=== PATIENT | male | born 1965 | race Caucasian/White ===

== ENCOUNTER → 2017-11-11 07:42 | Outpatient (CLI) | payer MEDICARE, SELFPAY ==
[2017-11-11 10:10] LABS: Abs Immature Grans 0.04 k/cumm (0.0-0.09); Absolute Basophil Count 0.03 k/cumm (0.0-0.2); Absolute Eosinophil Count 0.23 k/cumm (0.0-0.7); Absolute Lymphocyte Count 1.53 k/cumm (1.2-3.4); Absolute Monocyte Count 0.51 k/cumm (0.11-0.7); Absolute Neutrophil Count 3.04 k/cumm (1.2-6.7); Basophils % 0.6; Eosinophils % 4.3; HCT 45.8 % (40.0-50.0); HGB 15.9 g/dL (13.5-17.5); Immature Grans % 0.7; Lymphocytes % 28.4; Mean Corp. HGB Concentration 34.7 g/dL (32.0-36.0); Mean Corpuscular Hemoglobin 30.6 pg (27.0-33.0); Mean Corpuscular Volume 88.2 fL (80-95); Mean Platelet Volume 11.1 fL (8.0-11.0); Monocytes % 9.5; Neutrophils % 56.5; RBC 5.19 m/cumm (4.50-6.00); RBC Distribution Width 13.3 % (11.8-14.1); White Blood Cell Count 5.38 k/cumm (4.4-10.8)
[2017-11-11 11:13] LABS: ALT 83 U/L (12-78); AST 64 U/L (15-37); Albumin 4.2 g/dL (3.4-5.0); Alkaline Phosphatase 132 U/L (46-116); Anion Gap 10.7 mmol/L (3-11); BUN 13 mg/dL (7-18); Bilirubin, Total 0.9 mg/dL (0.2-1.0); CO2 26.3 mmol/L (21.0-32.0); CREATININE 0.75 mg/dL (0.70-1.30); Calcium 8.7 mg/dL (8.5-10.1); Chloride 103 mmol/L (98-107); GGT 408 U/L (15-85); Glucose 106 mg/dL (70-100); Potassium 4.3 mmol/L (3.5-5.1); Sodium 140 mmol/L (136-145); Total Protein 7.9 g/dL (6.4-8.2)
[2017-11-11 11:51] LABS: Platelet Count 98 x1000/uL (130-400)
== END ==
PROVIDERS: PCP Family Medicine; Visit Provider Family Medicine
DX: K70.0 Alcoholic fatty liver (principal); R73.01 Impaired fasting glucose; Z85.79 Personal history of other malignant neoplasms of lymphoid, hematopoietic and related tissues; R73.9 Hyperglycemia, unspecified; Z41.9 Encounter for procedure for purposes other than remedying health state, unspecified
CPT/HCPCS: 36415; 80053; 86900; 86901; 82977; 83036; 85025

== ENCOUNTER 2018-05-03 09:59 | Emergency (ER) | payer MEDICARE, SELFPAY ==
[2018-05-03 10:04] VITALS: BP 160/99; PULSE 98; RESP 18; TEMP 36.6; O2SAT 96
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
[2018-05-03] MEDS: Amoxicillin 875/Clav. 125 TAB PO (11:21)
== END 2018-05-03 11:27 | disposition home or self-care (01) ==
PROVIDERS: Emergency Provider Student in an Organized Health Care Education/Training Program; PCP Family Medicine
DX: K08.419 Partial loss of teeth due to trauma, unspecified class (principal); S01.511A Laceration without foreign body of lip, initial encounter; Y04.0XXA Assault by unarmed brawl or fight, initial encounter; E11.9 Type 2 diabetes mellitus without complications
CPT/HCPCS: 12011; 99282

== ENCOUNTER 2018-05-26 09:49 | Outpatient (CLI) | payer MEDICARE, SELFPAY ==
[2018-05-26 13:06] LABS: HCT 45.5 % (40.0-50.0); HGB 15.9 g/dL (13.5-17.5); Mean Corp. HGB Concentration 34.9 g/dL (32.0-36.0); Mean Corpuscular Hemoglobin 30.4 pg (27.0-33.0); Mean Platelet Volume 11.7 fL (8.0-11.0); RBC 5.23 m/cumm (4.50-6.00); RBC Distribution Width 12.6 % (11.8-14.1); White Blood Cell Count 5.17 k/cumm (4.4-10.8)
[2018-05-26 13:57] LABS: Platelet Count 92 x1000/uL (130-400)
[2018-05-26 15:03] LABS: ALT 72 U/L (12-78); AST 59 U/L (15-37); Albumin 4.2 g/dL (3.4-5.0); Alkaline Phosphatase 146 U/L (46-116); Anion Gap 9.6 mmol/L (3-11); BUN 14 mg/dL (7-18); Bilirubin, Total 1.6 mg/dL (0.2-1.0); CO2 28.4 mmol/L (21.0-32.0); Calcium 9.2 mg/dL (8.5-10.1); Chloride 102 mmol/L (98-107); Cholesterol 222 mg/dL (50-200); GGT 413 U/L (15-85); Glucose 168 mg/dL (70-100); HDL Cholesterol 51 mg/dL (40-60); LDL CHOLESTEROL 153 mg/dL (<100); Potassium 4.2 mmol/L (3.5-5.1); Sodium 140 mmol/L (136-145); Total Protein 7.8 g/dL (6.4-8.2); Triglyceride 93 mg/dL (30-150); Vitamin B12 566 pg/mL (193-986)
[2018-05-26 15:05] LABS: Folate > 20.0 ng/mL (8.6-20.0)
== END 2018-05-26 10:09 ==
PROVIDERS: PCP Family Medicine; Visit Provider Family Medicine
DX: K70.10 Alcoholic hepatitis without ascites (principal); E78.5 Hyperlipidemia, unspecified
CPT/HCPCS: 36415; 80053; 80061; 83721; 85027; 82607; 82746; 82977

== ENCOUNTER 2018-06-13 08:45 | Emergency (ER) | payer MEDICARE, SELFPAY ==
[2018-06-13] VITALS (30 sets, daily range): BP systolic 160–193; BP diastolic 81–108; PULSE 81–101; RESP 14–26; TEMP 36.5; O2SAT 92–98
--- NOTE | 2018-06-13 09:00 | W.ED.GENAD ---
Discharge Plan Disposition Patient Disposition: HOME Condition: Stable Discharge Details Chief Complaint: Chest Pain Clinical Impression: Hypertension, Chest pain Primary Care Provider: Valerie Cohen ED Provider: Michael Blanco Home Meds and New Rx's Prescriptions: New lisinopril 10 mg tablet 10 mg PO DAILY Qty: 14 RF: 0 Continued multivitamin tablet 1 tab PO DAILY RF: 0 cholecalciferol (vitamin D3) 400 unit capsule 400 unit PO DAILY RF: 0 fluoxetine [Prozac] 20 mg capsule 60 mg PO DAILY Qty: 90 RF: 6 sildenafil [Viagra] 100 MG tablet 100 mg PO DAILY Qty: 10 RF: 2 clonazepam 1 mg tablet 1 mg PO BID PRN Qty: 35 RF: 0 Discharge Instructions Instructions: Hypertension (ED) Additional Instructions: Follow up with your primary care provider within a week, and discuss if you should continue the lisinopril if you have worsening chest pain or difficulty breathing return to the emergency department Medical Decision Making 52 yo male comes in with high blood pressures for a week, had a systolic at home of 200 so called pcp who referred here. Denies any chest pain now, does feel anxious and has hx of this. He is hypertensive here, ekg unchanged, do not feel acute lowering of bp indicated. Given his chest pain, heart score of 3 based on age and risk factors, will send troponin. No tearing back pain to suggest dissection and normal vascular exam. He has no evidence of dvt and no hypoxia or significant tachycardia to suggest pe at this time. Normal lung sounds without pleuritic chest pain and no cough or fever so unlikely ptx and pna and do not feel xray indicated pt feels better after klonopin, bp improved with this as well, initial labs show no acute abnormalities. Will obtain delta troponin and ecg. The pt states he would feel much better being on an antihypertensive and requests I start him on one. Given his hx of DM will start him on lisinopril second ekg unchanged as is troponin. Remains stable. I am going to d/c him and advised f/u with pcp within a week, return precautions given Differential Diagnosis htn, anxiety, acs, pe, dissection Lab Data Lab results reviewed: Yes I reviewed the patient's lab results. ECG Data Attestation: I personally reviewed and interpreted this ECG (s) as follows: Prior ECG tracings: available for review Interpretation: sinus rhythm, rate of 92, pr 164, no acute ischemic st t wave changes 2nd ekg shows sinus rhythm, rate of 84, no acute st t wave ischemic changes HPI General Mode of arrival: ambulatory. Date/Time Provider Initiated Documentation: 06/13/18 08:45. Limitations to Documentation: no limitations. Information obtained by: patient. History of Present Illness 52 year old M presents to the emergency department with the chief complaint of high blood pressures, Patient started experiencing this week(s) (1) and it has been intermittent. No relieving factors improve symptom(s), No exacerbating factors reported . Patient notes chest pain. Patient did receive the following treatments prior to arrival, none Related Data Home Medications Medication Instructions Recorded Confirmed sildenafil [Viagra] 100 mg PO DAILY #10 tab-cap 05/06/17 06/12/18 clonazepam 1 mg tablet 1 mg PO BID PRN #35 tab 05/13/18 06/13/18 cholecalciferol (vitamin D3) 400 400 unit PO DAILY 05/26/18 06/13/18 unit capsule fluoxetine 20 mg capsule 60 mg PO DAILY #90 tab-cap 05/26/18 06/13/18 multivitamin tablet 1 tab PO DAILY 05/26/18 06/13/18 lisinopril 10 mg PO DAILY #14 tab 06/13/18 Previous Rx's Medication Instructions Recorded sildenafil [Viagra] 100 mg PO DAILY #10 tab-cap 05/06/17 clonazepam 1 mg tablet 1 mg PO BID PRN #35 tab 05/13/18 fluoxetine 20 mg capsule 60 mg PO DAILY #90 tab-cap 05/26/18 lisinopril 10 mg PO DAILY #14 tab 06/13/18 Allergies Allergy/AdvReac Type Severity Reaction Status Date / Time No Known Allergies Allergy Unverified 06/12/18 13:33 General Stated Complaint: Chest Pain ANNETTE: 2 Review of Systems Review of Systems All systems reviewed & are unremarkable except as noted in HPI and below Constitutional Denies chills and Denies fever(s) ENT Denies change in voice Cardiovascular Denies dyspnea Respiratory Denies cough and Denies dyspnea Gastrointestinal Denies abdominal pain, Denies nausea and Denies vomiting Integumentary/Breasts Denies rash Endocrine Denies heat intolerance [facility] Medical History Depression Hypertension Low back pain Surgical History Tooth extraction Family History Mother Diabetes Father No problems noted. Sister Depression Sister No problems noted. Social History Smoking/Tobacco Use Status: Former Tobacco Use Drug use: Rarely Substance use type: does not use Details: stopped drinking 11 days ago but had beer yesterday Do you feel safe at home: Yes Do you feel safe in your relationship?: Yes Exam Const General: anxious Orientation: alert HENMT Head: normal to inspection Ears: external ears normal General nose exam: external nose normal Mouth: moist mucous membranes Eyes General: appearance normal, both eyes and all related structures Neck Neck: normal visual inspection Resp Effort & Inspection: normal respiratory effort and able to speak in complete sentences Cardio Rate: regular rate Skin General skin exam: no rashes or lesions noted Neuro General: alert and oriented x3 Extrem General: normal to inspection Psych Mental Status: mental status grossly normal Course Vital Signs Temperature 36.5 C 06/13/18 08:52 Pulse 98 H 06/13/18 08:52 Respiratory Rate 16 06/13/18 08:52 Blood Pressure 193/106 H 06/13/18 08:52 Pulse Oximetry 96 06/13/18 08:52 Temperature 36.5 C 06/13/18 08:52 Temperature Source Temporal Artery Scan 06/13/18 08:52 Pulse 98 H 06/13/18 08:52 Respiratory Rate 16 06/13/18 08:52 Respiratory Effort Non-Labored 06/13/18 08:56 Blood Pressure 193/106 H 06/13/18 08:52 Pulse Oximetry 96 06/13/18 08:52 Oxygen Delivery Method Room Air 06/13/18 08:52 Oxygen Flow Rate 0 06/13/18 08:52 Pain Level 5 06/13/18 08:52
[2018-06-13 09:07] LABS: Abs Immature Grans 0.01 k/cumm (0.0-0.09); Absolute Basophil Count 0.02 k/cumm (0.0-0.2); Absolute Eosinophil Count 0.15 k/cumm (0.0-0.7); Absolute Lymphocyte Count 1.02 k/cumm (1.2-3.4); Absolute Monocyte Count 0.48 k/cumm (0.11-0.7); Absolute Neutrophil Count 2.87 k/cumm (1.2-6.7); Basophils % 0.4; Eosinophils % 3.3; HGB 15.7 g/dL (13.5-17.5); Immature Grans % 0.2; Lymphocytes % 22.4; Mean Corp. HGB Concentration 35.7 g/dL (32.0-36.0); Mean Corpuscular Hemoglobin 30.4 pg (27.0-33.0); Mean Corpuscular Volume 85.3 fL (80-95); Mean Platelet Volume 10.3 fL (8.0-11.0); Monocytes % 10.5; Neutrophils % 63.2; RBC 5.16 m/cumm (4.50-6.00); RBC Distribution Width 12.3 % (11.8-14.1); White Blood Cell Count 4.55 k/cumm (4.4-10.8)
[2018-06-13] MEDS: clonazePAM 1 MG TAB PO (09:07)
[2018-06-13] MEDS: Normal Saline 1,000 ML 1000 ML IV (09:08)
[2018-06-13 09:21] LABS: ALT 64 U/L (12-78); AST 46 U/L (15-37); Alkaline Phosphatase 138 U/L (46-116); Anion Gap 9.1 mmol/L (3-11); BUN 12 mg/dL (7-18); Bilirubin, Total 1.6 mg/dL (0.2-1.0); CO2 25.9 mmol/L (21.0-32.0); CREATININE 0.88 mg/dL (0.70-1.30); Chloride 97 mmol/L (98-107); Glucose 236 mg/dL (70-100); Magnesium 1.8 mg/dL (1.8-2.4); Potassium 3.7 mmol/L (3.5-5.1); Sodium 132 mmol/L (136-145); Total Protein 7.9 g/dL (6.4-8.2)
[2018-06-13 09:22] LABS: Diff Comment Diff Reviewed; Platelet Count 74 x1000/uL (130-400); RBC Morphology Normal
--- NOTE | 2018-06-13 09:24 | NUR.NOTE ---
Nursing Note: Pt anxious. 1mg klonopin given as ordered. bp trending down. denies any sob. reports mild chest tightness, MD aware. at bedside, will continue to monitor.
[2018-06-13 09:27] LABS: Troponin I < 0.02 ng/mL (0.00-0.06)
[2018-06-13] MEDS: Lisinopril 10 MG TAB PO (10:19)
[2018-06-13 11:25] LABS: Troponin I < 0.02 ng/mL (0.00-0.06)
== END 2018-06-13 11:42 | disposition home or self-care (01) ==
PROVIDERS: Emergency Provider Emergency Medicine; PCP Family Medicine
DX: I10 Essential (primary) hypertension (principal); R07.9 Chest pain, unspecified; E11.9 Type 2 diabetes mellitus without complications
CPT/HCPCS: 36415; 80053; 93005; 96360; 96361; 99284; 83735; 84484; 85025; 93010; J3490

== ENCOUNTER 2018-06-19 20:15 | Emergency (ER) | payer MEDICARE, SELFPAY ==
[2018-06-19] VITALS (23 sets, daily range): BP systolic 117–121; BP diastolic 66–74; PULSE 87–108; RESP 12–22; TEMP 37.3; O2SAT 93–96
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
[2018-06-19] MEDS: Normal Saline 1,000 ML 1000 ML IV ×2 (20:30→22:50)
[2018-06-19] MEDS: Omnipaque 350 MG/ML 100 ML BTL IJ (21:19)
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
[2018-06-19 21:43] LABS: Abs Immature Grans 0.05 k/cumm (0.0-0.09); Absolute Basophil Count 0.03 k/cumm (0.0-0.2); Absolute Eosinophil Count 0.14 k/cumm (0.0-0.7); Absolute Lymphocyte Count 2.34 k/cumm (1.2-3.4); Absolute Monocyte Count 0.78 k/cumm (0.11-0.7); Basophils % 0.4; Eosinophils % 1.8; HCT 42.9 % (40.0-50.0); HGB 15.2 g/dL (13.5-17.5); Immature Grans % 0.6; Lymphocytes % 29.8; Mean Corp. HGB Concentration 35.4 g/dL (32.0-36.0); Mean Corpuscular Hemoglobin 30.2 pg (27.0-33.0); Mean Corpuscular Volume 85.3 fL (80-95); Mean Platelet Volume 10.5 fL (8.0-11.0); Monocytes % 9.9; Neutrophils % 57.5; Platelet Count 110 x1000/uL (130-400); RBC 5.03 m/cumm (4.50-6.00); RBC Distribution Width 12.6 % (11.8-14.1); White Blood Cell Count 7.84 k/cumm (4.4-10.8)
[2018-06-19 21:58] LABS: ETHANOL BLOOD 116.5 mg/dL (<3)
[2018-06-19 22:01] LABS: INR 1.2 (0.9-1.1); PTT Activated 24.8 sec (21.0-31.4); Prothrombin Time 12.2 sec (9.3-11.0)
[2018-06-19 22:10] LABS: ALT 67 U/L (12-78); AST 66 U/L (15-37); Albumin 3.8 g/dL (3.4-5.0); Alkaline Phosphatase 126 U/L (46-116); Anion Gap 13.1 mmol/L (3-11); BUN 12 mg/dL (7-18); Bilirubin, Total 1.3 mg/dL (0.2-1.0); CO2 21.9 mmol/L (21.0-32.0); CREATININE 0.94 mg/dL (0.70-1.30); Calcium 8.7 mg/dL (8.5-10.1); Chloride 98 mmol/L (98-107); Glucose 123 mg/dL (70-100); Potassium 4.2 mmol/L (3.5-5.1); Sodium 133 mmol/L (136-145); Total Protein 7.4 g/dL (6.4-8.2)
[2018-06-19 22:13] LABS: Troponin I < 0.02 ng/mL (0.00-0.06)
[2018-06-19] MEDS: Ketorolac 15 MG/ML VIAL IVP (22:44)
[2018-06-20] VITALS (36 sets, daily range): BP systolic 113–125; BP diastolic 64–73; PULSE 85–96; RESP 12–26; O2SAT 92–96
[2018-06-20 00:17] LABS: Troponin I 0.02 ng/mL (0.00-0.06)
== END 2018-06-20 00:53 | disposition home or self-care (01) ==
PROVIDERS: Student in an Organized Health Care Education/Training Program; Emergency Provider Emergency Medicine; PCP Family Medicine
DX: R07.9 Chest pain, unspecified (principal); S00.83XA Contusion of other part of head, initial encounter; S00.01XA Abrasion of scalp, initial encounter; F10.120 Alcohol abuse with intoxication, uncomplicated; X58.XXXA Exposure to other specified factors, initial encounter; K70.0 Alcoholic fatty liver; I10 Essential (primary) hypertension
CPT/HCPCS: 36415; 80053; 93005; 96361; 96374; 99285; 70450; 70486; 71260; 72125; 80320; 84484; 85025; 85610; 85730; 93010; J1885; J3490

== ENCOUNTER → 2018-07-02 10:16 | Outpatient (BNVA) | payer MEDICARE, SELFPAY | PROVIDERS: PCP Family Medicine; Referring Provider Family Medicine; Visit Provider Psychiatry & Neurology Neurology | DX: R68.89 Other general symptoms and signs (principal); G51.31 Clonic hemifacial spasm, right; E11.9 Type 2 diabetes mellitus without complications | CPT/HCPCS: 99214 ==

== ENCOUNTER 2018-07-15 00:28 | Outpatient (CLI) | payer MEDICARE, SELFPAY ==
--- NOTE | 2018-07-15 06:44 | DI.US_ITS ---
SYMPTOM/DIAGNOSIS: HEPATITIS, ALCOHOLIC, K70.10 ABDOMEN ULTRASOUND: Comparison is made with 08/05/14. The liver is enlarged and shows extremely increased echogenicity and decrease through transmission. No focal liver lesions or biliary dilatation is seen. The gallbladder is contracted. The spleen is enlarged at 17 cm. No ascites is identified. The kidneys and aorta are unremarkable. The pancreas was not well visualized. IMPRESSION: Hepatosplenomegaly. No evidence of focal liver lesion.
== END 2018-07-15 00:48 ==
PROVIDERS: Visit Provider Family Medicine
DX: K70.10 Alcoholic hepatitis without ascites (principal); R16.2 Hepatomegaly with splenomegaly, not elsewhere classified
CPT/HCPCS: 76700

== ENCOUNTER → 2018-08-11 11:07 | Outpatient (BNVA) | payer MEDICARE, SELFPAY | PROVIDERS: PCP Family Medicine; Visit Provider Psychiatry & Neurology Neurology | DX: I10 Essential (primary) hypertension (principal); Z53.21 Procedure and treatment not carried out due to patient leaving prior to being seen by health care provider; F10.99 Alcohol use, unspecified with unspecified alcohol-induced disorder; E11.8 Type 2 diabetes mellitus with unspecified complications | CPT/HCPCS: 99211; 99212 ==

== ENCOUNTER 2018-10-22 01:58 | Outpatient (CLI) | payer MEDICARE, SELFPAY ==
[2018-10-22 09:49] LABS: Anion Gap 13.5 mmol/L (3-11); BUN 10 mg/dL (7-18); CO2 24.5 mmol/L (21.0-32.0); CREATININE 0.86 mg/dL (0.70-1.30); Chloride 98 mmol/L (98-107); Glucose 203 mg/dL (70-100); Potassium 4.1 mmol/L (3.5-5.1); Sodium 136 mmol/L (136-145)
== END 2018-10-22 02:18 ==
PROVIDERS: PCP Family Medicine; Visit Provider Family Medicine
DX: R73.9 Hyperglycemia, unspecified (principal)
CPT/HCPCS: 36415; 80048

== ENCOUNTER 2018-12-17 02:05 | Outpatient (CLI) | payer MEDICARE, SELFPAY ==
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
== END 2018-12-17 02:25 ==
PROVIDERS: PCP Family Medicine; Visit Provider Dietitian, Registered
DX: E11.9 Type 2 diabetes mellitus without complications (principal); Z79.84 Long term (current) use of oral hypoglycemic drugs; Z71.3 Dietary counseling and surveillance
CPT/HCPCS: 97802

== ENCOUNTER 2020-01-22 08:48 | Outpatient (CLI) | payer MEDICARE, SELFPAY ==
[2020-01-26 19:42] LABS: Patient Race White; SARS-CoV-2 RNA Undetected (Undetected); SARS-CoV-2 Specimen Source Nasal
== END 2020-01-22 09:08 ==
PROVIDERS: PCP Family Medicine; Visit Provider Nurse Practitioner Adult Health
DX: R50.9 Fever, unspecified (principal); J02.9 Acute pharyngitis, unspecified
CPT/HCPCS: U0003

== ENCOUNTER 2020-05-16 02:47 | Outpatient (CLI) | payer MEDICARE, SELFPAY ==
[2020-05-17 13:13] LABS: COVID-19 RT-PCR UVMMC Result Negative (Negative)
== END 2020-05-16 02:48 | disposition home or self-care (01) ==
LOC: LBO 02:47
PROVIDERS: PCP Family Medicine; Visit Provider Family Medicine
DX: Z20.822 Contact with and (suspected) exposure to COVID-19 (principal)
CPT/HCPCS: U0003; U0005

== ENCOUNTER 2020-07-13 02:02 | Outpatient (CLI) | payer MEDICARE, SELFPAY ==
--- NOTE | 2020-07-13 11:30 | DI.US_ITS ---
EXAM: US AXILLA LT CLINICAL HISTORY: L sided lymphadenopathy,unspecified lump axillary tail,n63.32 TECHNIQUE: Ultrasound left axilla performed using standard protocol. COMPARISON: US US ABDOMEN from 07/15/2018 FINDINGS: Dedicated ultrasound examination of the area of concern in the left axillary region reveals a subcuta neous finding measuring 2.5 x 0.5 x 2.2 cm which is relatively isoechoic to fat and is avascular. Pr obable lipoma. There is no abnormal fluid collection. IMPRESSION: Probable lipoma with measurements as above. Recommend follow-up ultrasound in 6 months time to ensur e stability, earlier if clinically indicated.. DATA REPOSITORY:
[2020-07-13 14:56] LABS: Abs Immature Grans 0.03 10^3/uL (0.0-0.06); Absolute Basophil Count 0.07 10^3/uL (0.0-0.2); Absolute Eosinophil Count 0.24 10^3/uL (0.0-0.7); Absolute Lymphocyte Count 1.16 10^3/uL (1.2-3.4); Absolute Monocyte Count 0.91 10^3/uL (0.1-0.8); Absolute Neutrophil Count 3.34 10^3/uL (1.2-6.7); Basophils % 1.2; Eosinophils % 4.2; Immature Grans % 0.5; Lymphocytes % 20.2; MCH 30.4 pg (27.0-33.0); MCHC 34.1 % (32.0-36.0); MCV 89.1 fL (80-95); Monocytes % 15.8; Neutrophils % 58.1; Nucleated RBC 0 %; Platelet Count 97 10^3/uL (130-400); RDW 12.7 % (11.8-14.1); RDW-SD 41.7 fL; WBC 5.75 10^3/uL (4.4-10.8)
[2020-07-13 15:40] LABS: Diff Comment Agrees w/ Instrument; RBC Morphology Normal
== END 2020-07-13 02:03 | disposition home or self-care (01) ==
LOC: LBO 02:02
PROVIDERS: PCP Family Medicine; Visit Provider Family Medicine
DX: R59.1 Generalized enlarged lymph nodes (principal); N63.32 Unspecified lump in axillary tail of the left breast
CPT/HCPCS: 36415; 76642; 85025

== ENCOUNTER 2021-05-09 02:24 | Outpatient (CLI) | payer MEDICARE, SELFPAY ==
[2021-05-09 11:23] LABS: ALT 55 U/L (16-63); AST 113 U/L (15-37); Albumin 3.5 g/dL (3.4-5.0); Alkaline Phosphatase 184 U/L (46-116); Anion Gap 7.2 mmol/L (3-11); BUN 5 mg/dL (7-18); Bilirubin, Total 2.4 mg/dL (0.2-1.0); CO2 27.8 mmol/L (21.0-32.0); CREATININE 0.6 mg/dL (0.70-1.30); Calcium 8.4 mg/dL (8.5-10.1); Calculated LDL 113 mg/dL (<100); Chloride 97 mmol/L (98-107); Cholesterol 222 mg/dL (<200); Glucose 138 mg/dL (74-106); HDL Cholesterol 94 mg/dL (40-60); Sodium 132 mmol/L (136-145); Triglyceride 79 mg/dL (<150)
== END 2021-05-09 02:25 | disposition home or self-care (01) ==
LOC: LBO 02:24
PROVIDERS: PCP Family Medicine; Visit Provider Family Medicine
DX: E11.9 Type 2 diabetes mellitus without complications (principal); I10 Essential (primary) hypertension
CPT/HCPCS: 36415; 80053; 80061

== ENCOUNTER 2021-05-20 22:12 | Emergency (ER) | payer MEDICARE, SELFPAY ==
[2021-05-20] VITALS (22 sets, daily range): BP systolic 128–141; BP diastolic 67–76; PULSE 88–92; RESP 16; TEMP 36.7; O2SAT 96–98
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
--- NOTE | 2021-05-20 22:30 | ED.GENADUL_ITS ---
Discharge Plan Disposition Patient Disposition: HOME Condition: Stable Discharge Details Clinical Impression: Hepatitis, alcoholic, ETOH abuse, Dehydration Primary Care Provider: David Landaverde ED Provider: Michael Blanco Home Meds and New Rx's Prescriptions: New ondansetron 4 mg tablet,disintegrating 4 mg PO Q8H PRN (Reason: nausea and vomiting) Qty: 30 0RF Continued (DME) blood sugar diagnostic Strip See Rx Instructions .ROUTE .MEDSUPPLY Qty: 100 3RF Rx Instructions: As directed; Test daily, to keep HbA1c less than 6.5%; Dx: E11.9 (DME) blood-glucose meter Misc See Rx Instructions .ROUTE .MEDSUPPLY Qty: 1 0RF Rx Instructions: As directed, test daily to keep HbA1c less than 6.5%, Dx: E11.9 metformin 500 mg tablet extended release 24hr 500 mg PO DAILY Qty: 90 3RF cholecalciferol (vitamin D3) 400 unit capsule 400 unit PO DAILY 0RF (DME) lancets Misc See Rx Instructions .ROUTE .MEDSUPPLY Qty: 100 12RF Rx Instructions: As directed daily, to keep HbA1c below 6.5%, Dx: E11.8 fluoxetine 20 mg capsule 40 mg PO DAILY Qty: 90 3RF omeprazole 20 mg capsule,delayed release(DR/EC) 20 mg PO DAILY Qty: 90 3RF sildenafil [Viagra] 100 mg tablet 100 mg PO DAILY Qty: 10 2RF Rx Instructions: 1/2 TO 1 TAB 45 to 60 MINUTES PRIOR to intercourse/ MAXIMUM DAILY DOSE IS 100MG irbesartan 75 mg tablet 75 mg PO DAILY Qty: 180 3RF celecoxib 200 mg Capsule 200 mg PO DAILY 0RF Discharge Instructions Instructions: Abuse of Alcohol (ED) Additional Instructions: your labs show evidence of liver injury from the excessive alcohol use follow up with the coach cleaner and also your primary care provider within a week if you feel more ill, have severe abdominal pain or persistent vomit return to the emergency department Medical Decision Making 55 yo male with hx of htn, t2dm, psychogenic nonepileptic seizures, alcohol abuse, who was brought in by his with complaints of feeling lightheaded and dehydrated. He states he normally will drink about 12 beers a day and has had at least this today. The last few days he has not been able to keep water down and has had several episodes of vomit. He denies any abdominal pain, chest pain, fevers, chills. He has had several falls due to being intoxicated denies falls today and has no signs of trauma to the head. He arrives caox4 with clear speech. He has no focal or motor sensation deficits. He does state he feels like he is going to from his alcohol abuse but denies any thoughts of self harm or thoughts of wanting to harm others. He has no abdominal tenderness on exam. I suspect his symptoms are from his excessive alcohol use disorder, given lack of abdominal tenderness doubt surgical pathology such as sbo or cholecystitis and do not feel ct abd/pelvis indicated. no chest pain or dyspnea to suggest acs, pe or dissection and is sinus on the monitor so doubt arrhythmia, suspect the lightheaded sensation is due to mild dehydration and the alcohol abuse. Given his falls will image his head to evaluate for sdh and evaluate for electrolyte abnormalities and reassess after zofran and fluids. pt's labs consistent with chronic excessive alcohol use and evidence of liver dysfunction, elevated bilirubin to 2.4 and is conjugated consistent with alcoholic hepatitis, sodium of 127 from the alcohol use. Etoh level over 200 and remarkably is clinically sober. Discussed these findings with the patient and discussed if he continues to drink he will likely from liver dysfunction/failure. Still has no abdominal pain and has no tenderness on exam. He is not ill enough to require hospitalization at this time. HE is being given information on contacting the coach cleaner and also will f/u with his pcp as he should have an outpatient u/s of his liver. He understands risks of continued drinking, still has no si/hi. Return precautions given Differential Diagnosis Differential Diagnosis: alcohol abuse, electrolyte abnormality, alcoholic hepatitis Medical Records Medical records reviewed: Yes I reviewed the patient's medical records. Imaging Data Radiologic Study: Attestation: I personally reviewed and interpreted this imaging study as follows: Imaging: CT Scan Radiologist's impression: no acute findings Lab Data Lab results reviewed: Yes I reviewed the patient's lab results. HPI General Date/Time Provider Initiated Documentation: 05/20/21 22:13 . Limitations to Documentation: no limitations . Information obtained by: patient . History of Present Illness 55 year old M presents to the emergency department with the chief complaint of feel dehydrated, described as moderate, Patient started experiencing this day(s) (3) and it has been constant. improves with No relieving factors improve symptom(s), No exacerbating factors reported . Patient notes denies chest pain and shortness of breath. Patient did receive the following treatments prior to arrival, none Related Data Home Medications Medication Instructions Recorded Confirmed cholecalciferol (vitamin D3) 10 400 unit PO DAILY 05/26/18 11/07/20 mcg (400 unit) capsule blood sugar diagnostic #100 each 12/11/18 11/07/20 blood-glucose meter #1 each 12/11/18 11/07/20 lancets #100 each 03/31/19 11/07/20 metformin 500 mg tablet,extended 500 mg PO DAILY #90 tab 11/07/20 05/20/21 release 24hr fluoxetine 20 mg capsule 40 mg PO DAILY #90 cap 05/12/21 05/20/21 irbesartan 75 mg tablet 75 mg PO DAILY #180 tab 05/12/21 05/20/21 omeprazole 20 mg capsule,delayed 20 mg PO DAILY #90 cap 05/12/21 05/20/21 release sildenafil 100 mg tablet (Viagra) 100 mg PO DAILY #10 tab-cap 05/12/21 05/20/21 celecoxib 200 mg capsule 200 mg PO DAILY 05/20/21 05/20/21 ondansetron 4 mg disintegrating 4 mg PO Q8H PRN #30 tab 05/20/21 tablet Previous Rx's Medication Instructions Recorded blood sugar diagnostic #100 each 12/11/18 blood-glucose meter #1 each 12/11/18 lancets #100 each 03/31/19 metformin 500 mg tablet,extended 500 mg PO DAILY #90 tab 11/07/20 release 24hr fluoxetine 20 mg capsule 40 mg PO DAILY #90 cap 05/12/21 irbesartan 75 mg tablet 75 mg PO DAILY #180 tab 05/12/21 omeprazole 20 mg capsule,delayed 20 mg PO DAILY #90 cap 05/12/21 release sildenafil 100 mg tablet (Viagra) 100 mg PO DAILY #10 tab-cap 05/12/21 ondansetron 4 mg disintegrating 4 mg PO Q8H PRN #30 tab 05/20/21 tablet Allergies Allergy/AdvReac Type Severity Reaction Status Date / Time No Known Allergies Allergy Verified 05/12/21 11:28 General Stated Complaint: ETOHWithdr ANNETTE: 3 Review of Systems All systems reviewed & are unremarkable except as noted in HPI and below Constitutional Constitutional: Denies chills, Denies fever(s) and Denies weakness Eyes Eyes: Denies loss of vision Cardiovascular Cardiovascular: Denies chest pain and Denies dyspnea Respiratory Respiratory: Denies cough and Denies dyspnea Gastrointestinal Gastrointestinal: Denies abdominal pain Integumentary/Breasts Skin/Breast: Denies rash Neurologic Neurologic: Denies loss of vision and Denies weakness Psychiatric Psychiatric: Denies depression PFSH All Active Problems (Updated 05/20/21 @ 23:26 by Michael Blanco MD) Dehydration (Acute) Hypertension (Chronic) Unspecified lump in axillary tail of the left breast (Chronic) Lipoma by US 07/13; recommended repeat in 6 months Migraine (Chronic) Tinnitus (Acute) Diabetes mellitus type 2 in nonobese (Acute) Psychogenic nonepileptic seizure (Chronic) Benign hypertension (Acute 04/21/12) Fatigue (Acute 02/26/12) History of alcoholism (Acute) Type 2 diabetes mellitus with complication, without long-term current use of insulin (Acute 05/30/16) Personality disorder in adult (Acute) PTSD (post-traumatic stress disorder) (Acute) with paranoia 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 (Acute) ETOH abuse (Chronic) Spells of decreased attentiveness (Acute) Hyperlipidemia (Acute 07/03/12) Hepatitis, alcoholic (Acute 12/07/13) Fatty liver, alcoholic (Acute 05/30/16) Depressive disorder (Chronic 11/03/12) Chronic hip pain (Acute 11/24/14) -2014: / PT and Nsaids/osteoarthritis Anxiety (Chronic) Medical History (Updated 05/20/21 @ 23:26 by Michael Blanco MD) Depression Hypertension Lipoma of axilla Prediabetes Surgical History Tooth extraction ROOT CANAL Family History Mother Diabetes Sister Depression Other Alcohol abuse Bipolar 1 disorder Dementia Heart disease Schizophrenia Social History (Updated 11/07/20 @ 10:05 by Zuleyka Inman LPN) Smoking/Tobacco Use Status: Former Tobacco Use Smoking risk assessment performed?: Yes Alcohol Intake: current Alcohol Intake frequency: 3 or more drinks per day Alcohol type: beer Drug use: Never Substance use type: does not use Adopted: No Household members: spouse Housing: house Number of Children: 0 Communication Needs: None current occupation: Disabled Do you think of yourself as: straight/heterosexual Current gender identity: male What is your relationship status?: How often do you talk on the phone with friends or family?: three or more times per week How often do you get together with friends or relatives?: twice per week Do you belong to any clubs or organized social groups?: yes Panel score (0-1 are the most socially isolated patients): 3 What type of physical activity do you participate in: walking and weight lifting Frequency: 3-4 times per week Donita/Yarsani: Buddhist Seatbelt use: always Drive intox or ride w/intox 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 Past GF in 2017 from ovarian cancer. in 2018 to current partner. Exam Const General: no acute distress Orientation: alert HENMT Head: normal to inspection Ears: external ears normal General nose exam: external nose normal Mouth: moist mucous membranes Eyes General: appearance normal, both eyes and all related structures Neck Neck: normal visual inspection Resp Effort & Inspection: normal respiratory effort and able to speak in complete sentences Cardio Rate: regular rate GI Palpation: soft and nontender Skin General skin exam: no rashes or lesions noted Neuro General: patient alert and patient oriented x3 Extrem General: normal to inspection Psych Mental Status: mental status grossly normal Course Vital Signs Vital signs: Vital Signs Temperature 36.7 C 05/20/21 22:15 Pulse 92 H 05/20/21 22:15 Respiratory Rate 16 05/20/21 22:15 Blood Pressure 133/76 05/20/21 22:15 Pulse Oximetry 97 05/20/21 22:15 Temperature 36.7 C 05/20/21 22:15 Temperature Source Skin 05/20/21 22:15 Pulse 92 H 05/20/21 22:15 Respiratory Rate 16 05/20/21 22:15 Blood Pressure 133/76 05/20/21 22:15 Pulse Oximetry 97 05/20/21 22:15 Pain Level 0 05/20/21 22:15
[2021-05-20 22:31] LABS: BE (Venous) 2 mmol/L (-2-3); HCO3 (Venous) 27 mmol/L (23-28); O2 Sat (Venous) 63 %; TCO2 (Venous) 24 mmol/L (24-29); pCO2 (Venous) 47 mmHg (41-51); pH (Venous) 7.37 (7.31-7.41); pO2 (Venous) 38 mmHg
[2021-05-20 22:34] LABS: Abs Immature Grans 0.03 10^3/uL (0.0-0.06); Absolute Basophil Count 0.08 10^3/uL (0.0-0.2); Absolute Lymphocyte Count 1.51 10^3/uL (1.2-3.4); Absolute Monocyte Count 0.92 10^3/uL (0.1-0.8); Absolute Neutrophil Count 3.23 10^3/uL (1.2-6.7); Basophils % 1.3; Eosinophils % 4.9; HCT 39.1 % (40.0-50.0); HGB 13.4 g/dL (13.5-17.5); Immature Grans % 0.5; Lymphocytes % 24.9; MCH 30.3 pg (27.0-33.0); MCHC 34.3 % (32.0-36.0); MCV 88.5 fL (80-95); MPV 10.3 fL (8.0-11.0); Monocytes % 15.2; Neutrophils % 53.2; Nucleated RBC 0 %; RBC 4.42 10^6/uL (4.36-5.78); RDW-SD 45.4 fL; WBC 6.07 10^3/uL (4.4-10.8)
[2021-05-20 22:36] LABS: Platelet Count 96 10^3/uL (130-400)
[2021-05-20] MEDS: Normal Saline 1,000 ML 1000 ML IV (22:36)
[2021-05-20] MEDS: Ondansetron 4 MG/2 ML VIAL IVP (22:38)
[2021-05-20 22:52] LABS: INR 1.4 (0.9-1.1); Prothrombin Time 13.8 sec (9.3-11.0)
[2021-05-20 22:53] LABS: Salicylate < 2.8 mg/dL (<2.8)
--- NOTE | 2021-05-20 23:03 | DI.VRAD_ITS ---
PROCEDURE INFORMATION: Exam: CT Head Without Contrast Exam date and time: 05/20/2021 10:30 PM Age: 55 years old Clinical indication: Other: Fall head injury TECHNIQUE: Imaging protocol: Computed tomography of the head without contrast. COMPARISON: CT HEAD CERVICAL SPINE WO 06/19/2018 8:50 PM FINDINGS: Brain: The brain parenchyma is normal appearance. No intracranial hemorrhage. No loss of barajas-white differentiation to suggest an acute cortical infarct. Cerebral ventricles: No hydrocephalus. Paranasal sinuses: Mild mucosal thickening is seen throughout the frontal, ethmoid, maxillary and sphenoid sinuses. No fluid levels. Mastoid air cells: The mastoid air cells are well aerated. Bones/joints: The skull and skull base are normal appearance. The skull and skull base are normal appearance. Soft tissues: Unremarkable. IMPRESSION: No acute intracranial abnormality. Dictated and Authenticated by: Katty Madrigal MD. Ordering:YULIYA Rodriguez MD
[2021-05-20 23:07] LABS: ALT 44 U/L (16-63); AST 99 U/L (15-37); Acetaminophen < 2 ug/mL (10-30); Albumin 3.3 g/dL (3.4-5.0); Alkaline Phosphatase 160 U/L (46-116); Anion Gap 6.2 mmol/L (3-11); BUN 8 mg/dL (7-18); Bilirubin, Total 2.5 mg/dL (0.2-1.0); CO2 27.8 mmol/L (21.0-32.0); CREATININE 1.2 mg/dL (0.70-1.30); Calcium 8.5 mg/dL (8.5-10.1); Chloride 93 mmol/L (98-107); ETHANOL BLOOD 216.7 mg/dL (<10); Glucose 135 mg/dL (74-106); Magnesium 1.8 mg/dL (1.8-2.4); Potassium 3.5 mmol/L (3.5-5.1); Sodium 127 mmol/L (136-145); TSH (W/Ref FT4) 2.05 uIU/mL (0.36-3.74); Total Protein 7.8 g/dL (6.4-8.2)
[2021-05-20] MEDS: THIAMINE 100 MG in Normal Saline 100 ML 200 MG IVPB (23:14)
[2021-05-20] MEDS: Folic Acid 1 MG TAB PO (23:14)
[2021-05-20] MEDS: Multivitamin TAB 1 TAB PO (23:14)
[2021-05-20 23:16] LABS: Bilirubin, Direct 1.4 mg/dL (0.0-0.2)
[2021-05-20 23:20] LABS: Bilirubin Negative (Negative); Blood Trace-intact (Negative); Clarity Clear (Clear); Glucose Negative (Negative); Ketones Negative (Negative); Leukocyte Esterase Negative (Negative); Nitrite Negative (Negative); Specific Gravity 1.015 (1.005-1.025)
[2021-05-20 23:28] LABS: Bacteria Negative HPF (Negative); C & S Indicated? No; Crystals Negative HPF (Negative); Epithelial Cells Negative HPF (Negative); Mucus Negative (Negative); RBC 0-2 HPF (0-2); WBC Negative HPF (0-5)
[2021-05-20 23:33] LABS: *AMPHETAMINES SCREEN URINE Negative (Negative); *BARBITURATES SCREEN URINE Negative (Negative); *BENZODIAZEPINES SCREEN URINE Negative (Negative); Cannabinoids THC Negative (Negative); Cocaine Screen,Urine Negative (Negative); METHADONE URINE SCREEN Negative (Negative); OPIATES URINE SCREEN Negative (Negative); Tricyclic Antidepressants Negative (Negative)
[2021-05-21] MEDS: Ondansetron O.D.T. 4 MG TABEF, 3 TABS/BTL PO (00:10)
[2021-05-21 00:12] VITALS: BP 135/54; PULSE 84; RESP 18; O2SAT 98
== END 2021-05-21 00:18 | disposition home or self-care (01) ==
PROVIDERS: Emergency Provider Emergency Medicine; PCP Family Medicine
DX: K70.10 Alcoholic hepatitis without ascites (principal); F10.20 Alcohol dependence, uncomplicated; E86.0 Dehydration; S09.8XXA Other specified injuries of head, initial encounter; W18.39XA Other fall on same level, initial encounter; I10 Essential (primary) hypertension
CPT/HCPCS: 80053; 80307; 82805; 96361; 96365; 96375; 99284; 70450; 80320; 80329; 81003; 81015; 82248; 83735; 84443; 85025; 85610; 85730; J2405

== ENCOUNTER → 2022-01-17 12:37 | Outpatient (CLI) | payer MEDICARE, SELFPAY ==
--- NOTE | 2022-01-17 11:30 | DI.RAD_ITS ---
Exam(s) XR WRIST LT COMPLETE EXAM: XR WRIST LT COMPLETE CLINICAL HISTORY: PAIN IN LT WRIST-M25.532, FALL-[id number].XXXA TECHNIQUE: COMPARISON: No exams were available for comparison FINDINGS: Three views were obtained. No gross abnormality of alignment identified on the AP view. On the late ral view, there is an apparent bony fragment of the dorsum of the wrist, I am uncertain where this ar ises but it may be represent a lunate or triquetrum fracture. Additional evaluation with CT may be o btained to more accurately identified the fracture anatomy. IMPRESSION: Dorsal carpal fracture, CT suggested for additional evaluation. RADIATION DOSE DELIVERED: Total DLP
--- NOTE | 2022-01-17 12:00 | DI.RAD_ITS ---
Exam(s) XR SHOULDER LT COMPLETE 2+V EXAM: XR SHOULDER LT COMPLETE 2+V CLINICAL HISTORY: PAIN IN LT SHOULDER-M25.512, FALL-[id number].XXXA TECHNIQUE: COMPARISON: No exams were available for comparison FINDINGS: Five views were obtained. There is mild loss of the cartilaginous joint space of the glenohumeral alex int presumably on a degenerative basis. Mild marginal osteophyte formation of the glenoid and humeru s is noted along with mild hypertrophic degenerative changes of the AC joint. There is no evidence o f acute fracture or dislocation. IMPRESSION: RADIATION DOSE DELIVERED: Total DLP
== END ==
PROVIDERS: PCP Family Medicine; Visit Provider Nurse Practitioner
DX: S62.102A Fracture of unspecified carpal bone, left wrist, initial encounter for closed fracture (principal); W19.XXXA Unspecified fall, initial encounter; M25.512 Pain in left shoulder
CPT/HCPCS: 73030; 73110

== ENCOUNTER 2022-05-09 00:29 | Outpatient (CLI) | payer OTHER, SELFPAY ==
--- NOTE | 2022-05-09 06:45 | DI.MAMMO_ITS ---
Exam(s) US BREAST LT LIMITED MG MAMMO DIAGNOSTIC BI EXAM: MG MAMMO DIAGNOSTIC BI CLINICAL HISTORY: Painful mass on the L breast,N64.4. COMPARISON: No exams were available for comparison TECHNIQUE: Craniocaudal and mediolateral oblique Full Field Digital Mammography views of both breast s with Computer Aided Diagnosis followed by Tomosynthesis and left breast ultrasound. FINDINGS: Mammography/Tomosynthesis: Masses/Architectural Distortion: None seen. Small amount of breast tissue development seen in the sub areolar region. Appearance is consistent with mild asymmetric gynecomastia. Microcalcifications: No suspicious pleomorphic-type are seen. Skin Thickening/Nipple Retraction: None. Left breast US: Echotexture: Small amount of glandular tissue development in the subareolar region. Normal appearanc e of the glandular tissue. Shadowing: No suspicious foci. Cyst: None. Solid lesions: None seen. Ductal dilation: None. IMPRESSION: 1. No evidence of malignancy is noted. Findings consistent with mild left gynecomastia. BI-RADS Category 2 - Benign Findings Breast Density - Category A - Almost entirely fatty A negative radiographic report should not delay biopsy if a dominant or clinically suspicious mass is present. Up to ten percent of cancers are not identified on mammography. A negative report may reinforce clinical impression. Adenosis and dense breasts may obscure an underlying neoplasm. False positive reports average 6 to 10%. Patient will receive a letter notifying them of these results.
== END 2022-05-09 00:49 ==
PROVIDERS: PCP Family Medicine; Visit Provider Family Medicine
DX: N64.4 Mastodynia (principal); R92.8 Other abnormal and inconclusive findings on diagnostic imaging of breast
CPT/HCPCS: 76642; 77062; 77066; G0279

== ENCOUNTER 2022-10-25 04:30 | Outpatient (CLI) | payer OTHER, SELFPAY ==
[2022-10-25 10:39] LABS: ALT 20 U/L (16-63); AST 61 U/L (15-37); Albumin 2.4 g/dL (3.4-5.0); Alkaline Phosphatase 201 U/L (46-116); Anion Gap 6.3 mmol/L (3-11); BUN 4 mg/dL (7-18); Bilirubin, Total 5.2 mg/dL (0.2-1.0); CO2 24.7 mmol/L (21.0-32.0); CREATININE 0.7 mg/dL (0.70-1.30); Calcium 7.7 mg/dL (8.5-10.1); Chloride 92 mmol/L (98-107); Estimated GFR 107.47 (mL/min/1.73m2); Glucose 157 mg/dL (74-106); Potassium 3.4 mmol/L (3.5-5.1); Total Protein 6.7 g/dL (6.4-8.2); Vitamin B12 1449 pg/mL (193-986)
[2022-10-25 10:51] LABS: Sodium 123 mmol/L (136-145)
== END 2022-10-25 04:31 | disposition home or self-care (01) ==
PROVIDERS: PCP Family Medicine; Visit Provider Family Medicine
DX: E11.9 Type 2 diabetes mellitus without complications (principal); F10.20 Alcohol dependence, uncomplicated
CPT/HCPCS: 36415; 80053; 82607

== ENCOUNTER 2022-10-31 02:40 | Outpatient (CLI) | payer OTHER, SELFPAY ==
[2022-10-31 11:06] LABS: Anion Gap 4.5 mmol/L (3-11); BUN 2 mg/dL (7-18); CO2 28.5 mmol/L (21.0-32.0); CREATININE 0.8 mg/dL (0.70-1.30); Calcium 7.8 mg/dL (8.5-10.1); Chloride 102 mmol/L (98-107); Estimated GFR 103.22 (mL/min/1.73m2); Glucose 122 mg/dL (74-106); Potassium 3.7 mmol/L (3.5-5.1); Sodium 135 mmol/L (136-145)
== END 2022-10-31 02:41 | disposition home or self-care (01) ==
LOC: LBO 02:40
PROVIDERS: PCP Family Medicine; Referring Provider Family Medicine; Visit Provider Family Medicine
DX: E87.1 Hypo-osmolality and hyponatremia (principal); I10 Essential (primary) hypertension; E11.9 Type 2 diabetes mellitus without complications
CPT/HCPCS: 36415; 80048

== ENCOUNTER → 2022-11-21 00:52 | Outpatient (CLI) | payer OTHER, SELFPAY ==
--- NOTE | 2022-11-21 07:00 | DI.CT_ITS ---
Exam(s) CT ABDOMEN PELVIS WO EXAM: CT ABDOMEN PELVIS WO CLINICAL HISTORY: Distended abdomen, possible ascites, ALCOHOL ABUSE, F10.10. TECHNIQUE: Imaging Protocol: Axial computed tomography images with coronal and sagittal reformatted images were created and reviewed. Oral: / no COMPARISON: CT CT CHEST W from 06/19/2018 US US ABDOMEN from 07/15/2018 FINDINGS: ABDOMEN: Lung Bases: Normal where visualized. Liver: Liver now has a shrunken appearance consistent with cirrhosis. Nodular contour. Significant progression compared with the previous exam. Evaluation for mass limited due to lack of IV contras t. Gallbladder and biliary tract: No radiodense calculus or dilation. Pancreas: Normal density, no abnormal calcifications or inflammatory process. Spleen: Enlarged. Kidneys: Normal size, contour and axis. No radiodense stones or obstructive uropathy. No masses seen. Adrenal glands: No masses seen. Lymph nodes: Within normal limits. Abdominal Aorta: Abdominal portion non-dilated. Soft tissues: Body wall edema. PELVIS: Bladder: Symmetric distention, no gross wall thickening. Bowel: No obstruction or bowel wall thickening. Peritoneal cavity: Large quantity of ascites noted around the liver and spleen within the abdominal a nd pelvic mesentery. Reproductive organs: Within normal limits. Bones: Degenerative disc changes throughout the spine. IMPRESSION: Cirrhotic appearing liver. Enlarged spleen. Large quantity of ascites. RADIATION DOSE DELIVERED: 1,199.1mGy.cm Total DLP DATA REPOSITORY: All CT scans at this facility are submitted to the National Radiology Data Registry (NRDR) Dose Index Registry (DIR) with the [employer] (ACR). RADIATION OPTIMIZATION: All CT scans at this facility use at least one of these dose optimization te chniques: automated exposure control; mA and/or kV adjustment per patient size (includes targeted exa ms where dose is matched to clinical indication); or iterative reconstruction.
== END ==
PROVIDERS: PCP Family Medicine; Visit Provider Family Medicine
DX: F10.10 Alcohol abuse, uncomplicated (principal); K74.60 Unspecified cirrhosis of liver
CPT/HCPCS: 74176

== ENCOUNTER 2022-11-22 19:30 | Emergency (ER) | payer OTHER, SELFPAY ==
[2022-11-22] VITALS (32 sets, daily range): BP systolic 121–161; BP diastolic 75–97; PULSE 96–105; RESP 14–27; TEMP 36.6; O2SAT 94–100
--- NOTE | 2022-11-22 19:30 | RT.EKG_ITS ---
APPROVED REPORT Exam: Resting ECG Reason for Exam: Dizzy Patient Location: E HR:101 bpm ECG Measurements Heart Rate 101 AXIS VT 178 P 73 QRSd 113 QRS -30 QT 394 T 95 QTc 510 Conclusion Sinus tachycardia...rate> 99 LVH with secondary repolarization abnormality...multi-LVH criteria, abnrm ST-T Prolonged QT interval...QTc >500mS sinus tach, left axis, normal intervals, nonischemic
[2022-11-22 20:00] LABS: Abs Immature Grans 0.04 10^3/uL (0.0-0.06); Absolute Basophil Count 0.08 10^3/uL (0.0-0.2); Absolute Eosinophil Count 0.16 10^3/uL (0.0-0.7); Absolute Lymphocyte Count 0.87 10^3/uL (1.2-3.4); Absolute Monocyte Count 0.69 10^3/uL (0.1-0.8); Absolute Neutrophil Count 2.56 10^3/uL (1.2-6.7); Basophils % 1.8; Eosinophils % 3.6; HCT 25.9 % (40.0-50.0); HGB 8.3 g/dL (13.5-17.5); Immature Grans % 0.9; Lymphocytes % 19.8; MCH 22.8 pg (27.0-33.0); MCV 71 fL (80-95); MPV 9.4 fL (8.0-11.0); Monocytes % 15.7; Neutrophils % 58.2; Platelet Count 103 10^3/uL (130-400); RBC 3.64 10^6/uL (4.36-5.78); RDW 21.3 % (11.8-14.1); RDW-SD 54.3 fL
[2022-11-22 20:07] LABS: Ammonia 27 umol/L (11-32)
[2022-11-22 20:13] LABS: INR 1.7 (0.9-1.1); Prothrombin Time 16.9 sec (9.3-11.0)
[2022-11-22 20:18] LABS: ALT 25 U/L (16-63); AST 86 U/L (15-37); Albumin 2.2 g/dL (3.4-5.0); Alkaline Phosphatase 240 U/L (46-116); Anion Gap 9.8 mmol/L (3-11); BUN 5 mg/dL (7-18); Bilirubin, Direct 2.8 mg/dL (0.0-0.2); Bilirubin, Total 4.9 mg/dL (0.2-1.0); CO2 25.2 mmol/L (21.0-32.0); CREATININE 0.8 mg/dL (0.70-1.30); Calcium 7.8 mg/dL (8.5-10.1); Chloride 98 mmol/L (98-107); ETHANOL BLOOD 157.5 mg/dL (<10); Estimated GFR 103.22 (mL/min/1.73m2); Glucose 132 mg/dL (74-106); Lipase 152 U/L (16-77); Magnesium 1.5 mg/dL (1.8-2.4); Potassium 3.3 mmol/L (3.5-5.1); Sodium 133 mmol/L (136-145); Total Protein 6.7 g/dL (6.4-8.2)
[2022-11-22 20:20] LABS: Troponin I < 50 ng/L (<or=60)
[2022-11-22 20:24] LABS: Diff Comment RBC Morph Reviewed; Microcytosis 2+
[2022-11-22 20:25] LABS: Anisocytosis 2+
[2022-11-22 20:27] LABS: Poikilocytes 1+
--- NOTE | 2022-11-22 22:00 | DI.CT_ITS ---
Exam(s) CT HEAD WO EXAM: CT HEAD WO CLINICAL HISTORY: confusion. TECHNIQUE: Imaging Protocol: Axial computed tomography images with coronal and sagittal reformatted images were created and reviewed COMPARISON: CT CT HEAD WO from 05/20/2021 FINDINGS: Ventricles and Extra axial spaces: Normal in size and morphology for the patient's age. Hemorrhage: None. Cerebral parenchyma: No evidence of acute infarct or mass. Midline shift: None. Brainstem/Cerebellum: Normal. Calvarium: Normal. Visualized Paranasal sinuses/Mastoids: Minimal mucosal thickening. Soft Tissues: Unremarkable. IMPRESSION: No acute intracranial process. RADIATION DOSE DELIVERED: 802.6mGy.cm Total DLP DATA REPOSITORY: All CT scans at this facility are submitted to the National Radiology Data Registry (NRDR) Dose Index Registry (DIR) with the [employer] (ACR). RADIATION OPTIMIZATION: All CT scans at this facility use at least one of these dose optimization te chniques: automated exposure control; mA and/or kV adjustment per patient size (includes targeted exa ms where dose is matched to clinical indication); or iterative reconstruction.
[2022-11-22 22:02] LABS: Bilirubin Moderate (Negative); Blood Negative (Negative); Clarity Sl Cloudy (Clear); Glucose Negative (Negative); Ketones Trace mg/dL (Negative); Leukocyte Esterase Negative (Negative); Nitrite Positive (Negative); Specific Gravity >= 1.030 (1.005-1.025)
[2022-11-22] MEDS: Normal Saline 500 ML IV (22:10)
[2022-11-22 22:15] LABS: Bacteria Rare HPF (Negative); C & S Indicated? Yes; Crystals Mod Calcium Oxalate HPF (Negative); Epithelial Cells Negative HPF (Negative); Mucus Heavy (Negative); RBC Negative HPF (0-2); WBC Negative HPF (0-5)
[2022-11-22] MEDS: Magnesium Oxide 400 MG TAB 800 MG PO (22:40)
[2022-11-22] MEDS: Potassium Chloride 20 MEQ TABCR 40 MEQ PO (22:40)
--- NOTE | 2022-11-22 22:40 | DI.VRAD_ITS ---
PROCEDURE INFORMATION: Exam: CT Head Without Contrast Exam date and time: 11/22/2022 10:28 PM Age: 57 years old Clinical indication: Other: Confusion TECHNIQUE: Imaging protocol: Computed tomography of the head without contrast. Radiation optimization: All CT scans at this facility use at least one of these dose optimization techniques: automated exposure control; mA and/or kV adjustment per patient size (includes targeted exams where dose is matched to clinical indication); or iterative reconstruction. COMPARISON: CT HEAD WO 05/20/2021 10:52 PM FINDINGS: Brain: Mild volume loss No hemorrhage. Unremarkable white matter. No mass effect. Cerebral ventricles: No ventriculomegaly. Paranasal sinuses: Visualized sinuses are unremarkable. No fluid levels. Mastoid air cells: Visualized mastoid air cells are well aerated. Bones/joints: Unremarkable. No acute fracture. Soft tissues: Unremarkable. IMPRESSION: No acute intracranial abnormality. Dictated and Authenticated by: Dev Churchill MD. Ordering:EMERY Cesar MD
[2022-11-22 23:10] LABS: Iron 15 ug/dL (65-175); Total Iron Binding Capacity 253 ug/dL (250-450); Transferrin Sat 6 % (20-55)
[2022-11-22 23:23] LABS: Ferritin 25 ng/mL (26-388)
--- NOTE | 2022-11-22 23:28 | ED.GENADUL_ITS ---
Discharge Plan Disposition Patient Disposition: Home Discharge Details Clinical Impression: Cirrhosis, Alcohol abuse, Ascites, Hypomagnesemia, Acute hypokalemia, Iron deficiency anemia Primary Care Provider: David Landaverde ED Provider: Tali Alvarado Home Meds and New Rx's Prescriptions: New ferrous fumarate 325 mg (106 mg iron) tablet 325 mg PO DAILY Qty: 12 0RF Rx Instructions: 3x/week magnesium citrate 100 mg capsule 100 mg PO BID Qty: 14 0RF potassium chloride 20 mEq tablet extended release 20 meq PO DAILY Qty: 14 0RF Continued (DME) blood sugar diagnostic Strip See Rx Instructions .ROUTE .MEDSUPPLY Qty: 100 3RF Rx Instructions: As directed; Test daily, to keep HbA1c less than 6.5%; Dx: E11.9 naltrexone 50 mg tablet 50 mg PO DAILY Qty: 90 0RF clonazepam 0.5 mg tablet 0.5 mg PO BID MDD 1.0 mg PRN (Reason: anxiety) Qty: 56 2RF celecoxib [Celebrex] 400 mg capsule 400 mg PO DAILY PRN (Reason: pain) Qty: 30 6RF omeprazole 40 mg capsule,delayed release(DR/EC) 40 mg PO DAILY Qty: 90 3RF fluoxetine 20 mg capsule 60 mg PO DAILY Qty: 270 3RF Discharge Instructions Instructions: Hypokalemia (ED), Abuse of Alcohol (ED), Hypomagnesemia (ED), Anemia (ED) Additional Instructions: Please follow-up with your primary care doctor this week Take the magnesium as prescribed Take the potassium as prescribed Use the iron supplementation and she will need to see your doctor and have your CBC rechecked next week Your test today are reassuring, I recommend tapering off alcohol, do not stop drinking alcohol abruptly, you may taper down by 1 drink a day until cessation Please return should you have new or worsening complaints Referrals: David Landaverde DO [Primary Care Provider] - Discharge Data Discharge Date/Time-TO BE ENTERED AT DEPARTURE: 11/22/22 23:58 Medical Decision Making 57-year-old male presenting with report of confusion Anemia noted, not grossly changed from prior, hemoglobin 8.3, hematocrit 25.9, platelet count 103 INR 1.7, not grossly changed from prior sodium 133, potassium 3.3, supplemented calcium 7.8, no change, magnesium 1.5, given supplemental magnesium, no EKG abnormality, ascites noted, CT abdomen and pelvis shows ascites from prior assessment 2 weeks prior, patient asymptomatic with this, referred back to his primary care physician and surgery No evidence of SBP, alert and oriented, at his baseline, request discharge home Long discussion regarding alcohol abuse and cirrhosis and how to appropriately taper oneself off of alcohol, risk of abrupt withdrawal discussed Patient appears to have microcytic anemia, suspect iron deficiency, will place back on iron supplementation patient PCP recheck this week, ambulatory steady gait, fully alert and oriented, CT head does not show evidence of acute abnormality Discharged home in stable condition with stable vitals, chronically ill, alcohol cessation and close outpatient reassessment reviewed with both patient and his , ammonia 27 HPI General Date/Time Provider Initiated Documentation: 11/22/22 21:52 . HPI Narrative: This chronically ill 57-year-old gentleman with history of alcoholism and cirrhosis presents secondary to episode of confusion. Denies any chest pain or shortness of breath. Denies any apnea of disc, abdominal discomfort, fever, chills. states that patient has had these episodes in the past. She states he is at his baseline currently. There is no report of seizure-like activity. There is no fall or injury reportedly. Denies any alcohol today. Related Data Home Medications Medication Instructions Recorded Confirmed blood sugar diagnostic #100 ea 12/11/18 11/05/22 naltrexone 50 mg tablet 50 mg PO DAILY #90 tabs 03/02/22 11/05/22 fluoxetine 20 mg capsule 60 mg PO DAILY #270 caps 08/03/22 11/22/22 celecoxib 400 mg capsule (Celebrex) 400 mg PO DAILY PRN pain #30 caps 10/19/22 11/05/22 omeprazole 40 mg capsule,delayed 40 mg PO DAILY #90 caps 10/19/22 11/22/22 release clonazepam 0.5 mg tablet 0.5 mg PO BID PRN anxiety #56 tabs 11/05/22 11/22/22 ferrous fumarate 325 mg (106 mg 325 mg PO DAILY #12 tabs 11/22/22 iron) tablet magnesium citrate 100 mg capsule 100 mg PO BID #14 caps 11/22/22 potassium chloride 20 mEq 20 meq PO DAILY #14 tabs 11/22/22 tablet,extended release Previous Rx's Medication Instructions Recorded blood sugar diagnostic #100 ea 12/11/18 naltrexone 50 mg tablet 50 mg PO DAILY #90 tabs 03/02/22 fluoxetine 20 mg capsule 60 mg PO DAILY #270 caps 08/03/22 celecoxib 400 mg capsule (Celebrex) 400 mg PO DAILY PRN pain #30 caps 10/19/22 omeprazole 40 mg capsule,delayed 40 mg PO DAILY #90 caps 10/19/22 release clonazepam 0.5 mg tablet 0.5 mg PO BID PRN anxiety #56 tabs 11/05/22 ferrous fumarate 325 mg (106 mg 325 mg PO DAILY #12 tabs 11/22/22 iron) tablet magnesium citrate 100 mg capsule 100 mg PO BID #14 caps 11/22/22 potassium chloride 20 mEq 20 meq PO DAILY #14 tabs 11/22/22 tablet,extended release Allergies Allergy/AdvReac Type Severity Reaction Status Date / Time No Known Allergies Allergy Verified 11/05/22 11:10 General Stated Complaint: Seizure ANNETTE: 3 PFSH All Active Problems (Updated 11/22/22 @ 23:38 by MARISA Awan) Cirrhosis (Acute) Alcohol abuse (Chronic) Ascites (Acute) Hypomagnesemia (Acute) Acute hypokalemia (Acute) Iron deficiency anemia (Acute) Hyponatremia (Acute) Moderate (123) with improvement (135) in 6 days with pedialyte, less alcohol and salt intake.. Nasal crusting (Acute) Chronic sinusitis (Acute) Breast pain, left (Acute) Peripheral neuropathy (Acute) Bursal cyst of olecranon (Acute) Alcohol abuse (Chronic) Hypertension (Chronic) Unspecified lump in axillary tail of the left breast (Chronic) Lipoma by US 07/13; recommended repeat in 6 months Migraine (Chronic) Tinnitus (Acute) Diabetes mellitus type 2 in nonobese (Acute) Psychogenic nonepileptic seizure (Chronic) Benign hypertension (Acute 04/21/12) Fatigue (Acute 02/26/12) History of alcoholism (Acute) Type 2 diabetes mellitus with complication, without long-term current use of insulin (Acute 05/30/16) Personality disorder in adult (Acute) PTSD (post-traumatic stress disorder) (Acute) with paranoia 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 (Acute) ETOH abuse (Chronic) Spells of decreased attentiveness (Acute) Hyperlipidemia (Acute 07/03/12) Hepatitis, alcoholic (Acute 12/07/13) Fatty liver, alcoholic (Acute 05/30/16) Depressive disorder (Chronic 11/03/12) Chronic hip pain (Acute 11/24/14) -2014: / PT and Nsaids/osteoarthritis Anxiety (Chronic) Medical History Depression Hypertension Lipoma of axilla Prediabetes Surgical History Tooth extraction ROOT CANAL Family History Mother Diabetes Sister Depression Other Alcohol abuse Bipolar 1 disorder Dementia Heart disease Schizophrenia Social History Smoking/Tobacco Use Status: Former Tobacco Use Tobacco: How many years used: 4 Smoking risk assessment performed?: Yes Alcohol Intake: current Alcohol Intake frequency: 3 or more drinks per day Alcohol type: beer Drug use: Never Substance use type: does not use Adopted: No Household members: spouse Housing: house Number of Children: 0 Communication Needs: None current occupation: Disabled Do you think of yourself as: straight/heterosexual Current gender identity: male What is your relationship status?: How often do you talk on the phone with friends or family?: three or more times per week How often do you get together with friends or relatives?: twice per week Do you belong to any clubs or organized social groups?: yes Panel score (0-1 are the most socially isolated patients): 3 What type of physical activity do you participate in: walking and weight lifting Frequency: 3-4 times per week Donita/Roman Catholic: Episcopal Seatbelt use: always Drive 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 Past GF in 2017 from ovarian cancer. in 2018 to current partner. Course Vital Signs Vital signs: Vital Signs Temperature 36.6 C 11/22/22 19:35 Pulse 102 H 11/22/22 19:35 Respiratory Rate 15 11/22/22 19:35 Blood Pressure 161/92 H 11/22/22 19:35 Pulse Oximetry 98 11/22/22 19:35 Temperature 36.6 C 11/22/22 19:35 Temperature Source Oral 11/22/22 19:35 Pulse 97 H 11/22/22 21:16 Pulse 98 H 11/22/22 21:30 Respiratory Rate 18 11/22/22 21:30 Respiratory Effort Normal, Non-Labored 11/22/22 21:34 Respiratory Depth Normal 11/22/22 20:01 Respiratory Pattern Normal 11/22/22 20:01 Blood Pressure 145/80 H 11/22/22 21:16 Blood Pressure Mean 94 11/22/22 21:16 Blood Pressure Position Supine 11/22/22 19:35 Pulse Oximetry 98 11/22/22 21:30 Oxygen Delivery Method Room Air 11/22/22 19:35 Oxygen Flow Rate 0 11/22/22 19:35 Pain Level 0 11/22/22 19:35 Lab/Test Results Lab/Test Results: 11/22/22 21:44 Urine - Reflex from Ua Urine Culture - Pending Laboratory Tests Range/Units 11/22/22 11/22/22 11/22/22 19:36 19:36 19:36 WBC (4.4-10.8) 10^3/uL 4.40 RBC (4.36-5.78) 10^6/uL 3.64 L Hgb (13.5-17.5) g/dL 8.3 L Hct (40.0-50.0) % 25.9 L MCV (80-95) fL 71 L MCH (27.0-33.0) pg 22.8 L MCHC (32.0-36.0) % 32.0 RDW (11.8-14.1) % 21.3 H Plt Count (130-400) 10^3/uL 103 L MPV (8.0-11.0) fL 9.4 Immature Gran % 0.9 Neutrophils % 58.2 Lymphocytes % 19.8 Monocytes % 15.7 Eosinophils % 3.6 Basophils % 1.8 Nucleated RBC % (0.0-0.3) % 0.0 Absolute Neutrophils (1.2-6.7) 10^3/uL 2.56 Absolute Lymphocytes (1.2-3.4) 10^3/uL 0.87 L Absolute Monocytes (0.1-0.8) 10^3/uL 0.69 Absolute Eosinophils (0.0-0.7) 10^3/uL 0.16 Absolute Basophils (0.0-0.2) 10^3/uL 0.08 RBC Morphology See Below Poikilocytosis 1+ Anisocytosis 2+ Microcytosis 2+ PT (9.3-11.0) sec INR (0.9-1.1) Sodium (136-145) mmol/L 133 L Potassium (3.5-5.1) mmol/L 3.3 L Chloride (98-107) mmol/L 98 Carbon Dioxide (21.0-32.0) mmol/L 25.2 Anion Gap (3-11) mmol/L 9.8 BUN (7-18) mg/dL 5 L Creatinine (0.70-1.30) mg/dL 0.8 Est GFR (CKD-EPI 2020) (mL/min/1.73m2) 103.22 Glucose (74-106) mg/dL 132 H Calcium (8.5-10.1) mg/dL 7.8 L Magnesium (1.8-2.4) mg/dL 1.5 L Iron (65-175) ug/dL TIBC (250-450) ug/dL Transferrin % Sat (20-55) % Ferritin (26-388) ng/mL Total Bilirubin (0.2-1.0) mg/dL 4.9 H Conjugated Bilirubin (0.0-0.2) mg/dL 2.8 H AST (15-37) U/L 86 H ALT (16-63) U/L 25 Alkaline Phosphatase (46-116) U/L 240 H Ammonia (11-32) umol/L 27 Troponin I (<or=60) ng/L Total Protein (6.4-8.2) g/dL 6.7 Albumin (3.4-5.0) g/dL 2.2 L Lipase (16-77) U/L 152 H Urine Color (Yellow) Urine Clarity (Clear) Urine pH (5-8) Ur Specific [place] (1.005-1.025) Urine Protein (Negative) mg/dL Urine Ketones (Negative) mg/dL Urine Blood (Negative) Urine Nitrite (Negative) Urine Bilirubin (Negative) Urine Urobilinogen (Up to 0.2) mg/dL Ur Leukocyte Esterase (Negative) Urine RBC (0-2) HPF Urine WBC (0-5) HPF Ur Epithelial Cells (Negative) HPF Urine Crystals (Negative) HPF Urine Bacteria (Negative) HPF Urine Mucus (Negative) Ur Culture Indicated? Urine Glucose (Negative) mg/dL Ethyl Alcohol (<10) mg/dL 157.5 H Patient ABO/Rh Antibody Screen Range/Units 11/22/22 11/22/22 11/22/22 19:36 19:36 19:36 WBC (4.4-10.8) 10^3/uL RBC (4.36-5.78) 10^6/uL Hgb (13.5-17.5) g/dL Hct (40.0-50.0) % MCV (80-95) fL MCH (27.0-33.0) pg MCHC (32.0-36.0) % RDW (11.8-14.1) % Plt Count (130-400) 10^3/uL MPV (8.0-11.0) fL Immature Gran % Neutrophils % Lymphocytes % Monocytes % Eosinophils % Basophils % Nucleated RBC % (0.0-0.3) % Absolute Neutrophils (1.2-6.7) 10^3/uL Absolute Lymphocytes (1.2-3.4) 10^3/uL Absolute Monocytes (0.1-0.8) 10^3/uL Absolute Eosinophils (0.0-0.7) 10^3/uL Absolute Basophils (0.0-0.2) 10^3/uL RBC Morphology Poikilocytosis Anisocytosis Microcytosis PT (9.3-11.0) sec 16.9 H INR (0.9-1.1) 1.7 H Sodium (136-145) mmol/L Potassium (3.5-5.1) mmol/L Chloride (98-107) mmol/L Carbon Dioxide (21.0-32.0) mmol/L Anion Gap (3-11) mmol/L BUN (7-18) mg/dL Creatinine (0.70-1.30) mg/dL Est GFR (CKD-EPI 2020) (mL/min/1.73m2) Glucose (74-106) mg/dL Calcium (8.5-10.1) mg/dL Magnesium (1.8-2.4) mg/dL Iron (65-175) ug/dL TIBC (250-450) ug/dL Transferrin % Sat (20-55) % Ferritin (26-388) ng/mL Total Bilirubin (0.2-1.0) mg/dL Conjugated Bilirubin (0.0-0.2) mg/dL AST (15-37) U/L ALT (16-63) U/L Alkaline Phosphatase (46-116) U/L Ammonia (11-32) umol/L Troponin I (<or=60) ng/L < 50 Total Protein (6.4-8.2) g/dL Albumin (3.4-5.0) g/dL Lipase (16-77) U/L Urine Color (Yellow) Urine Clarity (Clear) Urine pH (5-8) Ur Specific [place] (1.005-1.025) Urine Protein (Negative) mg/dL Urine Ketones (Negative) mg/dL Urine Blood (Negative) Urine Nitrite (Negative) Urine Bilirubin (Negative) Urine Urobilinogen (Up to 0.2) mg/dL Ur Leukocyte Esterase (Negative) Urine RBC (0-2) HPF Urine WBC (0-5) HPF Ur Epithelial Cells (Negative) HPF Urine Crystals (Negative) HPF Urine Bacteria (Negative) HPF Urine Mucus (Negative) Ur Culture Indicated? Urine Glucose (Negative) mg/dL Ethyl Alcohol (<10) mg/dL Patient ABO/Rh A Positive Antibody Screen NEGATIVE Range/Units 11/22/22 11/22/22 11/22/22 19:36 19:36 21:44 WBC (4.4-10.8) 10^3/uL RBC (4.36-5.78) 10^6/uL Hgb (13.5-17.5) g/dL Hct (40.0-50.0) % MCV (80-95) fL MCH (27.0-33.0) pg MCHC (32.0-36.0) % RDW (11.8-14.1) % Plt Count (130-400) 10^3/uL MPV (8.0-11.0) fL Immature Gran % Neutrophils % Lymphocytes % Monocytes % Eosinophils % Basophils % Nucleated RBC % (0.0-0.3) % Absolute Neutrophils (1.2-6.7) 10^3/uL Absolute Lymphocytes (1.2-3.4) 10^3/uL Absolute Monocytes (0.1-0.8) 10^3/uL Absolute Eosinophils (0.0-0.7) 10^3/uL Absolute Basophils (0.0-0.2) 10^3/uL RBC Morphology Poikilocytosis Anisocytosis Microcytosis PT (9.3-11.0) sec INR (0.9-1.1) Sodium (136-145) mmol/L Potassium (3.5-5.1) mmol/L Chloride (98-107) mmol/L Carbon Dioxide (21.0-32.0) mmol/L Anion Gap (3-11) mmol/L BUN (7-18) mg/dL Creatinine (0.70-1.30) mg/dL Est GFR (CKD-EPI 2020) (mL/min/1.73m2) Glucose (74-106) mg/dL Calcium (8.5-10.1) mg/dL Magnesium (1.8-2.4) mg/dL Iron (65-175) ug/dL 15 L TIBC (250-450) ug/dL 253 Transferrin % Sat (20-55) % 6 L Ferritin (26-388) ng/mL 25 L Total Bilirubin (0.2-1.0) mg/dL Conjugated Bilirubin (0.0-0.2) mg/dL AST (15-37) U/L ALT (16-63) U/L Alkaline Phosphatase (46-116) U/L Ammonia (11-32) umol/L Troponin I (<or=60) ng/L Total Protein (6.4-8.2) g/dL Albumin (3.4-5.0) g/dL Lipase (16-77) U/L Urine Color (Yellow) [place] Urine Clarity (Clear) Sl Cloudy Urine pH (5-8) 6.0 Ur Specific [place] (1.005-1.025) >= 1.030 H Urine Protein (Negative) mg/dL 30 H Urine Ketones (Negative) mg/dL Trace H Urine Blood (Negative) Negative Urine Nitrite (Negative) Positive H Urine Bilirubin (Negative) Moderate H Urine Urobilinogen (Up to 0.2) mg/dL 1.0 H Ur Leukocyte Esterase (Negative) Negative Urine RBC (0-2) HPF Negative Urine WBC (0-5) HPF Negative Ur Epithelial Cells (Negative) HPF Negative Urine Crystals (Negative) HPF Mod Calcium Oxalate Urine Bacteria (Negative) HPF Rare Urine Mucus (Negative) Heavy Ur Culture Indicated? Yes Urine Glucose (Negative) mg/dL Negative Ethyl Alcohol (<10) mg/dL Patient ABO/Rh Antibody Screen Range/Units 11/22/22 22:47 WBC (4.4-10.8) 10^3/uL RBC (4.36-5.78) 10^6/uL Hgb (13.5-17.5) g/dL Hct (40.0-50.0) % MCV (80-95) fL MCH (27.0-33.0) pg MCHC (32.0-36.0) % RDW (11.8-14.1) % Plt Count (130-400) 10^3/uL MPV (8.0-11.0) fL Immature Gran % Neutrophils % Lymphocytes % Monocytes % Eosinophils % Basophils % Nucleated RBC % (0.0-0.3) % Absolute Neutrophils (1.2-6.7) 10^3/uL Absolute Lymphocytes (1.2-3.4) 10^3/uL Absolute Monocytes (0.1-0.8) 10^3/uL Absolute Eosinophils (0.0-0.7) 10^3/uL Absolute Basophils (0.0-0.2) 10^3/uL RBC Morphology Poikilocytosis Anisocytosis Microcytosis PT (9.3-11.0) sec INR (0.9-1.1) Sodium (136-145) mmol/L Potassium (3.5-5.1) mmol/L Chloride (98-107) mmol/L Carbon Dioxide (21.0-32.0) mmol/L Anion Gap (3-11) mmol/L BUN (7-18) mg/dL Creatinine (0.70-1.30) mg/dL Est GFR (CKD-EPI 2020) (mL/min/1.73m2) Glucose (74-106) mg/dL Calcium (8.5-10.1) mg/dL Magnesium (1.8-2.4) mg/dL Iron (65-175) ug/dL TIBC (250-450) ug/dL Transferrin % Sat (20-55) % Ferritin (26-388) ng/mL Total Bilirubin (0.2-1.0) mg/dL Conjugated Bilirubin (0.0-0.2) mg/dL AST (15-37) U/L ALT (16-63) U/L Alkaline Phosphatase (46-116) U/L Ammonia (11-32) umol/L Troponin I (<or=60) ng/L Cancelled Total Protein (6.4-8.2) g/dL Albumin (3.4-5.0) g/dL Lipase (16-77) U/L Urine Color (Yellow) Urine Clarity (Clear) Urine pH (5-8) Ur Specific [place] (1.005-1.025) Urine Protein (Negative) mg/dL Urine Ketones (Negative) mg/dL Urine Blood (Negative) Urine Nitrite (Negative) Urine Bilirubin (Negative) Urine Urobilinogen (Up to 0.2) mg/dL Ur Leukocyte Esterase (Negative) Urine RBC (0-2) HPF Urine WBC (0-5) HPF Ur Epithelial Cells (Negative) HPF Urine Crystals (Negative) HPF Urine Bacteria (Negative) HPF Urine Mucus (Negative) Ur Culture Indicated? Urine Glucose (Negative) mg/dL Ethyl Alcohol (<10) mg/dL Patient ABO/Rh Antibody Screen
--- NOTE | 2022-11-22 23:40 | NUR.NOTE ---
Referral faxed to [facility] Dr. Landaverde to follow up within one week for anemia, cirrhosis, elevated bilirubin.
== END 2022-11-22 23:58 | disposition home or self-care (01) ==
PROVIDERS: Emergency Medicine; Emergency Provider Physician Assistant; PCP Family Medicine
DX: K74.60 Unspecified cirrhosis of liver (principal); F10.10 Alcohol abuse, uncomplicated; R18.8 Other ascites; D50.9 Iron deficiency anemia, unspecified
CPT/HCPCS: 36415; 80053; 80076; 83690; 86850; 86900; 86901; 93005; 96360; 99284; 70450; 80320; 81003; 81015; 82140; 82728; 83540; 83550; 83735; 84484; 85025; 85610; 87086; 93010

== ENCOUNTER 2022-12-03 14:44 | Outpatient (CLI) | payer OTHER, SELFPAY ==
[2022-12-03 12:06] LABS: HCT 24.3 % (40.0-50.0); MCH 23.3 pg (27.0-33.0); MCHC 32.1 % (32.0-36.0); RBC 3.35 10^6/uL (4.36-5.78); RDW 21.5 % (11.8-14.1); RDW-SD 56.2 fL; WBC 4.16 10^3/uL (4.4-10.8)
[2022-12-03 12:17] LABS: Hemoglobin A1C < 4.5 % (<5.7)
[2022-12-03 12:18] LABS: Ammonia 49 umol/L (11-32)
[2022-12-03 12:20] LABS: ETHANOL BLOOD 66.2 mg/dL (<10); Lipase 134 U/L (16-77)
[2022-12-03 12:22] LABS: ALT 28 U/L (16-63); AST 83 U/L (15-37); Albumin 2.2 g/dL (3.4-5.0); Alkaline Phosphatase 199 U/L (46-116); BUN 6 mg/dL (7-18); Bilirubin, Total 6.3 mg/dL (0.2-1.0); C-Reactive Protein 1.43 mg/dL (0.0-0.3); CREATININE 0.8 mg/dL (0.70-1.30); Calcium 7.7 mg/dL (8.5-10.1); Chloride 91 mmol/L (98-107); Estimated GFR 103.22 (mL/min/1.73m2); GGT 134 U/L (15-85); Glucose 112 mg/dL (74-106); Magnesium 1.5 mg/dL (1.8-2.4); Total Protein 6.6 g/dL (6.4-8.2)
[2022-12-03 12:23] LABS: HGB 7.8 g/dL (13.5-17.5); MCV 73 fL (80-95); Platelet Count 81 10^3/uL (130-400)
[2022-12-03 12:30] LABS: Potassium 2.7 mmol/L (3.5-5.1); Sodium 124 mmol/L (136-145)
[2022-12-03 12:34] LABS: INR 1.8 (0.9-1.1)
[2022-12-03 12:53] LABS: Folate 6.5 ng/mL (8.6-20.0)
== END 2022-12-03 14:45 | disposition home or self-care (01) ==
LOC: LBO 14:45
PROVIDERS: PCP Family Medicine; Visit Provider Surgery
DX: D50.9 Iron deficiency anemia, unspecified (principal); D69.59 Other secondary thrombocytopenia; E11.8 Type 2 diabetes mellitus with unspecified complications; E11.9 Type 2 diabetes mellitus without complications; E78.5 Hyperlipidemia, unspecified; E83.42 Hypomagnesemia; E87.1 Hypo-osmolality and hyponatremia; E87.6 Hypokalemia; F43.10 Post-traumatic stress disorder, unspecified; F60.9 Personality disorder, unspecified; G62.9 Polyneuropathy, unspecified; I10 Essential (primary) hypertension; R17 Unspecified jaundice; R18.8 Other ascites; R74.8 Abnormal levels of other serum enzymes; R79.1 Abnormal coagulation profile; F10.21 Alcohol dependence, in remission; F32.9 Major depressive disorder, single episode, unspecified; F41.9 Anxiety disorder, unspecified; R53.83 Other fatigue
CPT/HCPCS: 80053; 83690; 85027; 80320; 82140; 82746; 82977; 83036; 83735; 85610; 86140

== ENCOUNTER 2022-12-03 15:35 | Emergency (ER) | payer OTHER, SELFPAY ==
[2022-12-03] VITALS (30 sets, daily range): BP systolic 119–149; BP diastolic 64–82; PULSE 90–103; RESP 12–20; TEMP 36.7; O2SAT 97–99
--- NOTE | 2022-12-03 15:30 | RT.EKG_ITS ---
APPROVED REPORT Exam: Resting ECG Reason for Exam: low potassium Patient Location: E HR:97 bpm ECG Measurements Heart Rate 97 AXIS VA 178 P 79 QRSd 129 QRS -41 QT 425 T 95 QTc 540 Conclusion Sinus rhythm...normal P axis, V-rate 60- 99 IVCD, consider RBBB...QRSd>120mS, terminal axis(90,270) Anteroseptal infarct, age indeterminate...Q >35mS, T neg, V1-V2 sinus tachycardia, left axis
--- NOTE | 2022-12-03 16:11 | W.ED.GENAD ---
Discharge Plan Disposition Patient Disposition: Home Condition: Improving Discharge Details Chief Complaint: GenMedical Clinical Impression: Hypokalemia, Hypomagnesemia Primary Care Provider: David Landaverde ED Provider: Leif Bowman Home Meds and New Rx's Prescriptions: No Action (DME) blood sugar diagnostic Strip See Rx Instructions .ROUTE .MEDSUPPLY Qty: 100 3RF Rx Instructions: As directed; Test daily, to keep HbA1c less than 6.5%; Dx: E11.9 torsemide 5 mg tablet 5 mg PO DAILY Qty: 90 0RF naltrexone 50 mg tablet 50 mg PO DAILY Qty: 90 0RF clonazepam 0.5 mg tablet 0.5 mg PO BID MDD 1.0 mg PRN (Reason: anxiety) Qty: 56 2RF celecoxib [Celebrex] 400 mg capsule 400 mg PO DAILY PRN (Reason: pain) Qty: 30 6RF omeprazole 40 mg capsule,delayed release(DR/EC) 40 mg PO DAILY Qty: 90 3RF fluoxetine 20 mg capsule 60 mg PO DAILY Qty: 270 3RF ferrous fumarate 325 mg (106 mg iron) tablet 325 mg PO DAILY Qty: 12 0RF Rx Instructions: 3x/week magnesium citrate 100 mg capsule 100 mg PO BID Qty: 14 0RF potassium chloride 20 mEq tablet extended release 20 meq PO DAILY Qty: 14 0RF Discharge Instructions Instructions: Hypokalemia (ED), Hypomagnesemia (ED) Medical Decision Making 57-year-old male history of alcohol endorse cirrhosis with ascites, scheduled for paracentesis tomorrow presents after outpatient labs demonstrated hypokalemia and anemia today. Patient is asymptomatic no chest pain or shortness of breath afebrile nontoxic. Tense ascites with fluid wave nonperitoneal. No respiratory distress. Patient adamant that he does not want to stay in the hospital tonight. I will obtain repeat labs to see if his potassium is changed, will likely replete potassium, patient's hemoglobin was above transfusion range. No evidence of active bleeding. Although patient is also thrombocytopenic, his platelet levels are not in a current range that would require platelet transfusion. Disposition pending lab work reassessment 17: 30 Will replete both potassium and magnesium. Close reassessment after repletion. Likely home with close follow-up 19:14 patient stable. Tolerated repletion of magnesium and potassium. HPI General Date/Time Provider Initiated Documentation: 12/03/22 15:37. HPI Narrative: 57-year-old male history of alcohol induced cirrhosis and ascites, scheduled for paracentesis tomorrow. Noted on outpatient labs today to be anemic and hypokalemic. Denies chest pain shortness of breath nausea vomiting fevers or chills. Patient endorses that he does not want stay in the hospital. Related Data Home Medications Medication Instructions Recorded Confirmed blood sugar diagnostic #100 ea 12/11/18 11/30/22 naltrexone 50 mg tablet 50 mg PO DAILY #90 tabs 03/02/22 11/30/22 fluoxetine 20 mg capsule 60 mg PO DAILY #270 caps 08/03/22 11/30/22 celecoxib 400 mg capsule (Celebrex) 400 mg PO DAILY PRN pain #30 caps 10/19/22 11/30/22 omeprazole 40 mg capsule,delayed 40 mg PO DAILY #90 caps 10/19/22 11/30/22 release clonazepam 0.5 mg tablet 0.5 mg PO BID PRN anxiety #56 tabs 11/05/22 11/30/22 ferrous fumarate 325 mg (106 mg 325 mg PO DAILY #12 tabs 11/22/22 11/30/22 iron) tablet magnesium citrate 100 mg capsule 100 mg PO BID #14 caps 11/22/22 11/30/22 potassium chloride 20 mEq 20 meq PO DAILY #14 tabs 11/22/22 11/30/22 tablet,extended release torsemide 5 mg tablet 5 mg PO DAILY #90 tabs 11/30/22 11/30/22 Previous Rx's Medication Instructions Recorded blood sugar diagnostic #100 ea 12/11/18 naltrexone 50 mg tablet 50 mg PO DAILY #90 tabs 03/02/22 fluoxetine 20 mg capsule 60 mg PO DAILY #270 caps 08/03/22 celecoxib 400 mg capsule (Celebrex) 400 mg PO DAILY PRN pain #30 caps 10/19/22 omeprazole 40 mg capsule,delayed 40 mg PO DAILY #90 caps 10/19/22 release clonazepam 0.5 mg tablet 0.5 mg PO BID PRN anxiety #56 tabs 11/05/22 ferrous fumarate 325 mg (106 mg 325 mg PO DAILY #12 tabs 11/22/22 iron) tablet magnesium citrate 100 mg capsule 100 mg PO BID #14 caps 11/22/22 potassium chloride 20 mEq 20 meq PO DAILY #14 tabs 11/22/22 tablet,extended release torsemide 5 mg tablet 5 mg PO DAILY #90 tabs 11/30/22 Allergies Allergy/AdvReac Type Severity Reaction Status Date / Time No Known Allergies Allergy Verified 11/30/22 10:50 General Stated Complaint: GenMedical ANNETTE: 2 Review of Systems Narrative: Review of Systems Constitutional: negative Eyes: negative ENT: negative Cardiovascular: negative Respiratory: negative Gastrointestinal: negative : negative Musculoskeletal: negative Skin: negative Neurologic: negative Psych: negative PFSH All Active Problems (Updated 12/03/22 @ 19:15 by Leif Bowman MD) Hypokalemia (Acute) Hypomagnesemia (Acute) Elevated INR (Acute) Elevated lipase (Acute) Elevated bilirubin (Acute) Cirrhosis (Acute) Alcohol abuse (Chronic) Ascites (Acute) Hypomagnesemia (Acute) Acute hypokalemia (Acute) Iron deficiency anemia (Acute) Hyponatremia (Acute) Moderate (123) with improvement (135) in 6 days with pedialyte, less alcohol and salt intake.. Nasal crusting (Acute) Chronic sinusitis (Acute) Breast pain, left (Acute) Peripheral neuropathy (Acute) Bursal cyst of olecranon (Acute) Alcohol abuse (Chronic) Hypertension (Chronic) Unspecified lump in axillary tail of the left breast (Chronic) Lipoma by US 07/13; recommended repeat in 6 months Migraine (Chronic) Tinnitus (Acute) Diabetes mellitus type 2 in nonobese (Acute) Psychogenic nonepileptic seizure (Chronic) Benign hypertension (Acute 04/21/12) Fatigue (Acute 02/26/12) History of alcoholism (Acute) Type 2 diabetes mellitus with complication, without long-term current use of insulin (Acute 05/30/16) Personality disorder in adult (Acute) PTSD (post-traumatic stress disorder) (Acute) with paranoia 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 (Acute) ETOH abuse (Chronic) Spells of decreased attentiveness (Acute) Hyperlipidemia (Acute 07/03/12) Hepatitis, alcoholic (Acute 12/07/13) Fatty liver, alcoholic (Acute 05/30/16) Depressive disorder (Chronic 11/03/12) Chronic hip pain (Acute 11/24/14) -2014: / PT and Nsaids/osteoarthritis Anxiety (Chronic) Medical History Depression Hypertension Lipoma of axilla Prediabetes Surgical History Tooth extraction ROOT CANAL Family History Mother Diabetes Sister Depression Other Alcohol abuse Bipolar 1 disorder Dementia Heart disease Schizophrenia Social History Smoking/Tobacco Use Status: Former Tobacco Use Tobacco: How many years used: 4 Smoking risk assessment performed?: Yes Alcohol Intake: current Alcohol Intake frequency: 3 or more drinks per day Alcohol type: beer Drug use: Never Substance use type: does not use Adopted: No Household members: spouse Housing: house Number of Children: 0 Communication Needs: None current occupation: Disabled Do you think of yourself as: straight/heterosexual Current gender identity: male What is your relationship status?: How often do you talk on the phone with friends or family?: three or more times per week How often do you get together with friends or relatives?: twice per week Do you belong to any clubs or organized social groups?: yes Panel score (0-1 are the most socially isolated patients): 3 What type of physical activity do you participate in: walking and weight lifting Frequency: 3-4 times per week Donita/Zoroastrian: Denominational Seatbelt use: always Drive 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 Past GF in 2017 from ovarian cancer. in 2018 to current partner. Exam Narrative Exam Narrative: Physical Examination General: alert, awake, cooperative, resting comfortably, no acute distress HEENT: normocephalic, atraumatic; PERRL, EOM intact, conjunctiva normal; no nasal discharge; moist mucous membranes, oral and pharyngeal mucosa normal, tolerating secretions Neck: supple, trachea midline; full ROM Chest: normal to inspection Respiratory: normal respiratory effort, speaking in full sentences, clear to auscultation, no wheezing, rales or rhonchi Cardiac: regular rate, regular rhythm, S1S2 intact, no murmurs rubs or gallops GI: abdomen soft, non-tender, tense ascites with fluid wave, nonperitoneal; no palpable mass or hepatosplenomegaly Skin: no lesions, rashes or trauma appreciated Neuro: AAOx3, normal speech, moving all extremities Psych: Appropriate mood and affect Course Vital Signs Vital signs: Vital Signs Temperature 36.7 C 12/03/22 15:38 Pulse 95 H 12/03/22 15:38 Respiratory Rate 18 12/03/22 15:38 Blood Pressure 149/70 H 12/03/22 15:38 Pulse Oximetry 97 12/03/22 15:38 Temperature 36.7 C 12/03/22 15:38 Temperature Source Skin 12/03/22 15:38 Pulse 95 H 12/03/22 15:38 Respiratory Rate 18 12/03/22 15:38 Blood Pressure 149/70 H 12/03/22 15:38 Pulse Oximetry 97 12/03/22 15:38 Oxygen Delivery Method Room Air 12/03/22 15:38 Oxygen Flow Rate 0 12/03/22 15:38 Pain Level 0 12/03/22 15:38
[2022-12-03 16:37] LABS: Abs Immature Grans 0.03 10^3/uL (0.0-0.06); Absolute Basophil Count 0.04 10^3/uL (0.0-0.2); Absolute Eosinophil Count 0.13 10^3/uL (0.0-0.7); Absolute Monocyte Count 0.75 10^3/uL (0.1-0.8); Absolute Neutrophil Count 2.54 10^3/uL (1.2-6.7); Eosinophils % 3.3; HCT 23.5 % (40.0-50.0); Immature Grans % 0.8; Lymphocytes % 12.5; MCH 22.9 pg (27.0-33.0); MCHC 31.9 % (32.0-36.0); MCV 72 fL (80-95); MPV 8.9 fL (8.0-11.0); Monocytes % 18.8; Neutrophils % 63.6; RBC 3.28 10^6/uL (4.36-5.78); RDW 21.6 % (11.8-14.1); RDW-SD 55.8 fL; WBC 3.99 10^3/uL (4.4-10.8)
[2022-12-03 16:51] LABS: ALT 30 U/L (16-63); AST 79 U/L (15-37); Albumin 2.1 g/dL (3.4-5.0); Alkaline Phosphatase 180 U/L (46-116); Anion Gap 7.1 mmol/L (3-11); BUN 5 mg/dL (7-18); Bilirubin, Total 6.1 mg/dL (0.2-1.0); CO2 25.9 mmol/L (21.0-32.0); CREATININE 0.7 mg/dL (0.70-1.30); Calcium 7.5 mg/dL (8.5-10.1); Chloride 91 mmol/L (98-107); Estimated GFR 107.47 (mL/min/1.73m2); Glucose 105 mg/dL (74-106); Magnesium 1.5 mg/dL (1.8-2.4); Total Protein 6.1 g/dL (6.4-8.2)
[2022-12-03 16:53] LABS: Potassium 2.7 mmol/L (3.5-5.1); Sodium 124 mmol/L (136-145)
[2022-12-03 17:02] LABS: Anisocytosis 2+; Diff Comment Diff Reviewed; HGB 7.5 g/dL (13.5-17.5); Platelet Count 73 10^3/uL (130-400)
[2022-12-03 17:03] LABS: Hypochromasia 2+; Microcytosis 1+; Poikilocytes 1+
[2022-12-03] MEDS: MAGNESIUM SULFATE 1 GM/100 ML BAG IVPB (17:25)
[2022-12-03] MEDS: Potassium Chloride 10 MEQ TABCR PO (17:25)
[2022-12-03] MEDS: POTASSIUM CHLORIDE 10 MEQ/100 ML BAG 100 MEQ IVPB (18:10)
== END 2022-12-03 19:29 | disposition home or self-care (01) ==
PROVIDERS: Emergency Provider Emergency Medicine; PCP Family Medicine
DX: E87.6 Hypokalemia (principal); E83.42 Hypomagnesemia; K70.31 Alcoholic cirrhosis of liver with ascites
CPT/HCPCS: 80053; 86850; 86900; 86901; 93005; 96365; 96368; 99284; 83735; 85025; 93010; J3475; J3480

== ENCOUNTER 2022-12-04 14:27 | Observation (INO) | payer OTHER, SELFPAY ==
[2022-12-04] VITALS (10 sets, daily range): BP systolic 111–145; BP diastolic 64–88; PULSE 89–99; RESP 14–22; TEMP 36.4–37.3; O2SAT 97–99
[2022-12-04 12:37] LABS: HCT 22.4 % (40.0-50.0); HGB 7.3 g/dL (13.5-17.5); MCH 23.5 pg (27.0-33.0); MCHC 32.6 % (32.0-36.0); MCV 72 fL (80-95); MPV 9.5 fL (8.0-11.0); Platelet Count 71 10^3/uL (130-400); RBC 3.11 10^6/uL (4.36-5.78); RDW 21.4 % (11.8-14.1); RDW-SD 55.6 fL; WBC 3.28 10^3/uL (4.4-10.8)
[2022-12-04] MEDS: Normal Saline Flush 10 ML SYR IV ×3 (12:37→19:50)
[2022-12-04 12:42] LABS: Ammonia 25 umol/L (11-32)
[2022-12-04 12:43] LABS: INR 1.9 (0.9-1.1); Prothrombin Time 19.3 sec (9.3-11.0)
[2022-12-04 12:46] LABS: ALT 27 U/L (16-63); AST 84 U/L (15-37); Alkaline Phosphatase 171 U/L (46-116); Anion Gap 7.8 mmol/L (3-11); BUN 4 mg/dL (7-18); Bilirubin, Total 6.1 mg/dL (0.2-1.0); CO2 27.2 mmol/L (21.0-32.0); CREATININE 0.7 mg/dL (0.70-1.30); Calcium 7.3 mg/dL (8.5-10.1); Chloride 90 mmol/L (98-107); Estimated GFR 107.47 (mL/min/1.73m2); Glucose 99 mg/dL (74-106); Magnesium 1.5 mg/dL (1.8-2.4); Sodium 125 mmol/L (136-145)
[2022-12-04 12:48] LABS: Potassium 2.7 mmol/L (3.5-5.1)
--- NOTE | 2022-12-04 12:48 | NUR.NOTE ---
Critical lab value called to this RN, K+: 2.7 which was relayed to Dr. Hernandez @ 0738 by this RN. -BR
[2022-12-04] MEDS: Lidocaine 1% Pres-Free W/EPI 1/200,000 10 ML VIAL (13:07)
--- NOTE | 2022-12-04 13:10 | PAPNONF_PTH ---
PATIENT: Josue Rodriguez LOC: ICU U#:[id number] AGE/SX: 57/M ROOM: ICU.222 RE12/04/[address]: Leif Joshua MD : [id number] BED: A DIS: 12/05/2022 SPEC #: [id number] RECD: 12/04/22 17:28 STATUS: SOUCharles REQ #: [id number] SEKOU: 12/04/22 13:[address]: Leif Joshua DEPT: [facility] Cytology RECD BY: Tali Arthur ENTERED: 12/04/22 17:31 SP TYPE: KINGA KOWALSKI DR: DO Mary Gil Laura M Tissues: 1 - BODY FLUID CYTO(NOT S/U/N/EM)[facility] Procedures: BODY FLUID CYTO(NOT SPU/UR/NIP/ENDOM)[facility] Comments: [id number] (TOTAL VOLUME = 70 ml, SENT FRESH) (REFRIGERATED)
--- NOTE | 2022-12-04 13:31 | W.PM.DSUDISC ---
Date of service: 12/04/22 Time of Service: 13:50 Discharge Plan Disposition Patient Disposition: Home Condition: Serious Discharge Details Reason For Visit: paracentisis/removal fluid from abdomen Attending Provider: Danielle Hernandez Primary Care Provider: David Landaverde Home Meds and New Rx's Prescriptions: Continued (DME) blood sugar diagnostic Strip See Rx Instructions .ROUTE .MEDSUPPLY Qty: 100 3RF Rx Instructions: As directed; Test daily, to keep HbA1c less than 6.5%; Dx: E11.9 torsemide 5 mg tablet 5 mg PO DAILY Qty: 90 0RF naltrexone 50 mg tablet 50 mg PO DAILY Qty: 90 0RF Patient Comments: pt states not taking yet clonazepam 0.5 mg tablet 0.5 mg PO BID MDD 1.0 mg PRN (Reason: anxiety) Qty: 56 2RF fluoxetine 20 mg capsule 60 mg PO DAILY Qty: 270 3RF magnesium citrate 100 mg capsule 100 mg PO BID Qty: 14 0RF potassium chloride 20 mEq tablet extended release 20 meq PO DAILY Qty: 14 0RF Changed omeprazole 40 mg capsule,delayed release(DR/EC) 10 mg PO DAILY Qty: 90 3RF Discontinued celecoxib [Celebrex] 400 mg capsule 400 mg PO DAILY PRN (Reason: pain) Qty: 30 6RF ferrous fumarate 325 mg (106 mg iron) tablet 325 mg PO DAILY Qty: 12 0RF Rx Instructions: 3x/week Discharge Instructions Additional Instructions: Diet: high protein- 50 grams protein daily/low sodium- 2000mg a day water restriction- 1.5L per day -compression socks daily -shower daily -start Nlatrexone -No alcohol -no tylenol/ibuprofen/aspirin/Celebrex -decrease protonix dose. new Rx called in -f/u w/ pcp in am- call for appt. Activity:: Activity as Tolerated Remove Dressings/Wound Care:: 24 hours Shower/Bathe:: 24 hours Diet:: high protein /low Na DS: Diagnosis Discharge Diagnosis (1) Acute and subacute hepatic failure without coma: Status: Acute (2) Hypokalemia: Status: Acute (3) Hypomagnesemia: Status: Acute (4) Elevated INR: Status: Acute (5) Elevated lipase: Status: Acute (6) Elevated bilirubin: Status: Acute (7) Cirrhosis: Status: Acute (8) Alcohol abuse: Status: Chronic (9) Ascites: Status: Acute (10) Iron deficiency anemia: Status: Acute (11) Hyponatremia: Status: Acute (12) Anemia of chronic disease: Status: Acute (13) Alcohol abuse: Status: Chronic (14) Hypertension: Status: Chronic (15) Diabetes mellitus type 2 in nonobese: Status: Acute (16) PTSD (post-traumatic stress disorder): Status: Acute (17) 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: Status: Acute (18) Hyperlipidemia: Status: Acute (19) Depression:
[2022-12-04] MEDS: ALBUMIN HUMAN 25 GM/100 ML BTL IVPB ×2 (14:01→14:36)
--- NOTE | 2022-12-04 14:04 | W.PM.OP ---
Date of service: 12/04/22 Time of Service: 14:05 Operative Note Operative Note DATE OF PROCEDURE: 12/04/22 PRE-OP DIAGNOSIS: acute liver failure/ascites POST-OP DIAGNOSIS: same PROCEDURE: abdominal parcentisis SURGEON: Danielle Hernandez ANESTHESIA TYPE: Local By Surgeon Refer to Anesthesia Record ESTIMATED BLOOD LOSS: 5 PATHOLOGY: other COMPLICATIONS: None Patient was transported to: same day Patient's condition: stable Procedure Description: Informed consent is obtained, explaining benefits and risks of the procedure including but not limited to: bleeding/infections/damage to bowels or blood vessels/chronic drainage or leakage/need for repeat procedure/reactions to anesthetics.? ? The patient is brought to the procedure room and placed in the supine position.?? A time-out is done.? Ultrasound is used to localize the pocket of fluid.? The area is prepped and draped in the usual sterile fashion using a ChloraPrep scrub solution.? 10 cc's of 1% Lidocaine with epinephrine is used for local anesthetization.? The abdomen is punctured and the catheter is inserted.?6800 liters of light yellow fluid is evacuated today.? The catheter is removed.? Pressure dressing is applied.? The patient tolerated the procedure well without complication and transferred to recovery in stable condition.?
[2022-12-04 14:10] LABS: Source: Peritoneal; pH Body Fluid 8
--- NOTE | 2022-12-04 14:20 | W.PM.DSUDISC ---
Date of service: 12/04/22 Time of Service: 14:31 Discharge Plan Disposition Patient Disposition: Home Condition: Serious Discharge Details Reason For Visit: paracentisis/removal fluid from abdomen Attending Provider: Danielle Hernandez Primary Care Provider: David Landaverde Home Meds and New Rx's Prescriptions: Continued (DME) blood sugar diagnostic Strip See Rx Instructions .ROUTE .MEDSUPPLY Qty: 100 3RF Rx Instructions: As directed; Test daily, to keep HbA1c less than 6.5%; Dx: E11.9 torsemide 5 mg tablet 5 mg PO DAILY Qty: 90 0RF naltrexone 50 mg tablet 50 mg PO DAILY Qty: 90 0RF Patient Comments: pt states not taking yet clonazepam 0.5 mg tablet 0.5 mg PO BID MDD 1.0 mg PRN (Reason: anxiety) Qty: 56 2RF fluoxetine 20 mg capsule 60 mg PO DAILY Qty: 270 3RF magnesium citrate 100 mg capsule 100 mg PO BID Qty: 14 0RF potassium chloride 20 mEq tablet extended release 20 meq PO DAILY Qty: 14 0RF Changed omeprazole 40 mg capsule,delayed release(DR/EC) 10 mg PO DAILY Qty: 90 3RF Discontinued celecoxib [Celebrex] 400 mg capsule 400 mg PO DAILY PRN (Reason: pain) Qty: 30 6RF ferrous fumarate 325 mg (106 mg iron) tablet 325 mg PO DAILY Qty: 12 0RF Rx Instructions: 3x/week Discharge Instructions Additional Instructions: Diet: high protein- 50 grams protein daily/low sodium- 2000mg a day water restriction- 1.5L per day -compression socks daily -shower daily -start Nlatrexone -No alcohol -no tylenol/ibuprofen/aspirin/Celebrex -decrease protonix dose. new Rx called in -f/u w/ pcp in am- call for appt. Activity:: Activity as Tolerated Remove Dressings/Wound Care:: 24 hours Shower/Bathe:: 24 hours Diet:: high protein /low Na DS: Diagnosis Discharge Diagnosis (1) Acute and subacute hepatic failure without coma: Status: Acute (2) Hypokalemia: Status: Acute (3) Hypomagnesemia: Status: Acute (4) Elevated INR: Status: Acute (5) Elevated lipase: Status: Acute (6) Elevated bilirubin: Status: Acute (7) Cirrhosis: Status: Acute (8) Alcohol abuse: Status: Chronic (9) Ascites: Status: Acute (10) Iron deficiency anemia: Status: Acute (11) Hyponatremia: Status: Acute (12) Anemia of chronic disease: Status: Acute (13) Hypertension: Status: Chronic (14) Diabetes mellitus type 2 in nonobese: Status: Acute (15) PTSD (post-traumatic stress disorder): Status: Acute (16) 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: Status: Acute (17) Hyperlipidemia: Status: Acute (18) Depression:
[2022-12-04 14:42] LABS: Clarity Clear; Source Peritoneal
[2022-12-04 14:43] LABS: Mononuclear Cells 93 %; Nucleated Cells 59 uL (0); Polynuclear Cells 7 %
[2022-12-04 15:12] LABS: Lab Add On Test DONE
[2022-12-04 15:29] LABS: Lipase 110 U/L (16-77)
[2022-12-04] MEDS: POTASSIUM CHLORIDE 10 MEQ/100 ML BAG 100 MEQ IVPB ×4 (15:54→20:10)
--- NOTE | 2022-12-04 15:54 | HPE_ITS ---
Date of service: 12/04/22 Time of Service: 15:55 Assessment and Plan Assessment and plan (1) Anemia of chronic disease: Status: Acute Assessment and plan: Hgb trended from 8.3 to 7.3 since 11/22/22. Monitor. Likely related to bone marrow suppression. White blood cells and platelets also low. (2) Alcohol abuse: Status: Chronic Assessment and plan: Long-standing. He recently expressed a desire to stop drinking to his PCP and he re-iterated that today. The plan was to either taper his beer intake or taper him on Lorazepam or librium if his CIWA score wasn't too high. Planning on d/c tomorrow after electrolytes are repleted and will discuss this again. (3) Acute and subacute hepatic failure without coma: Status: Acute Assessment and plan: Significant ascites MELD of 28: 19.6% estimated 3-month mortality. Starting spironolactone. Increasing torsemide to 10mg daily. Ongoing f/u with PCP (4) Hypomagnesemia: Status: Acute Assessment and plan: Repleting. (5) Acute hypokalemia: Status: Acute Assessment and plan: Repleting (6) Diabetes mellitus type 2 in nonobese: Status: Acute Assessment and plan: Now A1c is <4.5. No medications. OK to have regular diet. History of Present Illness History of Present Illness Chief Complaint: Electrolyte disturbances, Ascites Narrative: This is a 57 yo male with a h/o cirrhosis secondary to alcohol abuse disorder, alcoholic hepatitis, HTN, Depression, anxiety, DM2, peripheral neuropathy, personality disorder, PTSD, HLD. He underwent paracentesis on the day of admission. Dr Hernandez removed 6600ml of ascites fluid. Because of his low K and Mg he is admitted as an OBS patient while these are being replaced. He was evaluated and treated for hypokalemia and hypomagnesemia in the [facility] ED on 12/03/22 but his K and Mg remain at the same levels on the day of this admission. Review of Systems All systems reviewed & are unremarkable except as noted in HPI and below PFSH All Active Problems Anemia of chronic disease (Acute) Acute and subacute hepatic failure without coma (Acute) Hypokalemia (Acute) Hypomagnesemia (Acute) Elevated INR (Acute) Elevated lipase (Acute) Elevated bilirubin (Acute) Cirrhosis (Acute) Alcohol abuse (Chronic) Ascites (Acute) Hypomagnesemia (Acute) Acute hypokalemia (Acute) Iron deficiency anemia (Acute) Hyponatremia (Acute) Moderate (123) with improvement (135) in 6 days with pedialyte, less alcohol and salt intake.. Nasal crusting (Acute) Chronic sinusitis (Acute) Breast pain, left (Acute) Peripheral neuropathy (Acute) Bursal cyst of olecranon (Acute) Alcohol abuse (Chronic) Hypertension (Chronic) Unspecified lump in axillary tail of the left breast (Chronic) Lipoma by US 07/13; recommended repeat in 6 months Migraine (Chronic) Tinnitus (Acute) Diabetes mellitus type 2 in nonobese (Acute) Psychogenic nonepileptic seizure (Chronic) Benign hypertension (Acute 04/21/12) Fatigue (Acute 02/26/12) History of alcoholism (Acute) Type 2 diabetes mellitus with complication, without long-term current use of insulin (Acute 05/30/16) Personality disorder in adult (Acute) PTSD (post-traumatic stress disorder) (Acute) with paranoia 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 (Acute) ETOH abuse (Chronic) Spells of decreased attentiveness (Acute) Hyperlipidemia (Acute 07/03/12) Hepatitis, alcoholic (Acute 12/07/13) Fatty liver, alcoholic (Acute 05/30/16) Depressive disorder (Chronic 11/03/12) Chronic hip pain (Acute 11/24/14) -2015: / PT and Nsaids/osteoarthritis Anxiety (Chronic) Medical History Depression Hypertension Lipoma of axilla Prediabetes Surgical History Tooth extraction ROOT CANAL Family History Mother Diabetes Sister Depression Other Alcohol abuse Bipolar 1 disorder Dementia Heart disease Schizophrenia Social History Smoking/Tobacco Use Status: Former Tobacco Use Tobacco: How many years used: 4 Smoking risk assessment performed?: Yes Alcohol Intake: current Alcohol Intake frequency: 3 or more drinks per day Alcohol type: beer Drug use: Never Substance use type: does not use Details: pt consumed alcohol today at 10am Adopted: No Household members: spouse Housing: house Number of Children: 0 Communication Needs: None current occupation: Disabled Do you think of yourself as: straight/heterosexual Current gender identity: male What is your relationship status?: How often do you talk on the phone with friends or family?: three or more times per week How often do you get together with friends or relatives?: twice per week Do you belong to any clubs or organized social groups?: yes Panel score (0-1 are the most socially isolated patients): 3 What type of physical activity do you participate in: walking and weight lifting Frequency: 3-4 times per week Donita/Denominational: Roman Catholic Seatbelt use: always Drive intox or ride w/intox cdl a driver: No Working smoke detector in home: Yes Carbon monox detector in home: Yes Do you feel safe at home: Yes Do you feel safe in your relationship?: Yes Additional Social history: . Past GF in 2017 from ovarian cancer. in 2018 to current partner. Meds Allergies and Home Medications Allergies Allergy/AdvReac Type Severity Reaction Status Date / Time No Known Allergies Allergy Verified 11/30/22 10:50 Home Medications Medication Instructions Recorded Confirmed Type blood sugar diagnostic #100 ea 12/11/18 11/30/22 Rx naltrexone 50 mg tablet 50 mg PO DAILY #90 tabs 03/02/22 12/04/22 Rx fluoxetine 20 mg capsule 60 mg PO DAILY #270 caps 08/03/22 12/04/22 Rx clonazepam 0.5 mg tablet 0.5 mg PO BID PRN anxiety #56 tabs 11/05/22 12/04/22 Rx magnesium citrate 100 mg capsule 100 mg PO BID #14 caps 11/22/22 12/04/22 Rx potassium chloride 20 mEq 20 meq PO DAILY #14 tabs 11/22/22 12/04/22 Rx tablet,extended release torsemide 5 mg tablet 5 mg PO DAILY #90 tabs 11/30/22 12/04/22 Rx omeprazole 40 mg capsule,delayed 10 mg PO DAILY #90 caps 12/04/22 12/04/22 Rx release Exam Narrative Exam Narrative: Gen:Pt is sitting up in bed. Conversant. Asking what his chances of surviving until [place] are. HEENT: sclera are icteric. MMM Neck: No JVD. FROM CV: RRR, 4/5 Murmur. Lungs: Clear. Nonlabored breathing. Abd: Softly distended. NT. +BS Exts: Edema from proximal thighs into feet. No calf tenderness. Psych: Alert, oriented to person, place, month. No focal motor deficits. Results Labs 12/04/22 12:20 12/04/22 12:20 Labs: Laboratory Results - last 24 hr 12/04/22 12/04/22 12/04/22 12:20 12:20 12:20 WBC RBC Hgb Hct MCV MCH MCHC RDW Plt Count MPV PT INR Sodium 125 L Potassium 2.7 L* Chloride 90 L Carbon Dioxide 27.2 Anion Gap 7.8 BUN 4 L Creatinine 0.7 Est GFR (CKD-EPI 2020) 107.47 Glucose 99 Calcium 7.3 L Magnesium 1.5 L Cancelled Total Bilirubin 6.1 H AST 84 H ALT 27 Alkaline Phosphatase 171 H Ammonia Total Protein 6.0 L Albumin 2.0 L Lipase Fluid Source Fluid Color Fluid Clarity Fluid pH Fluid WBC Fld Polynuclear WBCs % Fluid Mononuclear Cell Fluid Other Cells Path Cons Comment Add-On Test Request Patient ABO/Rh A Positive Antibody Screen NEGATIVE 12/04/22 12/04/22 12/04/22 12:20 12:20 12:20 WBC 3.28 L RBC 3.11 L Hgb 7.3 L Hct 22.4 L MCV 72 L MCH 23.5 L MCHC 32.6 RDW 21.4 H Plt Count 71 L MPV 9.5 PT 19.3 H INR 1.9 H Sodium Potassium Chloride Carbon Dioxide Anion Gap BUN Creatinine Est GFR (CKD-EPI 2020) Glucose Calcium Magnesium Total Bilirubin AST ALT Alkaline Phosphatase Ammonia 25 Total Protein Albumin Lipase Fluid Source Fluid Color Fluid Clarity Fluid pH Fluid WBC Fld Polynuclear WBCs % Fluid Mononuclear Cell Fluid Other Cells Path Cons Comment Add-On Test Request Patient ABO/Rh Antibody Screen 12/04/22 12/04/22 12/04/22 12:20 12:20 13:10 WBC RBC Hgb Hct MCV MCH MCHC RDW Plt Count MPV PT INR Sodium Potassium Chloride Carbon Dioxide Anion Gap BUN Creatinine Est GFR (CKD-EPI 2020) Glucose Calcium Magnesium Total Bilirubin AST ALT Alkaline Phosphatase Ammonia Total Protein Albumin Lipase 110 H Fluid Source Peritoneal Fluid Color Fluid Clarity Fluid pH 8 Fluid WBC Fld Polynuclear WBCs % Fluid Mononuclear Cell Fluid Other Cells Path Cons Comment Add-On Test Request DONE Patient ABO/Rh Antibody Screen 12/04/22 12/04/22 13:10 13:10 WBC RBC Hgb Hct MCV MCH MCHC RDW Plt Count MPV PT INR Sodium Potassium Chloride Carbon Dioxide Anion Gap BUN Creatinine Est GFR (CKD-EPI 2020) Glucose Calcium Magnesium Total Bilirubin AST ALT Alkaline Phosphatase Ammonia Total Protein Albumin Lipase Fluid Source Peritoneal Fluid Color Yellow Fluid Clarity Clear Fluid pH Fluid WBC 59 Fld Polynuclear WBCs % Cancelled 7 Fluid Mononuclear Cell Cancelled 93 Fluid Other Cells Cancelled Path Cons Comment Cancelled Add-On Test Request Patient ABO/Rh Antibody Screen Last Vital Signs Temp 36.4 C L 12/04/22 13:35 Pulse 99 H 12/04/22 13:35 Resp 16 12/04/22 13:35 BP 111/64 12/04/22 13:35 Pulse Ox 98 12/04/22 13:35 Time Spent Time spent with Patient: 40-54 minutes Time was spent: preparing to see the patient(eg.review tests), obtaining and/or reviewing separately otained hiistory, ordering medications,tests, procedures, referring, communicating with other health home health aide caregiver, indepentently interpreting results, counseling the patient and care coordination
[2022-12-04] MEDS: MAGNESIUM SULFATE 2 GM/50 ML BAG IVPB (16:10)
[2022-12-04] MEDS: Folic Acid 1 MG TAB PO (16:43)
[2022-12-04] MEDS: Thiamine 100 MG TAB PO (16:44)
[2022-12-04] MEDS: LORazepam 0.5 MG TAB PO (16:44)
[2022-12-04] MEDS: Magnesium Oxide 400 MG TAB PO (20:10)
[2022-12-05 06:50] LABS: HCT 22.6 % (40.0-50.0); HGB 7.3 g/dL (13.5-17.5); MCH 23.5 pg (27.0-33.0); MCHC 32.3 % (32.0-36.0); MCV 73 fL (80-95); MPV 9.2 fL (8.0-11.0); RDW 21.4 % (11.8-14.1); RDW-SD 56.2 fL; WBC 2.57 10^3/uL (4.4-10.8)
[2022-12-05 07:05] VITALS: TEMP 37.6
[2022-12-05 07:11] LABS: ALT 27 U/L (16-63); AST 79 U/L (15-37); Albumin 2.4 g/dL (3.4-5.0); Alkaline Phosphatase 152 U/L (46-116); Anion Gap 5.4 mmol/L (3-11); BUN 3 mg/dL (7-18); CO2 27.6 mmol/L (21.0-32.0); CREATININE 0.7 mg/dL (0.70-1.30); Calcium 7.8 mg/dL (8.5-10.1); Chloride 95 mmol/L (98-107); Estimated GFR 107.47 (mL/min/1.73m2); Glucose 112 mg/dL (74-106); Magnesium 1.8 mg/dL (1.8-2.4); Potassium 3.4 mmol/L (3.5-5.1); Sodium 128 mmol/L (136-145)
[2022-12-05 07:15] LABS: RBC 3.11 10^6/uL (4.36-5.78)
[2022-12-05 07:16] LABS: Platelet Count 58 10^3/uL (130-400)
--- NOTE | 2022-12-05 07:47 | W.PM.DS.N ---
Date of service: 12/05/22 Time of Service: 09:15 DS: Diagnosis Discharge Diagnosis (1) Acute hypokalemia: Status: Acute Asessment and Plan: K improved from 2.7 to 3.4 with oral and IV supplementation His torsemide was increased from 5mg to 10mg daily and spironolactone 12.5mg daily initiated. Monitoring K level as outpt given it isn't certain if the spironolactone will also help with K retention. (2) Hypomagnesemia: Status: Acute Asessment and Plan: Repleted. Encourage healthy diet that is low in Na, high in protein and high in fruits/vegs. (3) Acute and subacute hepatic failure without coma: Status: Acute Asessment and Plan: MELD of 28: 19.6% estimated 3-month mortality. Starting spironolactone.? Increasing torsemide to 10mg daily. s/p paracentesis with removal of 6600ml; ascites fluid was yellow and clear. WBCs 59. Glucose and albumin pending. Ongoing f/u with PCP (4) Alcohol abuse: Status: Chronic Asessment and Plan: Long-standing. He recently expressed a desire to stop drinking to his PCP and he re-iterated that during this admission. The plan was to either taper his beer intake or taper him on Lorazepam or librium if his CIWA score wasn't too high. CIWA score was 0 during this hospitalization; he had consummed beer prior to presentation for the paracentesis. (5) Anemia of chronic disease: Status: Acute Asessment and Plan: Also Iron deficient with a level of 15. Venofer 300mg IV administered. Cont oral supplementation; take with a small amount of OJ. Consider further IV Venofer as outpt. Discharge Plan Disposition Patient Disposition: Home Condition: Serious Discharge Details Reason For Visit: Cirrhosis, hypokalemia, hypomagnesemia Admit Date/Time: 12/04/22 14:27 Admit Provider: Danielle Hernandez Attending Provider: Leif Joshua Primary Care Provider: David Landaverde [facility] Course Hospital Course: This is a 57 yo male with a h/o cirrhosis secondary to alcohol abuse disorder, alcoholic hepatitis, HTN, Depression, anxiety, DM2, peripheral neuropathy, personality disorder, PTSD, HLD.? He underwent paracentesis on the day of admission. Dr Hernandez removed 6600ml of ascites fluid.? Because of his low K and Mg he is admitted as an OBS patient while these are being replaced.? He was evaluated and treated for hypokalemia and hypomagnesemia in the [facility] ED on 12/03/22 but his K and Mg remain at the same levels on the day of this admission. See Diagnosis Follow up with PCP within the next 7 days Home Meds and New Rx's Prescriptions: New torsemide 10 mg Tablet 10 mg PO DAILY Qty: 30 0RF spironolactone 25 mg Tablet 12.5 mg PO DAILY Qty: 15 0RF lorazepam 0.5 mg Tablet 0.5 mg PO TID PRN PRNQty: 30 0RF Continued (DME) blood sugar diagnostic Strip See Rx Instructions .ROUTE .MEDSUPPLY Qty: 100 3RF Rx Instructions: As directed; Test daily, to keep HbA1c less than 6.5%; Dx: E11.9 naltrexone 50 mg tablet 50 mg PO DAILY Qty: 90 0RF Patient Comments: pt states not taking yet fluoxetine 20 mg capsule 60 mg PO DAILY Qty: 270 3RF magnesium citrate 100 mg capsule 100 mg PO BID Qty: 14 0RF potassium chloride 20 mEq tablet extended release 20 meq PO DAILY Qty: 14 0RF Changed omeprazole 40 mg capsule,delayed release(DR/EC) 10 mg PO DAILY Qty: 90 3RF Discontinued torsemide 5 mg tablet 5 mg PO DAILY Qty: 90 0RF clonazepam 0.5 mg tablet 0.5 mg PO BID MDD 1.0 mg PRN (Reason: anxiety) Qty: 56 2RF celecoxib [Celebrex] 400 mg capsule 400 mg PO DAILY PRN (Reason: pain) Qty: 30 6RF ferrous fumarate 325 mg (106 mg iron) tablet 325 mg PO DAILY Qty: 12 0RF Rx Instructions: 3x/week Discharge Instructions Additional Instructions: Diet: high protein- 50 grams protein daily/low sodium- 2000mg a day water restriction- 1.5L per day -compression socks daily -shower daily -start Naltrexone -no tylenol/ibuprofen/aspirin/Celebrex -decrease protonix dose. new Rx called in -discuss tapering off alcohol vs benzodiazapine taper with PCP -f/u w/ pcp in am- call for appt. Referrals: David Landaverde DO [Primary Care Provider] - (Pt appointment on 12/14/22 at 9:30 AM. ) Activity:: Activity as Tolerated Equipment/Supplies:: No Equipment Needed Diet:: high protein /low Na Discharge Orders Discharge Orders: Discharge Order (Routine); Ordered 12/05/22 Ordered By: Leif Joshua Other Ambulatory Orders: Basic Metabolic Panel (Routine) Location: None Selected Ordered By: Leif Joshua Complete Blood Count w/Diff (Routine) Location: None Selected Ordered By: Leif Joshua DS: Summary Time Spent with Patient providing and/or coordinating discharge services: Greater than 30 minutes Status at Discharge Functional status at discharge: independent ambulation Overall status at discharge: patient is progressing back to baseline Mental Status: other (Intermittent confusion but grossly normal ) Speech and Movement: speech clear Mood: congruent mood and other (Intermittent confusion but grossly normal ) Affect: normal affect Exam Narrative Exam Narrative: Gen:Pt is sitting up on edge of bed. Conversant. HEENT: sclera are icteric. MMM Neck: No JVD. FROM CV: RRR, 4/5 Murmur. Lungs: Clear. Nonlabored breathing. Abd: Softly distended. NT. +BS Exts: Edema from proximal thighs into feet. No calf tenderness. Psych: Alert, oriented to person, place, month. No focal motor deficits. Psych Mental Status: other (Intermittent confusion but grossly normal ) Speech and Movement: speech clear Mood: congruent mood and other (Intermittent confusion but grossly normal ) Affect: normal affect DS: Data Vitals/I&O Vitals and I&O: Vital Signs Temperature 37.6 C H 12/05/22 07:05 Temperature Source Tympanic 12/05/22 07:05 Pulse 89 12/04/22 23:19 Pulse Rhythm Regular 12/05/22 07:05 Respiratory Rate 18 12/04/22 23:19 Respiratory Effort Normal 12/05/22 07:05 Respiratory Depth Normal 12/05/22 07:05 Respiratory Pattern Normal 12/05/22 07:05 Blood Pressure 126/73 12/04/22 23:19 Blood Pressure Mean 89 12/04/22 22:34 Blood Pressure Position Supine 12/04/22 15:15 Pulse Oximetry 98 12/04/22 23:19 Oxygen Delivery Method Room Air 12/04/22 23:19 Oxygen Flow Rate 0 12/04/22 23:19 Pain Level 0 12/05/22 07:05 Intake & Output 12/04/22 12/04/22 12/05/22 11:59 23:59 11:59 Intake Total 1530 / 1530 480 / 480 Output Total 1600 / 1600 950 / 950 Balance -70 / -70 -470 / -470 Weight 112.8 kg 106.6 kg 106.4 kg Intake: IV 650 / 650 Oral 880 / 880 480 / 480 Output: Urine 1100 / 1100 950 / 950 Stool 500 / 500 Other: Urine Color Light Dori Dark Dori Urine Appearance Clear Clear Urine Odor Normal Normal Stool Occult Blood Negative Stool Size Small Stool Characteristics Liquid Soft Emesis Description None Voiding Methods Urinal Urinal Data Completed and Pending Labs on day of discharge: Labs from last 24 hours 12/05/22 12/05/22 12/04/22 05:55 05:55 13:10 WBC 2.57 L RBC 3.11 L Hgb 7.3 L Hct 22.6 L MCV 73 L MCH 23.5 L MCHC 32.3 RDW 21.4 H Plt Count 58 L MPV 9.2 PT INR Sodium 128 L Potassium 3.4 L Chloride 95 L Carbon Dioxide 27.6 Anion Gap 5.4 BUN 3 L Creatinine 0.7 Est GFR (CKD-EPI 2020) 107.47 Glucose 112 H Calcium 7.8 L Magnesium 1.8 Total Bilirubin 7.0 H AST 79 H ALT 27 Alkaline Phosphatase 152 H Ammonia Total Protein 6.0 L Albumin 2.4 L Lipase Fluid Source Fluid Color Fluid Clarity Fluid pH Fluid WBC Fld Polynuclear WBCs % Fluid Mononuclear Cell Fluid Other Cells Fluid Glucose Fluid Albumin Pending Pathology Consult Spec Path Cons Comment Add-On Test Request Patient ABO/Rh Antibody Screen 12/04/22 12/04/22 12/04/22 13:10 13:10 13:10 WBC RBC Hgb Hct MCV MCH MCHC RDW Plt Count MPV PT INR Sodium Potassium Chloride Carbon Dioxide Anion Gap BUN Creatinine Est GFR (CKD-EPI 2020) Glucose Calcium Magnesium Total Bilirubin AST ALT Alkaline Phosphatase Ammonia Total Protein Albumin Lipase Fluid Source Peritoneal Fluid Color Yellow Fluid Clarity Clear Fluid pH Fluid WBC 59 Fld Polynuclear WBCs % 7 Fluid Mononuclear Cell 93 Fluid Other Cells Fluid Glucose Pending Fluid Albumin Pathology Consult Spec Pending Path Cons Comment Pending Add-On Test Request Patient ABO/Rh Antibody Screen 12/04/22 12/04/22 12/04/22 13:10 13:10 12:20 WBC RBC Hgb Hct MCV MCH MCHC RDW Plt Count MPV PT INR Sodium Potassium Chloride Carbon Dioxide Anion Gap BUN Creatinine Est GFR (CKD-EPI 2020) Glucose Calcium Magnesium Total Bilirubin AST ALT Alkaline Phosphatase Ammonia Total Protein Albumin Lipase 110 H Fluid Source Peritoneal Fluid Color Fluid Clarity Fluid pH 8 Fluid WBC Fld Polynuclear WBCs % Cancelled Fluid Mononuclear Cell Cancelled Fluid Other Cells Cancelled Fluid Glucose Fluid Albumin Pathology Consult Spec Path Cons Comment Cancelled Add-On Test Request Patient ABO/Rh Antibody Screen 12/04/22 12/04/22 12/04/22 12:20 12:20 12:20 WBC 3.28 L RBC 3.11 L Hgb 7.3 L Hct 22.4 L MCV 72 L MCH 23.5 L MCHC 32.6 RDW 21.4 H Plt Count 71 L MPV 9.5 PT 19.3 H INR 1.9 H Sodium Potassium Chloride Carbon Dioxide Anion Gap BUN Creatinine Est GFR (CKD-EPI 2020) Glucose Calcium Magnesium Total Bilirubin AST ALT Alkaline Phosphatase Ammonia Total Protein Albumin Lipase Fluid Source Fluid Color Fluid Clarity Fluid pH Fluid WBC Fld Polynuclear WBCs % Fluid Mononuclear Cell Fluid Other Cells Fluid Glucose Fluid Albumin Pathology Consult Spec Path Cons Comment Add-On Test Request DONE Patient ABO/Rh Antibody Screen 12/04/22 12/04/22 12/04/22 12:20 12:20 12:20 WBC RBC Hgb Hct MCV MCH MCHC RDW Plt Count MPV PT INR Sodium Potassium Chloride Carbon Dioxide Anion Gap BUN Creatinine Est GFR (CKD-EPI 2020) Glucose Calcium Magnesium Cancelled Total Bilirubin AST ALT Alkaline Phosphatase Ammonia 25 Total Protein Albumin Lipase Fluid Source Fluid Color Fluid Clarity Fluid pH Fluid WBC Fld Polynuclear WBCs % Fluid Mononuclear Cell Fluid Other Cells Fluid Glucose Fluid Albumin Pathology Consult Spec Path Cons Comment Add-On Test Request Patient ABO/Rh A Positive Antibody Screen NEGATIVE 12/04/22 12:20 WBC RBC Hgb Hct MCV MCH MCHC RDW Plt Count MPV PT INR Sodium 125 L Potassium 2.7 L* Chloride 90 L Carbon Dioxide 27.2 Anion Gap 7.8 BUN 4 L Creatinine 0.7 Est GFR (CKD-EPI 2020) 107.47 Glucose 99 Calcium 7.3 L Magnesium 1.5 L Total Bilirubin 6.1 H AST 84 H ALT 27 Alkaline Phosphatase 171 H Ammonia Total Protein 6.0 L Albumin 2.0 L Lipase Fluid Source Fluid Color Fluid Clarity Fluid pH Fluid WBC Fld Polynuclear WBCs % Fluid Mononuclear Cell Fluid Other Cells Fluid Glucose Fluid Albumin Pathology Consult Spec Path Cons Comment Add-On Test Request Patient ABO/Rh Antibody Screen PFSH All Active Problems Anemia of chronic disease (Acute) Acute and subacute hepatic failure without coma (Acute) Hypokalemia (Acute) Hypomagnesemia (Acute) Elevated INR (Acute) Elevated lipase (Acute) Elevated bilirubin (Acute) Cirrhosis (Acute) Alcohol abuse (Chronic) Ascites (Acute) Hypomagnesemia (Acute) Acute hypokalemia (Acute) Iron deficiency anemia (Acute) Hyponatremia (Acute) Moderate (123) with improvement (135) in 6 days with pedialyte, less alcohol and salt intake.. Nasal crusting (Acute) Chronic sinusitis (Acute) Breast pain, left (Acute) Peripheral neuropathy (Acute) Bursal cyst of olecranon (Acute) Alcohol abuse (Chronic) Hypertension (Chronic) Unspecified lump in axillary tail of the left breast (Chronic) Lipoma by US 07/13; recommended repeat in 6 months Migraine (Chronic) Tinnitus (Acute) Diabetes mellitus type 2 in nonobese (Acute) Psychogenic nonepileptic seizure (Chronic) Benign hypertension (Acute 04/21/12) Fatigue (Acute 02/26/12) History of alcoholism (Acute) Type 2 diabetes mellitus with complication, without long-term current use of insulin (Acute 05/30/16) Personality disorder in adult (Acute) PTSD (post-traumatic stress disorder) (Acute) with paranoia 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 (Acute) ETOH abuse (Chronic) Spells of decreased attentiveness (Acute) Hyperlipidemia (Acute 07/03/12) Hepatitis, alcoholic (Acute 12/07/13) Fatty liver, alcoholic (Acute 05/30/16) Depressive disorder (Chronic 11/03/12) Chronic hip pain (Acute 11/24/14) -2014: / PT and Nsaids/osteoarthritis Anxiety (Chronic) Medical History Depression Hypertension Lipoma of axilla Prediabetes Surgical History Tooth extraction ROOT CANAL Family History Mother Diabetes Sister Depression Other Alcohol abuse Bipolar 1 disorder Dementia Heart disease Schizophrenia Social History Smoking/Tobacco Use Status: Former Tobacco Use Tobacco: How many years used: 4 Smoking risk assessment performed?: Yes Alcohol Intake: current Alcohol Intake frequency: 3 or more drinks per day Alcohol type: beer Drug use: Never Substance use type: does not use Details: pt consumed alcohol today at 10am Adopted: No Household members: spouse Housing: house Number of Children: 0 Communication Needs: None current occupation: Disabled Do you think of yourself as: straight/heterosexual Current gender identity: male What is your relationship status?: How often do you talk on the phone with friends or family?: three or more times per week How often do you get together with friends or relatives?: twice per week Do you belong to any clubs or organized social groups?: yes Panel score (0-1 are the most socially isolated patients): 3 What type of physical activity do you participate in: walking and weight lifting Frequency: 3-4 times per week Donita/Restorationist: Christianity Seatbelt use: always Drive intox or ride w/intox tractor sweeper driver: No Working smoke detector in home: Yes Carbon monox detector in home: Yes Do you feel safe at home: Yes Do you feel safe in your relationship?: Yes Additional Social history: . Past GF in 2017 from ovarian cancer. in 2018 to current partner. Time Spent with Patient Time Spent with Patient: <45 minutes Time was spent: preparing to see the patient(eg.review tests), obtaining and/or reviewing separately otained hiistory, ordering medications,tests, procedures, referring, communicating with other health career development engineer, indepentently interpreting results, counseling the patient and care coordination
[2022-12-05 08:02] VITALS: BP 132/87; PULSE 100; RESP 20; O2SAT 93
[2022-12-05] MEDS: Spironolactone 25 MG TAB 12.5 MG PO (08:03)
[2022-12-05] MEDS: Thiamine 100 MG TAB PO (08:03)
[2022-12-05] MEDS: Folic Acid 1 MG TAB PO (08:03)
[2022-12-05] MEDS: FLUoxetine 20 MG CAP PO (08:04)
[2022-12-05] MEDS: Torsemide 10 MG TAB PO (08:08)
[2022-12-05] MEDS: Normal Saline Flush 10 ML SYR IV (08:09)
--- NOTE | 2022-12-05 08:09 | PDOC.CMIN ---
Date of service: 12/05/22 Time of Service: 08:09 Care Management Initial Assmt Initial Assessment REASON FOR HOSPITALIZATION:: anemia PREVIOUS FUNCTIONAL STATUS/SOCIAL/FAMILY SUPPORTS:: Jack lives in [facility] with his Lynnette. He has 3 step children but they are only close to one of them CURRENT FUNCTIONAL STATUS:: Jack was sitting up in bed when CM met with him. He was pleasant but a bit vague in presentation. CM noted a discrepancy between the advanced directives on file (DNR/DNI) and the physician order which was full code. CM discussed this with Jack and he stated that he did not want to be a DNR/DNI and requested that he be able to revise his advanced directives. He stated his would be in shortly and asked if CM could facilitate drafting the new document. CM returned when arrived but Jack decided to take home the blank copy of the [place] ADs and discuss with his PCP. ADVANCE DIRECTIVES:: On file. Lynnette [facility] Has patient been provided with info about the portal/API?: Yes Did the patient sign up for the portal?: Yes INSURANCE COVERAGE / FINANCIAL ISSUES:: [employer] [facility] CURRENT HOME/COMMUNITY SERVICES/EQUIPMENT:: none PRIMARY CARE PHYSICIAN:: David Landaverde POTENTIAL DISCHARGE NEEDS:: follow up with PCP and plan of care PATIENT/FAMILY EDUCATION NEEDS:: review of discharge instructions, limitations, follow up plan, discuss Ask Me Three TRANSPORTATION:: via private vehicle with PLAN:: Jack will be discharged home later today after his electrolytes are repleted. He will follow up with his PCP and other community providers and plan of care and transport with his . PFSH All Active Problems Anemia of chronic disease (Acute) Acute and subacute hepatic failure without coma (Acute) Hypokalemia (Acute) Hypomagnesemia (Acute) Elevated INR (Acute) Elevated lipase (Acute) Elevated bilirubin (Acute) Cirrhosis (Acute) Alcohol abuse (Chronic) Ascites (Acute) Hypomagnesemia (Acute) Acute hypokalemia (Acute) Iron deficiency anemia (Acute) Hyponatremia (Acute) Moderate (123) with improvement (135) in 6 days with pedialyte, less alcohol and salt intake.. Nasal crusting (Acute) Chronic sinusitis (Acute) Breast pain, left (Acute) Peripheral neuropathy (Acute) Bursal cyst of olecranon (Acute) Alcohol abuse (Chronic) Hypertension (Chronic) Unspecified lump in axillary tail of the left breast (Chronic) Lipoma by US 07/13; recommended repeat in 6 months Migraine (Chronic) Tinnitus (Acute) Diabetes mellitus type 2 in nonobese (Acute) Psychogenic nonepileptic seizure (Chronic) Benign hypertension (Acute 04/21/12) Fatigue (Acute 02/26/12) History of alcoholism (Acute) Type 2 diabetes mellitus with complication, without long-term current use of insulin (Acute 05/30/16) Personality disorder in adult (Acute) PTSD (post-traumatic stress disorder) (Acute) with paranoia 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 (Acute) ETOH abuse (Chronic) Spells of decreased attentiveness (Acute) Hyperlipidemia (Acute 07/03/12) Hepatitis, alcoholic (Acute 12/07/13) Fatty liver, alcoholic (Acute 05/30/16) Depressive disorder (Chronic 11/03/12) Chronic hip pain (Acute 11/24/14) -2015: / PT and Nsaids/osteoarthritis Anxiety (Chronic) Medical History Depression Hypertension Lipoma of axilla Prediabetes Surgical History Tooth extraction ROOT CANAL Family History Mother Diabetes Sister Depression Other Alcohol abuse Bipolar 1 disorder Dementia Heart disease Schizophrenia Social History Smoking/Tobacco Use Status: Former Tobacco Use Tobacco: How many years used: 4 Smoking risk assessment performed?: Yes Alcohol Intake: current Alcohol Intake frequency: 3 or more drinks per day Alcohol type: beer Drug use: Never Substance use type: does not use Details: pt consumed alcohol today at 10am Adopted: No Household members: spouse Housing: house Number of Children: 0 Communication Needs: None current occupation: Disabled Do you think of yourself as: straight/heterosexual Current gender identity: male What is your relationship status?: How often do you talk on the phone with friends or family?: three or more times per week How often do you get together with friends or relatives?: twice per week Do you belong to any clubs or organized social groups?: yes Panel score (0-1 are the most socially isolated patients): 3 What type of physical activity do you participate in: walking and weight lifting Frequency: 3-4 times per week Donita/Samaritan: Zoroastrianism Seatbelt use: always Drive 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 Past GF in 2017 from ovarian cancer. in 2018 to current partner.
[2022-12-05] MEDS: IRON SUCROSE COMPLEX 300 MG in Normal Saline 250 ML 167 MG IVPB (09:03)
--- NOTE | 2022-12-05 14:05 | PDOC.CMDIS ---
Date of service: 12/05/22 Time of Service: 14:05 LACE Index Scoring Tool Questions: Length of Stay (in days): 1 Was the patient admitted via the E.D.?: Yes Comorbidities: Diabetes w/o Complication and Liver or Renal Disease E.D. Visits: 2 Answers: Total Score: 11 Risk of Readmission: High Risk Care Management Discharge Plan Reason for Hospitalization: anemia Discharge Plan: Jack will be discharged home later today after his electrolytes are repleted. He will follow up with his PCP and other community providers and plan of care and transport with his . Patient/Family Education Needs: review of discharge instructions, limitations, follow up plan, discuss Ask Me Three
[2022-12-05 17:10] LABS: Albumin, Body FLuid <1.0 g/dL (See Note)
[2022-12-05 17:15] LABS: Glucose, Fluid 98 mg/dL (See Note)
== END 2022-12-05 12:00 | disposition home or self-care (01) ==
LOC: ICU 15:19
PROVIDERS: Admitting Provider Surgery; PCP Family Medicine; Visit Provider Family Medicine
PROC: 0W9G3ZZ Drainage of Peritoneal Cavity, Percutaneous Approach (ICD-10-PCS; CPT 49082; principal; 2022-12-04 13:45)
DX: K72.00 Acute and subacute hepatic failure without coma (principal); E87.6 Hypokalemia; E83.42 Hypomagnesemia; K70.31 Alcoholic cirrhosis of liver with ascites; F10.10 Alcohol abuse, uncomplicated; K70.11 Alcoholic hepatitis with ascites; I10 Essential (primary) hypertension; F32.A Depression, unspecified; F41.9 Anxiety disorder, unspecified; E11.42 Type 2 diabetes mellitus with diabetic polyneuropathy; F43.10 Post-traumatic stress disorder, unspecified; E78.5 Hyperlipidemia, unspecified; F60.9 Personality disorder, unspecified; D63.8 Anemia in other chronic diseases classified elsewhere; R79.1 Abnormal coagulation profile; E87.1 Hypo-osmolality and hyponatremia; G43.809 Other migraine, not intractable, without status migrainosus; D69.59 Other secondary thrombocytopenia
CPT/HCPCS: 49082; 36415; 80053; 82042; 83690; 85027; 86850; 86900; 86901; 89051; 96365; 96366; 81373; 82140; 83735; 83986; 85610; 88104; 99223; 99239; G0378; J1756; J3480

== ENCOUNTER 2022-12-12 16:45 | Emergency (ER) | payer OTHER, SELFPAY ==
[2022-12-12] VITALS (33 sets, daily range): BP systolic 120–147; BP diastolic 67–87; PULSE 91–101; RESP 15–24; TEMP 37; O2SAT 96–98
--- NOTE | 2022-12-12 16:45 | RT.EKG_ITS ---
APPROVED REPORT Exam: Resting ECG Reason for Exam: Altered Lab Values Patient Location: E HR:97 bpm ECG Measurements Heart Rate 97 AXIS RI 84 P -4 QRSd 114 QRS -13 QT 431 T 88 QTc 549 Conclusion Sinus rhythm...normal P axis, V-rate 60- 99 Nonspecific T abnormalities, lateral leads...T <-0.10mV, I aVL V5 V6 Prolonged QT interval...QTc >500mS loparger QRS complexes vs prior 12/03/22
[2022-12-12 17:46] LABS: Abs Immature Grans 0.09 10^3/uL (0.0-0.06); Absolute Basophil Count 0.07 10^3/uL (0.0-0.2); Absolute Eosinophil Count 0.27 10^3/uL (0.0-0.7); Absolute Lymphocyte Count 0.98 10^3/uL (1.2-3.4); Absolute Monocyte Count 1.15 10^3/uL (0.1-0.8); Absolute Neutrophil Count 3.87 10^3/uL (1.2-6.7); Basophils % 1.1; Eosinophils % 4.2; HGB 8.3 g/dL (13.5-17.5); Immature Grans % 1.4; Lymphocytes % 15.2; MCH 24.1 pg (27.0-33.0); MCHC 33.2 % (32.0-36.0); MCV 73 fL (80-95); Monocytes % 17.9; Neutrophils % 60.2; RBC 3.44 10^6/uL (4.36-5.78); RDW 22.7 % (11.8-14.1); WBC 6.43 10^3/uL (4.4-10.8)
[2022-12-12] MEDS: Potassium Chloride 20 MEQ TABCR 40 MEQ PO ×2 (17:53→21:41)
[2022-12-12 18:01] LABS: ALT 31 U/L (16-63); AST 80 U/L (15-37); Albumin 2.3 g/dL (3.4-5.0); Alkaline Phosphatase 181 U/L (46-116); Anion Gap 5.4 mmol/L (3-11); BUN 1 mg/dL (7-18); Bilirubin, Total 6.4 mg/dL (0.2-1.0); CO2 30.6 mmol/L (21.0-32.0); CREATININE 0.7 mg/dL (0.70-1.30); Calcium 7.8 mg/dL (8.5-10.1); Chloride 85 mmol/L (98-107); Estimated GFR 107.47 (mL/min/1.73m2); Glucose 124 mg/dL (74-106); Magnesium 1.2 mg/dL (1.8-2.4); Total Protein 6.3 g/dL (6.4-8.2)
[2022-12-12 18:02] LABS: Sodium 121 mmol/L (136-145)
[2022-12-12 18:03] LABS: Potassium 2.2 mmol/L (3.5-5.1)
[2022-12-12 18:33] LABS: Diff Comment Diff Reviewed
[2022-12-12 18:37] LABS: Platelet Count 98 10^3/uL (130-400)
[2022-12-12 18:38] LABS: Anisocytosis 2+; Microcytosis 2+
--- NOTE | 2022-12-12 19:04 | ED.GENADUL_ITS ---
Discharge Plan Disposition Patient Disposition: Against Medical Advice Condition: Good Discharge Details Clinical Impression: Hypomagnesemia, Hypokalemia, Hyponatremia Primary Care Provider: None,None ED Provider: Cherelle Silver Home Meds and New Rx's Prescriptions: Continued (DME) blood sugar diagnostic Strip See Rx Instructions .ROUTE .MEDSUPPLY Qty: 100 3RF Rx Instructions: As directed; Test daily, to keep HbA1c less than 6.5%; Dx: E11.9 naltrexone 50 mg tablet 50 mg PO DAILY Qty: 90 0RF Patient Comments: pt states not taking yet fluoxetine 20 mg capsule 60 mg PO DAILY Qty: 270 3RF potassium chloride 20 mEq tablet extended release 20 meq PO DAILY Qty: 90 3RF omeprazole 40 mg capsule,delayed release(DR/EC) 40 mg PO DAILY magnesium citrate 100 mg capsule 100 mg PO BID Qty: 14 0RF torsemide 10 mg Tablet 10 mg PO DAILY Qty: 30 0RF spironolactone 25 mg Tablet 12.5 mg PO DAILY Qty: 15 0RF lorazepam 0.5 mg Tablet 0.5 mg PO TID PRN PRNQty: 30 0RF Discharge Instructions Instructions: Hyponatremia (ED), Hypokalemia (ED), Hypomagnesemia (ED) Additional Instructions: Please take 40 mEq of potassium tomorrow morning and then continue to take your potassium as prescribed. You need to take your magnesium as well. Your doctor will call you for follow-up appointment for this week to get additional labs drawn. You should also take iron tablets, ferrous fumarate, 325 mg 2x per day to bring up your red blood cells. This will lessen your fatigue. Restrict fluid intake. Discharge Data Discharge Date/Time-TO BE ENTERED AT DEPARTURE: 12/12/22 21:44 Medical Decision Making Patient told me that he did not want to stay and I told him that I was only here to advise him. I did advise that I thought he needed to be admitted. He has had IV magnesium and both oral and IV potassium in the ED. His sodium has slowly dropped and is 121 today. If this drops any further it is going to cr eate altered mental status and further issues. Dr. Castañeda came down to talk to him but the patient refused to be admitted. Dr. Castañeda feels like he needs fluid restriction. I did discuss this with the patient. I also discussed his alcohol abuse. He has cut down to the 3 drinks per day for the past week. I told him that he can certainly go to 2 for 3 days and then 1 for 3 days and then stop com pletely. He seems quite determined to do this and his is supporting him. He was discharged AGAINST MEDICAL ADVICE and tells me that he has an appointment with his PCP on Saturday. I also asked him to restart ferrous fumarate as I think that this will help with his iron deficiency anemia which is likely the cause of his fatigue. Medical Records Medical records reviewed: Yes I reviewed the patient's medical records. Lab Data Lab results reviewed: Yes I reviewed the patient's lab results. Lab results narrative: diffuse lyte abnl, HCT 23 ECG Data Attestation: I personally reviewed and interpreted this ECG (s) as follows: ( Normal sinus rhythm at 95, prolonged QT. Larger QRS complexes versus prior on 12/03/2022) HPI General Date/Time Provider Initiated Documentation: 12/12/22 17:03 . HPI Narrative: This 57-year-old male patient is referred in by his PCP for abnormal lab values. His sodium and potassium were low as an outpatient. Patient reports that his only symptoms are fatigue and decreased energy. He admits to a long history of alcohol abuse although states that he has been cutting down for some time. He drinks White Claws and is down to 3 of these a day. He has a history of cirrhosis and had 6 L of fluid taken off his belly via paracentesis several weeks ago. He has a history of electrolyte abnormalities as well as iron deficiency anemia. He and his say he was told to stop his iron during his last hospitalization. There is no chest pain or shortness of breath. He has no belly pain. He has no dizziness or lightheadedness. Related Data Home Medications Medication Instructions Recorded Confirmed blood sugar diagnostic #100 ea 12/11/18 11/30/22 naltrexone 50 mg tablet 50 mg PO DAILY #90 tabs 03/02/22 12/04/22 fluoxetine 20 mg capsule 60 mg PO DAILY #270 caps 08/03/22 12/04/22 magnesium citrate 100 mg capsule 100 mg PO BID #14 caps 11/22/22 12/04/22 lorazepam 0.5 mg tablet 0.5 mg PO TID PRN PRN #30 tabs 12/05/22 spironolactone 25 mg tablet 12.5 mg PO DAILY #15 tabs 12/05/22 torsemide 10 mg tablet 10 mg PO DAILY #30 tabs 12/05/22 omeprazole 40 mg capsule,delayed 40 mg PO DAILY 12/07/22 release potassium chloride 20 mEq 20 meq PO DAILY #90 tabs 12/07/22 tablet,extended release Previous Rx's Medication Instructions Recorded blood sugar diagnostic #100 ea 12/11/18 naltrexone 50 mg tablet 50 mg PO DAILY #90 tabs 03/02/22 fluoxetine 20 mg capsule 60 mg PO DAILY #270 caps 08/03/22 magnesium citrate 100 mg capsule 100 mg PO BID #14 caps 11/22/22 lorazepam 0.5 mg tablet 0.5 mg PO TID PRN PRN #30 tabs 12/05/22 spironolactone 25 mg tablet 12.5 mg PO DAILY #15 tabs 12/05/22 torsemide 10 mg tablet 10 mg PO DAILY #30 tabs 12/05/22 potassium chloride 20 mEq 20 meq PO DAILY #90 tabs 12/07/22 tablet,extended release Allergies Allergy/AdvReac Type Severity Reaction Status Date / Time No Known Allergies Allergy Verified 11/30/22 10:50 General Stated Complaint: GenMedical ANNETTE: 2 Review of Systems Constitutional Constitutional: Denies chills, Reports fatigue, Denies fever(s), Denies headache(s) and Denies weakness Eyes Eyes: Denies diplopia and Reports other (no redness) ENT Ears, Nose, Mouth, and Throat: Denies otalgia, Denies headache(s), Denies nasal congestion, Denies nasal discharge, Denies neck pain and Denies sore throat Cardiovascular Cardiovascular: Denies chest pain, Denies palpitations and Denies dyspnea Respiratory Respiratory: Denies cough and Denies dyspnea Gastrointestinal Gastrointestinal: Denies abdominal pain, Denies diarrhea, Denies nausea and Denies vomiting Genitourinary Genitourinary: Denies difficulty urinating and Denies dysuria Musculoskeletal Musculoskeletal: Denies myalgias, Denies muscle weakness, Denies neck pain, Denies numbness and Reports other (edema) Integumentary/Breasts Skin/Breast: Denies change in pigmentation and Denies rash Neurologic Neurologic: Denies headache(s), Denies numbness and Denies weakness Endocrine Endocrine: Reports fatigue and Denies palpitations PFSH All Active Problems Hypomagnesemia (Acute) Hypokalemia (Acute) Hyponatremia (Acute) Anemia of chronic disease (Acute) Acute and subacute hepatic failure without coma (Acute) Hypokalemia (Acute) Hypomagnesemia (Acute) Elevated INR (Acute) Elevated lipase (Acute) Elevated bilirubin (Acute) Cirrhosis (Acute) Alcohol abuse (Chronic) Ascites (Acute) Iron deficiency anemia (Acute) Hyponatremia (Acute) Moderate (123) with improvement (135) in 6 days with pedialyte, less alcohol and salt intake.. Nasal crusting (Acute) Chronic sinusitis (Acute) Breast pain, left (Acute) Peripheral neuropathy (Acute) Bursal cyst of olecranon (Acute) Alcohol abuse (Chronic) Hypertension (Chronic) Unspecified lump in axillary tail of the left breast (Chronic) Lipoma by US 07/13; recommended repeat in 6 months Migraine (Chronic) Tinnitus (Acute) Psychogenic nonepileptic seizure (Chronic) Benign hypertension (Acute 04/21/12) Fatigue (Acute 02/26/12) History of alcoholism (Acute) Type 2 diabetes mellitus with complication, without long-term current use of insulin (Acute 05/30/16) Personality disorder in adult (Acute) PTSD (post-traumatic stress disorder) (Acute) with paranoia 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 (Acute) ETOH abuse (Chronic) Spells of decreased attentiveness (Acute) Hyperlipidemia (Acute 07/03/12) Hepatitis, alcoholic (Acute 12/07/13) Fatty liver, alcoholic (Acute 05/30/16) Depressive disorder (Chronic 11/03/12) Chronic hip pain (Acute 11/24/14) -2015: / PT and Nsaids/osteoarthritis Anxiety (Chronic) Medical History Depression Diabetes mellitus type 2 in nonobese Hypertension Lipoma of axilla Prediabetes Surgical History History of abdominal paracentesis (~11/2022) Tooth extraction ROOT CANAL Family History Mother Diabetes Sister Depression Other Alcohol abuse Bipolar 1 disorder Dementia Heart disease Schizophrenia Social History Smoking/Tobacco Use Status: Former Tobacco Use Tobacco: How many years used: 4 Smoking risk assessment performed?: Yes Alcohol Intake: current Alcohol Intake frequency: 3 or more drinks per day Alcohol type: beer Drug use: Never Substance use type: does not use Details: pt consumed alcohol today at 10am Adopted: No Household members: spouse Housing: house Number of Children: 0 Communication Needs: None current occupation: Disabled Do you think of yourself as: straight/heterosexual Current gender identity: male What is your relationship status?: How often do you talk on the phone with friends or family?: three or more times per week How often do you get together with friends or relatives?: twice per week Do you belong to any clubs or organized social groups?: yes Panel score (0-1 are the most socially isolated patients): 3 What type of physical activity do you participate in: walking and weight lifting Frequency: 3-4 times per week Donita/Orthodox: Anabaptism Seatbelt use: always Drive intox or ride w/intox 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 Past GF in 2017 from ovarian cancer. in 2018 to current partner. Exam Const General: no acute distress, well developed, well groomed and not in acute distress Nutritional Appearance: well nourished Orientation: alert and oriented x3 HENMT Head: normocephalic and atraumatic Ears: external ears normal Mouth: oropharynx normal and moist mucous membranes Throat: posterior oropharynx normal Eyes Conjunctivae: conjunctivae normal Neck Neck: full ROM and supple Chest Chest: normal inspection of the chest Resp Effort & Inspection: normal respiratory effort Auscultation: clear to auscultation bilaterally Cardio Rate: regular rate Rhythm: regular rhythm Heart Sounds: murmur (2/6 LUSB) and no rubs GI Inspection: normal to inspection Palpation: soft, nontender and other (non distended) Auscultation: normal bowel sounds Skin General skin exam: no rashes or lesions noted and other (pink, warm, dry) Neuro General: patient alert, patient awake and patient oriented x3 Speech: speech normal Motor: other (ARAYA) Sensory Exam: no sensory deficits noted Extrem General: normal to inspection, full ROM and pedal edema present Psych Mental Status: mental status grossly normal Speech and Movement: speech and movement normal Affect: normal affect Course Vital Signs Vital signs: Vital Signs Temperature 37 C 12/12/22 16:51 Pulse 101 H 12/12/22 16:51 Respiratory Rate 18 12/12/22 16:51 Blood Pressure 142/78 H 12/12/22 16:51 Pulse Oximetry 96 12/12/22 16:51 Temperature 37 C 12/12/22 16:51 Temperature Source Tympanic 12/12/22 16:51 Pulse 93 H 12/12/22 19:00 Pulse 92 H 12/12/22 19:01 Respiratory Rate 18 12/12/22 19:01 Blood Pressure 139/76 12/12/22 19:00 Blood Pressure Mean 98 12/12/22 19:00 Blood Pressure Position Sitting 12/12/22 16:51 Pulse Oximetry 96 12/12/22 16:51 Oxygen Delivery Method Room Air 12/12/22 16:51 Oxygen Flow Rate 0 12/12/22 16:51 Pain Level 0 12/12/22 16:51 Lab/Test Results Lab/Test Results: Laboratory Tests Range/Units 12/12/22 12/12/22 12/12/22 17:30 17:30 17:30 WBC (4.4-10.8) 10^3/uL 6.43 RBC (4.36-5.78) 10^6/uL 3.44 L Hgb (13.5-17.5) g/dL 8.3 L Hct (40.0-50.0) % 25.0 L MCV (80-95) fL 73 L MCH (27.0-33.0) pg 24.1 L MCHC (32.0-36.0) % 33.2 RDW (11.8-14.1) % 22.7 H Plt Count (130-400) 10^3/uL 98 L MPV (8.0-11.0) fL Immature Gran % 1.4 Neutrophils % 60.2 Lymphocytes % 15.2 Monocytes % 17.9 Eosinophils % 4.2 Basophils % 1.1 Nucleated RBC % (0.0-0.3) % 0.0 Absolute Neutrophils (1.2-6.7) 10^3/uL 3.87 Absolute Lymphocytes (1.2-3.4) 10^3/uL 0.98 L Absolute Monocytes (0.1-0.8) 10^3/uL 1.15 H Absolute Eosinophils (0.0-0.7) 10^3/uL 0.27 Absolute Basophils (0.0-0.2) 10^3/uL 0.07 RBC Morphology See Below Anisocytosis 2+ Microcytosis 2+ Sodium (136-145) mmol/L 121 L* Potassium (3.5-5.1) mmol/L 2.2 L* Chloride (98-107) mmol/L 85 L Carbon Dioxide (21.0-32.0) mmol/L 30.6 Anion Gap (3-11) mmol/L 5.4 BUN (7-18) mg/dL 1 L Creatinine (0.70-1.30) mg/dL 0.7 Est GFR (CKD-EPI 2020) (mL/min/1.73m2) 107.47 Glucose (74-106) mg/dL 124 H Calcium (8.5-10.1) mg/dL 7.8 L Magnesium (1.8-2.4) mg/dL 1.2 L Total Bilirubin (0.2-1.0) mg/dL 6.4 H AST (15-37) U/L 80 H ALT (16-63) U/L 31 Alkaline Phosphatase (46-116) U/L 181 H Total Protein (6.4-8.2) g/dL 6.3 L Albumin (3.4-5.0) g/dL 2.3 L Patient ABO/Rh A Positive Antibody Screen NEGATIVE PAWSS Have you Been Recently Intoxicated or Drunk Within the Last 30 days?: Yes Have you Ever Experienced Previous Episodes of Alcohol Withdrawal?: Yes Have you ever Experienced Withdrawal Seizures?: No Have you ever Experienced Delirium Tremens(DT)s?: No Have you ever undergone Alcohol Rehabilitation Treatment (i.e, inpt ot outpatient treatment programs)?: Yes Have you ever Experienced Blackouts?: No Have you ever Combined Alcohol with other Downers within the last 90 days?: No Have you ever Combined Alcohol with any other Substance of Abuse during the last 90 days?: No Positive Blood Alcohol level on Presentation? [PCS.BAL]: Unable to Obtain Evidence of Increased Autonomic Activity (i.e. HR>120, tremor, sweating, agitation, nausea)?: No Result: 3
[2022-12-12] MEDS: Normal Saline 500 ML 250 ML IV ×2 (19:21→20:31)
[2022-12-12] MEDS: POTASSIUM CHLORIDE 20 MEQ/100 ML BAG 50 MEQ IVPB (19:21)
[2022-12-12] MEDS: MAGNESIUM SULFATE 2 GM/50 ML BAG IVPB (19:21)
[2022-12-12 19:54] LABS: Bilirubin Small (Negative); Blood Negative (Negative); Clarity Clear (Clear); Glucose Negative (Negative); Ketones Negative (Negative); Leukocyte Esterase Negative (Negative); Nitrite Negative (Negative); Urobilinogen 0.2 mg/dL (Up to 0.2); pH 6.5 (5-8)
--- NOTE | 2022-12-12 20:47 | NUR.NOTE ---
Pt placed on care management list to establish primary care, pt has left today AMA and should follow up with primary.
[2022-12-13 19:50] LABS: Osmolality Serum 273 mOsm/kg (275-295)
== END 2022-12-12 21:44 | disposition left against medical advice (07) ==
PROVIDERS: Emergency Provider Emergency Medicine
DX: E83.42 Hypomagnesemia (principal); E87.6 Hypokalemia; E87.1 Hypo-osmolality and hyponatremia; F10.10 Alcohol abuse, uncomplicated; D50.9 Iron deficiency anemia, unspecified; R94.31 Abnormal electrocardiogram [ECG] [EKG]; I10 Essential (primary) hypertension; E11.9 Type 2 diabetes mellitus without complications; Z79.899 Other long term (current) drug therapy; Z87.891 Personal history of nicotine dependence; Z53.21 Procedure and treatment not carried out due to patient leaving prior to being seen by health care provider
CPT/HCPCS: 80053; 86850; 86900; 86901; 93005; 96365; 96366; 96368; 99284; 80320; 81003; 83735; 83930; 85025; 93010; J3480

== ENCOUNTER 2022-12-12 16:47 | Outpatient (CLI) | payer OTHER, SELFPAY ==
[2022-12-12 14:33] LABS: Abs Immature Grans 0.09 10^3/uL (0.0-0.06); Absolute Basophil Count 0.09 10^3/uL (0.0-0.2); Absolute Eosinophil Count 0.28 10^3/uL (0.0-0.7); Absolute Lymphocyte Count 1.07 10^3/uL (1.2-3.4); Absolute Monocyte Count 1.39 10^3/uL (0.1-0.8); Absolute Neutrophil Count 4.74 10^3/uL (1.2-6.7); Basophils % 1.2; Eosinophils % 3.7; HCT 27.5 % (40.0-50.0); HGB 8.9 g/dL (13.5-17.5); Immature Grans % 1.2; MCH 23.7 pg (27.0-33.0); MCHC 32.4 % (32.0-36.0); MCV 73 fL (80-95); MPV 9.6 fL (8.0-11.0); Monocytes % 18.1; Neutrophils % 61.8; RBC 3.75 10^6/uL (4.36-5.78); RDW-SD 61.1 fL; WBC 7.66 10^3/uL (4.4-10.8)
[2022-12-12 15:02] LABS: Platelet Count 93 10^3/uL (130-400)
[2022-12-12 15:03] LABS: Anisocytosis 2+; Diff Comment RBC Morph Reviewed; Microcytosis 2+; Poikilocytes 1+; Polychromasia Present
[2022-12-12 15:29] LABS: Anion Gap 5.6 mmol/L (3-11); BUN 3 mg/dL (7-18); CO2 30.4 mmol/L (21.0-32.0); CREATININE 0.7 mg/dL (0.70-1.30); Calcium 7.7 mg/dL (8.5-10.1); Chloride 86 mmol/L (98-107); Estimated GFR 107.47 (mL/min/1.73m2); Glucose 138 mg/dL (74-106)
[2022-12-12 15:42] LABS: Potassium 2.2 mmol/L (3.5-5.1); Sodium 122 mmol/L (136-145)
== END 2022-12-12 16:48 | disposition home or self-care (01) ==
LOC: LBO 16:47
PROVIDERS: Visit Provider Family Medicine
DX: D63.8 Anemia in other chronic diseases classified elsewhere (principal); D50.9 Iron deficiency anemia, unspecified; E87.6 Hypokalemia
CPT/HCPCS: 36415; 80048; 85025

== ENCOUNTER 2022-12-18 12:52 | Day surgery (SDC) | payer OTHER, SELFPAY ==
[2022-12-18 13:21] VITALS: BP 133/91; PULSE 93; RESP 20; TEMP 36.6; O2SAT 98
--- NOTE | 2022-12-18 14:06 | HPE_ITS ---
Date of service: 12/18/22 Time of Service: 14:07 Assessment and Plan Assessment and plan (1) Alcoholic cirrhosis of liver with ascites: Status: Acute (2) Hypomagnesemia: Status: Acute (3) Hypokalemia: Status: Acute (4) Anemia of chronic disease: Status: Acute (5) Elevated INR: Status: Acute (6) Elevated lipase: Status: Acute (7) Elevated bilirubin: Status: Acute (8) Iron deficiency anemia: Status: Acute (9) Hypertension: Status: Chronic (10) Type 2 diabetes mellitus with complication, without long-term current use of insulin: Status: Acute (11) PTSD (post-traumatic stress disorder): Status: Acute (12) 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: Status: Acute History of Present Illness Narrative: Patient is here today for repeat paracentesis. He has alcoholic cirrhosis. He continues to still drink. I have had multiple discussions with him that he is killing himself, and he cannot drink anymore alcohol. He continues to drink. Patient is here today for paracentesis. Risks include but not limited to: Bleeding, infection, prolonged leakage, need for repeat procedure, reaction to medication, damage to blood vessels or bowel. PFSH All Active Problems (Updated 12/18/22 @ 14:13 by Danielle Hernandez DO) Alcoholic cirrhosis of liver with ascites (Acute) Hypomagnesemia (Acute) Hypokalemia (Acute) Hyponatremia (Acute) Anemia of chronic disease (Acute) Acute and subacute hepatic failure without coma (Acute) Hypokalemia (Acute) Hypomagnesemia (Acute) Elevated INR (Acute) Elevated lipase (Acute) Elevated bilirubin (Acute) Cirrhosis (Acute) Alcohol abuse (Chronic) Ascites (Acute) Iron deficiency anemia (Acute) Hyponatremia (Acute) Moderate (123) with improvement (135) in 6 days with pedialyte, less alcohol and salt intake.. Nasal crusting (Acute) Chronic sinusitis (Acute) Breast pain, left (Acute) Peripheral neuropathy (Acute) Bursal cyst of olecranon (Acute) Alcohol abuse (Chronic) Hypertension (Chronic) Unspecified lump in axillary tail of the left breast (Chronic) Lipoma by US 07/13; recommended repeat in 6 months Migraine (Chronic) Tinnitus (Acute) Psychogenic nonepileptic seizure (Chronic) Benign hypertension (Acute 04/21/12) Fatigue (Acute 02/26/12) History of alcoholism (Acute) Type 2 diabetes mellitus with complication, without long-term current use of insulin (Acute 05/30/16) Personality disorder in adult (Acute) PTSD (post-traumatic stress disorder) (Acute) with paranoia 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 (Acute) ETOH abuse (Chronic) Spells of decreased attentiveness (Acute) Hyperlipidemia (Acute 07/03/12) Hepatitis, alcoholic (Acute 12/07/13) Fatty liver, alcoholic (Acute 05/30/16) Depressive disorder (Chronic 11/03/12) Chronic hip pain (Acute 11/24/14) -2014: / PT and Nsaids/osteoarthritis Anxiety (Chronic) Medical History Depression Diabetes mellitus type 2 in nonobese Hypertension Lipoma of axilla Prediabetes Surgical History History of abdominal paracentesis (~11/2022) Tooth extraction ROOT CANAL Family History Mother Diabetes Sister Depression Other Alcohol abuse Bipolar 1 disorder Dementia Heart disease Schizophrenia Social History Smoking/Tobacco Use Status: Former Tobacco Use Tobacco: How many years used: 4 Smoking risk assessment performed?: Yes Alcohol Intake: current Alcohol Intake frequency: 3 or more drinks per day Alcohol type: beer Drug use: Never Substance use type: does not use Details: pt consumed alcohol today at 12:45 pm Adopted: No Household members: spouse Housing: house Number of Children: 0 Communication Needs: None current occupation: Disabled Do you think of yourself as: straight/heterosexual Current gender identity: male What is your relationship status?: How often do you talk on the phone with friends or family?: three or more times per week How often do you get together with friends or relatives?: twice per week Do you belong to any clubs or organized social groups?: yes Panel score (0-1 are the most socially isolated patients): 3 What type of physical activity do you participate in: walking and weight lifting Frequency: 3-4 times per week Donita/Orthodox: Worship Seatbelt use: always Drive intox or ride w/intox driver education instructor: No Working smoke detector in home: Yes Carbon monox detector in home: Yes Do you feel safe at home: Yes Do you feel safe in your relationship?: Yes Additional Social history: . Past GF in 2017 from ovarian cancer. in 2018 to current partner. Meds Allergies and Home Medications Allergies Allergy/AdvReac Type Severity Reaction Status Date / Time No Known Allergies Allergy Verified 12/18/22 13:16 Home Medications Medication Instructions Recorded Confirmed Type blood sugar diagnostic #100 ea 12/11/18 12/14/22 Rx fluoxetine 20 mg capsule 60 mg PO DAILY #270 caps 08/03/22 12/18/22 Rx magnesium citrate 100 mg capsule 100 mg PO BID #14 caps 11/22/22 12/18/22 Rx spironolactone 25 mg tablet 12.5 mg PO DAILY #15 tabs 12/05/22 12/18/22 Rx torsemide 10 mg tablet 10 mg PO DAILY #30 tabs 12/05/22 12/18/22 Rx omeprazole 40 mg capsule,delayed 40 mg PO DAILY 12/07/22 12/18/22 History release potassium chloride 20 mEq 20 meq PO DAILY #90 tabs 12/07/22 12/18/22 Rx tablet,extended release celecoxib 400 mg capsule 400 mg PO DAILY #90 caps 12/14/22 12/18/22 Rx clonazepam 0.5 mg tablet 0.5 mg PO BID PRN anxiety #56 tabs 12/14/22 12/18/22 Rx Exam Narrative Exam Narrative: Heart is regular rate and rhythm Lungs are clear to auscultation Patient is extremely jaundiced Lower extremities are edematous Abdomen is distended from ascites. There is no peritonitis. Results Labs 12/18/22 14:00 12/18/22 14:00 Last Vital Signs Temp 36.6 C 12/18/22 13:21 Pulse 93 H 12/18/22 13:21 Resp 20 12/18/22 13:21 BP 133/91 H 12/18/22 13:21 Pulse Ox 98 12/18/22 13:21 Time Spent Time spent with Patient: <40 minutes Time was spent: preparing to see the patient(eg.review tests), obtaining and/or reviewing separately otained hiistory, ordering medications,tests, procedures, referring, communicating with other health women's health care nurse practitioner, indepentently interpreting results and counseling the patient
--- NOTE | 2022-12-18 14:17 | W.PM.DSUDISC ---
Date of service: 12/18/22 Time of Service: 14:17 Discharge Plan Disposition Patient Disposition: Home Condition: Fair Discharge Details Attending Provider: Danielle Hernandez Primary Care Provider: David Landaverde Home Meds and New Rx's Prescriptions: No Action (DME) blood sugar diagnostic Strip See Rx Instructions .ROUTE .MEDSUPPLY Qty: 100 3RF Rx Instructions: As directed; Test daily, to keep HbA1c less than 6.5%; Dx: E11.9 celecoxib 400 mg capsule 400 mg PO DAILY Qty: 90 3RF clonazepam 0.5 mg tablet 0.5 mg PO BID MDD 1.0 mg PRN (Reason: anxiety) Qty: 56 2RF fluoxetine 20 mg capsule 60 mg PO DAILY Qty: 270 3RF potassium chloride 20 mEq tablet extended release 20 meq PO DAILY Qty: 90 3RF omeprazole 40 mg capsule,delayed release(DR/EC) 40 mg PO DAILY magnesium citrate 100 mg capsule 100 mg PO BID Qty: 14 0RF torsemide 10 mg Tablet 10 mg PO DAILY Qty: 30 0RF spironolactone 25 mg Tablet 12.5 mg PO DAILY Qty: 15 0RF Discharge Instructions Additional Instructions: ice for pain f/u w/ Dr. Landaverde in 1 weeks time Repeat procedure on January 01 Activity:: Activity as Tolerated Remove Dressings/Wound Care:: 24 hours Shower/Bathe:: 24 hours Diet:: high protein DS: Diagnosis Discharge Diagnosis (1) Alcoholic cirrhosis of liver with ascites: Status: Acute (2) Hypomagnesemia: Status: Acute (3) Hypokalemia: Status: Acute (4) Anemia of chronic disease: Status: Acute (5) Elevated INR: Status: Acute (6) Elevated lipase: Status: Acute (7) Elevated bilirubin: Status: Acute (8) Iron deficiency anemia: Status: Acute (9) Hypertension: Status: Chronic (10) Type 2 diabetes mellitus with complication, without long-term current use of insulin: Status: Acute (11) PTSD (post-traumatic stress disorder): Status: Acute (12) 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: Status: Acute
[2022-12-18 14:28] LABS: Abs Immature Grans 0.05 10^3/uL (0.0-0.06); Absolute Basophil Count 0.08 10^3/uL (0.0-0.2); Absolute Eosinophil Count 0.18 10^3/uL (0.0-0.7); Absolute Lymphocyte Count 0.71 10^3/uL (1.2-3.4); Absolute Monocyte Count 0.75 10^3/uL (0.1-0.8); Absolute Neutrophil Count 3.64 10^3/uL (1.2-6.7); Basophils % 1.5; Eosinophils % 3.3; HCT 25.4 % (40.0-50.0); HGB 8.2 g/dL (13.5-17.5); Immature Grans % 0.9; Lymphocytes % 13.1; MCH 24.4 pg (27.0-33.0); MCHC 32.3 % (32.0-36.0); MCV 76 fL (80-95); MPV 9.7 fL (8.0-11.0); Monocytes % 13.9; Neutrophils % 67.3; RBC 3.36 10^6/uL (4.36-5.78); RDW 23.2 % (11.8-14.1); RDW-SD 63.8 fL; WBC 5.41 10^3/uL (4.4-10.8)
[2022-12-18 14:37] LABS: Ammonia 24 umol/L (11-32); INR 1.6 (0.9-1.1); Prothrombin Time 15.9 sec (9.3-11.0)
[2022-12-18 14:44] LABS: Anisocytosis 1+; Platelet Count 92 10^3/uL (130-400)
[2022-12-18 14:45] LABS: Polychromasia Present
[2022-12-18 14:49] LABS: ALT 37 U/L (16-63); AST 92 U/L (15-37); Albumin 2.3 g/dL (3.4-5.0); Alkaline Phosphatase 285 U/L (46-116); Anion Gap 4.1 mmol/L (3-11); BUN 4 mg/dL (7-18); Bilirubin, Total 5.2 mg/dL (0.2-1.0); CO2 28.9 mmol/L (21.0-32.0); CREATININE 0.7 mg/dL (0.70-1.30); Calcium 8.4 mg/dL (8.5-10.1); Chloride 95 mmol/L (98-107); Estimated GFR 107.47 (mL/min/1.73m2); GGT 118 U/L (15-85); Glucose 112 mg/dL (74-106); Magnesium 1.6 mg/dL (1.8-2.4); Potassium 3.9 mmol/L (3.5-5.1); Sodium 128 mmol/L (136-145); Total Protein 6.7 g/dL (6.4-8.2)
[2022-12-18 14:56] VITALS: BP 111/65; PULSE 96; RESP 18; TEMP 36.4; O2SAT 97
--- NOTE | 2022-12-18 14:56 | W.PM.OP ---
Date of service: 12/18/22 Time of Service: 14:56 Operative Note Operative Note DATE OF PROCEDURE: 12/18/22 PRE-OP DIAGNOSIS: etoh cirrosis POST-OP DIAGNOSIS: same PROCEDURE: paracentisi SURGEON: Danielle Hernandez ANESTHESIA TYPE: Local By Surgeon Refer to Anesthesia Record ESTIMATED BLOOD LOSS: 2 PATHOLOGY: none sent COMPLICATIONS: None Patient was transported to: same day Patient's condition: stable Procedure Description: Informed consent is obtained, explaining benefits and risks of the procedure including but not limited to: bleeding/infections/damage to bowels or blood vessels/chronic drainage or leakage/need for repeat procedure/reactions to anesthetics.?? The patient is brought to the procedure room and placed in the supine position.?? A time-out is done.? Ultrasound is used to localize the pocket of fluid.? The area is prepped and draped in the usual sterile fashion using a ChloraPrep scrub solution.? 10 cc's of 1% Lidocaine with epinephrine is used for local anesthetization.? The abdomen is punctured and the catheter is inserted.?7.7 liters of light yellow fluid is evacuated today.? The catheter is removed.? Suture and Pressure dressing is applied.? The patient tolerated the procedure well without complication and transferred to recovery in stable condition.?
[2022-12-18] MEDS: Lidocaine 1% Pres-Free W/EPI 1/200,000 10 ML VIAL (14:58)
[2022-12-18] MEDS: ALBUMIN HUMAN 25 GM/100 ML BTL IVPB ×2 (15:23→15:36)
[2022-12-18] MEDS: Normal Saline Flush 10 ML SYR IV (15:53)
== END 2022-12-18 16:10 | disposition home or self-care (01) ==
PROVIDERS: PCP Family Medicine; Visit Provider Surgery
PROC: 0W9G3ZZ Drainage of Peritoneal Cavity, Percutaneous Approach (ICD-10-PCS; CPT 49082; principal; 2022-12-18 14:15)
DX: K70.31 Alcoholic cirrhosis of liver with ascites (principal); F10.20 Alcohol dependence, uncomplicated
CPT/HCPCS: 49083; 36415; 80053; 82140; 82977; 83735; 85025; 85610

== ENCOUNTER 2022-12-24 04:04 | Outpatient (CLI) | payer OTHER, SELFPAY ==
[2022-12-24 13:11] LABS: Iron 45 ug/dL (65-175); Total Iron Binding Capacity 230 ug/dL (250-450); Transferrin Sat 20 % (20-55)
== END 2022-12-24 04:05 | disposition home or self-care (01) ==
LOC: LBO 04:04
PROVIDERS: PCP Family Medicine; Visit Provider Family Medicine
DX: D63.8 Anemia in other chronic diseases classified elsewhere (principal); K70.31 Alcoholic cirrhosis of liver with ascites
CPT/HCPCS: 36415; 83540; 83550

== ENCOUNTER 2023-01-01 09:58 | Day surgery (SDC) | payer OTHER, SELFPAY ==
--- NOTE | 2022-12-31 21:08 | W.PM.OP ---
Date of service: 01/01/23 Time of Service: 11:50 Operative Note Operative Note DATE OF PROCEDURE: 01/01/23 PRE-OP DIAGNOSIS: alcoholic cirrhosis with ascites POST-OP DIAGNOSIS: same PROCEDURE: Paracentesis SURGEON: Danielle Hernandez ANESTHESIA TYPE: Local By Surgeon Refer to Anesthesia Record ESTIMATED BLOOD LOSS: 1 PATHOLOGY: none sent COMPLICATIONS: None Patient was transported to: same day Patient's condition: stable Procedure Description: Informed consent is obtained, explaining benefits and risks of the procedure including but not limited to: bleeding/infections/damage to bowels or blood vessels/chronic drainage or leakage/need for repeat procedure/reactions to anesthetics.?? The patient is brought to the procedure room and placed in the supine position.?? A time-out is done.? Ultrasound is used to localize the pocket of fluid.? The area is prepped and draped in the usual sterile fashion using a ChloraPrep scrub solution.? 10 cc's of 1% Lidocaine with epinephrine is used for local anesthetization.? The abdomen is punctured and the catheter is inserted.?9.9 liters of light yellow fluid is evacuated today.? The catheter is removed.? Pressure dressing is applied.? The patient tolerated the procedure well without complication and transferred to recovery in stable condition.?
[2023-01-01 10:15] VITALS: BP 137/87; PULSE 88; RESP 17; TEMP 36.3; O2SAT 98
[2023-01-01] MEDS: Sodium Bicarbonate 50 MEQ/50 ML VIAL (11:04)
[2023-01-01] MEDS: Lidocaine 1% Pres-Free W/EPI 1/200,000 10 ML VIAL (11:04)
[2023-01-01 11:33] VITALS: BP 100/57; PULSE 86; RESP 17; TEMP 36.2; O2SAT 97
[2023-01-01] MEDS: Normal Saline Flush 10 ML SYR IVP (12:38)
[2023-01-01] MEDS: ALBUMIN HUMAN 25 GM/100 ML BTL IVPB ×2 (12:39→13:06)
--- NOTE | 2023-01-01 13:03 | W.PM.DSUDISC ---
Date of service: 01/01/23 Time of Service: 13:03 Discharge Plan Disposition Patient Disposition: Home Condition: Fair Discharge Details Attending Provider: Danielle Hernandez Primary Care Provider: David Landaverde Home Meds and New Rx's Prescriptions: No Action (DME) blood sugar diagnostic Strip See Rx Instructions .ROUTE .MEDSUPPLY Qty: 100 3RF Rx Instructions: As directed; Test daily, to keep HbA1c less than 6.5%; Dx: E11.9 celecoxib 400 mg capsule 400 mg PO DAILY Qty: 90 3RF clonazepam 0.5 mg tablet 0.5 mg PO BID MDD 1.0 mg PRN (Reason: anxiety) Qty: 56 2RF fluoxetine 20 mg capsule 60 mg PO DAILY Qty: 270 3RF potassium chloride 20 mEq tablet extended release 20 meq PO DAILY Qty: 90 3RF omeprazole 40 mg capsule,delayed release(DR/EC) 40 mg PO DAILY magnesium citrate 100 mg capsule 100 mg PO BID Qty: 14 0RF torsemide 10 mg tablet 10 mg PO HS spironolactone 25 mg tablet 12.5 mg PO HS Discharge Instructions Additional Instructions: Next appointment in two weeks with labs prior. A paracentesis is a procedure to remove extra fluid from your belly (abdomen). This fluid buildup in the abdomen is called ascites. This fluid may be removed to decrease abdominal pressure or to examine the fluid in the laboratory. Fluid buildup in your abdomen can sometimes cause problems with your bowels and breathing if it is not removed. What should I expect after the paracentesis? You might notice there is less tightness around your abdomen. You will be able to breathe better, which should help you feel more comfortable. How do I care for myself at home? ?? If you have pain after the procedure, your primary care provider can prescribe or recommend appropriate medications. ? It is normal for a small amount of fluid to leak from the puncture site. Keep the area dry and covered to prevent infection. ?? After 24 hours, you can remove your bandage and shower. You can wash the needle site gently with soap and warm water. ? Do not tub bath or submerge in water for three days. ?? Limit your activity for the rest of the day. Nutritional tips ?? Eat small, frequent and protein rich meals throughout the day (every 2 ? 4 hours) ? Limit added salt and high sodium foods ? Avoid alcohol When to get help ?Go to the ER if you have any of the following: ?? Fever above 100.4 ?F (38.0 ?C) ? Bleeding from the puncture site ?? Difficulty breathing ? Increased pain, redness, or swelling at the puncture site ?? Unable to produce urine Stand Alone Forms: [place] (DSU) Activity:: See above Remove Dressings/Wound Care:: 24 hours Shower/Bathe:: 24 hours Diet:: See above Discharge Orders Discharge Orders: Discharge Order (Routine); Ordered 01/01/23 Ordered By: Danielle Hernandez
== END 2023-01-01 14:00 | disposition home or self-care (01) ==
PROVIDERS: PCP Family Medicine; Visit Provider Surgery
PROC: 0W9G3ZZ Drainage of Peritoneal Cavity, Percutaneous Approach (ICD-10-PCS; CPT 49082; principal; 2023-01-01 10:30)
DX: K70.31 Alcoholic cirrhosis of liver with ascites (principal)
CPT/HCPCS: 49083; 96365

== ENCOUNTER → 2023-01-03 14:05 | Outpatient (BNVA) | payer OTHER, SELFPAY | PROVIDERS: PCP Family Medicine; Referring Provider Family Medicine; Visit Provider Surgery | DX: K70.31 Alcoholic cirrhosis of liver with ascites (principal) ==

== ENCOUNTER 2023-01-11 14:58 | Emergency (ER) | payer OTHER, SELFPAY ==
[2023-01-11] VITALS (82 sets, daily range): BP systolic 104–139; BP diastolic 53–86; PULSE 90–108; RESP 13–28; TEMP 36.8–37.1; O2SAT 96–100
[2023-01-11 15:40] LABS: Abs Immature Grans 0.12 10^3/uL (0.0-0.06); Absolute Basophil Count 0.04 10^3/uL (0.0-0.2); Absolute Eosinophil Count 0.23 10^3/uL (0.0-0.7); Absolute Monocyte Count 1.01 10^3/uL (0.1-0.8); Absolute Neutrophil Count 2.96 10^3/uL (1.2-6.7); Basophils % 0.8; Eosinophils % 4.6; HCT 21.6 % (40.0-50.0); Immature Grans % 2.4; Lymphocytes % 12.1; MCH 26.1 pg (27.0-33.0); MCV 84 fL (80-95); MPV 9.3 fL (8.0-11.0); Monocytes % 20.4; Neutrophils % 59.7; RBC 2.57 10^6/uL (4.36-5.78); RDW-SD 69.6 fL; WBC 4.96 10^3/uL (4.4-10.8)
--- NOTE | 2023-01-11 15:45 | RT.EKG_ITS ---
APPROVED REPORT Exam: Resting ECG Reason for Exam: fatigue Patient Location: E HR:96 bpm ECG Measurements Heart Rate 96 AXIS HI 163 P -9 QRSd 108 QRS 81 QT 420 T -33 QTc 532 Conclusion Sinus rhythm...normal P axis, V-rate 60- 99 Inferior infarct, age indeterminate...Q>35mS, T neg, II III aVF Prolonged QT interval...QTc >500mS
[2023-01-11 15:49] LABS: Ammonia 80 umol/L (11-32)
[2023-01-11 15:53] LABS: ALT 19 U/L (16-63); AST 41 U/L (15-37); Albumin 1.9 g/dL (3.4-5.0); Alkaline Phosphatase 215 U/L (46-116); Anion Gap 8.2 mmol/L (3-11); BUN 8 mg/dL (7-18); Bilirubin, Total 4.2 mg/dL (0.2-1.0); CO2 21.8 mmol/L (21.0-32.0); CREATININE 0.8 mg/dL (0.70-1.30); Calcium 7.7 mg/dL (8.5-10.1); Chloride 100 mmol/L (98-107); Estimated GFR 103.22 (mL/min/1.73m2); Glucose 163 mg/dL (74-106); Lipase 132 U/L (16-77); Sodium 130 mmol/L (136-145); Total Protein 5.9 g/dL (6.4-8.2)
[2023-01-11 16:02] LABS: Diff Comment Diff Reviewed; Platelet Count 92 10^3/uL (130-400)
[2023-01-11 16:03] LABS: Anisocytosis 2+
[2023-01-11 16:04] LABS: Polychromasia Present
[2023-01-11 16:06] LABS: HGB 6.7 g/dL (13.5-17.5)
--- NOTE | 2023-01-11 16:12 | ED.GENADUL_ITS ---
Discharge Plan Disposition Patient Disposition: Against Medical Advice Discharge Details Clinical Impression: Anemia, Hypomagnesemia, Thrombocytopenia, Hypocalcemia, Acute hypokalemia, Prolonged QT interval Primary Care Provider: Dvaid Landaverde ED Provider: Kael Estrada Home Meds and New Rx's Prescriptions: Continued (DME) blood sugar diagnostic Strip See Rx Instructions .ROUTE .MEDSUPPLY Qty: 100 3RF Rx Instructions: As directed; Test daily, to keep HbA1c less than 6.5%; Dx: E11.9 celecoxib 400 mg capsule 400 mg PO DAILY Qty: 90 3RF clonazepam 0.5 mg tablet 0.5 mg PO BID MDD 1.0 mg PRN (Reason: anxiety) Qty: 56 2RF fluoxetine 20 mg capsule 60 mg PO DAILY Qty: 270 3RF potassium chloride 20 mEq tablet extended release 20 meq PO DAILY Qty: 90 3RF omeprazole 40 mg capsule,delayed release(DR/EC) 40 mg PO DAILY magnesium citrate 100 mg capsule 100 mg PO BID Qty: 14 0RF torsemide 10 mg tablet 10 mg PO HS spironolactone 25 mg tablet 12.5 mg PO HS Discharge Instructions Instructions: Hypokalemia (ED), Hypomagnesemia (ED), Against Medical Advice (ED), Anemia (ED) Additional Instructions: You are leaving AGAINST MEDICAL ADVICE. Please return to the ER at any time for further work-up and treatment as recommended. Please follow-up with your primary care physician. Call on Saturday. Return to the ER immediately for any worsening or new concerning symptoms. Referrals: David Landaverde, DO [Primary Care Provider] - Medical Decision Making 1615??57-year-old male with history of alcoholic cirrhosis, receiving paracentesis every 2 weeks, electrolyte abnormalities in the past, here with fatigue and cramping of his hands. Patient does have distended abdomen that is not tense. Nontender abdomen. Patient is tachycardic and normotensive. Afebrile. Patient is quite adamant that he will not agree to hospitalization today. He is agreeable to diagnostic work-up and treatment in the emergency department only. Labs reviewed and significant anemia noted. Hemoglobin 6.7. I suspect this is anemia of chronic disease. Patient denies melena and BRBPR. I will give transfusion 1 unit of PRBCs. Patient is also thrombocytopenic with platelets of 92. Patient does have hypokalemia with potassium of 3.0. I will give IV potassium replacement. Patient also hypocalcemic with calcium of 7.7. Ammonia is elevated at 80. This is higher than prior. Albumin is low at 1.9. Initial EKG was reviewed and interpreted by me: Please report, prolonged QT with QTc of 532 noted. --Hypomagnesemia noted. Will give magnesium IV prior to potassium replacement. 2049 --patient reassessed multiple times. Patient notes he is feeling much better after blood transfusion and electrolyte replacement. All results were discussed with the patient. Patient is requesting discharge. Repeat EKG was reviewed and interpreted by me: Please see report, continue to have prolonged QT although improved from prior and QTc now 519. I will give calcium gluconate IV. -- Patient reassessed and tachycardic 100 bpm. Plan for hospitalization for continued treatment, cardiac monitoring and further diagnostics. Plan discussed with patient and patient declined. Patient declines plan and wishes to leave against medical advise. I reiterated my concerns to the patient and explained the risks of leaving prior to completion of workup and treatment. I specifically emphasized the possibility of life-threatening or lifestyle modifying disease that would not be appropriately treated if they leave. Patient verbalized understanding of my concerns and the potential for life threatening or lifestyle modifying disease. Patient has capacity to make informed decision. I again explained my concerns and urged the patient to stay for treatment as outlined. Patient continued to refuse. I then discussed potential less ideal alternatives to diagnostic/treatment plan as outlines and patient refused. I recommended that the patient follow-up with primary care physician AMY or return to the Emergency Department at any time for further treatment. Lab Data Lab results reviewed: Yes I reviewed the patient's lab results. Labs: Laboratory Tests Range/Units 01/11/23 01/11/23 01/11/23 15:32 16:25 19:19 WBC (4.4-10.8) 10^3/uL 4.96 RBC (4.36-5.78) 10^6/uL 2.57 L Hgb (13.5-17.5) g/dL 6.7 L* Hct (40.0-50.0) % 21.6 L MCV (80-95) fL 84 MCH (27.0-33.0) pg 26.1 L MCHC (32.0-36.0) % 31.0 L RDW (11.8-14.1) % 23.0 H Plt Count (130-400) 10^3/uL 92 L MPV (8.0-11.0) fL 9.3 Immature Gran % 2.4 Neutrophils % 59.7 Lymphocytes % 12.1 Monocytes % 20.4 Eosinophils % 4.6 Basophils % 0.8 Nucleated RBC % (0.0-0.3) % 0.0 Absolute Neutrophils (1.2-6.7) 10^3/uL 2.96 Absolute Lymphocytes (1.2-3.4) 10^3/uL 0.60 L Absolute Monocytes (0.1-0.8) 10^3/uL 1.01 H Absolute Eosinophils (0.0-0.7) 10^3/uL 0.23 Absolute Basophils (0.0-0.2) 10^3/uL 0.04 RBC Morphology See Below Polychromasia Present Anisocytosis 2+ PT (9.1-11.1) sec 17.8 H INR (0.9-1.1) 1.9 H APTT (23.6-32.8) sec 31.2 Sodium (136-145) mmol/L 130 L Potassium (3.5-5.1) mmol/L 3.0 L Chloride (98-107) mmol/L 100 Carbon Dioxide (21.0-32.0) mmol/L 21.8 Anion Gap (3-11) mmol/L 8.2 BUN (7-18) mg/dL 8 Creatinine (0.70-1.30) mg/dL 0.8 Est GFR (CKD-EPI 2020) (mL/min/1.73m2) 103.22 Glucose (74-106) mg/dL 163 H Calcium (8.5-10.1) mg/dL 7.7 L Magnesium (1.8-2.4) mg/dL 1.5 L Total Bilirubin (0.2-1.0) mg/dL 4.2 H AST (15-37) U/L 41 H ALT (16-63) U/L 19 Alkaline Phosphatase (46-116) U/L 215 H Ammonia (11-32) umol/L 80 H Troponin I (<or=60) ng/L < 50 Total Protein (6.4-8.2) g/dL 5.9 L Albumin (3.4-5.0) g/dL 1.9 L Lipase (16-77) U/L 132 H Urine Color (Yellow) Yellow Urine Clarity (Clear) Clear Urine pH (5-8) 6.0 Ur Specific [place] (1.005-1.025) 1.020 Urine Protein (Negative) mg/dL Trace H Urine Ketones (Negative) mg/dL Negative Urine Blood (Negative) Negative Urine Nitrite (Negative) Negative Urine Bilirubin (Negative) Small H Urine Urobilinogen (Up to 0.2) mg/dL 0.2 Ur Leukocyte Esterase (Negative) Negative Urine RBC (0-2) HPF 0-2 Urine WBC (0-5) HPF 0-2 Ur Epithelial Cells (Negative) HPF Rare Urine Crystals (Negative) HPF Negative Urine Bacteria (Negative) HPF Negative Urine Casts (Negative) LPF 0-2 Hyaline Urine Mucus (Negative) Moderate Urine Other (Negative) Negative Ur Culture Indicated? No Urine Glucose (Negative) mg/dL Negative Patient ABO/Rh A Positive Antibody Screen NEGATIVE Crossmatch See Detail HPI General Mode of arrival: ambulatory . Date/Time Provider Initiated Documentation: 01/11/23 15:20 . Limitations to Documentation: no limitations . Information obtained by: patient . HPI Narrative: 57-year-old male with multiple medical problems including history of alcoholic cirrhosis of the liver, alcohol abuse, hypertension, diabetes, here with chief complaint of fatigue. Patient notes feeling fatigued over the past few days. He notes cramping of his hands feels generally cold. He notes he feels similar to when he has had electrolyte abnormalities in the past requiring correction. He has no associated chest pain. No fever. Related Data Home Medications Medication Instructions Recorded Confirmed blood sugar diagnostic #100 ea 12/11/18 01/11/23 fluoxetine 20 mg capsule 60 mg (3 x 20 mg) PO DAILY #270 08/03/22 01/11/23 caps magnesium citrate 100 mg capsule 100 mg PO BID #14 caps 11/22/22 01/11/23 omeprazole 40 mg capsule,delayed 40 mg PO DAILY 12/07/22 01/11/23 release potassium chloride 20 mEq 20 meq PO DAILY #90 tabs 12/07/22 01/11/23 tablet,extended release celecoxib 400 mg capsule 400 mg PO DAILY #90 caps 12/14/22 01/11/23 clonazepam 0.5 mg tablet 0.5 mg PO BID PRN anxiety #56 tabs 12/14/22 01/11/23 spironolactone 25 mg tablet 12.5 mg PO HS 01/01/23 01/11/23 torsemide 10 mg tablet 10 mg PO HS 01/01/23 01/11/23 Previous Rx's Medication Instructions Recorded blood sugar diagnostic #100 ea 12/11/18 fluoxetine 20 mg capsule 60 mg (3 x 20 mg) PO DAILY #270 08/03/22 caps magnesium citrate 100 mg capsule 100 mg PO BID #14 caps 11/22/22 potassium chloride 20 mEq 20 meq PO DAILY #90 tabs 12/07/22 tablet,extended release celecoxib 400 mg capsule 400 mg PO DAILY #90 caps 12/14/22 clonazepam 0.5 mg tablet 0.5 mg PO BID PRN anxiety #56 tabs 12/14/22 Allergies Allergy/AdvReac Type Severity Reaction Status Date / Time No Known Allergies Allergy Verified 01/11/23 15:09 General Stated Complaint: GenMedical ANNETTE: 3 Review of Systems All systems reviewed & are unremarkable except as noted in HPI and below Constitutional Constitutional: Reports fatigue and Denies fever(s) Cardiovascular Cardiovascular: Denies chest pain, Denies lightheadedness and Denies dyspnea Respiratory Respiratory: Denies dyspnea Gastrointestinal Comments: Patient notes abdominal fullness with no pain at this time Endocrine Endocrine: Reports fatigue PFSH All Active Problems (Updated 01/11/23 @ 22:27 by Kael Estrada MD) Prolonged QT interval (Acute) Acute hypokalemia (Acute) Hypocalcemia (Acute) Thrombocytopenia (Chronic) Hypomagnesemia (Acute) Anemia (Chronic) Dark stools (Acute) Alcoholic cirrhosis of liver with ascites (Acute) Hypomagnesemia (Acute) Hypokalemia (Acute) Hyponatremia (Acute) Anemia of chronic disease (Acute) Acute and subacute hepatic failure without coma (Acute) Elevated INR (Acute) Elevated lipase (Acute) Elevated bilirubin (Acute) Hyponatremia (Acute) Moderate (123) with improvement (135) in 6 days with pedialyte, less alcohol and salt intake.. Nasal crusting (Acute) Chronic sinusitis (Acute) Breast pain, left (Acute) Peripheral neuropathy (Acute) Bursal cyst of olecranon (Acute) Alcohol abuse (Chronic) Hypertension (Chronic) Unspecified lump in axillary tail of the left breast (Chronic) Lipoma by US 07/13; recommended repeat in 6 months Migraine (Chronic) Tinnitus (Acute) Psychogenic nonepileptic seizure (Chronic) Benign hypertension (Acute 04/21/12) Fatigue (Acute 02/26/12) History of alcoholism (Acute) Type 2 diabetes mellitus with complication, without long-term current use of insulin (Acute 05/30/16) Personality disorder in adult (Acute) PTSD (post-traumatic stress disorder) (Acute) with paranoia 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 (Acute) ETOH abuse (Chronic) Spells of decreased attentiveness (Acute) Hyperlipidemia (Acute 07/03/12) Hepatitis, alcoholic (Acute 12/07/13) Fatty liver, alcoholic (Acute 05/30/16) Depressive disorder (Chronic 11/03/12) Chronic hip pain (Acute 11/24/14) -2014: / PT and Nsaids/osteoarthritis Anxiety (Chronic) Medical History Lipoma of axilla Diabetes mellitus type 2 in nonobese Prediabetes Hypertension Depression Surgical History History of abdominal paracentesis (~12/2022) Tooth extraction ROOT CANAL Family History Mother Diabetes Sister Depression Other Alcohol abuse Bipolar 1 disorder Dementia Heart disease Schizophrenia Social History Smoking/Tobacco Use Status: Former Tobacco Use Tobacco: How many years used: 4 Smoking risk assessment performed?: Yes Alcohol Intake: current Alcohol Intake frequency: 3 or more drinks per day Alcohol type: beer Drug use: Never Substance use type: does not use Details: pt consumed alcohol today at 0930 [address] x2 Adopted: No Household members: spouse Housing: house Number of Children: 0 Communication Needs: None current occupation: Disabled Do you think of yourself as: straight/heterosexual Current gender identity: male What is your relationship status?: How often do you talk on the phone with friends or family?: three or more times per week How often do you get together with friends or relatives?: twice per week Do you belong to any clubs or organized social groups?: yes Panel score (0-1 are the most socially isolated patients): 3 What type of physical activity do you participate in: walking and weight lifting Frequency: 3-4 times per week Donita/Sabianism: Christianity Seatbelt use: always 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 Past GF in 2017 from ovarian cancer. in 2018 to current partner. Exam Const General: cooperative and no acute distress HENMT Mouth: moist mucous membranes Eyes Conjunctivae: normal conjunctivae Sclera: normal sclerae Resp Auscultation: clear to auscultation bilaterally, no rales, no rhonchi and no wheezes Cardio Rate: regular rate and not tachycardic Rhythm: regular rhythm Heart Sounds: murmur systolic II/ GI Inspection: distended Palpation: soft, not firm, no guarding, no masses, not rigid and nontender Auscultation: normal bowel sounds Skin General skin exam: no rashes or lesions noted Neuro General: patient alert, patient awake, patient oriented x3 and tone normal Extrem General: edema Laterality: bilateral (pitting 1+ up shins) Psych Appearance: grossly normal Mental Status: mental status grossly normal Speech and Movement: speech and movement normal Course Vital Signs Vital signs: Vital Signs Temperature 37.1 C 01/11/23 15:04 Pulse 100 H 01/11/23 15:04 Respiratory Rate 16 01/11/23 15:04 Blood Pressure 122/79 01/11/23 15:04 Pulse Oximetry 98 01/11/23 15:04 Temperature 37.1 C 01/11/23 15:04 Temperature Source Temporal Artery Scan 01/11/23 15:04 Pulse 100 H 01/11/23 15:04 Respiratory Rate 20 01/11/23 16:06 Respiratory Effort Normal, Non-Labored 01/11/23 16:06 Respiratory Depth Normal 01/11/23 16:06 Respiratory Pattern Normal 01/11/23 16:06 Blood Pressure 122/79 01/11/23 15:04 Blood Pressure Position Sitting 01/11/23 15:04 Pulse Oximetry 98 01/11/23 15:04 Oxygen Delivery Method Room Air 01/11/23 15:04 Oxygen Flow Rate 0 01/11/23 15:04 Pain Level 0 01/11/23 15:04 Lab/Test Results Lab/Test Results: Laboratory Tests Range/Units 01/11/23 01/11/23 15:32 16:09 WBC (4.4-10.8) 10^3/uL 4.96 RBC (4.36-5.78) 10^6/uL 2.57 L Hgb (13.5-17.5) g/dL 6.7 L* Hct (40.0-50.0) % 21.6 L MCV (80-95) fL 84 MCH (27.0-33.0) pg 26.1 L MCHC (32.0-36.0) % 31.0 L RDW (11.8-14.1) % 23.0 H Plt Count (130-400) 10^3/uL 92 L MPV (8.0-11.0) fL 9.3 Immature Gran % 2.4 Neutrophils % 59.7 Lymphocytes % 12.1 Monocytes % 20.4 Eosinophils % 4.6 Basophils % 0.8 Nucleated RBC % (0.0-0.3) % 0.0 Absolute Neutrophils (1.2-6.7) 10^3/uL 2.96 Absolute Lymphocytes (1.2-3.4) 10^3/uL 0.60 L Absolute Monocytes (0.1-0.8) 10^3/uL 1.01 H Absolute Eosinophils (0.0-0.7) 10^3/uL 0.23 Absolute Basophils (0.0-0.2) 10^3/uL 0.04 RBC Morphology See Below Polychromasia Present Anisocytosis 2+ Sodium (136-145) mmol/L 130 L Potassium (3.5-5.1) mmol/L 3.0 L Chloride (98-107) mmol/L 100 Carbon Dioxide (21.0-32.0) mmol/L 21.8 Anion Gap (3-11) mmol/L 8.2 BUN (7-18) mg/dL 8 Creatinine (0.70-1.30) mg/dL 0.8 Est GFR (CKD-EPI 2020) (mL/min/1.73m2) 103.22 Glucose (74-106) mg/dL 163 H Calcium (8.5-10.1) mg/dL 7.7 L Total Bilirubin (0.2-1.0) mg/dL 4.2 H AST (15-37) U/L 41 H ALT (16-63) U/L 19 Alkaline Phosphatase (46-116) U/L 215 H Ammonia (11-32) umol/L 80 H Total Protein (6.4-8.2) g/dL 5.9 L Albumin (3.4-5.0) g/dL 1.9 L Lipase (16-77) U/L 132 H Crossmatch See Detail
[2023-01-11 16:42] LABS: INR 1.9 (0.9-1.1); PTT Activated 31.2 sec (23.6-32.8); Prothrombin Time 17.8 sec (9.1-11.1)
[2023-01-11 16:45] LABS: Magnesium 1.5 mg/dL (1.8-2.4); Troponin I < 50 ng/L (<or=60)
[2023-01-11] MEDS: MAGNESIUM SULFATE 1 GM/100 ML BAG IVPB (17:19)
[2023-01-11] MEDS: POTASSIUM CHLORIDE 20 MEQ/100 ML BAG 50 MEQ IVPB (18:18)
[2023-01-11 19:33] LABS: Bilirubin Small (Negative); Blood Negative (Negative); Clarity Clear (Clear); Glucose Negative (Negative); Ketones Negative (Negative); Leukocyte Esterase Negative (Negative); Nitrite Negative (Negative); Urobilinogen 0.2 mg/dL (Up to 0.2)
[2023-01-11 19:44] LABS: Bacteria Negative HPF (Negative); C & S Indicated? No; Casts 0-2 Hyaline LPF (Negative); Crystals Negative HPF (Negative); Epithelial Cells Rare HPF (Negative); Mucus Moderate (Negative); Other Cells Negative (Negative); RBC 0-2 HPF (0-2); WBC 0-2 HPF (0-5)
--- NOTE | 2023-01-11 20:45 | RT.EKG_ITS ---
APPROVED REPORT Exam: Resting ECG Reason for Exam: long qt Patient Location: E HR:95 bpm ECG Measurements Heart Rate 95 AXIS AK 195 P 73 QRSd 110 QRS -22 QT 411 T 95 QTc 519 Conclusion Sinus rhythm...normal P axis, V-rate 60- 99 Probable LVH with secondary repol abnrm...multiple LVH criteria Prolonged QT interval...QTc >500mS
[2023-01-11] MEDS: Calcium Gluconate 4.65 MEQ/10 ML VIAL 4.65 MG IVP (21:11)
[2023-01-11] MEDS: Normal Saline 50 ML 100 ML (21:13)
== END 2023-01-11 23:24 | disposition left against medical advice (07) ==
PROVIDERS: Registered Nurse Emergency; Emergency Provider Student in an Organized Health Care Education/Training Program; PCP Family Medicine
DX: D64.9 Anemia, unspecified (principal); E83.42 Hypomagnesemia; D69.6 Thrombocytopenia, unspecified; E83.51 Hypocalcemia; E87.6 Hypokalemia; R94.31 Abnormal electrocardiogram [ECG] [EKG]; I10 Essential (primary) hypertension; E11.9 Type 2 diabetes mellitus without complications; K70.30 Alcoholic cirrhosis of liver without ascites; Z79.84 Long term (current) use of oral hypoglycemic drugs; Z87.891 Personal history of nicotine dependence; Z53.29 Procedure and treatment not carried out because of patient's decision for other reasons
CPT/HCPCS: 36415; 80053; 83690; 86850; 86900; 86901; 86920; 93005; 96365; 96366; 96368; 99283; 81003; 81015; 82140; 83735; 84484; 85025; 85610; 85730; 93010; J0612; J3475; J3480; P9016

== ENCOUNTER 2023-01-14 03:21 | Outpatient (RCR) | payer OTHER, SELFPAY ==
[2022-12-31] MEDS: Normal Saline Flush 10 ML SYR IVP (09:13)
[2022-12-31] MEDS: IRON SUCROSE COMPLEX 300 MG in Normal Saline 250 ML 176.667 MG IVPB (09:31)
[2023-01-07] MEDS: IRON SUCROSE COMPLEX 300 MG in Normal Saline 250 ML 176.667 MG IVPB (09:26)
[2023-01-07] MEDS: Normal Saline Flush 10 ML SYR IVP (09:26)
[2023-01-14] MEDS: IRON SUCROSE COMPLEX 300 MG in Normal Saline 250 ML 176.667 MG IVPB (09:19)
[2023-01-14] MEDS: Normal Saline Flush 10 ML SYR IVP (09:19)
== END 2023-01-22 23:59 | disposition home or self-care (01) ==
LOC: INF 03:21
PROVIDERS: PCP Family Medicine; Visit Provider Family Medicine
DX: D50.9 Iron deficiency anemia, unspecified (principal)
CPT/HCPCS: 96365; 96366; J1756

== ENCOUNTER 2023-01-15 22:09 | Outpatient (CLI) | payer OTHER, SELFPAY ==
[2023-01-15 16:22] LABS: Abs Immature Grans 0.28 10^3/uL (0.0-0.06); Absolute Basophil Count 0.04 10^3/uL (0.0-0.2); Absolute Monocyte Count 1.26 10^3/uL (0.1-0.8); Basophils % 0.3; Eosinophils % 0.2; HCT 22.6 % (40.0-50.0); HGB 7.1 g/dL (13.5-17.5); Immature Grans % 2.3; Lymphocytes % 5.6; MCH 26.9 pg (27.0-33.0); MCHC 31.4 % (32.0-36.0); MCV 86 fL (80-95); MPV 10.1 fL (8.0-11.0); Monocytes % 10.5; Neutrophils % 81.1; RBC 2.64 10^6/uL (4.36-5.78); RDW 23.1 % (11.8-14.1); RDW-SD 71.9 fL; WBC 12.04 10^3/uL (4.4-10.8)
[2023-01-15 16:24] LABS: Absolute Eosinophil Count 0.02 10^3/uL (0.0-0.7); Absolute Lymphocyte Count 0.67 10^3/uL (1.2-3.4); Absolute Neutrophil Count 9.76 10^3/uL (1.2-6.7)
[2023-01-15 16:34] LABS: Ammonia 95 umol/L (11-32); INR 1.9 (0.9-1.1); Prothrombin Time 18.3 sec (9.1-11.1)
[2023-01-15 16:50] LABS: Anisocytosis 1+; Diff Comment RBC Morph Reviewed; Hypochromasia 2+; Microcytosis 1+; Polychromasia Present
[2023-01-15 16:51] LABS: Platelet Count 83 10^3/uL (130-400); Poikilocytes 1+
[2023-01-15 17:20] LABS: Iron 192 ug/dL (65-175); Total Iron Binding Capacity 201 ug/dL (250-450); Transferrin Sat 96 % (20-55)
[2023-01-15 17:22] LABS: ALT 20 U/L (16-63); AST 46 U/L (15-37); Albumin 1.9 g/dL (3.4-5.0); Alkaline Phosphatase 142 U/L (46-116); Anion Gap 7.3 mmol/L (3-11); BUN 10 mg/dL (7-18); Bilirubin, Total 6.3 mg/dL (0.2-1.0); CO2 21.7 mmol/L (21.0-32.0); CREATININE 0.8 mg/dL (0.70-1.30); Calcium 7.9 mg/dL (8.5-10.1); Chloride 101 mmol/L (98-107); Estimated GFR 103.22 (mL/min/1.73m2); GGT 57 U/L (15-85); Glucose 145 mg/dL (74-106); Lipase 120 U/L (16-77); Magnesium 1.4 mg/dL (1.8-2.4); NT-proBNP 344 pg/mL (<300); Potassium 3.4 mmol/L (3.5-5.1); Sodium 130 mmol/L (136-145); Total Protein 6.1 g/dL (6.4-8.2)
== END 2023-01-15 22:10 | disposition home or self-care (01) ==
LOC: LBO 22:09
PROVIDERS: PCP Family Medicine; Visit Provider Surgery
DX: D63.8 Anemia in other chronic diseases classified elsewhere; D69.59 Other secondary thrombocytopenia; E11.8 Type 2 diabetes mellitus with unspecified complications; E78.5 Hyperlipidemia, unspecified; E83.42 Hypomagnesemia; F60.9 Personality disorder, unspecified; G62.9 Polyneuropathy, unspecified; I10 Essential (primary) hypertension; K70.10 Alcoholic hepatitis without ascites; R19.5 Other fecal abnormalities; R74.8 Abnormal levels of other serum enzymes
CPT/HCPCS: 36415; 80053; 83690; 82140; 82977; 83540; 83550; 83735; 83880; 85025; 85610

== ENCOUNTER 2023-01-16 06:19 | Day surgery (SDC) | payer OTHER, SELFPAY ==
[2023-01-16] VITALS (31 sets, daily range): BP systolic 80–133; BP diastolic 52–86; PULSE 96–109; RESP 14–18; TEMP 36.4–37; O2SAT 86–100
--- NOTE | 2023-01-16 07:17 | W.PM.HP.N ---
Date of service: 01/16/23 Time of Service: 07:17 Assessment and Plan Assessment and plan (1) Alcoholic cirrhosis of liver with ascites: Status: Acute Assessment and plan: Josue is a 57 year old male with a history of alcohol abuse and cirrhosis who has been having parasentesis every 2 weeks. He is very uncomfortable again. We reviewed the procedure again as well as the possible complications. He wishes to proceed with parasentesis. We did also discuss getting a Palliative consult as he is in liver failure and if he doesnt stop drinking he will not survive much longer. I think that they could help him get his plan and eventually transition him to hospice when appropriate. I also think his could use the support. Josue has a greed to meet with Palliative care and I have placed a consult. We also discussed drinking pedialite for his low sodium, eating dark green leafy vegetables for iron, bananas for potassium and to try and increase his protein intake. (2) Acute hypokalemia: Status: Acute Assessment and plan: Will replace (3) Hypocalcemia: Status: Acute (4) Thrombocytopenia: Status: Chronic (5) Hypomagnesemia: Status: Acute Assessment and plan: will replace (6) Anemia: Status: Chronic Qualifiers: Anemia type: iron deficiency Iron deficiency anemia type: other iron deficiency Qualified Code(s): D50.8 - Other iron deficiency anemias (7) Elevated INR: Status: Acute (8) Hyponatremia: Status: Acute History of Present Illness Narrative: Mr. Jack Chamorro is a 57-year-old gentleman who comes in again today for another paracentesis. The patient continues to drink alcohol. He is an liver failure at this point. He has been getting paracentesis every 2 week. He had labs drawn yesterday. WBC 12.04 H 4.4-10.8 10^3/uL 01/15/23-1652 RBC 2.64 L 4.36-5.78 10^6/uL 01/15/23-1652 HGB 7.1 L 13.5-17.5 g/dL 01/15/23 HCT 22.6 L 40.0-50.0 % 01/15/23 MCV 86 80-95 fL 01/15/23 MCH 26.9 L 27.0-33.0 pg 01/15/23 MCHC 31.4 L 32.0-36.0 % 01/15/23 RDW 23.1 H 11.8-14.1 % 01/15/23 Platelet Count 83 L 130-400 10^3/uL 01/15/23 Prothrombin Time 18.3 H 9.1-11.1 sec 01/15/23 INR 1.9 H 0.9-1.1 01/15/23 Calcium 7.9 L 8.5-10.1 mg/dL 01/15/23 Glucose 145 H 74-106 mg/dL 01/15/23 BUN 10 7-18 mg/dL 01/15/23 Creatinine 0.8 0.70-1.30 mg/dL 01/15/23 Estimated GFR 103.22 mL/min/1.73m2 01/15/23 The eGFR is calculated from a serum creatinine using the CKD-EPI 2020 equation. Other variables required for the equation are gender and age; this equation does not include a race coefficient. This equation has similar overall performance to previous equations except values may differ, in particular, in patients with higher values of eGFR and younger-aged adults. Total Protein 6.1 L 6.4-8.2 g/dL 01/15/23 Albumin 1.9 L 3.4-5.0 g/dL 01/15/23 Bilirubin, Total 6.3 H 0.2-1.0 mg/dL 01/15/23 Alk Phos 142 H 46-116 U/L 01/15/23 Sodium 130 L 136-145 mmol/L 01/15/23 Potassium 3.4 L 3.5-5.1 mmol/L 01/15/23 Chloride 101 98-107 mmol/L 01/15/23 CO2 21.7 21.0-32.0 mmol/L 01/15/23 Anion Gap 7.3 3-11 mmol/L 01/15/23 AST 46 H 15-37 U/L 01/15/23 ALT 20 16-63 U/L 01/15/23 GGT 57 15-85 U/L 01/15/23-1722 Magnesium 1.4 L 1.8-2.4 mg/dL 01/15/23-1722 Lipase 120 H 16-77 U/L 01/15/23-1722 NT-proBNP 344 H <300 pg/mL 01/15/23-1722 His calculated MELD score is 25 which places him at a 20% 3 months mortality rate. Josue is having a hard time eating again becuase of the amount of fluid in his abdomen. He denies SOB. He unfortunately is still drinking Review of Systems All systems reviewed & are unremarkable except as noted in HPI and below PFSH All Active Problems (Updated 01/16/23 @ 09:44 by Christine Nolan MD) Prolonged QT interval (Acute) Acute hypokalemia (Acute) Hypocalcemia (Acute) Thrombocytopenia (Chronic) Hypomagnesemia (Acute) Anemia (Chronic) Dark stools (Acute) Alcoholic cirrhosis of liver with ascites (Acute) Anemia of chronic disease (Acute) Acute and subacute hepatic failure without coma (Acute) Elevated INR (Acute) Elevated lipase (Acute) Elevated bilirubin (Acute) Hyponatremia (Acute) Moderate (123) with improvement (135) in 6 days with pedialyte, less alcohol and salt intake.. Nasal crusting (Acute) Chronic sinusitis (Acute) Breast pain, left (Acute) Peripheral neuropathy (Acute) Bursal cyst of olecranon (Acute) Alcohol abuse (Chronic) Hypertension (Chronic) Unspecified lump in axillary tail of the left breast (Chronic) Lipoma by US 07/13; recommended repeat in 6 months Migraine (Chronic) Tinnitus (Acute) Psychogenic nonepileptic seizure (Chronic) Benign hypertension (Acute 04/21/12) Fatigue (Acute 02/26/12) History of alcoholism (Acute) Type 2 diabetes mellitus with complication, without long-term current use of insulin (Acute 05/30/16) Personality disorder in adult (Acute) PTSD (post-traumatic stress disorder) (Acute) with paranoia 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 (Acute) ETOH abuse (Chronic) Spells of decreased attentiveness (Acute) Hyperlipidemia (Acute 07/03/12) Hepatitis, alcoholic (Acute 12/07/13) Fatty liver, alcoholic (Acute 05/30/16) Depressive disorder (Chronic 11/03/12) Chronic hip pain (Acute 11/24/14) -2014: / PT and Nsaids/osteoarthritis Anxiety (Chronic) Medical History Lipoma of axilla Diabetes mellitus type 2 in nonobese Prediabetes Hypertension Depression Surgical History History of abdominal paracentesis (~12/2022) Tooth extraction ROOT CANAL Family History Mother Diabetes Sister Depression Other Alcohol abuse Bipolar 1 disorder Dementia Heart disease Schizophrenia Social History Smoking/Tobacco Use Status: Former Tobacco Use Tobacco: How many years used: 4 Smoking risk assessment performed?: Yes Alcohol Intake: current Alcohol Intake frequency: 3 or more drinks per day Alcohol type: beer Drug use: Never Substance use type: does not use Details: pt consumed alcohol today at 05[address] x2 Adopted: No Household members: spouse Housing: house Number of Children: 0 Communication Needs: None current occupation: Disabled Do you think of yourself as: straight/heterosexual Current gender identity: male What is your relationship status?: How often do you talk on the phone with friends or family?: three or more times per week How often do you get together with friends or relatives?: twice per week Do you belong to any clubs or organized social groups?: yes Panel score (0-1 are the most socially isolated patients): 3 What type of physical activity do you participate in: walking and weight lifting Frequency: 3-4 times per week Donita/Jain: Scientologist Seatbelt use: always 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 Past GF in 2017 from ovarian cancer. in 2018 to current partner. Meds Allergies and Home Medications Allergies Allergy/AdvReac Type Severity Reaction Status Date / Time No Known Allergies Allergy Verified 01/16/23 06:36 Home Medications Medication Instructions Recorded Confirmed Type blood sugar diagnostic #100 ea 12/11/18 01/16/23 Rx fluoxetine 20 mg capsule 60 mg (3 x 20 mg) PO DAILY #270 08/03/22 01/16/23 Rx caps magnesium citrate 100 mg capsule 100 mg PO BID #14 caps 11/22/22 01/16/23 Rx omeprazole 40 mg capsule,delayed 40 mg PO DAILY 12/07/22 01/16/23 History release potassium chloride 20 mEq 20 meq PO DAILY #90 tabs 12/07/22 01/16/23 Rx tablet,extended release celecoxib 400 mg capsule 400 mg PO DAILY #90 caps 12/14/22 01/16/23 Rx clonazepam 0.5 mg tablet 0.5 mg PO BID PRN anxiety #56 tabs 12/14/22 01/16/23 Rx spironolactone 25 mg tablet 12.5 mg PO HS 01/01/23 01/16/23 History torsemide 10 mg tablet 10 mg PO HS 01/01/23 01/16/23 History Exam Const General: cooperative, comfortable, no acute distress and frail appearing Nutritional Appearance: thin Orientation: alert and oriented x3 HENMT Head: normocephalic and atraumatic Resp Effort & Inspection: normal respiratory effort GI Inspection: normal to inspection Palpation: soft and nontender Results Labs Labs: Laboratory Results - last 24 hr 01/15/23 15:24 Patient ABO/Rh Cancelled Crossmatch See Detail Last Vital Signs Temp 98.1 F 01/16/23 06:42 Pulse 99 H 01/16/23 06:42 Resp 18 01/16/23 06:42 BP 133/86 01/16/23 06:42 Pulse Ox 100 01/16/23 06:42 Time Spent Time spent with Patient: 40-54 minutes Time was spent: preparing to see the patient(eg.review tests), indepentently interpreting results and counseling the patient
--- NOTE | 2023-01-16 08:17 | ROE_ITS ---
Date of service: 01/16/23 Time of Service: 08:17 Operative Note Operative Note DATE OF PROCEDURE: 01/16/23 PRE-OP DIAGNOSIS: alcoholic cirrhosis with ascitis POST-OP DIAGNOSIS: same PROCEDURE: Paracentesis SURGEON: Christine Nolan ANESTHESIA TYPE: Local By Surgeon Refer to Anesthesia Record ESTIMATED BLOOD LOSS: 3 COMPLICATIONS: None Patient was transported to: same day Patient's condition: stable Indications: Mr. Jack Chamorro is a 57 year old male with cirrhosis secondary to alcohol abuse. His last Parasentesis was 2 weeks ago. He feels full and has had a hard time eating. He is still drinking alcohol which he states is because he is in pain and his PCP will not give him anything more then Celebrex. We reviewed the parasenthesis procedure and the possible complications. He had an oportunity to ask questions. He had no further questions or concerns and wished to proceed with the procedure Findings: 9.5 L of light yellow fluid was removed without difficulty Procedure Description: After informed consent was obtained from the patient he was brought to the procedure room on a gurney. The old site was identified and the suture was removed. The right lower quadrant was prepped and draped in a sterile surgical fashion. 10 cc of 2% lidocaine was injected into the dermis and down to the fascia. A small incision was made with an 11 blade. The needle and sheath that came in the kit was slowly advanced through the subcutaneous tissue and the peritoneum into the abdomen. As soon as serous fluid was suctioned the sheath was advanced over the needle into the abdomen and the needle was removed. The sheath was then attached to suction canisters and a total of 9.5 L of serous fluid was removed without complication. The patient's blood pressure was checked throughout the procedure and continued to stay stable in the low 100s. Once the procedure was done the sheath was removed. The small incision was closed with 3-0 proline and a wound ostomy was applied over the incision. The patient was slowly placed into a sitting position. Patient did not develop any dizziness and so he was taken back to [facility] to recieve some Oral potassium, magnesium, IV albumin. He was then transported to the ICU to get 1 unit of blood. Patient did well and there were no immediate complications.
[2023-01-16] MEDS: Potassium Chloride 20 MEQ TABCR 40 MEQ PO (08:28)
[2023-01-16] MEDS: Magnesium Oxide 400 MG TAB 800 MG PO (08:28)
[2023-01-16] MEDS: ALBUMIN HUMAN 25 GM/100 ML BTL IVPB ×2 (08:35→08:55)
[2023-01-16] MEDS: Normal Saline Flush 10 ML SYR IV ×2 (08:55→09:21)
--- NOTE | 2023-01-16 09:49 | W.PM.DSUDISC ---
Date of service: 01/16/23 Time of Service: 10:59 Discharge Plan Disposition Patient Disposition: Home Condition: Stable Discharge Details Reason For Visit: ascitis Admit Date/Time: 01/16/23 08:22 Admit Provider: Christine Nolan Attending Provider: Christine Nolan Primary Care Provider: David Landaverde Home Meds and New Rx's Prescriptions: New sucralfate [Carafate] 1 gram tablet 1 g PO TID Qty: 90 5RF Rx Instructions: Take before meals Continued (DME) blood sugar diagnostic Strip See Rx Instructions .ROUTE .MEDSUPPLY Qty: 100 3RF Rx Instructions: As directed; Test daily, to keep HbA1c less than 6.5%; Dx: E11.9 celecoxib 400 mg capsule 400 mg PO DAILY Qty: 90 3RF clonazepam 0.5 mg tablet 0.5 mg PO BID MDD 1.0 mg PRN (Reason: anxiety) Qty: 56 2RF fluoxetine 20 mg capsule 60 mg PO DAILY Qty: 270 3RF potassium chloride 20 mEq tablet extended release 20 meq PO DAILY Qty: 90 3RF omeprazole 40 mg capsule,delayed release(DR/EC) 40 mg PO DAILY magnesium citrate 100 mg capsule 100 mg PO BID Qty: 14 0RF torsemide 10 mg tablet 10 mg PO HS spironolactone 25 mg tablet 12.5 mg PO HS Discharge Instructions Additional Instructions: Activity at Home after surgery: 1. As tolerated Diet, Nutrition, & wound healin. High prtein diet 2. Drink plenty of liquids like pedialyte to stay hydrated and avoid constipation For Constipation: 1. Take Milk of Magnesia or MiraLax as needed for constipation Other: 1. You may shower daily. Do not scrub the incisions Wound Care: 1. Keep the wound ostomy on for as long as it is leaking Other Services that may have been ordered: A Consult was placed for Palliative Care. Please call our office if you develop: 1. Fevers >101.5 2. Nausea or Vomiting 3. Worsening pain 4. Redness and thick discharge from the wounds If after hours please call the Hospital at and ask to speak to the on-call surgeon Activity:: Activity as Tolerated Equipment/Supplies:: No Equipment Needed Diet:: as above Discharge Orders Discharge Orders: Discharge Order (Routine); Ordered 01/16/23 Ordered By: Christine Nolan DS: Diagnosis Discharge Diagnosis (1) Alcoholic cirrhosis of liver with ascites: Status: Acute Asessment and Plan: The patient is doing well post-op from their parasentesis.? He has had no nausea or vomiting. He tolerated a large breakfast. The pt is not having any chest pain or SOB.? ?HEENT:? no eye pain/drainage/redness/swelling. Mild sore throat ?Cardio- NSR, no chest pain, BP stable- see VS record ?Pulm: no sob or productive cough. No hemoptysis Discussed eating a high protein dietNeeds to drink pedialyte rather the water as his sodium, potassium and magnesium have all been low (2) Acute hypokalemia: Status: Acute (3) Hypocalcemia: Status: Acute (4) Thrombocytopenia: Status: Chronic (5) Hypomagnesemia: Status: Acute (6) Anemia: Status: Chronic (7) Elevated INR: Status: Acute (8) Hyponatremia: Status: Acute
== END 2023-01-16 12:46 | disposition home or self-care (01) ==
LOC: SUR 09:49 → ICU 11:02 → SUR 15:26
PROVIDERS: PCP Family Medicine; Visit Provider Surgery
PROC: 0W9G3ZZ Drainage of Peritoneal Cavity, Percutaneous Approach (ICD-10-PCS; CPT 49082; principal; 2023-01-16 07:30)
DX: K70.31 Alcoholic cirrhosis of liver with ascites (principal)
CPT/HCPCS: 49082; 36430; 86850; 86900; 86901; 86920; 96365; P9016

== ENCOUNTER 2023-01-23 09:05 | Day surgery (SDC) | payer OTHER, SELFPAY ==
[2023-01-23 09:10] VITALS: BP 139/87; PULSE 98; RESP 22; TEMP 36.4; O2SAT 99
[2023-01-23] MEDS: Normal Saline Flush 10 ML SYR IVP (09:40)
[2023-01-23] MEDS: ALBUMIN HUMAN 25 GM/100 ML BTL IVPB ×2 (09:42→10:01)
[2023-01-23 09:47] LABS: HCT 28.1 % (40.0-50.0); HGB 8.9 g/dL (13.5-17.5)
[2023-01-23 10:03] LABS: Anion Gap 9.5 mmol/L (3-11); BUN 9 mg/dL (7-18); CO2 23.5 mmol/L (21.0-32.0); CREATININE 0.8 mg/dL (0.70-1.30); Calcium 8.5 mg/dL (8.5-10.1); Chloride 102 mmol/L (98-107); Estimated GFR 103.22 (mL/min/1.73m2); Glucose 132 mg/dL (74-106); Magnesium 1.6 mg/dL (1.8-2.4); Sodium 135 mmol/L (136-145)
[2023-01-23 10:05] LABS: Potassium 2.9 mmol/L (3.5-5.1)
[2023-01-23] MEDS: Potassium Chloride 20 MEQ TABCR 80 MEQ PO (10:31)
--- NOTE | 2023-01-23 10:53 | SUR.PREOP ---
Call received from Danny Chavez in laboratory at 1006 regarding patient Josue Rodriguez, 1965. Danny Chavez reported a critical lab value of Potassium 2.9. Critical lab value read back to Danny. 1008 This RN called into OR and reported the critical lab value of Potassium 2.9 to Joseph Nevarez RN. 1012 Joseph Nevarez RN called this RN to report a verbal order from Dr. Nolan in OR to give 80meq of Potassium PO NOW. Order read back. Order entered and call placed to pharmacy. 1024 medication was delivered by pharmacy staff to patient's nurse Sherri Henson RN. Medication administered by Sherri Henson RN as ordered.
[2023-01-23 12:36] VITALS: BP 125/79; PULSE 97; RESP 20; TEMP 36.7; O2SAT 100
--- NOTE | 2023-01-23 12:36 | W.PM.DSUDISC ---
Date of service: 01/23/23 Time of Service: 12:36 Discharge Plan Disposition Patient Disposition: Home Condition: Stable Discharge Details Reason For Visit: ascitis Attending Provider: Christine Nolan Primary Care Provider: David Landaverde Home Meds and New Rx's Prescriptions: Continued (DME) blood sugar diagnostic Strip See Rx Instructions .ROUTE .MEDSUPPLY Qty: 100 3RF Rx Instructions: As directed; Test daily, to keep HbA1c less than 6.5%; Dx: E11.9 celecoxib 400 mg capsule 400 mg PO DAILY Qty: 90 3RF clonazepam 0.5 mg tablet 0.5 mg PO BID MDD 1.0 mg PRN (Reason: anxiety) Qty: 56 2RF lactulose 10 gram/15 mL solution 10 g PO DAILY Qty: 946 6RF potassium chloride 20 mEq tablet extended release 60 meq PO DAILY Qty: 270 3RF fluoxetine 20 mg capsule 60 mg PO DAILY Qty: 270 3RF omeprazole 40 mg capsule,delayed release(DR/EC) 40 mg PO DAILY magnesium citrate 100 mg capsule 100 mg PO BID Qty: 14 0RF torsemide 10 mg tablet 10 mg PO HS spironolactone 25 mg tablet 12.5 mg PO HS sucralfate [Carafate] 1 gram tablet 1 g PO TID Qty: 90 5RF Rx Instructions: Take before meals Discharge Instructions Additional Instructions: Please call the office if you develop abdominal pain, fevers >101.5, Nausea or Vomiting over the next 24 to 48 hours If you have leaking from the small incision site please apply the ostomy bag we provided to you You may remove the dressing in 14 hours We will schedule you for another Parasentesis next Saturday. You will receive a call for a time of arrival on Saturday Please remember to check with your Primary care Physician regarding the lesion on your tongue Stand Alone Forms: [place] (DSU) Activity:: Activity as Tolerated Remove Dressings/Wound Care:: 24 hours Shower/Bathe:: 24 hours Diet:: As Tolerated Discharge Orders Discharge Orders: Discharge Order (Routine); Ordered 01/23/23 Ordered By: Christine Nolan DS: Diagnosis Discharge Diagnosis (1) Alcoholic cirrhosis of liver with ascites: Status: Acute Asessment and Plan: The patient is doing well post-op from their Paracentesis.? He is having no nausea or vomiting. He is tolerating liquids and a snack. The pt is not having any chest pain or SOB.? he is having no pain ?HEENT:? no eye pain/drainage/redness/swelling. Mild sore throat ?Cardio- NSR, no chest pain, BP stable- see VS record ?Pulm: no sob or productive cough. No hemoptysis ?Incision- dressing is c/d/i w/ no excessive bleeding or drainage ?I discussed with the patient the findings at the time of surgery and the patient?s progress. ?We reviewed expectations at home; what the patient could expect for recovery time, and in the post-operative period.? We discussed the importance of walking to avoid blood clots and pneumonia.? We discussed and reviewed the patient's post-operative wound care and dressing needs.?? We reviewed their step-vidal pain management plan, Rx called to the pharmacy of their choice.? We reviewed activity and limitations-see discharge instructions. We reviewed warning signs, and when to seek medical attention- see d/c instructions.?? Patient was given a postoperative follow-up appointment. Patient verbalized understanding of their postoperative instructions, how do to take care of themselves and their incision, and the pain management plan. Please see discharge instructions.?
--- NOTE | 2023-01-23 12:48 | ROE_ITS ---
Date of service: 01/23/23 Time of Service: 12:49 Operative Note Operative Note DATE OF PROCEDURE: 01/23/23 PRE-OP DIAGNOSIS: end stage cirrhosis with ascitis POST-OP DIAGNOSIS: same PROCEDURE: Parasentesis SURGEON: Christine Nolan Refer to Anesthesia Record ESTIMATED BLOOD LOSS: 2 PATHOLOGY: none sent COMPLICATIONS: None Patient was transported to: same day Patient's condition: stable Indications: Mr. Jack Chamorro is a 57 year old male with cirrhosis secondary to alcohol abuse. His last Parasentesis was 1 week ago. He feels full and has had a hard time eating. He is still drinking alcohol. We reviewed the parasentesis procedure and the possible complications. He had an oportunity to ask questions. He had no further questions or concerns and wished to proceed with the procedure Findings: 9.8 L of light yellow fluid was removed without difficulty Labd in [facility] showed hypokalemia and hypomagnesemia. BOth were replaced with po supplements 50 gm of albumin were given to the patient Procedure Description: After informed consent was obtained from the patient he was brought to the procedure room on a gurney. The old site was identified and the suture was removed. The right lower quadrant was prepped and draped in a sterile surgical fashion. 10 cc of 2% lidocaine was injected into the dermis and down to the fascia. A small incision was made with an 11 blade. The needle and sheath that came in the kit was slowly advanced through the subcutaneous tissue and the peritoneum into the abdomen. As soon as serous fluid was suctioned the sheath was advanced over the needle into the abdomen and the needle was removed. The sheath was then attached to suction canisters and a total of 9.8 L of serous fluid was removed without complication. The patient's blood pressure was checked throughout the procedure and continued to stay stable in the low 100s. Once the procedure was done the sheath was removed. The small incision was closed with 3- 0 proline and a pressure dressing was applied. The patient was slowly placed into a sitting position. Patient did not develop any dizziness and so he was taken back to [facility]. Patient did well and there were no immediate complications.
[2023-01-23] MEDS: Magnesium Chloride 64 MG TABCR PO (12:49)
== END 2023-01-23 13:10 | disposition home or self-care (01) ==
PROVIDERS: PCP Family Medicine; Visit Provider Surgery
PROC: 0W9G3ZZ Drainage of Peritoneal Cavity, Percutaneous Approach (ICD-10-PCS; CPT 49082; principal; 2023-01-23 11:15)
DX: K70.31 Alcoholic cirrhosis of liver with ascites (principal)
CPT/HCPCS: 49082; 36415; 80048; 86850; 86900; 86901; 96365; 83735; 85014; 85018

== ENCOUNTER 2023-01-30 08:02 | Day surgery (SDC) | payer OTHER, SELFPAY ==
--- NOTE | 2023-01-30 06:25 | HPE_ITS ---
Date of service: 01/30/23 Time of Service: 09:07 Assessment and Plan Assessment and plan (1) Alcoholic cirrhosis of liver with ascites: Status: Acute Assessment and plan: Josue is a 57 year old male with a history of alcohol abuse and cirrhosis who has been having parasentesis every week. He is very uncomfortable again. We reviewed the procedure again as well as the possible complications. He wishes to proceed with parasentesis. Palliative consult is pending We also discussed drinking pedialite for his low sodium, eating dark green leafy vegetables for iron, bananas for potassium and to try and increase his protein intake. labs are pending at time of this H&P History of Present Illness Narrative: Josue is back today for another paracentesis. He is doing okay otherwise. No new complaints. He will be getting albumin again today and will check labs to see if he needs any electrolyte supplement or blood. Review of Systems All systems reviewed & are unremarkable except as noted in HPI and below PFSH All Active Problems Hepatic encephalopathy (Acute) Prolonged QT interval (Acute) Acute hypokalemia (Acute) Hypocalcemia (Acute) Thrombocytopenia (Chronic) Hypomagnesemia (Acute) Anemia (Chronic) Dark stools (Acute) Alcoholic cirrhosis of liver with ascites (Acute) Anemia of chronic disease (Acute) Acute and subacute hepatic failure without coma (Acute) Elevated INR (Acute) Elevated lipase (Acute) Elevated bilirubin (Acute) Hyponatremia (Acute) Moderate (123) with improvement (135) in 6 days with pedialyte, less alcohol and salt intake.. Nasal crusting (Acute) Chronic sinusitis (Acute) Breast pain, left (Acute) Peripheral neuropathy (Acute) Bursal cyst of olecranon (Acute) Alcohol abuse (Chronic) Hypertension (Chronic) Unspecified lump in axillary tail of the left breast (Chronic) Lipoma by US 07/13; recommended repeat in 6 months Migraine (Chronic) Tinnitus (Acute) Psychogenic nonepileptic seizure (Chronic) Benign hypertension (Acute 04/21/12) Fatigue (Acute 02/26/12) History of alcoholism (Acute) Type 2 diabetes mellitus with complication, without long-term current use of insulin (Acute 05/30/16) Personality disorder in adult (Acute) PTSD (post-traumatic stress disorder) (Acute) with paranoia 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 (Acute) ETOH abuse (Chronic) Spells of decreased attentiveness (Acute) Hyperlipidemia (Acute 07/03/12) Hepatitis, alcoholic (Acute 12/07/13) Fatty liver, alcoholic (Acute 05/30/16) Depressive disorder (Chronic 11/03/12) Chronic hip pain (Acute 11/24/14) -2014: / PT and Nsaids/osteoarthritis Anxiety (Chronic) Medical History Lipoma of axilla Diabetes mellitus type 2 in nonobese Prediabetes Hypertension Depression Surgical History History of abdominal paracentesis (~12/2022) Tooth extraction ROOT CANAL Family History Mother Diabetes Sister Depression Other Alcohol abuse Bipolar 1 disorder Dementia Heart disease Schizophrenia Social History Smoking/Tobacco Use Status: Former Tobacco Use Tobacco: How many years used: 4 Smoking risk assessment performed?: Yes Alcohol Intake: current Alcohol Intake frequency: 3 or more drinks per day Alcohol type: beer Drug use: Never Substance use type: does not use Details: Last drink 0700 today. Adopted: No Household members: spouse Housing: house Number of Children: 0 Communication Needs: None current occupation: Disabled Do you think of yourself as: straight/heterosexual Current gender identity: male What is your relationship status?: How often do you talk on the phone with friends or family?: three or more times per week How often do you get together with friends or relatives?: twice per week Do you belong to any clubs or organized social groups?: yes Panel score (0-1 are the most socially isolated patients): 3 What type of physical activity do you participate in: walking and weight lifting Frequency: 3-4 times per week Donita/Sikh: Religion Seatbelt use: always Drive intox or ride w/intox 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 Past GF in 2017 from ovarian cancer. in 2018 to current partner. Meds Allergies and Home Medications Allergies Allergy/AdvReac Type Severity Reaction Status Date / Time No Known Allergies Allergy Verified 01/28/23 10:52 Home Medications Medication Instructions Recorded Confirmed Type blood sugar diagnostic #100 ea 12/11/18 01/28/23 Rx fluoxetine 20 mg capsule 60 mg (3 x 20 mg) PO DAILY #270 08/03/22 01/30/23 Rx caps magnesium citrate 100 mg capsule 100 mg PO BID #14 caps 11/22/22 01/30/23 Rx omeprazole 40 mg capsule,delayed 40 mg PO DAILY 12/07/22 01/30/23 History release celecoxib 400 mg capsule 400 mg PO DAILY #90 caps 12/14/22 01/30/23 Rx spironolactone 25 mg tablet 12.5 mg PO HS 01/01/23 01/30/23 History torsemide 10 mg tablet 10 mg PO HS 01/01/23 01/30/23 History sucralfate 1 gram tablet (Carafate) 1 g PO TID #90 tabs 01/16/23 01/30/23 Rx lactulose 10 gram/15 mL oral 10 g (15 mL) PO DAILY #946 mL 01/18/23 01/30/23 Rx solution potassium chloride 20 mEq 60 meq (3 x 20 mEq) PO DAILY #270 01/18/23 01/30/23 Rx tablet,extended release tabs clonazepam 0.5 mg tablet 0.5 mg PO BID PRN anxiety #56 tabs 01/28/23 01/30/23 Rx Exam Const General: cooperative, comfortable and no acute distress Nutritional Appearance: cachectic Orientation: alert and oriented x3 HENMT Head: normocephalic and atraumatic Resp Effort & Inspection: normal respiratory effort Auscultation: clear to auscultation bilaterally GI Inspection: distended Palpation: soft, firm and ascites Results Labs 01/30/23 08:57 01/30/23 08:57 Time Spent Time spent with Patient: <40 minutes Time was spent: indepentently interpreting results and counseling the patient
--- NOTE | 2023-01-30 06:29 | W.PM.OP ---
Date of service: 01/30/23 Time of Service: 09:57 Operative Note Operative Note DATE OF PROCEDURE: 01/30/23 PRE-OP DIAGNOSIS: ascitis secondary to liver failure POST-OP DIAGNOSIS: same PROCEDURE: Parasentesis SURGEON: Chritsine Nolan CUSTOMER SERVICE REPRESENTATIVE TELLER: Milla Pace Refer to Anesthesia Record ESTIMATED BLOOD LOSS: 3 PATHOLOGY: none sent COMPLICATIONS: None Patient was transported to: same day Patient's condition: stable Indications: Josue is a 57 year old male with a history of alcohol abuse and cirrhosis who has been having parasentesis every 2 weeks. He is very uncomfortable again. We reviewed the procedure again as well as the possible complications. He wishes to proceed with parasentesis. Findings: serous fluid. 11 L taken this time MELD score calculated again today. Score is 23. 19.6% Mortality Procedure Description: After informed consent was obtained from the patient he was brought to the procedure room on a gurney. The old site was identified and the suture was removed. The right lower quadrant was prepped and draped in a sterile surgical fashion. 5 cc of 2% lidocaine was injected into the dermis and down to the fascia. A small incision was made with an 11 blade. The needle and sheath that came in the kit was slowly advanced through the subcutaneous tissue and the peritoneum into the abdomen. As soon as serous fluid was suctioned the sheath was advanced over the needle into the abdomen and the needle was removed. The sheath was then attached to suction canisters and a total of 11 L of serous fluid was removed without complication. The patient's blood pressure was checked throughout the procedure and continued to stay stable in the low 100s. Once the procedure was done the sheath was removed. The small incision was closed with 3-0 proline and a pressure dressing was applied. The patient was slowly placed into a sitting position. Patient did not develop any dizziness and so he was taken back to [facility]. Patient did well and there were no immediate complications.
[2023-01-30 08:34] VITALS: BP 148/94; PULSE 96; RESP 16; TEMP 36.5; O2SAT 100
[2023-01-30] MEDS: ALBUMIN HUMAN 25 GM/100 ML BTL IVPB ×2 (09:12→09:41)
[2023-01-30 09:14] LABS: HCT 26.1 % (40.0-50.0); HGB 8.1 g/dL (13.5-17.5)
[2023-01-30 09:23] LABS: ALT 32 U/L (16-63); AST 69 U/L (15-37); Albumin 2.3 g/dL (3.4-5.0); Alkaline Phosphatase 213 U/L (46-116); Anion Gap 8.1 mmol/L (3-11); BUN 10 mg/dL (7-18); CO2 23.9 mmol/L (21.0-32.0); CREATININE 0.7 mg/dL (0.70-1.30); Calcium 8.3 mg/dL (8.5-10.1); Chloride 99 mmol/L (98-107); Estimated GFR 107.47 (mL/min/1.73m2); Glucose 137 mg/dL (74-106); Magnesium 1.8 mg/dL (1.8-2.4); Potassium 4.2 mmol/L (3.5-5.1); Sodium 131 mmol/L (136-145); Total Protein 6.9 g/dL (6.4-8.2)
--- NOTE | 2023-01-30 09:58 | W.PM.DSUDISC ---
Date of service: 01/30/23 Time of Service: 09:59 Discharge Plan Disposition Patient Disposition: Home Condition: Serious Discharge Details Reason For Visit: parasentesis Attending Provider: Christine Nolan Primary Care Provider: David Landaverde Home Meds and New Rx's Prescriptions: Continued (DME) blood sugar diagnostic Strip See Rx Instructions .ROUTE .MEDSUPPLY Qty: 100 3RF Rx Instructions: As directed; Test daily, to keep HbA1c less than 6.5%; Dx: E11.9 celecoxib 400 mg capsule 400 mg PO DAILY Qty: 90 3RF lactulose 10 gram/15 mL solution 10 g PO DAILY Qty: 946 6RF potassium chloride 20 mEq tablet extended release 60 meq PO DAILY Qty: 270 3RF clonazepam 0.5 mg tablet 0.5 mg PO BID MDD 1.0 mg PRN (Reason: anxiety) Qty: 56 0RF fluoxetine 20 mg capsule 60 mg PO DAILY Qty: 270 3RF omeprazole 40 mg capsule,delayed release(DR/EC) 40 mg PO DAILY magnesium citrate 100 mg capsule 100 mg PO BID Qty: 14 0RF torsemide 10 mg tablet 10 mg PO HS spironolactone 25 mg tablet 12.5 mg PO HS sucralfate [Carafate] 1 gram tablet 1 g PO TID Qty: 90 5RF Rx Instructions: Take before meals Discharge Instructions Additional Instructions: Activity at Home after surgery: 1. As tolerated Diet, Nutrition, & wound healin. As tolerated 2. Avoid water. Drink pedilayte or Gatorate or juices Other: 1. You may shower daily. Do not scrub the incisions 2. You may alternate ice and heat as needed for pain and swelling Wound Care: 1. Keep the incisions clean and dry Please call our office if you develop: 1. Fevers >101.5 2. Nausea or Vomiting 3. Worsening pain 4. Redness and thick discharge from the wounds If after hours please call the Hospital at and ask to speak to the on-call surgeon Activity:: Activity as Tolerated Shower/Bathe:: 24 hours Diet:: As Tolerated Discharge Orders Discharge Orders: Discharge Order (Routine); Ordered 01/30/23 Ordered By: Christine Nolan DS: Diagnosis Discharge Diagnosis (1) Alcoholic cirrhosis of liver with ascites: Status: Acute Asessment and Plan: The patient is doing well post-op from his parasentesis.? He is not having no nausea or vomiting. He is tolerating liquids and a snack. The pt is not having any chest pain or SOB.? ?HEENT:? no eye pain/drainage/redness/swelling. Mild sore throat ?Cardio- NSR, no chest pain, BP stable- see VS record ?Pulm: no sob or productive cough. No hemoptysis ?Incision- dressing is c/d/i w/ no excessive bleeding or drainage ?I discussed with the patient the findings at the time of surgery and the patient?s progress. ?We reviewed expectations at home; what the patient could expect for recovery time, and in the post-operative period.? We discussed the importance of walking to avoid blood clots and pneumonia.? We discussed and reviewed the patient's post-operative wound care and dressing needs.?? We reviewed their step-vidal pain management plan, Rx called to the pharmacy of their choice.? We reviewed activity and limitations-see discharge instructions. We reviewed warning signs, and when to seek medical attention- see d/c instructions.?? Patient was given a postoperative follow-up appointment. Patient verbalized understanding of their postoperative instructions, how do to take care of themselves and their incision, and the pain management plan. Please see discharge instructions.?
[2023-01-30 10:00] VITALS: BP 126/78; PULSE 94; RESP 16; TEMP 36.4; O2SAT 100
== END 2023-01-30 08:03 | disposition home or self-care (01) ==
PROVIDERS: PCP Family Medicine; Visit Provider Surgery
PROC: 0W9G3ZZ Drainage of Peritoneal Cavity, Percutaneous Approach (ICD-10-PCS; CPT 49082; principal; 2023-01-30 09:00)
DX: K70.31 Alcoholic cirrhosis of liver with ascites (principal)
CPT/HCPCS: 49082; 80053; 86850; 86900; 86901; 83735; 85014; 85018

== ENCOUNTER 2023-02-06 08:10 | Day surgery (SDC) | payer OTHER, SELFPAY ==
--- NOTE | 2023-02-06 06:32 | PGE_ITS ---
Date of Service Date of service: 02/06/23 Time of Service: 08:54 Assessment and Plan Assessment and plan (1) Alcoholic cirrhosis of liver with ascites: Status: Acute Assessment and plan: Josue is a 57-year-old gentleman with alcoholic cirrhosis and ascites. He has been coming weekly for paracentesis. The patient was again consented today prior to the procedure for paracentesis as well as blood transfusion of 2 units. If he needs magnesium or potassium I will give them p.o. prior to his discharge. Patient will be going up to the transfusion center for his blood. Patient did not have any questions about the procedure or its possible complications and wished to proceed. Subjective Subjective Interval history since last seen: Josue is back for another paracentesis. He has had no fevers or chills. No new symptoms. No melena, hematochezia or hematemesis. He did have labs drawn again today. His hemoglobin is below 7 so he will get 2 units of blood today. The rest of his labs are pending at this time. Exam Const General: comfortable and no acute distress Nutritional Appearance: cachectic Orientation: alert and oriented x3 HENMT Head: normocephalic and atraumatic Resp Effort & Inspection: normal respiratory effort Auscultation: clear to auscultation bilaterally and diminished lung sounds bilaterally in the lower lung ibarra Cardio Rate: regular rate Rhythm: regular rhythm GI Inspection: distended Palpation: soft and ascites Time Spent with Patient Time Spent with Patient: <25 minutes Time was spent: ordering medications,tests, procedures and counseling the carley jacobs
--- NOTE | 2023-02-06 06:34 | ROE_ITS ---
Date of service: 02/06/23 Operative Note Operative Note DATE OF PROCEDURE: 02/06/23 PRE-OP DIAGNOSIS: ascitis secondary to alcoholic cirrhosis PROCEDURE: Parasentesis SURGEON: Milla Pace DIRECTOR OF STRATEGIC COMMUNICATIONS: Christine Nolan ANESTHESIA TYPE: Local By Surgeon Refer to Anesthesia Record COMPLICATIONS: None Patient was transported to: same day Patient's condition: stable
--- NOTE | 2023-02-06 06:35 | W.PM.DSUDISC ---
Date of service: 02/06/23 Time of Service: 10:01 Discharge Plan Disposition Patient Disposition: Home Condition: Serious Discharge Details Reason For Visit: Paracentesis Attending Provider: Christine Nolan Primary Care Provider: David Landaverde Home Meds and New Rx's Prescriptions: Continued (DME) blood sugar diagnostic Strip See Rx Instructions .ROUTE .MEDSUPPLY Qty: 100 3RF Rx Instructions: As directed; Test daily, to keep HbA1c less than 6.5%; Dx: E11.9 celecoxib 400 mg capsule 400 mg PO DAILY Qty: 90 3RF lactulose 10 gram/15 mL solution 10 g PO DAILY Qty: 946 6RF potassium chloride 20 mEq tablet extended release 60 meq PO DAILY Qty: 270 3RF clonazepam 0.5 mg tablet 0.5 mg PO BID MDD 1.0 mg PRN (Reason: anxiety) Qty: 56 0RF fluoxetine 20 mg capsule 60 mg PO DAILY Qty: 270 3RF omeprazole 40 mg capsule,delayed release(DR/EC) 40 mg PO DAILY magnesium citrate 100 mg capsule 100 mg PO BID Qty: 14 0RF torsemide 10 mg tablet 10 mg PO HS spironolactone 25 mg tablet 12.5 mg PO HS sucralfate [Carafate] 1 gram tablet 1 g PO TID Qty: 90 5RF Rx Instructions: Take before meals Discharge Instructions Additional Instructions: Activity at Home after surgery: 1. As tolerated Diet, Nutrition, & wound healin. As tolerated 2. Avoid plain water Pain Medications: 1. Tylenol 650mg every 6 hours as needed and Ibuprofen 600 mg every 6 hours as needed. You may alternate between the 2 medications every 3 hours For Constipation: 1. Take Milk of Magnesia or MiraLax as needed for constipation Other: 1. You may shower daily. Do not scrub the incisions 2. Do not soak the incisions for 1 week 3. You may alternate ice and heat as needed for pain and swelling Wound Care: 1. Keep the incisions clean and dry Please call our office if you develop: 1. Fevers >101.5 2. Nausea or Vomiting 3. Worsening pain 4. Redness and thick discharge from the wounds If after hours please call the Hospital at and ask to speak to the on-call surgeon Activity:: Activity as Tolerated Remove Dressings/Wound Care:: 24 hours Shower/Bathe:: 24 hours Diet:: As Tolerated Discharge Orders Discharge Orders: Discharge Order (Routine); Ordered 02/06/23 Ordered By: Christine Nolan DS: Diagnosis Discharge Diagnosis (1) Alcoholic cirrhosis of liver with ascites: Status: Acute Asessment and Plan: Jack is doing well after his Parasentesis. He has no pain. He is hungry. He has no leakage from his drainage site.
[2023-02-06 08:15] VITALS: BP 145/87; PULSE 99; RESP 22; TEMP 36.4; O2SAT 100
[2023-02-06] MEDS: Normal Saline Flush 10 ML SYR (08:42)
[2023-02-06] MEDS: ALBUMIN HUMAN 25 GM/100 ML BTL IVPB ×2 (08:50→09:42)
--- NOTE | 2023-02-06 09:34 | SUR.PREOP ---
Call received from Dustin Torres in the labratory reporting a critical lab value of hemaglobin 6.5 and hematocrit of 20.7. Results read back to Dustin Torres and reported to Dr. Nolan at 0854.
--- NOTE | 2023-02-06 09:57 | W.PM.OP ---
Date of service: 02/06/23 Time of Service: 09:57 Operative Note Operative Note DATE OF PROCEDURE: 02/06/23 PRE-OP DIAGNOSIS: Acites secondary to liver failure POST-OP DIAGNOSIS: same SURGEON: Christine Nolan SALES FLOOR ASSOCIATE: Milla Pace ESTIMATED BLOOD LOSS: 0 PATHOLOGY: none sent Procedure Description: The patient is brought to the procedure room and placed in the supine position.?? A time-out was performed done.? ? The area is prepped and draped in the usual sterile fashion using a ChloraPrep scrub solution.? 5 cc's of 1% Lidocaine is used for local anesthetization.? The abdomen is punctured and the catheter is inserted.?10.8 liters of light yellow fluid is evacuated today.? The catheter is removed.? 2-0 Prolene simple suture was placed. Pressure dressing is applied.? The patient tolerated the procedure well without complication and transferred to recovery in stable condition.?
[2023-02-06 09:59] VITALS: BP 101/63; PULSE 91; RESP 20; TEMP 36.4; O2SAT 100
[2023-02-06] MEDS: Salt Supplement (BUFFERED) TAB 1 TAB PO (10:18)
[2023-02-06] MEDS: Magnesium Chloride 64 MG TABCR PO (10:18)
== END 2023-02-06 10:35 | disposition home or self-care (01) ==
LOC: SUR 08:10
PROVIDERS: PCP Family Medicine; Visit Provider Surgery
PROC: 0W9G3ZZ Drainage of Peritoneal Cavity, Percutaneous Approach (ICD-10-PCS; CPT 49082; principal; 2023-02-06 08:45)
DX: K70.31 Alcoholic cirrhosis of liver with ascites (principal)
CPT/HCPCS: 49082; 36415; 80053; 86850; 86900; 86901; 86920; 96365; 83735; 85014; 85018; P9016

== ENCOUNTER 2023-02-11 04:12 | Outpatient (CLI) | payer OTHER, SELFPAY ==
[2023-02-11 09:44] LABS: Anion Gap 8.7 mmol/L (3-11); BUN 8 mg/dL (7-18); CO2 23.3 mmol/L (21.0-32.0); CREATININE 0.8 mg/dL (0.70-1.30); Calcium 8.1 mg/dL (8.5-10.1); Chloride 102 mmol/L (98-107); Estimated GFR 103.22 (mL/min/1.73m2); Glucose 172 mg/dL (74-106); Potassium 3.5 mmol/L (3.5-5.1); Sodium 134 mmol/L (136-145)
== END 2023-02-11 04:13 | disposition home or self-care (01) ==
LOC: LBO 04:12
PROVIDERS: PCP Family Medicine; Visit Provider Family Medicine
DX: E87.6 Hypokalemia (principal); I10 Essential (primary) hypertension
CPT/HCPCS: 36415; 80048

== ENCOUNTER 2023-02-12 08:10 | Day surgery (SDC) | payer OTHER, SELFPAY ==
[2023-02-12 08:36] VITALS: BP 141/90; PULSE 102; RESP 20; TEMP 36.7; O2SAT 100
[2023-02-12] MEDS: ALBUMIN HUMAN 25 GM/100 ML BTL IVPB ×2 (08:59→09:17)
--- NOTE | 2023-02-12 09:08 | NUR.NOTE ---
Critical lab value, hgb: 7.[address] Hernandez by Brigid Kohler, RN and Dr. Hernandez currently in OR. Pt already rec'd type and screen. Plan to infuse 2u RBC post-op. Juli in infusion made aware. -BR
--- NOTE | 2023-02-12 10:29 | W.PM.OP ---
Date of service: 02/12/23 Time of Service: 10:29 Operative Note Operative Note DATE OF PROCEDURE: 02/12/23 PRE-OP DIAGNOSIS: Alcoholic cirrhosis with ascites POST-OP DIAGNOSIS: same PROCEDURE: Paracentesis SURGEON: Danielle Hernandez ANESTHESIA TYPE: Local By Surgeon Refer to Anesthesia Record ESTIMATED BLOOD LOSS: 2 PATHOLOGY: none sent COMPLICATIONS: None Patient was transported to: same day Patient's condition: stable Procedure Description: Informed consent is obtained, explaining benefits and risks of the procedure including but not limited to: bleeding/infections/damage to bowels or blood vessels/chronic drainage or leakage/need for repeat procedure/reactions to anesthetics.?? The patient is brought to the procedure room and placed in the supine position.?? A time-out is done.? Ultrasound is used to localize the pocket of fluid.? The area is prepped and draped in the usual sterile fashion using a ChloraPrep scrub solution.? 10 cc's of 1% Lidocaine with epinephrine is used for local anesthetization.? The abdomen is punctured and the catheter is inserted.?11.7 liters of light yellow fluid is evacuated today.? The catheter is removed.? Pressure dressing is applied.? The patient tolerated the procedure well without complication and transferred to recovery in stable condition.?
--- NOTE | 2023-02-12 10:31 | W.PM.DSUDISC ---
Date of service: 02/12/23 Time of Service: 10:31 Discharge Plan Disposition Patient Disposition: Home Condition: Poor Discharge Details Reason For Visit: Paracentesis Attending Provider: Danielle Hernandez Primary Care Provider: David Landaverde Home Meds and New Rx's Prescriptions: No Action (DME) blood sugar diagnostic Strip See Rx Instructions .ROUTE .MEDSUPPLY Qty: 100 3RF Rx Instructions: As directed; Test daily, to keep HbA1c less than 6.5%; Dx: E11.9 celecoxib 400 mg capsule 400 mg PO DAILY Qty: 90 3RF lactulose 10 gram/15 mL solution 10 g PO DAILY Qty: 946 6RF potassium chloride 20 mEq tablet extended release 60 meq PO DAILY Qty: 270 3RF metoclopramide HCl 10 mg tablet 10 mg PO Q6H PRN (Reason: nausea and vomiting) Qty: 10 0RF clonazepam 0.5 mg tablet 0.5 mg PO BID MDD 1.0 mg PRN (Reason: anxiety) Qty: 56 0RF fluoxetine 20 mg capsule 60 mg PO DAILY Qty: 270 3RF omeprazole 40 mg capsule,delayed release(DR/EC) 40 mg PO DAILY magnesium citrate 100 mg capsule 100 mg PO BID Qty: 14 0RF torsemide 10 mg tablet 10 mg PO HS spironolactone 25 mg tablet 12.5 mg PO HS sucralfate [Carafate] 1 gram tablet 1 g PO TID Qty: 90 5RF Rx Instructions: Take before meals Discharge Instructions Additional Instructions: - Activity as tolerated -High-protein diet -Stop using alcohol -Follow-up with GI at [facility] for EGD for esophageal variceal bleeding Activity:: Activity as Tolerated Remove Dressings/Wound Care:: 24 hours Shower/Bathe:: 24 hours Diet:: High-protein DS: Diagnosis Discharge Diagnosis (1) Hepatic encephalopathy: Status: Acute (2) Prolonged QT interval: Status: Acute (3) Anemia: Status: Chronic (4) Alcoholic cirrhosis of liver with ascites: Status: Acute Asessment and Plan: Out Pt Post-Op Note The patient is doing well post-op from their [] surgery.? They are having no nausea or vomiting. They are tolerating liquids and a snack. The pt is not having any chest pain or SOB.? Their pain is adequately controlled. They have been able to urinate.? ?HEENT:? no eye pain/drainage/redness/swelling. Mild sore throat ?Cardio- NSR, no chest pain, BP stable- see VS record ?Pulm: no sob or productive cough. No hemoptysis ?Incision- dressing is c/d/i w/ no excessive bleeding or drainage ?I discussed with the patient the findings at the time of surgery and the patient?s progress. ?We reviewed expectations at home; what the patient could expect for recovery time, and in the post-operative period.? We discussed the importance of walking to avoid blood clots and pneumonia.? We discussed and reviewed the patient's post-operative wound care and dressing needs.?? We reviewed their step-vidal pain management plan, Rx called to the pharmacy of their choice.? We reviewed activity and limitations-see discharge instructions. We reviewed warning signs, and when to seek medical attention- see d/c instructions.?? Patient was given a postoperative follow-up appointment. Patient verbalized understanding of their postoperative instructions, how do to take care of themselves and their incision, and the pain management plan. Please see discharge instructions.? (5) Anemia of chronic disease: Status: Acute (6) Acute and subacute hepatic failure without coma: Status: Acute (7) Elevated INR: Status: Acute (8) Elevated lipase: Status: Acute (9) Elevated bilirubin: Status: Acute (10) Hyponatremia: Status: Acute (11) Type 2 diabetes mellitus with complication, without long-term current use of insulin: Status: Acute (12) PTSD (post-traumatic stress disorder): Status: Acute (13) 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: Status: Acute (14) ETOH abuse: Status: Chronic (15) Hyperlipidemia: Status: Acute (16) Diabetes mellitus type 2 in nonobese: (17) Prediabetes: (18) Hypertension: (19) Depression:
[2023-02-12 10:40] VITALS: BP 114/71; PULSE 96; RESP 18; TEMP 36.7; O2SAT 100
== END 2023-02-12 10:59 | disposition home or self-care (01) ==
PROVIDERS: PCP Family Medicine; Visit Provider Surgery
PROC: 0W9G3ZZ Drainage of Peritoneal Cavity, Percutaneous Approach (ICD-10-PCS; CPT 49082; principal; 2023-02-12 09:15)
DX: I10 Essential (primary) hypertension (principal); F10.20 Alcohol dependence, uncomplicated; K70.31 Alcoholic cirrhosis of liver with ascites; E11.8 Type 2 diabetes mellitus with unspecified complications
CPT/HCPCS: 49083; 80053; 86850; 86900; 86901; 86920; 96365; 83735; 85014; 85018

== ENCOUNTER 2023-02-12 10:35 | Outpatient (RCR) | payer OTHER, SELFPAY ==
[2023-02-06] VITALS (11 sets, daily range): BP systolic 95–115; BP diastolic 63–74; PULSE 67–97; RESP 17–18; TEMP 36.5–37.4; O2SAT 98–100
[2023-02-06 08:55] LABS: HCT 20.7 % (40.0-50.0); HGB 6.5 g/dL (13.5-17.5)
[2023-02-06 09:11] LABS: ALT 29 U/L (16-63); AST 62 U/L (15-37); Alkaline Phosphatase 189 U/L (46-116); Anion Gap 6.2 mmol/L (3-11); BUN 10 mg/dL (7-18); Bilirubin, Total 4.2 mg/dL (0.2-1.0); CO2 22.8 mmol/L (21.0-32.0); CREATININE 0.8 mg/dL (0.70-1.30); Calcium 7.9 mg/dL (8.5-10.1); Chloride 98 mmol/L (98-107); Estimated GFR 103.22 (mL/min/1.73m2); Glucose 135 mg/dL (74-106); Magnesium 1.7 mg/dL (1.8-2.4); Potassium 3.6 mmol/L (3.5-5.1); Sodium 127 mmol/L (136-145); Total Protein 6.3 g/dL (6.4-8.2)
[2023-02-06] MEDS: Acetaminophen 500 MG TAB 1000 MG PO (10:39)
[2023-02-06] MEDS: diphenhydrAMINE 25 MG CAP PO (10:39)
[2023-02-06] MEDS: Normal Saline Flush 10 ML SYR IVP (10:42)
[2023-02-12] VITALS (10 sets, daily range): BP systolic 94–115; BP diastolic 55–77; PULSE 96–109; RESP 17–18; TEMP 36–36.9; O2SAT 99–100
[2023-02-12 08:45] LABS: HCT 22.9 % (40.0-50.0)
[2023-02-12 09:00] LABS: ALT 26 U/L (16-63); AST 51 U/L (15-37); Albumin 2.1 g/dL (3.4-5.0); Alkaline Phosphatase 243 U/L (46-116); Anion Gap 4.1 mmol/L (3-11); BUN 11 mg/dL (7-18); Bilirubin, Total 3.5 mg/dL (0.2-1.0); CO2 23.9 mmol/L (21.0-32.0); CREATININE 0.8 mg/dL (0.70-1.30); Chloride 102 mmol/L (98-107); Estimated GFR 103.22 (mL/min/1.73m2); Glucose 126 mg/dL (74-106); Magnesium 1.8 mg/dL (1.8-2.4); Potassium 4.1 mmol/L (3.5-5.1); Sodium 130 mmol/L (136-145); Total Protein 6.3 g/dL (6.4-8.2)
[2023-02-12] MEDS: diphenhydrAMINE 25 MG CAP (11:25)
[2023-02-12] MEDS: Acetaminophen 325 MG TAB (11:25)
[2023-02-12] MEDS: Normal Saline Flush 10 ML SYR IVP (11:51)
== END 2023-02-21 23:59 | disposition home or self-care (01) ==
LOC: INF 10:35
PROVIDERS: Surgery; PCP Family Medicine; Visit Provider Surgery
DX: D50.9 Iron deficiency anemia, unspecified (principal); D63.8 Anemia in other chronic diseases classified elsewhere; K70.0 Alcoholic fatty liver
CPT/HCPCS: 36415; 36430; 80053; 86850; 86900; 86901; 86920; 83735; 85014; 85018; P9016

== ENCOUNTER 2023-02-19 06:10 | Day surgery (SDC) | payer OTHER, SELFPAY ==
--- NOTE | 2023-02-18 22:04 | W.PM.DSUDISC ---
Date of service: 02/19/23 Time of Service: 08:19 Discharge Plan Disposition Patient Disposition: Home Condition: Poor Discharge Details Reason For Visit: paracentisis Attending Provider: Danielle Hernandez Primary Care Provider: David Landaverde Home Meds and New Rx's Prescriptions: No Action (DME) blood sugar diagnostic Strip See Rx Instructions .ROUTE .MEDSUPPLY Qty: 100 3RF Rx Instructions: As directed; Test daily, to keep HbA1c less than 6.5%; Dx: E11.9 celecoxib 400 mg capsule 400 mg PO DAILY Qty: 90 3RF lactulose 10 gram/15 mL solution 10 g PO DAILY Qty: 946 6RF potassium chloride 20 mEq tablet extended release 60 meq PO DAILY Qty: 270 3RF metoclopramide HCl 10 mg tablet 10 mg PO Q6H PRN (Reason: nausea and vomiting) Qty: 10 0RF clonazepam 0.5 mg tablet 0.5 mg PO BID MDD 1.0 mg PRN (Reason: anxiety) Qty: 56 0RF fluoxetine 20 mg capsule 60 mg PO DAILY Qty: 270 3RF omeprazole 40 mg capsule,delayed release(DR/EC) 40 mg PO DAILY magnesium citrate 100 mg capsule 100 mg PO BID Qty: 14 0RF torsemide 10 mg tablet 10 mg PO HS spironolactone 25 mg tablet 12.5 mg PO HS sucralfate [Carafate] 1 gram tablet 1 g PO TID Qty: 90 5RF Rx Instructions: Take before meals Discharge Instructions Additional Instructions: -stop drinking etoh -high protein diet -minmal activity today Activity:: Activity as Tolerated Remove Dressings/Wound Care:: 24 hours Shower/Bathe:: 24 hours Diet:: high protein Discharge Orders Discharge Orders: Discharge Order (Routine); Ordered 02/18/23 Ordered By: Danielle Hernandez DS: Diagnosis Discharge Diagnosis (1) Ambulatory dysfunction: Status: Acute (2) Hepatic encephalopathy: Status: Acute (3) Prolonged QT interval: Status: Acute (4) Acute hypokalemia: Status: Acute (5) Hypocalcemia: Status: Acute (6) Thrombocytopenia: Status: Chronic (7) Hypomagnesemia: Status: Acute (8) Anemia: Status: Chronic (9) Dark stools: Status: Acute (10) Alcoholic cirrhosis of liver with ascites: Status: Acute Asessment and Plan: The patient is doing well post-op from their paracentisis. ? They are having no nausea or vomiting. They are tolerating liquids and a snack. The pt is not having any chest pain or SOB.? Their pain is adequately controlled. They have been able to urinate.? ?HEENT:? no eye pain/drainage/redness/swelling. Mild sore throat ?Cardio- NSR, no chest pain, BP stable- see VS record ?Pulm: no sob or productive cough. No hemoptysis ?Incision- dressing is c/d/i w/ no excessive bleeding or drainage ?I discussed with the patient the findings at the time of surgery and the patient?s progress. ?We reviewed expectations at home; what the patient could expect for recovery time, and in the post-operative period.? We discussed the importance of walking to avoid blood clots and pneumonia.? We discussed and reviewed the patient's post-operative wound care and dressing needs.?? We reviewed their step-vidal pain management plan, Rx called to the pharmacy of their choice.? We reviewed activity and limitations-see discharge instructions. We reviewed warning signs, and when to seek medical attention- see d/c instructions.?? Patient was given a postoperative follow-up appointment. (11) Anemia of chronic disease: Status: Acute (12) Acute and subacute hepatic failure without coma: Status: Acute (13) Elevated INR: Status: Acute (14) Elevated lipase: Status: Acute (15) Elevated bilirubin: Status: Acute (16) Hyponatremia: Status: Acute (17) Chronic sinusitis: Status: Acute (18) Peripheral neuropathy: Status: Acute (19) Alcohol abuse: Status: Chronic (20) Benign hypertension: Status: Acute (21) Type 2 diabetes mellitus with complication, without long-term current use of insulin: Status: Acute (22) PTSD (post-traumatic stress disorder): Status: Acute (23) 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: Status: Acute (24) Personality disorder in adult: Status: Acute (25) Hyperlipidemia: Status: Acute (26) Hepatitis, alcoholic: Status: Acute (27) Depressive disorder: Status: Chronic
--- NOTE | 2023-02-18 22:10 | W.PM.OP ---
Operative Note Operative Note PRE-OP DIAGNOSIS: Alcohol-induced cirrhosis and liver failure with ascites PROCEDURE: Paracentesis SURGEON: Danielle Hernandez Refer to Anesthesia Record ESTIMATED BLOOD LOSS: 2 PATHOLOGY: none sent COMPLICATIONS: None Patient was transported to: same day Patient's condition: stable Procedure Description: Informed consent is obtained, explaining benefits and risks of the procedure including but not limited to: bleeding/infections/damage to bowels or blood vessels/chronic drainage or leakage/need for repeat procedure/reactions to anesthetics.?? The patient is brought to the procedure room and placed in the supine position.?? A time-out is done.? Ultrasound is used to localize the pocket of fluid.? The area is prepped and draped in the usual sterile fashion using a ChloraPrep scrub solution.? 10 cc's of 1% Lidocaine with epinephrine is used for local anesthetization.? The abdomen is punctured and the catheter is inserted.?[] liters of light yellow fluid is evacuated today.? The catheter is removed.? Pressure dressing is applied.? The patient tolerated the procedure well without complication and transferred to recovery in stable condition.?
[2023-02-19 06:41] VITALS: BP 130/85; PULSE 106; RESP 17; TEMP 37.1; O2SAT 100
[2023-02-19 07:04] LABS: HCT 26.9 % (40.0-50.0); HGB 8.4 g/dL (13.5-17.5)
[2023-02-19] MEDS: ALBUMIN HUMAN 25 GM/100 ML BTL IVPB ×2 (07:06→07:58)
[2023-02-19] MEDS: Normal Saline Flush 10 ML SYR IV (07:09)
[2023-02-19 07:16] LABS: INR 1.6 (0.9-1.1); Prothrombin Time 15.9 sec (9.1-11.1)
[2023-02-19 07:26] LABS: ALT 23 U/L (16-63); AST 51 U/L (15-37); Albumin 2.1 g/dL (3.4-5.0); Alkaline Phosphatase 185 U/L (46-116); Anion Gap 8.9 mmol/L (3-11); BUN 12 mg/dL (7-18); CO2 23.1 mmol/L (21.0-32.0); CREATININE 0.9 mg/dL (0.70-1.30); Calcium 8.1 mg/dL (8.5-10.1); Chloride 103 mmol/L (98-107); Estimated GFR 99.62 (mL/min/1.73m2); Glucose 116 mg/dL (74-106); Magnesium 1.7 mg/dL (1.8-2.4); Potassium 4.3 mmol/L (3.5-5.1); Sodium 135 mmol/L (136-145); Total Protein 6.1 g/dL (6.4-8.2)
[2023-02-19] MEDS: Sodium Bicarbonate 50 MEQ/50 ML VIAL (07:42)
[2023-02-19] MEDS: Lidocaine 1% Multi-Dose W/EPI 1/100,000 50 ML VIAL (07:42)
[2023-02-19 09:00] VITALS: BP 131/82; PULSE 100; RESP 17; TEMP 36.8; O2SAT 100
--- NOTE | 2023-02-19 14:16 | W.PM.OP ---
Date of service: 02/19/23 Time of Service: 08:00 Operative Note Operative Note DATE OF PROCEDURE: 02/19/23 PRE-OP DIAGNOSIS: Ascites secondary to liver failure POST-OP DIAGNOSIS: same PROCEDURE: The patient is brought to the procedure room and placed in the supine position.?? A time-out was performed done.? ? The area is prepped and draped in the usual sterile fashion using a ChloraPrep scrub solution.? 6 cc's of 1% Lidocaine with epi is used for local anesthetization.? The abdomen is punctured and the catheter is inserted.? 9.3 liters of light yellow fluid is evacuated today.? The catheter is removed.? 4-0 Prolene simple suture was placed. Pressure dressing is applied.? The patient tolerated the procedure well without complication and transferred to recovery in stable condition.? SURGEON: Danielle Hernandez KEYBOARD OPERATOR: Milla Pace Refer to Anesthesia Record ESTIMATED BLOOD LOSS: 0 COMPLICATIONS: None Patient was transported to: same day Patient's condition: stable
== END 2023-02-19 09:25 | disposition home or self-care (01) ==
PROVIDERS: PCP Family Medicine; Visit Provider Surgery
PROC: 0W9G3ZZ Drainage of Peritoneal Cavity, Percutaneous Approach (ICD-10-PCS; CPT 49082; principal; 2023-02-19 07:30)
DX: K70.31 Alcoholic cirrhosis of liver with ascites (principal); F10.10 Alcohol abuse, uncomplicated; E11.8 Type 2 diabetes mellitus with unspecified complications
CPT/HCPCS: 49082; 36415; 80053; 86850; 86900; 86901; 96365; 83735; 85014; 85018; 85610

== ENCOUNTER 2023-02-26 06:17 | Day surgery (SDC) | payer OTHER, SELFPAY ==
--- NOTE | 2023-02-26 06:27 | W.PREOPHP ---
Assessment and Plan Assessment and plan (1) Alcoholic cirrhosis of liver with ascites: Status: Acute Assessment and plan: Josue is a 57-year-old gentleman with alcoholic cirrhosis and ascites. He has been coming weekly for paracentesis. We keep having to remove more more and more fluid. The patient was again consented today prior to the procedure for paracentesis. Risks of the procedure were again reviewed with him. Complications include but are not limited to bleeding, infection which would cause sepsis and most likely , injury to the small intestine resulting in infection and . He has no further questions and wishes to proceed. History of Present Illness Narrative: Josue is back for another paracentesis. He has had no fevers or chills. No new symptoms. No melena, hematochezia or hematemesis. He did have labs drawn again today. He was refered to [facility] for Banding of his varices but he has not called them back and made an appointment. Discussed with him the importance of that as if he starts to hemorrhage we will not be able to do much for him and he will . PFSH All Active Problems Ambulatory dysfunction (Acute) ACP (advance care planning) (Acute) Hepatic encephalopathy (Acute) Prolonged QT interval (Acute) Acute hypokalemia (Acute) Hypocalcemia (Acute) Thrombocytopenia (Chronic) Hypomagnesemia (Acute) Anemia (Chronic) Dark stools (Acute) Alcoholic cirrhosis of liver with ascites (Acute) Anemia of chronic disease (Acute) Acute and subacute hepatic failure without coma (Acute) Elevated INR (Acute) Elevated lipase (Acute) Elevated bilirubin (Acute) Hyponatremia (Acute) Moderate (123) with improvement (135) in 6 days with pedialyte, less alcohol and salt intake.. Nasal crusting (Acute) Chronic sinusitis (Acute) Breast pain, left (Acute) Peripheral neuropathy (Acute) Bursal cyst of olecranon (Acute) Alcohol abuse (Chronic) Hypertension (Chronic) Unspecified lump in axillary tail of the left breast (Chronic) Lipoma by US 07/13; recommended repeat in 6 months Migraine (Chronic) Tinnitus (Acute) Psychogenic nonepileptic seizure (Chronic) Benign hypertension (Acute 04/21/12) Fatigue (Acute 02/26/12) History of alcoholism (Acute) Type 2 diabetes mellitus with complication, without long-term current use of insulin (Acute 05/30/16) Personality disorder in adult (Acute) PTSD (post-traumatic stress disorder) (Acute) with paranoia 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 (Acute) ETOH abuse (Chronic) Spells of decreased attentiveness (Acute) Hyperlipidemia (Acute 07/03/12) Hepatitis, alcoholic (Acute 12/07/13) Fatty liver, alcoholic (Acute 05/30/16) Depressive disorder (Chronic 11/03/12) Chronic hip pain (Acute 11/24/14) -2015: / PT and Nsaids/osteoarthritis Anxiety (Chronic) Medical History Lipoma of axilla Diabetes mellitus type 2 in nonobese Prediabetes Hypertension Depression Surgical History History of abdominal paracentesis (~01/2023) Tooth extraction ROOT CANAL Family History Mother Diabetes Sister Depression Other Alcohol abuse Bipolar 1 disorder Dementia Heart disease Schizophrenia Social History Smoking/Tobacco Use Status: Former Tobacco Use Tobacco: How many years used: 4 Smoking risk assessment performed?: Yes Alcohol Intake: current Alcohol Intake frequency: 3 or more drinks per day Alcohol type: beer Drug use: Never Substance use type: does not use Details: Sipped on [place] this morning Adopted: No Household members: spouse Housing: house Number of Children: 0 Communication Needs: None current occupation: Disabled Do you think of yourself as: straight/heterosexual Current gender identity: male What is your relationship status?: How often do you talk on the phone with friends or family?: three or more times per week How often do you get together with friends or relatives?: twice per week Do you belong to any clubs or organized social groups?: yes Panel score (0-1 are the most socially isolated patients): 3 What type of physical activity do you participate in: walking and weight lifting Frequency: 3-4 times per week Donita/Bahai: Quaker Seatbelt use: always Drive intox or ride w/intox jitney driver: No Working smoke detector in home: Yes Carbon monox detector in home: Yes Do you feel safe at home: Yes Do you feel safe in your relationship?: Yes Additional Social history: . Past GF in 2017 from ovarian cancer. in 2018 to current partner. Meds Allergies and Home Medications Allergies Allergy/AdvReac Type Severity Reaction Status Date / Time No Known Allergies Allergy Verified 02/26/23 06:43 Home Medications Medication Instructions Recorded Confirmed Type blood sugar diagnostic #100 ea 12/11/18 02/06/23 Rx fluoxetine 20 mg capsule 60 mg (3 x 20 mg) PO DAILY #270 08/03/22 02/26/23 Rx caps magnesium citrate 100 mg capsule 100 mg PO BID #14 caps 11/22/22 02/26/23 Rx omeprazole 40 mg capsule,delayed 40 mg PO DAILY 12/07/22 02/26/23 History release celecoxib 400 mg capsule 400 mg PO DAILY #90 caps 12/14/22 02/26/23 Rx spironolactone 25 mg tablet 12.5 mg PO HS 01/01/23 02/26/23 History torsemide 10 mg tablet 10 mg PO HS 01/01/23 02/26/23 History sucralfate 1 gram tablet (Carafate) 1 g PO TID #90 tabs 01/16/23 02/26/23 Rx lactulose 10 gram/15 mL oral 10 g (15 mL) PO DAILY #946 mL 01/18/23 02/26/23 Rx solution potassium chloride 20 mEq 60 meq (3 x 20 mEq) PO DAILY #270 01/18/23 02/26/23 Rx tablet,extended release tabs clonazepam 0.5 mg tablet 0.5 mg PO BID PRN anxiety #56 tabs 01/28/23 02/26/23 Rx metoclopramide HCl 10 mg tablet 10 mg PO Q6H PRN nausea and 02/06/23 02/26/23 Rx vomiting #10 tabs Exam Const General: cooperative, comfortable, no acute distress, frail appearing and ill appearing Nutritional Appearance: cachectic Orientation: alert and oriented x3 HENMT Head: normocephalic and atraumatic Resp Effort & Inspection: normal respiratory effort Auscultation: clear to auscultation bilaterally Cardio Rate: regular rate Rhythm: regular rhythm GI Inspection: distended Palpation: firm and ascites Results Labs 02/26/23 06:57 02/26/23 06:57
[2023-02-26] MEDS: ALBUMIN HUMAN 25 GM/100 ML BTL IVPB ×2 (06:34→06:54)
--- NOTE | 2023-02-26 06:34 | W.PM.OP ---
Date of service: 02/26/23 Time of Service: 08:30 Operative Note Operative Note DATE OF PROCEDURE: 02/26/23 PRE-OP DIAGNOSIS: alcoholic cirrhosis with ascitis POST-OP DIAGNOSIS: same PROCEDURE: Paracentesis SURGEON: Christine Nolan ANESTHESIA TYPE: Local By Surgeon ESTIMATED BLOOD LOSS: 2 PATHOLOGY: none sent COMPLICATIONS: None Patient was transported to: same day Patient's condition: stable Indications: Josue is a 57-year-old gentleman with alcoholic cirrhosis and ascites who has been coming weekly for paracentesis. He is here again today. We again reviewed the procedure in detail as well as the risks, benefits and complications. After reviewing the complications with him again he wished to proceed and had no further questions. Findings: 12 liters of straw colored fluid MELD_Na score has improved to 17 points. (6% mortality over the next 3 months) Procedure Description: After informed consent was obtained from the patient he was brought to the procedure room on a gurney. The old site was identified and the suture was removed. The right lower quadrant was prepped and draped in a sterile surgical fashion. 10 cc of 2% lidocaine was injected into the dermis and down to the fascia. A small incision was made with an 11 blade. The needle and sheath that came in the kit was slowly advanced through the subcutaneous tissue and the peritoneum into the abdomen. As soon as serous fluid was suctioned the sheath was advanced over the needle into the abdomen and the needle was removed. The sheath was then attached to suction canisters and a total of 12 L of serous fluid was removed without complication. The patient's blood pressure was checked throughout the procedure and continued to stay stable in the low 100s. Once the procedure was done the sheath was removed. The small incision was closed with 3-0 proline and a pressure dressing was applied. The patient was slowly placed into a sitting position. Patient did not develop any dizziness and so he was taken back to [facility]. Patient did well and there were no immediate complications.
[2023-02-26 06:35] VITALS: BP 134/92; PULSE 107; RESP 17; TEMP 36.5; O2SAT 100
[2023-02-26] MEDS: Normal Saline Flush 10 ML SYR IVP (06:35)
--- NOTE | 2023-02-26 07:15 | NUR.NOTE ---
Danny from the lab called with a critical lab value @ 0711, hgb: 6.5. Value immediately relayed to Dr. Nolan who verbalized understanding. -BR
[2023-02-26 08:42] VITALS: BP 103/61; PULSE 99; RESP 16; TEMP 37.1; O2SAT 99
--- NOTE | 2023-02-26 08:42 | W.PM.DSUDISC ---
Date of service: 02/26/23 Time of Service: 08:42 Discharge Plan Disposition Patient Disposition: Home Condition: Stable Discharge Details Reason For Visit: parasentesis Attending Provider: Christine Nolan Primary Care Provider: David Landaverde Home Meds and New Rx's Prescriptions: Continued (DME) blood sugar diagnostic Strip See Rx Instructions .ROUTE .MEDSUPPLY Qty: 100 3RF Rx Instructions: As directed; Test daily, to keep HbA1c less than 6.5%; Dx: E11.9 celecoxib 400 mg capsule 400 mg PO DAILY Qty: 90 3RF lactulose 10 gram/15 mL solution 10 g PO DAILY Qty: 946 6RF potassium chloride 20 mEq tablet extended release 60 meq PO DAILY Qty: 270 3RF Patient Comments: 40mg today metoclopramide HCl 10 mg tablet 10 mg PO Q6H PRN (Reason: nausea and vomiting) Qty: 10 0RF clonazepam 0.5 mg tablet 0.5 mg PO BID MDD 1.0 mg PRN (Reason: anxiety) Qty: 56 0RF fluoxetine 20 mg capsule 60 mg PO DAILY Qty: 270 3RF Patient Comments: 40mg today omeprazole 40 mg capsule,delayed release(DR/EC) 40 mg PO DAILY magnesium citrate 100 mg capsule 100 mg PO BID Qty: 14 0RF torsemide 10 mg tablet 10 mg PO HS spironolactone 25 mg tablet 12.5 mg PO HS sucralfate [Carafate] 1 gram tablet 1 g PO TID Qty: 90 5RF Rx Instructions: Take before meals Discharge Instructions Additional Instructions: Activity at Home after surgery: 1. As tolerated Diet, Nutrition, & wound healin. High protein Pain Medications: 1. Tylenol 650mg every 6 hours as needed For Constipation: 1. Continue with Lactulose Other: 1. remove the dressing tomorrow Wound Care: 1. Keep the incisions clean and dry Other: Please call [facility] again Please call our office if you develop: 1. Fevers >101.5 2. Nausea or Vomiting 3. Worsening pain 4. Redness and thick discharge from the wounds If after hours please call the Hospital at and ask to speak to the on-call surgeon Activity:: Activity as Tolerated Remove Dressings/Wound Care:: 24 hours Diet:: high Protein Discharge Orders Discharge Orders: Discharge Order (Routine); Ordered 02/26/23 Ordered By: Christine Nolan DS: Diagnosis Discharge Diagnosis (1) Alcoholic cirrhosis of liver with ascites: Status: Acute Asessment and Plan: The patient is doing well post-op from his parasentesis.? He is having no nausea or vomiting. he is tolerating liquids and a snack. The pt is not having any chest pain or SOB.? ?HEENT:? no eye pain/drainage/redness/swelling. ?Cardio- NSR, no chest pain, BP stable- see VS record ?Pulm: no sob or productive cough. No hemoptysis Patient verbalized understanding of their postoperative instructions, how do to take care of themselves and their incision, and the pain management plan. Please see discharge instructions.?
[2023-02-26] MEDS: Magnesium Oxide 400 MG TAB 800 MG PO (09:07)
== END 2023-02-26 09:10 | disposition home or self-care (01) ==
PROVIDERS: PCP Family Medicine; Visit Provider Surgery
PROC: 0W9G3ZZ Drainage of Peritoneal Cavity, Percutaneous Approach (ICD-10-PCS; CPT 49082; principal; 2023-02-26 07:30)
DX: K70.31 Alcoholic cirrhosis of liver with ascites (principal); F10.10 Alcohol abuse, uncomplicated; E11.8 Type 2 diabetes mellitus with unspecified complications
CPT/HCPCS: 49082; 36415; 80053; 86850; 86900; 86901; 86920; 96365; 83735; 85014; 85018

== ENCOUNTER 2023-03-06 06:14 | Day surgery (SDC) | payer OTHER, SELFPAY ==
--- NOTE | 2023-03-06 06:28 | W.PM.PROGNOT ---
Date of Service Date of service: 03/06/23 Subjective Subjective Interval history since last seen: Josue is back
--- NOTE | 2023-03-06 06:33 | HPE_ITS ---
Assessment and Plan Assessment and plan (1) Alcoholic cirrhosis of liver with ascites: Status: Acute Assessment and plan: Josue is a 57-year-old gentleman with alcoholic cirrhosis and ascites. He has been coming weekly for paracentesis. We keep having to remove more and more fluid. The patient was again consented today prior to the procedure for paracentesis. Risks of the procedure were again reviewed with him. Complications include but are not limited to bleeding, infection which would cause sepsis and most likely , injury to the small intestine resulting in infection and . He has no further questions and wishes to proceed. he continues to be a full code. Awaiting appointment with GI I will calculate MELD score again once I have labs Will replace electrolytes as needed. Blood transfusion as needed. He received 2 units last week (2) Anemia: Status: Chronic Qualifiers: Anemia type: iron deficiency Iron deficiency anemia type: other iron deficiency Qualified Code(s): D50.8 - Other iron deficiency anemias History of Present Illness Narrative: Josue is back for another paracentesis. He has had no fevers or chills. No new symptoms. No melena, hematochezia or hematemesis. He did have labs drawn again today. He was refered to [facility] for Banding of his varices but he has not called them back and made an appointment. Discussed with him the importance of that as if he starts to hemorrhage we will not be able to do much for him and he will . His Hgb is down to 7 today. I recommend another 2 units of blood. Rest of his labs are pending he does look more jaundiced today and his ascitis is worse. He has severe edema of his BLE and his scrotum. Review of Systems All systems reviewed & are unremarkable except as noted in HPI and below PFSH All Active Problems Ambulatory dysfunction (Acute) ACP (advance care planning) (Acute) Hepatic encephalopathy (Acute) Prolonged QT interval (Acute) Acute hypokalemia (Acute) Hypocalcemia (Acute) Thrombocytopenia (Chronic) Hypomagnesemia (Acute) Anemia (Chronic) Dark stools (Acute) Alcoholic cirrhosis of liver with ascites (Acute) Anemia of chronic disease (Acute) Acute and subacute hepatic failure without coma (Acute) Elevated INR (Acute) Elevated lipase (Acute) Elevated bilirubin (Acute) Hyponatremia (Acute) Moderate (123) with improvement (135) in 6 days with pedialyte, less alcohol and salt intake.. Nasal crusting (Acute) Chronic sinusitis (Acute) Breast pain, left (Acute) Peripheral neuropathy (Acute) Bursal cyst of olecranon (Acute) Alcohol abuse (Chronic) Hypertension (Chronic) Unspecified lump in axillary tail of the left breast (Chronic) Lipoma by US 07/13; recommended repeat in 6 months Migraine (Chronic) Tinnitus (Acute) Psychogenic nonepileptic seizure (Chronic) Benign hypertension (Acute 04/21/12) Fatigue (Acute 02/26/12) History of alcoholism (Acute) Type 2 diabetes mellitus with complication, without long-term current use of insulin (Acute 05/30/16) Personality disorder in adult (Acute) PTSD (post-traumatic stress disorder) (Acute) with paranoia 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 (Acute) ETOH abuse (Chronic) Spells of decreased attentiveness (Acute) Hyperlipidemia (Acute 07/03/12) Hepatitis, alcoholic (Acute 12/07/13) Fatty liver, alcoholic (Acute 05/30/16) Depressive disorder (Chronic 11/03/12) Chronic hip pain (Acute 11/24/14) -2014: / PT and Nsaids/osteoarthritis Anxiety (Chronic) Medical History Lipoma of axilla Diabetes mellitus type 2 in nonobese Prediabetes Hypertension Depression Surgical History History of abdominal paracentesis (~01/2023) Tooth extraction ROOT CANAL Family History Mother Diabetes Sister Depression Other Alcohol abuse Bipolar 1 disorder Dementia Heart disease Schizophrenia Social History Smoking/Tobacco Use Status: Former Tobacco Use Tobacco: How many years used: 4 Smoking risk assessment performed?: Yes Alcohol Intake: current Alcohol Intake frequency: 3 or more drinks per day Alcohol type: beer Drug use: Never Substance use type: does not use Details: Sipped on [place] this morning Adopted: No Household members: spouse Housing: house Number of Children: 0 Communication Needs: None current occupation: Disabled Do you think of yourself as: straight/heterosexual Current gender identity: male What is your relationship status?: How often do you talk on the phone with friends or family?: three or more times per week How often do you get together with friends or relatives?: twice per week Do you belong to any clubs or organized social groups?: yes Panel score (0-1 are the most socially isolated patients): 3 What type of physical activity do you participate in: walking and weight lifting Frequency: 3-4 times per week Donita/Restorationism: Faith Seatbelt use: always Drive intox or ride w/intox spotter driver: No Working smoke detector in home: Yes Carbon monox detector in home: Yes Do you feel safe at home: Yes Do you feel safe in your relationship?: Yes Additional Social history: . Past GF in 2017 from ovarian cancer. in 2018 to current partner. Meds Allergies and Home Medications Allergies Allergy/AdvReac Type Severity Reaction Status Date / Time No Known Allergies Allergy Verified 03/06/23 06:29 Home Medications Medication Instructions Recorded Confirmed Type blood sugar diagnostic #100 ea 12/11/18 03/04/23 Rx fluoxetine 20 mg capsule 60 mg (3 x 20 mg) PO DAILY #270 08/03/22 03/06/23 Rx caps magnesium citrate 100 mg capsule 100 mg PO BID #14 caps 11/22/22 03/06/23 Rx omeprazole 40 mg capsule,delayed 40 mg PO DAILY 12/07/22 03/06/23 History release torsemide 10 mg tablet 10 mg PO HS 01/01/23 03/06/23 History sucralfate 1 gram tablet (Carafate) 1 g PO TID #90 tabs 01/16/23 03/06/23 Rx lactulose 10 gram/15 mL oral 10 g (15 mL) PO DAILY #946 mL 01/18/23 03/06/23 Rx solution potassium chloride 20 mEq 60 meq (3 x 20 mEq) PO DAILY #270 01/18/23 03/06/23 Rx tablet,extended release tabs metoclopramide HCl 10 mg tablet 10 mg PO Q6H PRN nausea and 02/06/23 03/06/23 Rx vomiting #10 tabs celecoxib 200 mg capsule 200 mg PO DAILY #90 caps 03/01/23 03/06/23 Rx clonazepam 0.5 mg tablet 0.5 mg PO BID PRN anxiety #56 tabs 03/01/23 03/06/23 Rx spironolactone 25 mg tablet 25 mg PO HS 03/01/23 03/06/23 History wheelchair #1 ea 03/01/23 03/04/23 Rx Exam Const General: frail appearing and ill appearing Nutritional Appearance: malnourished Orientation: alert and oriented x3 HENMT Head: normocephalic and atraumatic Resp Effort & Inspection: normal respiratory effort Cardio Rate: regular rate Rhythm: regular rhythm GI Inspection: distended Palpation: soft and ascites Results Labs 03/06/23 06:40 03/06/23 06:40
--- NOTE | 2023-03-06 06:37 | W.PM.OP ---
Documented by User: Christine Nolan MD 03/06/23 10:11 Date of service: 03/06/23 Operative Note Operative Note DATE OF PROCEDURE: 03/06/23 PRE-OP DIAGNOSIS: alcoholic cirrhosis with ascitis, anemia POST-OP DIAGNOSIS: same PROCEDURE: Paracentesis SURGEON: Christine Nolan LINE TECHNICIAN: Milla Pace ANESTHESIA TYPE: Local By Surgeon Refer to Anesthesia Record ESTIMATED BLOOD LOSS: 3 PATHOLOGY: none sent COMPLICATIONS: None Patient was transported to: same day Patient's condition: critical Indications: Josue is a 57-year-old gentleman with alcoholic cirrhosis and ascites. He has been coming weekly for paracentesis. We keep having to remove more more and more fluid. The patient was again consented today prior to the procedure for paracentesis. Risks of the procedure were again reviewed with him. Complications include but are not limited to bleeding, infection which would cause sepsis and most likely , injury to the small intestine resulting in infection and . He has no further questions and wishes to proceed. Procedure Description: After informed consent was obtained from the patient she was placed on our procedure table in a supine position. An ultrasound was done of the right lower quadrant and left lower quadrant. The ultrasound showed large pockets of fluids on either side. The right lower quadrant was prepped and draped in a sterile surgical fashion. 2% lidocaine was injected into the dermis and down to the fascia. A small incision was made with an 11 blade. The needle and sheath that came in the kit was slowly advanced through the subcutaneous tissue and the peritoneum into the abdomen. As soon as serous fluid was suctioned the sheath was advanced over the needle into the abdomen and the needle was removed. The sheath was then attached to suction canisters and a total of 6 L of serous fluid was removed without complication. The patient's blood pressure was checked throughout the procedure and continued to stay stable in the low 100s. Once the procedure was done the sheath was removed and a small Band-Aid was applied over the incision. The patient was slowly placed into a sitting position. Patient did not develop any dizziness and so she was allowed to go home with her . Patient did well and there were no immediate complications. Documented by User: MARISA Kirk 03/06/23 08:36 Time of Service: 08:35 Operative Note Operative Note Procedure Description: The patient is brought to the procedure room and placed in the supine position.?? A time-out was performed.? ? The area is prepped and draped in the usual sterile fashion using a ChloraPrep scrub solution.? 5 cc's of 1% Lidocaine is used for local anesthetization.? The abdomen is punctured and the catheter is inserted.?12.7 liters of light yellow fluid is evacuated today.? The catheter is removed.? 2-0 Prolene simple suture was placed. Pressure dressing is applied.? The patient tolerated the procedure well without complication and was transferred to recovery in stable condition.? Patient did well and there were no immediate complications.
--- NOTE | 2023-03-06 06:39 | W.PM.DSUDISC ---
Date of service: 03/06/23 Time of Service: 08:34 Discharge Plan Disposition Patient Disposition: Home Condition: Stable Discharge Details Reason For Visit: Paracentesis Attending Provider: Christine Nolan Primary Care Provider: David Landaverde Home Meds and New Rx's Prescriptions: Continued (DME) blood sugar diagnostic Strip See Rx Instructions .ROUTE .MEDSUPPLY Qty: 100 3RF Rx Instructions: As directed; Test daily, to keep HbA1c less than 6.5%; Dx: E11.9 lactulose 10 gram/15 mL solution 10 g PO DAILY Qty: 946 6RF potassium chloride 20 mEq tablet extended release 60 meq PO DAILY Qty: 270 3RF Patient Comments: 40mg today metoclopramide HCl 10 mg tablet 10 mg PO Q6H PRN (Reason: nausea and vomiting) Qty: 10 0RF celecoxib 200 mg capsule 200 mg PO DAILY Qty: 90 0RF clonazepam 0.5 mg tablet 0.5 mg PO BID MDD 1.0 mg PRN (Reason: anxiety) Qty: 56 0RF spironolactone 25 mg tablet 25 mg PO HS (DME) wheelchair See Rx Instructions .Route .MEDSUPPLY Qty: 1 0RF Rx Instructions: As directed fluoxetine 20 mg capsule 60 mg PO DAILY Qty: 270 3RF Patient Comments: 40mg today omeprazole 40 mg capsule,delayed release(DR/EC) 40 mg PO DAILY magnesium citrate 100 mg capsule 100 mg PO BID Qty: 14 0RF torsemide 10 mg tablet 10 mg PO HS sucralfate [Carafate] 1 gram tablet 1 g PO TID Qty: 90 5RF Rx Instructions: Take before meals Discharge Instructions Additional Instructions: Activity at Home after surgery: 1. As tolerated Diet, Nutrition, & wound healin.HIgh protein. Pain Medications: 1. Tylenol 650mg every 6 hours as needed For Constipation: 1. Continue with Lactulose. Other: 1. Please follow up with [facility] Wound Care: 1. Keep the incisions clean and dry Please call our office if you develop: 1. Fevers >101.5 2. Nausea or Vomiting 3. Worsening pain 4. Redness and thick discharge from the wounds If after hours please call the Hospital at and ask to speak to the on-call surgeon Activity:: Activity as Tolerated Diet:: As Tolerated Discharge Orders Discharge Orders: Discharge Order (Routine); Ordered 03/06/23 Ordered By: Christine Nolan DS: Diagnosis Discharge Diagnosis (1) Alcoholic cirrhosis of liver with ascites: Status: Acute Asessment and Plan: The patient is doing well post-op from Paracentesis.? He is not having nausea or vomiting. He is tolerating liquids and a snack. The pt is not having any chest pain or SOB.? ?HEENT:? no eye pain/drainage/redness/swelling. Mild sore throat ?Cardio- NSR, no chest pain, BP stable- see VS record ?Pulm: no sob or productive cough. No hemoptysis ?Incision- dressing is c/d/i w/ no excessive bleeding or drainage ? Patient verbalized understanding of their postoperative instructions, how do to take care of themselves and their incision, and the pain management plan. Please see discharge instructions.? (2) Anemia: Status: Chronic
[2023-03-06] MEDS: ALBUMIN HUMAN 25 GM/100 ML BTL IVPB ×2 (07:02→07:16)
[2023-03-06 07:04] VITALS: BP 130/81; PULSE 106; RESP 16; TEMP 37; O2SAT 100
--- NOTE | 2023-03-06 07:08 | SUR.PREOP ---
Phone call received from Silvia Hines at [facility] lab at 0656 with critical lab value for Josue Rodriguez, 1965. Silvia reported a critical lab value of hemaglobin 7.0. Lab value read back to Silvia Hines in lab. Critical lab value reported to Dr. Nolan and Toya Ross RN assigned to pt.
[2023-03-06 08:45] VITALS: BP 123/54; PULSE 107; RESP 16; TEMP 37; O2SAT 100
== END 2023-03-06 06:15 | disposition home or self-care (01) ==
PROVIDERS: PCP Family Medicine; Visit Provider Surgery
PROC: 0W9G3ZZ Drainage of Peritoneal Cavity, Percutaneous Approach (ICD-10-PCS; CPT 49082; principal; 2023-03-06 07:30)
DX: K70.31 Alcoholic cirrhosis of liver with ascites (principal); D50.8 Other iron deficiency anemias
CPT/HCPCS: 49082; 80053; 86850; 86900; 86901; 86920; 83735; 85014; 85018

== ENCOUNTER 2023-03-06 09:00 | Outpatient (RCR) | payer OTHER, SELFPAY ==
[2023-02-22 00:21] VITALS: BP 115/62; PULSE 98; RESP 18; TEMP 36.7
[2023-02-26] VITALS (10 sets, daily range): BP systolic 107–127; BP diastolic 55–72; PULSE 98–110; RESP 17–18; TEMP 36–37.2; O2SAT 97–100
[2023-02-26 07:07] LABS: HCT 21.2 % (40.0-50.0)
[2023-02-26 07:14] LABS: HGB 6.5 g/dL (13.5-17.5)
[2023-02-26 07:32] LABS: ALT 19 U/L (16-63); AST 42 U/L (15-37); Albumin 2.3 g/dL (3.4-5.0); Alkaline Phosphatase 205 U/L (46-116); Anion Gap 7.2 mmol/L (3-11); BUN 8 mg/dL (7-18); Bilirubin, Total 3.5 mg/dL (0.2-1.0); CO2 24.8 mmol/L (21.0-32.0); CREATININE 0.9 mg/dL (0.70-1.30); Calcium 7.9 mg/dL (8.5-10.1); Chloride 104 mmol/L (98-107); Estimated GFR 99.62 (mL/min/1.73m2); Glucose 146 mg/dL (74-106); Magnesium 1.4 mg/dL (1.8-2.4); Potassium 3.7 mmol/L (3.5-5.1); Sodium 136 mmol/L (136-145)
[2023-02-26] MEDS: diphenhydrAMINE 25 MG CAP 50 MG PO (09:33)
[2023-02-26] MEDS: Acetaminophen 325 MG TAB 650 MG PO (09:33)
[2023-02-26] MEDS: Normal Saline Flush 10 ML SYR IVP (09:34)
[2023-03-06] VITALS (9 sets, daily range): BP systolic 97–130; BP diastolic 57–94; PULSE 83–110; RESP 16–18; TEMP 36.7–37; O2SAT 98–100
[2023-03-06 06:54] LABS: HCT 22.8 % (40.0-50.0)
[2023-03-06 07:18] LABS: ALT 19 U/L (16-63); AST 50 U/L (15-37); Albumin 2.3 g/dL (3.4-5.0); Alkaline Phosphatase 218 U/L (46-116); Anion Gap 7.9 mmol/L (3-11); BUN 13 mg/dL (7-18); Bilirubin, Total 4.2 mg/dL (0.2-1.0); CO2 25.1 mmol/L (21.0-32.0); CREATININE 0.9 mg/dL (0.70-1.30); Calcium 7.8 mg/dL (8.5-10.1); Chloride 103 mmol/L (98-107); Estimated GFR 99.62 (mL/min/1.73m2); Glucose 132 mg/dL (74-106); Magnesium 1.6 mg/dL (1.8-2.4); Potassium 3.7 mmol/L (3.5-5.1); Sodium 136 mmol/L (136-145); Total Protein 6.3 g/dL (6.4-8.2)
[2023-03-06] MEDS: diphenhydrAMINE 25 MG CAP (09:10)
[2023-03-06] MEDS: Acetaminophen 325 MG TAB (09:10)
[2023-03-06] MEDS: Normal Saline Flush 10 ML SYR IVP (09:30)
== END 2023-03-24 23:59 | disposition home or self-care (01) ==
LOC: INF 09:00
PROVIDERS: PCP Family Medicine; Visit Provider Surgery
DX: D63.8 Anemia in other chronic diseases classified elsewhere (principal)
CPT/HCPCS: 36415; 36430; 80053; 86850; 86900; 86901; 86920; 83735; 85014; 85018; P9016

== ENCOUNTER 2023-03-06 12:43 | Emergency (ER) | payer OTHER, SELFPAY ==
[2023-03-06] VITALS (25 sets, daily range): BP systolic 106–133; BP diastolic 41–78; PULSE 100–117; RESP 14–26; TEMP 37.1–37.5; O2SAT 96–99
--- NOTE | 2023-03-06 12:45 | RT.EKG_ITS ---
APPROVED REPORT Exam: Resting ECG Reason for Exam: GI bleed Patient Location: E HR:106 bpm ECG Measurements Heart Rate 106 AXIS OR 155 P 57 QRSd 106 QRS 42 QT 384 T 13 QTc 510 Conclusion Sinus tachycardia...rate> 99 Anteroseptal infarct, age indeterminate...Q >35mS, T neg, V1-V2 Prolonged QT interval...QTc >500mS Sinus tachycardia. Prolonged QT. When compared to prior 01/11/23 no significant changes. WD
--- NOTE | 2023-03-06 13:17 | ED.GENADUL_ITS ---
Discharge Plan Disposition Patient Disposition: Against Medical Advice Condition: Fair Discharge Details Clinical Impression: Anemia, Thrombocytopenia, Acute GI bleeding Primary Care Provider: David Landaverde ED Provider: Heike Hatfield Meds and New Rx's Prescriptions: No Action (DME) blood sugar diagnostic Strip See Rx Instructions .ROUTE .MEDSUPPLY Qty: 100 3RF Rx Instructions: As directed; Test daily, to keep HbA1c less than 6.5%; Dx: E11.9 lactulose 10 gram/15 mL solution 10 g PO DAILY Qty: 946 6RF potassium chloride 20 mEq tablet extended release 60 meq PO DAILY Qty: 270 3RF Patient Comments: 40mg today metoclopramide HCl 10 mg tablet 10 mg PO Q6H PRN (Reason: nausea and vomiting) Qty: 10 0RF celecoxib 200 mg capsule 200 mg PO DAILY Qty: 90 0RF clonazepam 0.5 mg tablet 0.5 mg PO BID MDD 1.0 mg PRN (Reason: anxiety) Qty: 56 0RF spironolactone 25 mg tablet 25 mg PO HS (DME) wheelchair See Rx Instructions .Route .MEDSUPPLY Qty: 1 0RF Rx Instructions: As directed fluoxetine 20 mg capsule 60 mg PO DAILY Qty: 270 3RF Patient Comments: 40mg today omeprazole 40 mg capsule,delayed release(DR/EC) 40 mg PO DAILY magnesium citrate 100 mg capsule 100 mg PO BID Qty: 14 0RF torsemide 10 mg tablet 10 mg PO HS sucralfate [Carafate] 1 gram tablet 1 g PO TID Qty: 90 5RF Rx Instructions: Take before meals Discharge Instructions Instructions: Anemia (ED) Additional Instructions: Discontinue Celebrex. Recommend having repeat CBC tomorrow. Please return immediately if you develop any chest pain, shortness of breath, lightheadedness, dizziness. Referrals: David Landaverde DO [Primary Care Provider] - 1 day Discharge Data Discharge Physician: Heike Hatfield Medical Decision Making 57-year-old male with history of alcoholic cirrhosis and thrombocytopenia presents for evaluation of bright red blood per rectum. On review of patient's prior records he does have a history of esophageal varices. He is mildly tachycardic on arrival. IV Protonix and IV octreotide were ordered. Patient only allowed 15 minutes of octreotide infusion. He is requesting discharge home. He has been requesting discharge home since arrival. His initial laboratory studies show a hemoglobin of 6.9. This is concerning as his hemoglobin was 7 prior to his 2 units of packed red blood cells. He did stay for a 1 hour repeat which showed some slight improvement of hemoglobin to 7.3. He did not have any further bleeding episodes while in the emergency department. Patient's is at bedside. He is adamant upon discharge. I have discussed with patient numerous times that I am unable to tell him that he is stable at this time and that he may have further bleeding. He understands that I cannot guarantee that he will not to from this condition. I have recommended that he have repeat CBC done tomorrow. He understands he is welcome to return at any time for reevaluation. I did call his primary care office and speak with Dr. Hearn who is aware of the need for close follow-up. HPI General Date/Time Provider Initiated Documentation: 03/06/23 12:47 . HPI Narrative: 57-year-old male with history of alcoholic cirrhosis presents for evaluation of GI bleed. Patient had bowel movement with bright red blood while at the infusion center getting blood transfusion. He states that he gets paracentesis and blood transfusions weekly. He reports that he had 12 L of fluid removed today. He did receive albumin afterward. He had a hemoglobin of 7 and was given 2 units of packed red blood cells. Known history of thrombocytopenia. Patient states that he has been having some intermittent dark tarry stool and bright blood in the stool for some time. He denies any chest pain or shortness of breath. He denies any abdominal pain. He is followed by GI at [facility]. He has been taking lactulose. He denies any recent constipation. He does have a history of hemorrhoids. He is worried that he has a crack in his intestine. Related Data Home Medications Medication Instructions Recorded Confirmed blood sugar diagnostic #100 ea 12/11/18 03/06/23 fluoxetine 20 mg capsule 60 mg (3 x 20 mg) PO DAILY #270 08/03/22 03/06/23 caps magnesium citrate 100 mg capsule 100 mg PO BID #14 caps 11/22/22 03/06/23 omeprazole 40 mg capsule,delayed 40 mg PO DAILY 12/07/22 03/06/23 release torsemide 10 mg tablet 10 mg PO HS 01/01/23 03/06/23 sucralfate 1 gram tablet (Carafate) 1 g PO TID #90 tabs 01/16/23 03/06/23 lactulose 10 gram/15 mL oral 10 g (15 mL) PO DAILY #946 mL 01/18/23 03/06/23 solution potassium chloride 20 mEq 60 meq (3 x 20 mEq) PO DAILY #270 01/18/23 03/06/23 tablet,extended release tabs metoclopramide HCl 10 mg tablet 10 mg PO Q6H PRN nausea and 02/06/23 03/06/23 vomiting #10 tabs celecoxib 200 mg capsule 200 mg PO DAILY #90 caps 03/01/23 03/06/23 clonazepam 0.5 mg tablet 0.5 mg PO BID PRN anxiety #56 tabs 03/01/23 03/06/23 spironolactone 25 mg tablet 25 mg PO HS 03/01/23 03/06/23 wheelchair #1 ea 03/01/23 03/06/23 Previous Rx's Medication Instructions Recorded blood sugar diagnostic #100 ea 12/11/18 fluoxetine 20 mg capsule 60 mg (3 x 20 mg) PO DAILY #270 08/03/22 caps magnesium citrate 100 mg capsule 100 mg PO BID #14 caps 11/22/22 sucralfate 1 gram tablet (Carafate) 1 g PO TID #90 tabs 01/16/23 lactulose 10 gram/15 mL oral 10 g (15 mL) PO DAILY #946 mL 01/18/23 solution potassium chloride 20 mEq 60 meq (3 x 20 mEq) PO DAILY #270 01/18/23 tablet,extended release tabs metoclopramide HCl 10 mg tablet 10 mg PO Q6H PRN nausea and 02/06/23 vomiting #10 tabs celecoxib 200 mg capsule 200 mg PO DAILY #90 caps 03/01/23 clonazepam 0.5 mg tablet 0.5 mg PO BID PRN anxiety #56 tabs 03/01/23 wheelchair #1 ea 03/01/23 Allergies Allergy/AdvReac Type Severity Reaction Status Date / Time No Known Allergies Allergy Verified 03/06/23 12:55 General Stated Complaint: GI Bleed ANNETTE: 3 Review of Systems Narrative: Remainder of review of systems otherwise negative except for the noted in HPI x 10. PFSH All Active Problems (Updated 03/06/23 @ 14:57 by BKG DAEMON) Acute GI bleeding (Acute) Thrombocytopenia (Chronic) Anemia (Chronic) Ambulatory dysfunction (Acute) ACP (advance care planning) (Acute) Hepatic encephalopathy (Acute) Prolonged QT interval (Acute) Acute hypokalemia (Acute) Hypocalcemia (Acute) Thrombocytopenia (Chronic) Hypomagnesemia (Acute) Anemia (Chronic) Dark stools (Acute) Alcoholic cirrhosis of liver with ascites (Acute) Anemia of chronic disease (Acute) Acute and subacute hepatic failure without coma (Acute) Elevated INR (Acute) Elevated lipase (Acute) Elevated bilirubin (Acute) Hyponatremia (Acute) Moderate (123) with improvement (135) in 6 days with pedialyte, less alcohol and salt intake.. Nasal crusting (Acute) Chronic sinusitis (Acute) Breast pain, left (Acute) Peripheral neuropathy (Acute) Bursal cyst of olecranon (Acute) Alcohol abuse (Chronic) Hypertension (Chronic) Unspecified lump in axillary tail of the left breast (Chronic) Lipoma by US 07/13; recommended repeat in 6 months Migraine (Chronic) Tinnitus (Acute) Psychogenic nonepileptic seizure (Chronic) Benign hypertension (Acute 04/21/12) Fatigue (Acute 02/26/12) History of alcoholism (Acute) Type 2 diabetes mellitus with complication, without long-term current use of insulin (Acute 05/30/16) Personality disorder in adult (Acute) PTSD (post-traumatic stress disorder) (Acute) with paranoia 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 (Acute) ETOH abuse (Chronic) Spells of decreased attentiveness (Acute) Hyperlipidemia (Acute 07/03/12) Hepatitis, alcoholic (Acute 12/07/13) Fatty liver, alcoholic (Acute 05/30/16) Depressive disorder (Chronic 11/03/12) Chronic hip pain (Acute 11/24/14) -2014: / PT and Nsaids/osteoarthritis Anxiety (Chronic) Medical History (Updated 03/06/23 @ 14:57 by RADHA JARRELL) Lipoma of axilla Diabetes mellitus type 2 in nonobese Prediabetes Hypertension Depression Surgical History (Updated 03/06/23 @ 14:10 by Genesis Gaxiola) History of abdominal paracentesis (~02/2023) Tooth extraction ROOT CANAL Family History Mother Diabetes Sister Depression Other Alcohol abuse Bipolar 1 disorder Dementia Heart disease Schizophrenia Social History Smoking/Tobacco Use Status: Former Tobacco Use Tobacco: How many years used: 4 Smoking risk assessment performed?: Yes Alcohol Intake: current Alcohol Intake frequency: 3 or more drinks per day Alcohol type: beer Drug use: Never Substance use type: does not use Details: Sipped on [place] this morning Adopted: No Household members: spouse Housing: house Number of Children: 0 Communication Needs: None current occupation: Disabled Do you think of yourself as: straight/heterosexual Current gender identity: male What is your relationship status?: How often do you talk on the phone with friends or family?: three or more times per week How often do you get together with friends or relatives?: twice per week Do you belong to any clubs or organized social groups?: yes Panel score (0-1 are the most socially isolated patients): 3 What type of physical activity do you participate in: walking and weight lifting Frequency: 3-4 times per week Donita/Mandaeism: Adventist Seatbelt use: always Drive 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 Past GF in 2017 from ovarian cancer. in 2018 to current partner. Exam Narrative Exam Narrative: General: non-toxic, no respiratory distress, comfortable, mild jaundice HEENT: normocephalic, atraumatic, lids and lashes normal, PERRL, EOMI, icteric sclera, no conjunctival injection, moist oral mucosa Card: regular rate and rhythm, S1S2, no murmurs, rubs, or gallops Lungs: good air entry, clear to auscultation bilaterally. no wheezes, rales, rhonchi, or retractions Abd: soft, non-tender, distended, normal bowel sounds, no rebound or guarding, no peritoneal signs Musculoskeletal: full range of motion of arms and legs, no tenderness to palpation. no clubbing, cyanosis, or edema Neurologic: appropriate for age, strength normal Psych: alert and oriented Skin: no petechiae, no lesions, warm and dry Course Vital Signs Vital signs: Vital Signs Temperature 37.5 C 03/06/23 12:44 Pulse 112 H 03/06/23 12:44 Respiratory Rate 18 03/06/23 12:44 Blood Pressure 106/62 03/06/23 12:44 Pulse Oximetry 99 03/06/23 12:44 Temperature 37.5 C 03/06/23 12:44 Pulse 112 H 03/06/23 12:44 Respiratory Rate 18 03/06/23 12:44 Respiratory Effort Normal 03/06/23 12:56 Blood Pressure 106/62 03/06/23 12:44 Pulse Oximetry 99 03/06/23 12:44 Oxygen Delivery Method Room Air 03/06/23 12:44 Oxygen Flow Rate 0 03/06/23 12:44 Pain Level 0 03/06/23 12:44 PAWSS Have you Been Recently Intoxicated or Drunk Within the Last 30 days?: No Have you Ever Experienced Previous Episodes of Alcohol Withdrawal?: No Have you ever Experienced Withdrawal Seizures?: No Have you ever Experienced Delirium Tremens(DT)s?: No Have you ever undergone Alcohol Rehabilitation Treatment (i.e, inpt ot outpatient treatment programs)?: No Have you ever Experienced Blackouts?: No Have you ever Combined Alcohol with other Downers within the last 90 days?: No Have you ever Combined Alcohol with any other Substance of Abuse during the last 90 days?: No Result: 0
[2023-03-06 13:18] LABS: Abs Immature Grans 0.04 10^3/uL (0.0-0.06); Absolute Basophil Count 0.06 10^3/uL (0.0-0.2); Absolute Eosinophil Count 0.13 10^3/uL (0.0-0.7); Absolute Lymphocyte Count 0.61 10^3/uL (1.2-3.4); Absolute Monocyte Count 0.75 10^3/uL (0.1-0.8); Absolute Neutrophil Count 2.08 10^3/uL (1.2-6.7); Basophils % 1.6; Eosinophils % 3.5; HCT 21.3 % (40.0-50.0); Immature Grans % 1.1; Lymphocytes % 16.6; MCH 26.7 pg (27.0-33.0); MCHC 32.4 % (32.0-36.0); MCV 83 fL (80-95); MPV 9.9 fL (8.0-11.0); Monocytes % 20.4; Neutrophils % 56.8; RBC 2.58 10^6/uL (4.36-5.78); RDW 16.8 % (11.8-14.1); RDW-SD 50.5 fL; WBC 3.67 10^3/uL (4.4-10.8)
[2023-03-06 13:28] LABS: INR 1.8 (0.9-1.1); Prothrombin Time 17.3 sec (9.1-11.1)
[2023-03-06] MEDS: Octreotide 100 MCG/ML VIAL 50 MCG IVP (13:36)
[2023-03-06] MEDS: Pantoprazole 40 MG VIAL 80 MG IVP (13:36)
[2023-03-06 13:42] LABS: Diff Comment RBC Morph Reviewed; HGB 6.9 g/dL (13.5-17.5)
[2023-03-06 13:43] LABS: Hypochromasia 1+; Polychromasia Present
[2023-03-06 13:44] LABS: Platelet Count 70 10^3/uL (130-400)
[2023-03-06 13:48] LABS: ALT 17 U/L (16-63); AST 39 U/L (15-37); Albumin 2.3 g/dL (3.4-5.0); Alkaline Phosphatase 161 U/L (46-116); Anion Gap 7.6 mmol/L (3-11); BUN 15 mg/dL (7-18); Bilirubin, Total 4.5 mg/dL (0.2-1.0); CO2 25.4 mmol/L (21.0-32.0); Calcium 7.7 mg/dL (8.5-10.1); Chloride 105 mmol/L (98-107); Estimated GFR 87.78 (mL/min/1.73m2); Glucose 147 mg/dL (74-106); Lipase 85 U/L (16-77); Magnesium 1.7 mg/dL (1.8-2.4); Potassium 3.8 mmol/L (3.5-5.1); Sodium 138 mmol/L (136-145); Total Protein 5.4 g/dL (6.4-8.2); Troponin I < 50 ng/L (<or=60)
[2023-03-06] MEDS: OCTREOTIDE 250 MCG in Normal Saline 245 ML 50 MCG IV (14:20)
[2023-03-06 14:41] LABS: Abs Immature Grans 0.04 10^3/uL (0.0-0.06); Absolute Basophil Count 0.05 10^3/uL (0.0-0.2); Absolute Lymphocyte Count 0.52 10^3/uL (1.2-3.4); Absolute Monocyte Count 0.72 10^3/uL (0.1-0.8); Absolute Neutrophil Count 2.51 10^3/uL (1.2-6.7); Basophils % 1.3; Eosinophils % 2.5; Lymphocytes % 13.2; MCH 26.4 pg (27.0-33.0); MCHC 32.4 % (32.0-36.0); MCV 82 fL (80-95); MPV 10.3 fL (8.0-11.0); Monocytes % 18.3; Neutrophils % 63.7; Platelet Count 67 10^3/uL (130-400); RBC 2.76 10^6/uL (4.36-5.78); RDW 16.7 % (11.8-14.1); RDW-SD 49.3 fL; WBC 3.94 10^3/uL (4.4-10.8)
[2023-03-06 14:44] LABS: HCT 22.5 % (40.0-50.0); HGB 7.3 g/dL (13.5-17.5)
== END 2023-03-06 15:18 | disposition left against medical advice (07) ==
PROVIDERS: Emergency Provider Emergency Medicine Emergency Medical Services; PCP Family Medicine
DX: D64.9 Anemia, unspecified (principal); K70.31 Alcoholic cirrhosis of liver with ascites; K92.2 Gastrointestinal hemorrhage, unspecified; R00.0 Tachycardia, unspecified; Z53.29 Procedure and treatment not carried out because of patient's decision for other reasons; D69.6 Thrombocytopenia, unspecified; E11.9 Type 2 diabetes mellitus without complications; F41.9 Anxiety disorder, unspecified; Z79.4 Long term (current) use of insulin; E78.5 Hyperlipidemia, unspecified; I10 Essential (primary) hypertension; F32.A Depression, unspecified; Z79.899 Other long term (current) drug therapy
CPT/HCPCS: 36415; 80053; 83690; 93005; 96365; 96375; 99284; 83735; 84484; 85025; 85610; 93010; 99285; J2354

== ENCOUNTER 2023-03-13 06:10 | Day surgery (SDC) | payer OTHER, SELFPAY ==
[2023-03-13 06:29] VITALS: BP 118/73; PULSE 95; RESP 16; TEMP 37.1; O2SAT 99
[2023-03-13] MEDS: ALBUMIN HUMAN 25 GM/100 ML BTL IVPB ×2 (06:53→07:08)
[2023-03-13] MEDS: Normal Saline Flush 10 ML SYR ×2 (06:54)
[2023-03-13 06:59] LABS: HCT 23.3 % (40.0-50.0); HGB 7.4 g/dL (13.5-17.5)
[2023-03-13 07:16] LABS: ALT 21 U/L (16-63); AST 52 U/L (15-37); Albumin 2.3 g/dL (3.4-5.0); Alkaline Phosphatase 194 U/L (46-116); Anion Gap 5.1 mmol/L (3-11); BUN 6 mg/dL (7-18); CO2 31.9 mmol/L (21.0-32.0); CREATININE 0.9 mg/dL (0.70-1.30); Calcium 7.3 mg/dL (8.5-10.1); Chloride 97 mmol/L (98-107); Estimated GFR 99.62 (mL/min/1.73m2); Glucose 152 mg/dL (74-106); Magnesium 1.3 mg/dL (1.8-2.4); Sodium 134 mmol/L (136-145); Total Protein 6.3 g/dL (6.4-8.2)
[2023-03-13 07:27] LABS: Potassium 2.3 mmol/L (3.5-5.1)
--- NOTE | 2023-03-13 08:07 | SUR.PREOP ---
lab called with critical value of potassium at 2.3. Dr. Carrizales notified of critical value at 0740 by Toya Ross RN and Kelli Casas RN
[2023-03-13] MEDS: Potassium Chloride 20 MEQ TABCR 40 MEQ PO (08:53)
[2023-03-13 09:25] VITALS: BP 107/67; PULSE 98; RESP 16; TEMP 36.6; O2SAT 98
--- NOTE | 2023-03-13 09:29 | W.PM.OP ---
Date of service: 03/13/23 Time of Service: 09:34 Operative Note Operative Note Refer to Anesthesia Record Findings: PROCEDURES PERFORMED: 1. Ultrasound?guided paracentesis PREOPERATIVE DIAGNOSIS: Cirrhosis, ascites POSTOPERATIVE DIAGNOSIS: Same SURGEON: Irasema Carrizales MD INDICATION for procedure: 57-year-old man with end?stage cirrhosis and ascites. Had 6 L removed on last paracentesis 1 week ago. FINDINGS: 8 L of straw?colored fluid removed. Not sent for analysis. SURVEILLANCE-INTERVAL/FOLLOW-UP: Repeat as needed Specimens: None EBL: Minimal COMPLICATIONS: None Procedure in detail: The patient gave written consent and was in agreement with the indications, the potential risks as well as the benefits of the procedure. Ultrasound was used to identify a location in the right lower quadrant that was free of any omentum or bowel. The site was prepped and draped in sterile fashion. We did a timeout. Local anesthetic was injected. A small stab incision was made in the skin and using Seldinger technique the catheter needle complex was advanced carefully into the peritoneal cavity which is full of fluid. 8 L were removed. We decided to stop at this point to ensure no hemodynamic instability which he has had historically. The patient tolerated the procedure well and was taken to the PACU in hemodynamically stable condition.
--- NOTE | 2023-03-13 09:30 | W.PM.DSUDISC ---
Date of service: 03/13/23 Time of Service: 09:30 Discharge Plan Disposition Patient Disposition: Home Condition: Good Discharge Details Attending Provider: Bob Carrizales Primary Care Provider: David Landaverde Home Meds and New Rx's Prescriptions: No Action (DME) blood sugar diagnostic Strip See Rx Instructions .ROUTE .MEDSUPPLY Qty: 100 3RF Rx Instructions: As directed; Test daily, to keep HbA1c less than 6.5%; Dx: E11.9 lactulose 10 gram/15 mL solution 10 g PO DAILY Qty: 946 6RF potassium chloride 20 mEq tablet extended release 60 meq PO DAILY Qty: 270 3RF Patient Comments: 40mg today metoclopramide HCl 10 mg tablet 10 mg PO Q6H PRN (Reason: nausea and vomiting) Qty: 10 0RF celecoxib 200 mg capsule 200 mg PO DAILY Qty: 90 0RF Hold Instructions: Home Medication placed on hold at Doctor's office clonazepam 0.5 mg tablet 0.5 mg PO BID MDD 1.0 mg PRN (Reason: anxiety) Qty: 56 0RF (DME) wheelchair See Rx Instructions .Route .MEDSUPPLY Qty: 1 0RF Rx Instructions: As directed fluoxetine 20 mg capsule 60 mg PO DAILY Qty: 270 3RF Patient Comments: 40mg today omeprazole 40 mg capsule,delayed release(DR/EC) 40 mg PO DAILY spironolactone 25 mg tablet 25 mg PO HS Qty: 90 3RF magnesium citrate 100 mg capsule 100 mg PO BID Qty: 14 0RF torsemide 10 mg tablet 10 mg PO HS sucralfate [Carafate] 1 gram tablet 1 g PO TID Qty: 90 5RF Rx Instructions: Take before meals Discharge Instructions Stand Alone Forms: Miles [place] (TEOFILO) Activity:: Activity as Tolerated Diet:: As Tolerated
== END 2023-03-13 06:11 | disposition home or self-care (01) ==
PROVIDERS: Surgery; PCP Family Medicine; Visit Provider Student in an Organized Health Care Education/Training Program
PROC: 0W9G3ZZ Drainage of Peritoneal Cavity, Percutaneous Approach (ICD-10-PCS; CPT 49082; principal; 2023-03-13 07:30)
DX: K70.31 Alcoholic cirrhosis of liver with ascites (principal)
CPT/HCPCS: 49083; 00123; 36415; 80053; 86850; 86900; 86901; 83735; 85014; 85018

== ENCOUNTER 2023-03-15 21:59 | Emergency (ER) | payer OTHER, SELFPAY ==
[2023-03-15] VITALS (18 sets, daily range): BP systolic 106–132; BP diastolic 56–77; PULSE 98–112; RESP 13–23; TEMP 36.6; O2SAT 98
--- NOTE | 2023-03-15 22:12 | W.ED.GENAD ---
Discharge Plan Disposition Patient Disposition: Home Condition: Improving Discharge Details Clinical Impression: Cirrhosis, Ascites due to alcoholic cirrhosis, Hypertension, portal Primary Care Provider: David Landaverde ED Provider: Alex Jaimes Meds and New Rx's Prescriptions: Continued (DME) blood sugar diagnostic Strip See Rx Instructions .ROUTE .MEDSUPPLY Qty: 100 3RF Rx Instructions: As directed; Test daily, to keep HbA1c less than 6.5%; Dx: E11.9 lactulose 10 gram/15 mL solution 10 g PO DAILY Qty: 946 6RF potassium chloride 20 mEq tablet extended release 60 meq PO DAILY Qty: 270 3RF Patient Comments: 40mg today metoclopramide HCl 10 mg tablet 10 mg PO Q6H PRN (Reason: nausea and vomiting) Qty: 10 0RF celecoxib 200 mg capsule 200 mg PO DAILY Qty: 90 0RF Hold Instructions: Home Medication placed on hold at Doctor's office clonazepam 0.5 mg tablet 0.5 mg PO BID MDD 1.0 mg PRN (Reason: anxiety) Qty: 56 0RF (DME) wheelchair See Rx Instructions .Route .MEDSUPPLY Qty: 1 0RF Rx Instructions: As directed fluoxetine 20 mg capsule 60 mg PO DAILY Qty: 270 3RF Patient Comments: 40mg today omeprazole 40 mg capsule,delayed release(DR/EC) 40 mg PO DAILY spironolactone 25 mg tablet 25 mg PO HS Qty: 90 3RF magnesium citrate 100 mg capsule 100 mg PO BID Qty: 14 0RF torsemide 10 mg tablet 10 mg PO HS sucralfate [Carafate] 1 gram tablet 1 g PO TID Qty: 90 5RF Rx Instructions: Take before meals Discharge Instructions Instructions: Ascites (ED), Paracentesis (DC) Discharge Data Discharge Physician: Alex Jaimes Medical Decision Making MDM: Summary: Patient presented to the emergency department with tense ascites due to portal hypertension cirrhosis of the liver. Large-volume paracentesis was done using ultrasound-guided abdominal exam and paracentesis draining successfully 6 L of clear fluid. Procedure without complications. The patient received also 200 mL of albumin Data Review Analysis All the data on this patient was reviewed by me including laboratory and imaging studies as well as bedside studies performed by me Independent review of Studies Imaging Lab: Risk Stratification: Patient received large-volume paracentesis and will be discharged home he has her next visit this was done on Saturday Differential Diagnosis: 1. Portal hypertension 2. Cirrhosis 3. Ascites 4. 5. Consultants: Shared disposition: Patient feels much better and will be discharged home Impression: Medical Records Medical records reviewed: Yes I reviewed the patient's medical records. HPI General Date/Time Provider Initiated Documentation: 03/15/23 22:12. HPI Narrative: Patient presents emergency department complaining of having tense ascites. He was supposed to get drain but he did not make it and feels that he is to be drained and refers intermittent abdominal pain due to the distention. Related Data Home Medications Medication Instructions Recorded Confirmed blood sugar diagnostic #100 ea 12/11/18 03/07/23 fluoxetine 20 mg capsule 60 mg (3 x 20 mg) PO DAILY #270 08/03/22 03/15/23 caps magnesium citrate 100 mg capsule 100 mg PO BID #14 caps 11/22/22 03/15/23 omeprazole 40 mg capsule,delayed 40 mg PO DAILY 12/07/22 03/15/23 release torsemide 10 mg tablet 10 mg PO HS 01/01/23 03/15/23 sucralfate 1 gram tablet (Carafate) 1 g PO TID #90 tabs 01/16/23 03/15/23 lactulose 10 gram/15 mL oral 10 g (15 mL) PO DAILY #946 mL 01/18/23 03/15/23 solution potassium chloride 20 mEq 60 meq (3 x 20 mEq) PO DAILY #270 01/18/23 03/15/23 tablet,extended release tabs metoclopramide HCl 10 mg tablet 10 mg PO Q6H PRN nausea and 02/06/23 03/15/23 vomiting #10 tabs celecoxib 200 mg capsule 200 mg PO DAILY #90 caps 03/01/23 03/15/23 clonazepam 0.5 mg tablet 0.5 mg PO BID PRN anxiety #56 tabs 03/01/23 03/15/23 wheelchair #1 ea 03/01/23 03/07/23 spironolactone 25 mg tablet 25 mg PO HS #90 tabs 03/12/23 03/15/23 Previous Rx's Medication Instructions Recorded blood sugar diagnostic #100 ea 12/11/18 fluoxetine 20 mg capsule 60 mg (3 x 20 mg) PO DAILY #270 08/03/22 caps magnesium citrate 100 mg capsule 100 mg PO BID #14 caps 11/22/22 sucralfate 1 gram tablet (Carafate) 1 g PO TID #90 tabs 01/16/23 lactulose 10 gram/15 mL oral 10 g (15 mL) PO DAILY #946 mL 01/18/23 solution potassium chloride 20 mEq 60 meq (3 x 20 mEq) PO DAILY #270 01/18/23 tablet,extended release tabs metoclopramide HCl 10 mg tablet 10 mg PO Q6H PRN nausea and 02/06/23 vomiting #10 tabs celecoxib 200 mg capsule 200 mg PO DAILY #90 caps 03/01/23 clonazepam 0.5 mg tablet 0.5 mg PO BID PRN anxiety #56 tabs 03/01/23 wheelchair #1 ea 03/01/23 spironolactone 25 mg tablet 25 mg PO HS #90 tabs 03/12/23 Allergies Allergy/AdvReac Type Severity Reaction Status Date / Time No Known Allergies Allergy Verified 03/15/23 22:10 General Stated Complaint: Abd Prob ANNETTE: 2 Review of Systems Narrative: Review of Systems: Constitutional: No fevers, chills, sweats Eye: No recent visual problems ENT: No ear pain, nasal congestion, sore throat Respiratory: No shortness of breath, cough Cardiovascular: No Chest pain, palpitations, syncope Gastrointestinal: No nausea, vomiting, diarrhea Genitourinary: No hematuria Catrachito/Lymph: Negative for bruising tendency, swollen lymph glands Endocrine: Negative for excessive thirst, excessive hunger Musculoskeletal: No back pain, neck pain, joint pain, muscle pain, decreased range of motion Integumentary: No rash, pruritus, abrasions Neurologic: Alert & oriented X 4 Psychiatric: No anxiety, depression PFSH All Active Problems (Updated 03/15/23 @ 23:25 by Alex Jaimes MD) Hypertension, portal (Acute) Ascites due to alcoholic cirrhosis (Acute) Cirrhosis (Acute) Acute GI bleeding (Acute) Thrombocytopenia (Chronic) Anemia (Chronic) Ambulatory dysfunction (Acute) ACP (advance care planning) (Acute) Hepatic encephalopathy (Acute) Prolonged QT interval (Acute) Acute hypokalemia (Acute) Hypocalcemia (Acute) Thrombocytopenia (Chronic) Hypomagnesemia (Acute) Anemia (Chronic) Dark stools (Acute) Alcoholic cirrhosis of liver with ascites (Acute) Anemia of chronic disease (Acute) Acute and subacute hepatic failure without coma (Acute) Elevated INR (Acute) Elevated lipase (Acute) Elevated bilirubin (Acute) Hyponatremia (Acute) Moderate (123) with improvement (135) in 6 days with pedialyte, less alcohol and salt intake.. Nasal crusting (Acute) Chronic sinusitis (Acute) Breast pain, left (Acute) Peripheral neuropathy (Acute) Bursal cyst of olecranon (Acute) Alcohol abuse (Chronic) Hypertension (Chronic) Unspecified lump in axillary tail of the left breast (Chronic) Lipoma by US 07/13; recommended repeat in 6 months Migraine (Chronic) Tinnitus (Acute) Psychogenic nonepileptic seizure (Chronic) Benign hypertension (Acute 04/21/12) Fatigue (Acute 02/26/12) History of alcoholism (Acute) Type 2 diabetes mellitus with complication, without long-term current use of insulin (Acute 05/30/16) Personality disorder in adult (Acute) PTSD (post-traumatic stress disorder) (Acute) with paranoia 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 (Acute) ETOH abuse (Chronic) Spells of decreased attentiveness (Acute) Hyperlipidemia (Acute 07/03/12) Hepatitis, alcoholic (Acute 12/07/13) Fatty liver, alcoholic (Acute 05/30/16) Depressive disorder (Chronic 11/03/12) Chronic hip pain (Acute 11/24/14) -2014: / PT and Nsaids/osteoarthritis Anxiety (Chronic) Medical History Lipoma of axilla Diabetes mellitus type 2 in nonobese Prediabetes Hypertension Depression Surgical History [place]/23[place] [place] [facility] [place]Nicolas Cruz MD; small esophageal varix-non banded. grade I. there was a diffuse cobblestone appearance to the stomach consistent with portal hypertensive gastropathy.There were no gastric varices.The examined duodenum was normal. History of abdominal paracentesis (~02/2023) Tooth extraction ROOT CANAL Family History Mother Diabetes Sister Depression Other Alcohol abuse Bipolar 1 disorder Dementia Heart disease Schizophrenia Social History Smoking/Tobacco Use Status: Former Tobacco Use Tobacco: How many years used: 4 Smoking risk assessment performed?: Yes Alcohol Intake: current Alcohol Intake frequency: 3 or more drinks per day Alcohol type: beer Drug use: Never Substance use type: does not use Details: Sipped on [place] this morning Adopted: No Household members: spouse Housing: house Number of Children: 0 Communication Needs: None current occupation: Disabled Do you think of yourself as: straight/heterosexual Current gender identity: male What is your relationship status?: How often do you talk on the phone with friends or family?: three or more times per week How often do you get together with friends or relatives?: twice per week Do you belong to any clubs or organized social groups?: yes Panel score (0-1 are the most socially isolated patients): 3 What type of physical activity do you participate in: walking and weight lifting Frequency: 3-4 times per week Donita/Scientology: Christianity Seatbelt use: always Drive intox or ride w/intox team driver: No Working smoke detector in home: Yes Carbon monox detector in home: Yes Do you feel safe at home: Yes Do you feel safe in your relationship?: Yes Additional Social history: . Past GF in 2017 from ovarian cancer. in 2018 to current partner. Exam Narrative Exam Narrative: Exam; vitals signs as reported above normal Constitutional; In no acute distress, afebrile General: cooperative, healthy appearing, comfortable and no acute distress HEENT: Head: normal to inspection, no palpable skull fracture and normocephalic atraumatic Eyes: : appearance normal, both eyes and all related structures EOM intact bilaterally Pupils: PERRL : conjunctiva normal Direct ophthalmoscopy: normal light reflex, normal conjunctiva, normal visual acuity Ears: Normal TM, normal external canal Nose: normal no rhinorreha Neck no JVD, supple non tender Neck: normal visual inspection, full ROM and no lymphadenopathy Chest: normal inspection of the chest Respiratory : normal respiratory effort and able to speak in complete sentences no wheezing no rales Cardio Rate: regular rate, rhythm: regular rhythm normal heart sounds S1 and S2 no murmurs, gallops, or rubs GI : normal to inspection, normal bowel sounds, soft, non tender,very distended, no organomegaly Back/Spine/ no CVA tenderness Thoracic/Lumbar Spine: no tenderness or deformities Skin no rashes or lesions Neuro: patient alert oriented x 4 and no meningeal signs, Cranial Nerves: CN's II-XI intact bilaterally, Cognition: normal cognition, Speech: speech normal, Gait: normal gait, Depp tendon reflexes normal 2+ muscle strength 5/5 bilaterally Extremities, no edema, full range of motion, normal strength : normal Rectal: Course Vital Signs Vital signs: Vital Signs Temperature 36.6 C 03/15/23 22:05 Pulse 105 H 03/15/23 22:05 Respiratory Rate 16 03/15/23 22:05 Blood Pressure 132/77 03/15/23 22:05 Pulse Oximetry 98 03/15/23 22:05 Temperature 36.6 C 03/15/23 22:05 Temperature Source Temporal Artery Scan 03/15/23 22:05 Pulse 105 H 03/15/23 22:05 Respiratory Rate 16 03/15/23 22:05 Blood Pressure 132/77 03/15/23 22:05 Blood Pressure Position Sitting 03/15/23 22:05 Pulse Oximetry 98 03/15/23 22:05 Oxygen Delivery Method Room Air 03/15/23 22:05 Oxygen Flow Rate 0 03/15/23 22:05 Pain Level 10 03/15/23 22:05 Procedures Paracentesis Time Out Performed: Yes Indication: Ascites Procedure: therapeutic paracentesis Location: infraumbillical Local Anesthetic: Lidocaine 2% and with Epi Amount of anesthesia used (mL): 5 Bedside Ultrasound Used: yes, Ascites confirmed and location marked Preparation: sterile prep and drape Amount of Fluid Obtained: 6 (bottles of 1000 ML) Fluid: clear Size of Needle Used: 16 Post Procedure Exam: awake, alert, normal BP and normal HR Patient Tolerated Procedure: well Complications: none Additional Comments: Ultrasound-guided paracentesis POCUS Exam (ED) FAST Exam DATE OF EXAM: 03/15/23 TIME OF EXAM: 22:10 PROVIDER THAT PERFORMED THE STUDY: Alex Jaimes REASON FOR EXAM: Abdominal pain VISUALIZED STRUCTURES: Hepatorenal space, Pelvis and Perisplenic space PERTINENT FINDINGS/IMPRESSION: apparent free fluid, hepatorenal space, pelvis and perisplenic space DIFFERENTIAL DIAGNOSES: Patient with ascites who has large amount of fluid in the peritoneal cavity and this ultrasound was used for large-volume paracentesis and guidance Limited Transthoracic Exam: Exam complete Limited Chest Exam: Exam complete Limited Abdominal Exam: Exam complete Limited Retroperitoneal Exam: Exam complete
[2023-03-15] MEDS: ALBUMIN HUMAN 25 GM/100 ML BTL IVPB (23:06)
== END 2023-03-15 23:40 | disposition home or self-care (01) ==
PROVIDERS: Emergency Provider Emergency Medicine Emergency Medical Services; PCP Family Medicine
DX: K70.31 Alcoholic cirrhosis of liver with ascites (principal); K76.6 Portal hypertension; R10.9 Unspecified abdominal pain; E87.1 Hypo-osmolality and hyponatremia; E87.6 Hypokalemia; Z79.899 Other long term (current) drug therapy; D64.9 Anemia, unspecified; I10 Essential (primary) hypertension; F10.10 Alcohol abuse, uncomplicated; E11.9 Type 2 diabetes mellitus without complications; Z79.4 Long term (current) use of insulin; F32.A Depression, unspecified; F41.9 Anxiety disorder, unspecified
CPT/HCPCS: 49083; 76604; 76705; 76857; 96365; 99285; 99284

== ENCOUNTER 2023-03-19 07:46 | Emergency (ER) | payer OTHER, SELFPAY ==
[2023-03-19 07:53] VITALS: BP 134/78; PULSE 97; RESP 18; TEMP 36.7; O2SAT 100
[2023-03-19 08:24] VITALS: BP 134/78; PULSE 97; RESP 18; TEMP 36.7; O2SAT 100
--- NOTE | 2023-03-19 08:26 | W.ED.GENAD ---
Discharge Plan Disposition Patient Disposition: Home Discharge Details Clinical Impression: ETOH abuse, Ascites due to alcoholic cirrhosis Primary Care Provider: David Landaverde ED Provider: Priya Olson Home Meds and New Rx's Prescriptions: No Action (DME) blood sugar diagnostic Strip See Rx Instructions .ROUTE .MEDSUPPLY Qty: 100 3RF Rx Instructions: As directed; Test daily, to keep HbA1c less than 6.5%; Dx: E11.9 lactulose 10 gram/15 mL solution 10 g PO DAILY Qty: 946 6RF potassium chloride 20 mEq tablet extended release 60 meq PO DAILY Qty: 270 3RF Patient Comments: 40mg today metoclopramide HCl 10 mg tablet 10 mg PO Q6H PRN (Reason: nausea and vomiting) Qty: 10 0RF clonazepam 0.5 mg tablet 0.5 mg PO BID MDD 1.0 mg PRN (Reason: anxiety) Qty: 56 0RF (DME) wheelchair See Rx Instructions .Route .MEDSUPPLY Qty: 1 0RF Rx Instructions: As directed fluoxetine 20 mg capsule 60 mg PO DAILY Qty: 270 3RF Patient Comments: 40mg today omeprazole 40 mg capsule,delayed release(DR/EC) 40 mg PO DAILY spironolactone 25 mg tablet 25 mg PO HS Qty: 90 3RF magnesium citrate 100 mg capsule 100 mg PO BID Qty: 14 0RF torsemide 10 mg tablet 10 mg PO HS sucralfate [Carafate] 1 gram tablet 1 g PO TID Qty: 90 5RF Rx Instructions: Take before meals Discharge Instructions Additional Instructions: YOU WILL BE AN ADD ON CASE IN DAY SURGERY TODAY FOR YOUR PARACENTESIS. PLEASE GO THERE FOR FURTHER INSTRUCTIONS. THEY WILL FOLLOW UP ON YOUR LABS. Medical Decision Making Emergent evaluation of liver disease and ascites. At this time the patient has no signs or symptoms concerning for decompensated liver failure. He is hemodynamically stable. He has not been having fever or pain. He has a benign abdominal exam other than the large volume of ascites. I do not suspect SBP. The patient is still drinking alcohol actively and has been fairly noncompliant with his scheduled paracentesis it seems. He was in the emergency department 4 days ago and received a large-volume paracentesis at that time. Explained to the patient that this is not the appropriate use of the emergency department and that it is unsafe to do therapeutic paracentesis in the emergency department frequently and this is why he has scheduled appointments and follow-up. I contacted general surgery who will be able to get the patient in today for his large-volume tap.. 0850 patient has been added on to day surgery caseload for large-volume paracentesis. I have sent the routine lab work per their request. They will follow-up on the results. Otherwise the patient has no other emergent needs and will be discharged to go to day surgery for his procedure. Medical Records Medical records reviewed: Yes I reviewed the patient's medical records. HPI General Date/Time Provider Initiated Documentation: 03/19/23 08:01. Limitations to Documentation: no limitations. Information obtained by: patient. HPI Narrative: 57-year-old gentleman with past medical history of alcohol abuse, liver cirrhosis presents requesting paracentesis. Patient reports that he was seen 4 days ago for paracentesis. He states that he is routinely scheduled for every Saturday, but that his schedule has been off and he has not been able to make his appointments and that they are not taking enough fluid. He reports that he needs the fluid taken off so that he can go visit his sister. He denies any fever or vomiting. No confusion or change in his mental status. He reports that he is uncomfortable in his abdomen. Related Data Home Medications Medication Instructions Recorded Confirmed blood sugar diagnostic #100 ea 12/11/18 03/07/23 fluoxetine 20 mg capsule 60 mg (3 x 20 mg) PO DAILY #270 08/03/22 03/19/23 caps magnesium citrate 100 mg capsule 100 mg PO BID #14 caps 11/22/22 03/19/23 omeprazole 40 mg capsule,delayed 40 mg PO DAILY 12/07/22 03/19/23 release torsemide 10 mg tablet 10 mg PO HS 01/01/23 03/19/23 sucralfate 1 gram tablet (Carafate) 1 g PO TID #90 tabs 01/16/23 03/19/23 lactulose 10 gram/15 mL oral 10 g (15 mL) PO DAILY #946 mL 01/18/23 03/19/23 solution potassium chloride 20 mEq 60 meq (3 x 20 mEq) PO DAILY #270 01/18/23 03/19/23 tablet,extended release tabs metoclopramide HCl 10 mg tablet 10 mg PO Q6H PRN nausea and 02/06/23 03/19/23 vomiting #10 tabs clonazepam 0.5 mg tablet 0.5 mg PO BID PRN anxiety #56 tabs 03/01/23 03/19/23 wheelchair #1 ea 03/01/23 03/07/23 spironolactone 25 mg tablet 25 mg PO HS #90 tabs 03/12/23 03/19/23 Previous Rx's Medication Instructions Recorded blood sugar diagnostic #100 ea 12/11/18 fluoxetine 20 mg capsule 60 mg (3 x 20 mg) PO DAILY #270 08/03/22 caps magnesium citrate 100 mg capsule 100 mg PO BID #14 caps 11/22/22 sucralfate 1 gram tablet (Carafate) 1 g PO TID #90 tabs 01/16/23 lactulose 10 gram/15 mL oral 10 g (15 mL) PO DAILY #946 mL 01/18/23 solution potassium chloride 20 mEq 60 meq (3 x 20 mEq) PO DAILY #270 01/18/23 tablet,extended release tabs metoclopramide HCl 10 mg tablet 10 mg PO Q6H PRN nausea and 02/06/23 vomiting #10 tabs clonazepam 0.5 mg tablet 0.5 mg PO BID PRN anxiety #56 tabs 03/01/23 wheelchair #1 ea 03/01/23 spironolactone 25 mg tablet 25 mg PO HS #90 tabs 03/12/23 Allergies Allergy/AdvReac Type Severity Reaction Status Date / Time No Known Allergies Allergy Verified 03/19/23 07:59 General Stated Complaint: Abd Prob ANNETTE: 3 PFSH All Active Problems (Updated 03/19/23 @ 08:48 by Priya Olson MD) Hypertension, portal (Acute) Ascites due to alcoholic cirrhosis (Acute) Cirrhosis (Acute) Acute GI bleeding (Acute) Thrombocytopenia (Chronic) Anemia (Chronic) Ambulatory dysfunction (Acute) ACP (advance care planning) (Acute) Hepatic encephalopathy (Acute) Prolonged QT interval (Acute) Acute hypokalemia (Acute) Hypocalcemia (Acute) Thrombocytopenia (Chronic) Hypomagnesemia (Acute) Anemia (Chronic) Dark stools (Acute) Alcoholic cirrhosis of liver with ascites (Acute) Anemia of chronic disease (Acute) Acute and subacute hepatic failure without coma (Acute) Elevated INR (Acute) Elevated lipase (Acute) Elevated bilirubin (Acute) Hyponatremia (Acute) Moderate (123) with improvement (135) in 6 days with pedialyte, less alcohol and salt intake.. Nasal crusting (Acute) Chronic sinusitis (Acute) Breast pain, left (Acute) Peripheral neuropathy (Acute) Bursal cyst of olecranon (Acute) Alcohol abuse (Chronic) Hypertension (Chronic) Unspecified lump in axillary tail of the left breast (Chronic) Lipoma by US 07/13; recommended repeat in 6 months Migraine (Chronic) Tinnitus (Acute) Psychogenic nonepileptic seizure (Chronic) Benign hypertension (Acute 04/21/12) Fatigue (Acute 02/26/12) History of alcoholism (Acute) Type 2 diabetes mellitus with complication, without long-term current use of insulin (Acute 05/30/16) Personality disorder in adult (Acute) PTSD (post-traumatic stress disorder) (Acute) with paranoia 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 (Acute) ETOH abuse (Chronic) Spells of decreased attentiveness (Acute) Hyperlipidemia (Acute 07/03/12) Hepatitis, alcoholic (Acute 12/07/13) Fatty liver, alcoholic (Acute 05/30/16) Depressive disorder (Chronic 11/03/12) Chronic hip pain (Acute 11/24/14) -2014: / PT and Nsaids/osteoarthritis Anxiety (Chronic) Medical History Lipoma of axilla Diabetes mellitus type 2 in nonobese Prediabetes Hypertension Depression Surgical History H/O endoscopy 03/12/23;[facility] – [place];Nicolas Cruz MD; small esophageal varix-non banded. grade I. there was a diffuse cobblestone appearance to the stomach consistent with portal hypertensive gastropathy.There were no gastric varices.The examined duodenum was normal. History of abdominal paracentesis (~02/2023) Tooth extraction ROOT CANAL Family History Mother Diabetes Sister Depression Other Alcohol abuse Bipolar 1 disorder Dementia Heart disease Schizophrenia Social History Smoking/Tobacco Use Status: Former Tobacco Use Tobacco: How many years used: 4 Smoking risk assessment performed?: Yes Alcohol Intake: current Alcohol Intake frequency: 3 or more drinks per day Alcohol type: beer Drug use: Never Substance use type: does not use Adopted: No Household members: spouse Housing: house Number of Children: 0 Communication Needs: None current occupation: Disabled Do you think of yourself as: straight/heterosexual Current gender identity: male What is your relationship status?: How often do you talk on the phone with friends or family?: three or more times per week How often do you get together with friends or relatives?: twice per week Do you belong to any clubs or organized social groups?: yes Panel score (0-1 are the most socially isolated patients): 3 What type of physical activity do you participate in: walking and weight lifting Frequency: 3-4 times per week Donita/Restorationism: Taoist Seatbelt use: always Drive intox or ride w/intox commercial relief driver: No Working smoke detector in home: Yes Carbon monox detector in home: Yes Do you feel safe at home: Yes Do you feel safe in your relationship?: Yes Additional Social history: . Past GF in 2017 from ovarian cancer. in 2018 to current partner. Exam Narrative Exam Narrative: Review of Systems: All systems reviewed & are unremarkable except as noted in HPI and below: CONSTITUTIONAL: Alert and oriented Well-developed, no acute distress HEENT: NCAT EYES: PERRL, no conjunctival injection, no icterus CVS: RRR, No murmurs or gallops. Peripheral pulses 2+ and equal in all extremities Brisk capillary refill in all extremities. 2+ peripheral edema RESP: Unlabored respiratory effort, Clear to auscultation bilaterally No wheezes rales or rhonchi GI: Soft, Nontender, diffusely distended MSK: Extremities with full range of motion, no deformity or TTP SKIN: Mild jaundice NEURO: No focal neurologic deficits. forensics analyst II-XII grossly intact Sensation grossly intact Normal strength throughout No asterixis Course Vital Signs Vital signs: Vital Signs Temperature 36.7 C 03/19/23 07:53 Pulse 97 H 03/19/23 07:53 Respiratory Rate 18 03/19/23 07:53 Blood Pressure 134/78 03/19/23 07:53 Pulse Oximetry 100 03/19/23 07:53 Temperature 36.7 C 03/19/23 08:24 Temperature Source Oral 03/19/23 07:53 Pulse 97 H 03/19/23 08:24 Respiratory Rate 18 03/19/23 08:24 Respiratory Effort Normal, Non-Labored 03/19/23 07:58 Blood Pressure 134/78 03/19/23 08:24 Pulse Oximetry 100 03/19/23 08:24
[2023-03-19 09:08] LABS: MCH 25.1 pg (27.0-33.0); MCHC 31.1 % (32.0-36.0); MCV 81 fL (80-95); RBC 2.19 10^6/uL (4.36-5.78); RDW 17.3 % (11.8-14.1); RDW-SD 50.9 fL
[2023-03-19 09:13] LABS: HGB 5.5 g/dL (13.5-17.5)
[2023-03-19 09:14] LABS: HCT 17.7 % (40.0-50.0); INR 1.7 (0.9-1.1); Platelet Count 81 10^3/uL (130-400); Prothrombin Time 16.7 sec (9.1-11.1)
[2023-03-19 09:23] LABS: ALT 18 U/L (16-63); AST 58 U/L (15-37); Albumin 2.4 g/dL (3.4-5.0); Alkaline Phosphatase 192 U/L (46-116); Anion Gap 7.3 mmol/L (3-11); BUN 10 mg/dL (7-18); Bilirubin, Total 4.7 mg/dL (0.2-1.0); CO2 28.7 mmol/L (21.0-32.0); CREATININE 0.8 mg/dL (0.70-1.30); Calcium 7.7 mg/dL (8.5-10.1); Chloride 93 mmol/L (98-107); Estimated GFR 103.22 (mL/min/1.73m2); Glucose 146 mg/dL (74-106); Magnesium 1.5 mg/dL (1.8-2.4); Sodium 129 mmol/L (136-145); Total Protein 6.1 g/dL (6.4-8.2)
[2023-03-19 09:24] LABS: Potassium 2.8 mmol/L (3.5-5.1)
== END 2023-03-19 09:34 | disposition home or self-care (01) ==
PROVIDERS: Emergency Provider Emergency Medicine; PCP Family Medicine
DX: K70.31 Alcoholic cirrhosis of liver with ascites (principal); E87.1 Hypo-osmolality and hyponatremia; E87.6 Hypokalemia; D50.0 Iron deficiency anemia secondary to blood loss (chronic)
CPT/HCPCS: 80053; 85027; 86850; 86900; 86901; 99282; 83735; 85610; 99284

== ENCOUNTER 2023-03-19 09:35 | Day surgery (SDC) | payer OTHER, SELFPAY ==
[2023-03-19] VITALS (8 sets, daily range): BP systolic 111–132; BP diastolic 58–81; PULSE 97–110; RESP 16–18; TEMP 37–37.4; O2SAT 98–100
[2023-03-19] MEDS: ALBUMIN HUMAN 25 GM/100 ML BTL IVPB ×2 (09:45→10:13)
--- NOTE | 2023-03-19 12:26 | W.PM.OP ---
Date of service: 03/19/23 Time of Service: : Operative Note Operative Note DATE OF PROCEDURE: 03/19/23 PRE-OP DIAGNOSIS: cirrhosis w/ ascites POST-OP DIAGNOSIS: same PROCEDURE: paracentisis SURGEON: Danielle Hernandez ANESTHESIA TYPE: Local By Surgeon Refer to Anesthesia Record ESTIMATED BLOOD LOSS: 1 PATHOLOGY: none sent COMPLICATIONS: None Patient was transported to: same day Patient's condition: stable Procedure Description: Informed consent is obtained, explaining benefits and risks of the procedure including but not limited to: bleeding/infections/damage to bowels or blood vessels/chronic drainage or leakage/need for repeat procedure/reactions to anesthetics.?? The patient is brought to the procedure room and placed in the supine position.?? A time-out is done.? Ultrasound is used to localize the pocket of fluid.? The area is prepped and draped in the usual sterile fashion using a ChloraPrep scrub solution.? 10 cc's of 1% Lidocaine with epinephrine is used for local anesthetization.? The abdomen is punctured and the catheter is inserted.?10.4 liters of light yellow fluid is evacuated today.? The catheter is removed.? Pressure dressing is applied.? The patient tolerated the procedure well without complication and transferred to recovery in stable condition.?
[2023-03-19] MEDS: Lidocaine 1% Multi-Dose W/EPI 1/100,000 50 ML VIAL (12:29)
--- NOTE | 2023-03-19 12:33 | W.PM.DSUDISC ---
Date of service: 03/19/23 Time of Service: 12:53 Discharge Plan Disposition Patient Disposition: Home Condition: Stable Discharge Details Reason For Visit: paracentisis Attending Provider: Danielle Hernandez Primary Care Provider: David Landaverde Home Meds and New Rx's Prescriptions: No Action (DME) blood sugar diagnostic Strip See Rx Instructions .ROUTE .MEDSUPPLY Qty: 100 3RF Rx Instructions: As directed; Test daily, to keep HbA1c less than 6.5%; Dx: E11.9 lactulose 10 gram/15 mL solution 10 g PO DAILY Qty: 946 6RF potassium chloride 20 mEq tablet extended release 60 meq PO DAILY Qty: 270 3RF Patient Comments: 40mg today metoclopramide HCl 10 mg tablet 10 mg PO Q6H PRN (Reason: nausea and vomiting) Qty: 10 0RF clonazepam 0.5 mg tablet 0.5 mg PO BID MDD 1.0 mg PRN (Reason: anxiety) Qty: 56 0RF (DME) wheelchair See Rx Instructions .Route .MEDSUPPLY Qty: 1 0RF Rx Instructions: As directed fluoxetine 20 mg capsule 60 mg PO DAILY Qty: 270 3RF Patient Comments: 40mg today omeprazole 40 mg capsule,delayed release(DR/EC) 40 mg PO DAILY spironolactone 25 mg tablet 25 mg PO HS Qty: 90 3RF magnesium citrate 100 mg capsule 100 mg PO BID Qty: 14 0RF torsemide 10 mg tablet 10 mg PO HS sucralfate [Carafate] 1 gram tablet 1 g PO TID Qty: 90 5RF Rx Instructions: Take before meals Discharge Instructions Additional Instructions: -high protein diet -F/u w/ Dr. Landaverde this week- call for appt. regarding low potassium -F/u in 1 paracentisis March 26. -wear support stockings daily Activity:: Activity as Tolerated Remove Dressings/Wound Care:: 24 hours Shower/Bathe:: 24 hours Diet:: high protein Discharge Orders Discharge Orders: Discharge Order (Routine); Ordered 03/19/23 Ordered By: Danielle Hernandez DS: Diagnosis Discharge Diagnosis (1) Portal hypertensive gastropathy: Status: Acute (2) Portal hypertension with esophageal varices: Status: Acute (3) Chronic hypokalemia: Status: Acute (4) Hypertension, portal: Status: Acute (5) Ascites due to alcoholic cirrhosis: Status: Acute (6) Cirrhosis: Status: Acute (7) Thrombocytopenia: Status: Chronic (8) Anemia: Status: Chronic (9) Hepatic encephalopathy: Status: Acute (10) Hypomagnesemia: Status: Acute (11) Hypocalcemia: Status: Acute (12) Diabetes mellitus type 2 in nonobese: (13) Prediabetes: (14) Hypertension: (15) Depression:
[2023-03-19 12:56] LABS: Lab Add On Test DONE
[2023-03-19 13:02] LABS: Reticulocyte 6.2 % (0.5-2.4)
[2023-03-19 13:46] LABS: Ferritin 22 ng/mL (26-388)
--- NOTE | 2023-03-19 15:45 | RT.EKG_ITS ---
APPROVED REPORT Exam: Resting ECG Reason for Exam: Chest pain Patient Location: I HR:109 bpm ECG Measurements Heart Rate 109 AXIS AK 141 P -11 QRSd 103 QRS -25 QT 379 T 132 QTc 511 Conclusion Sinus tachycardia...rate> 99 LVH with secondary repolarization abnormality...multi-LVH criteria, abnrm ST-T Prolonged QT interval...QTc >500mS I have reviewed and interpreted ECG and agree with software generated interpretation.
--- NOTE | 2023-03-19 16:11 | W.PM.PROGNOT ---
Date of Service Date of service: 03/19/23 Time of Service: 16:11 Assessment and Plan Assessment and plan (1) Elevated troponin: Status: Acute (2) Left-sided chest wall pain: Status: Acute (3) ST segment depression: Status: Acute (4) Splenomegaly: Status: Acute (5) Chronic hypokalemia: Status: Acute (6) Portal hypertension with esophageal varices: Status: Acute (7) Portal hypertensive gastropathy: Status: Acute (8) Hypertension, portal: Status: Acute (9) Ascites due to alcoholic cirrhosis: Status: Acute (10) Cirrhosis: Status: Acute (11) Thrombocytopenia: Status: Chronic (12) Anemia: Status: Chronic (13) Ambulatory dysfunction: Status: Acute (14) Edema of lower extremity due to peripheral venous insufficiency: Status: Acute (15) Acute hypokalemia: Status: Acute (16) Thrombocytopenia: Status: Chronic (17) Hypomagnesemia: Status: Acute (18) Alcoholic cirrhosis of liver with ascites: Status: Acute (19) Anemia of chronic disease: Status: Acute (20) Elevated INR: Status: Acute (21) Elevated bilirubin: Status: Acute (22) Peripheral neuropathy: Status: Acute (23) Alcohol abuse: Status: Chronic (24) Hypertension: Status: Chronic (25) History of alcoholism: Status: Acute (26) Type 2 diabetes mellitus with complication, without long-term current use of insulin: Status: Acute (27) Personality disorder in adult: Status: Acute (28) PTSD (post-traumatic stress disorder): Status: Acute (29) 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: Status: Acute (30) Hyperlipidemia: Status: Acute (31) Depressive disorder: Status: Chronic (32) Benign hypertension: Status: Acute (33) Low ferritin: Status: Acute (34) Low folate: Status: Acute Subjective Subjective Interval history since last seen: Patient is a 57-year-old male well-known to the surgical service. He has a history of cirrhosis secondary to EtOH requiring weekly paracentesis. Past medical history is also significant for tobacco and alcohol abuse, chronic liver failure, chronic anemia, chronic hypokalemia, hypertension, diabetes type 2, hyperlipidemia, and anxiety. He is scheduled for paracentesis on March 22. He receives weekly paracentesis and generally 1 to 2 units of packed RBCs. he came into the ER today, complaining that his abdomen was tight and full and wanting another paracentesis today, as he does not feel he can wait till Saturday. Labs done in the ER show a hemoglobin of 5.5. He did go down to [facility] and have an EGD. The EGD showed that he had portal gastropathy and x 1 grade 1 varices, that did not require banding. Patient has multiple loose brown stools a day, secondary To the lactulose. He denies dark tarry stools or gross blood in his stools. He has never had a colonoscopy before. Prior to the paracentesis being performed, patient noted that he has been having a funny fluttering feeling on his left side of upper abdomen. It was thought that this was due to the pressure from the ascites. Paracentesis was performed today-please refer to the operative note. Patient received 2 units of albumin postoperatively. 2 units of packed RBCs were also ordered, and he was sent to [facility] for transfusion. Patient did not take any of his home meds prior to coming into the ED today. While he was receiving first unit of blood, he started complaining of chest tightness. His blood pressure remained stable. He was not running a temperature. His lungs are clear to auscultation. He does have a slight heart murmur, which has not been noted before. He did not have any rash. He has chronic lower extremity edema. He is not having any abdominal pain. The paracentesis site is clean dry and intact. He received a full dose aspirin and a .4mg nitro. The chest pain was relieved with nitro. An EKG was performed prior to receiving a dose of nitro. This EKG did show some ST elevation. A second EKG was performed after the nitro, which showed improvement in the ST segment. I did review this with Dr. Hills. His troponin came back at 126. BNP normal. I discussed with Dr. Hills, and it is recommended the patient be admitted for rthymn monitoring, serial troponins and echo and possible stress testing in a.m. as well as completing his blood transfusion and potassium, and magnesium replacement. I discussed this with the patient that he needs to stay in the hospital. It is 6:00pm at night. He is has only received 1 unit of blood and 10 mEq of potassium. By the time the blood and potassium finish it would be almost 11:00pm at night. The patient came into the ER today on his own volition because he wanted a paracentesis. He would have to go down to the ER and get admitted to the hospitalist service. At this point patient is refusing to stay in the hospital, and wants to go home. I informed him that he is having an acute heart attack. He says he is feeling better. He was informed he is feeling better because he had nitroglycerin for his heart, and that this medication is going to wear off, and when is does, the chest pain is going to come back; in about an hour or 2. Patient stated that if it is my time to be with the Lord then I want to do it at home. He was given AMA forms and explicitly told that he is having a heart attack and if he goes home he has a high chance of . Patient signed the forms and accepts responsibility for his own medical decision-making. His is a witness. Patient has a longstanding history of an manipulative personality and not following medical advice. If he continues to have chest pain he is encouraged to come back to the emergency room. Patient only received 1 unit of blood tonight. He did not take any of his home medications today Patient has a history of noncompliance with his medication and with physician recommendations. He does not follow-up regularly with his PCP. He does not know when the last time he saw his PCP or had his diuretics and potassium adjusted. He does not take magnesium at home. The patient has been advised that he needs to follow-up closely with his PCP regarding his renal function/electrolytes. Patient and his were told multiple times that he is having a heart attack and he needs to be admitted to the hospital. 2 hours was spent taking care of of this patient in critical care time . Exam Narrative Exam Narrative: see HPI Objective Last Vital Signs Temp 37 C 03/19/23 15:42 Pulse 110 H 03/19/23 15:42 Resp 16 03/19/23 15:42 BP 111/60 03/19/23 15:42 Pulse Ox 99 03/19/23 15:42 Laboratory Results - last 24 hr 03/19/23 03/19/23 03/19/23 08:46 08:54 Unknown Reticulocyte % (Auto) 6.2 H Ferritin 22 L Add-On Test Request Cancelled Patient ABO/Rh A Positive Antibody Screen NEGATIVE Crossmatch See Detail 03/19/23 Unknown Reticulocyte % (Auto) Ferritin Add-On Test Request DONE Patient ABO/Rh Antibody Screen Crossmatch Reviewed Pertinent PMH: Yes Anemia profile Hgb 5.5 g/dL (13.5-17.5) L* 03/19/23 Hct 17.7 % (40.0-50.0) L* 03/19/23 MCV 81 fL (80-95) 03/19/23 RDW 17.3 % (11.8-14.1) H 03/19/23 Iron 192 ug/dL (65-175) H 01/15/23 Ferritin 22 ng/mL (26-388) L 03/19/23 TIBC 201 ug/dL (250-450) L 01/15/23 Transferrin % Sat 96 % (20-55) H 01/15/23 Vitamin B12 1449 pg/mL (193-986) H 10/25/22 Folate 6.5 ng/mL (8.6-20.0) L 12/03/22 Basic Metabolic Sodium 129 mmol/L (136-145) L 03/19/23 Potassium 2.8 mmol/L (3.5-5.1) L* 03/19/23 Chloride 93 mmol/L (98-107) L 03/19/23 Carbon Dioxide 28.7 mmol/L (21.0-32.0) 03/19/23 BUN 10 mg/dL (7-18) 03/19/23 Creatinine 0.8 mg/dL (0.70-1.30) 03/19/23 Estimated GFR/1.73 m2 >= 60.00 (mL/min/1.73m2) 05/20/21 Glucose 146 mg/dL (74-106) H 03/19/23 CBC White Blood Count 3.20 10^3/uL (4.4-10.8) L 03/19/23 Red Blood Count 2.19 10^6/uL (4.36-5.78) L 03/19/23 Hemoglobin 5.5 g/dL (13.5-17.5) L* 03/19/23 Hematocrit 17.7 % (40.0-50.0) L* 03/19/23 Mean Corpuscular Volume 81 fL (80-95) 03/19/23 Mean Corpuscular Hemoglobin 25.1 pg (27.0-33.0) L 03/19/23 Mean Corpuscular Hemoglobin Concent 31.1 % (32.0-36.0) L 03/19/23 Red Cell Distribution Width 17.3 % (11.8-14.1) H 03/19/23 Platelet Count 81 10^3/uL (130-400) L 03/19/23 Mean Platelet Volume 11.0 fL (8.0-11.0) 03/19/23 Neutrophils % 63.7 03/06/23 Lymphocytes % 13.2 03/06/23 Monocytes % 18.3 03/06/23 Eosinophils % 2.5 03/06/23 Basophils % 1.3 03/06/23 Immature Granulocytes % 1.0 03/06/23 Comprehensive Metabolic Panel Sodium 129 mmol/L (136-145) L 03/19/23 08:54 Potassium 2.8 mmol/L (3.5-5.1) L* 03/19/23 08:54 Chloride 93 mmol/L (98-107) L 03/19/23 08:54 Carbon Dioxide 28.7 mmol/L (21.0-32.0) 03/19/23 08:54 BUN 10 mg/dL (7-18) 03/19/23 08:54 Creatinine 0.8 mg/dL (0.70-1.30) 03/19/23 08:54 Estimated GFR/1.73 m2 >= 60.00 (mL/min/1.73m2) 05/20/21 22:20 Glucose 146 mg/dL (74-106) H 03/19/23 08:54 Calcium 7.7 mg/dL (8.5-10.1) L 03/19/23 08:54 Conjugated Bilirubin 2.8 mg/dL (0.0-0.2) H 11/22/22 19:36 Total Bilirubin 4.7 mg/dL (0.2-1.0) H 03/19/23 08:54 ALT 18 U/L (16-63) 03/19/23 08:54 AST 58 U/L (15-37) H 03/19/23 08:54 Alkaline Phosphatase 192 U/L (46-116) H 03/19/23 08:54 Total Protein 6.1 g/dL (6.4-8.2) L 03/19/23 08:54 Albumin 2.4 g/dL (3.4-5.0) L 03/19/23 08:54 Diabetes results Hemoglobin A1c < 4.5 % (<5.7) 12/03/22 Glucose 146 mg/dL (74-106) H 03/19/23 Microalb/Creat Ratio 7.9 ug/mg Cr 03/12/16 Ur Microalbumin mg/L 22.9 mg/L (1.30-20.0) H 03/12/16 Total Cholesterol 222 mg/dL (<200) H 05/09/21 LDL Cholesterol, Calc 113 mg/dL (<100) H 05/09/21 LDL Cholesterol Direct 153 mg/dL (<100) H 05/26/18 HDL Cholesterol 94 mg/dL (40-60) 05/09/21 Triglycerides 79 mg/dL (<150) 05/09/21 BUN 10 mg/dL (7-18) 03/19/23 Creatinine 0.8 mg/dL (0.70-1.30) 03/19/23 Estimated GFR/1.73 m2 >= 60.00 (mL/min/1.73m2) 05/20/21 Est GFR (CKD-EPI 2020) 103.22 (mL/min/1.73m2) 03/19/23 Sodium 129 mmol/L (136-145) L 03/19/23 Potassium 2.8 mmol/L (3.5-5.1) L* 03/19/23 Chloride 93 mmol/L (98-107) L 03/19/23 Carbon Dioxide 28.7 mmol/L (21.0-32.0) 03/19/23 Calcium 7.7 mg/dL (8.5-10.1) L 03/19/23 AST 58 U/L (15-37) H 03/19/23 ALT 18 U/L (16-63) 03/19/23 Total Protein 6.1 g/dL (6.4-8.2) L 03/19/23 Albumin 2.4 g/dL (3.4-5.0) L 03/19/23 TSH 2.05 uIU/mL (0.36-3.74) 02/26/22 Vitamin B12 1449 pg/mL (193-986) H 10/25/22 Diabetic Foot Exam Performed Yes 11/23/19 Time Spent with Patient Time Spent with Patient: >50 minutes Time was spent: preparing to see the patient(eg.review tests), obtaining and/or reviewing separately otained hiistory, ordering medications,tests, procedures, referring, communicating with other health personal care service provider, indepentently interpreting results, counseling the patient and care coordination
[2023-03-19] MEDS: Aspirin 325 MG TAB PO (16:16)
[2023-03-19] MEDS: nitroGLYcerin 0.4 MG TAB SL (16:16)
--- NOTE | 2023-03-19 16:30 | RT.EKG_ITS ---
APPROVED REPORT Exam: Resting ECG Reason for Exam: Chest pain resolved Patient Location: I HR:109 bpm ECG Measurements Heart Rate 109 AXIS W[place] 147 P 54 QRSd 110 QRS -24 QT 381 T 103 QTc 514 Conclusion Sinus tachycardia...rate> 99 LVH with IVCD and secondary repol abnrm...multi-criteria, wQRSd, abnr ST-T Prolonged QT interval...QTc >500mS I have reviewed and interpreted ECG and agree with software generated interpretation.
[2023-03-19] MEDS: Potassium Chloride 20 MEQ TABCR 40 MEQ PO (16:41)
--- NOTE | 2023-03-19 16:43 | NUR.NOTE ---
Pt reported to RN that 30min into blood transfusion he was having Chest Pressure. Denied radiation, denies numbness/tingling. CC went in to stop transfusion and explained to pt just to assure safety, that I would be pausing the Transfusion. Pt then stated NO Please DO NOT do that. MD Hernandez made aware. See Worklist for VS. See MAR for medications administered. Nursing Note:
[2023-03-19] MEDS: POTASSIUM CHLORIDE 10 MEQ/100 ML BAG 100 MEQ IVPB (16:52)
[2023-03-19] MEDS: Normal Saline Flush 10 ML SYR IV (16:53)
[2023-03-19 16:58] LABS: Troponin I 129 ng/L (<or=60)
[2023-03-19 17:01] LABS: NT-proBNP 155 pg/mL (<300)
[2023-03-19] MEDS: Aspirin 81 MG CHEW (17:03)
--- NOTE | 2023-03-19 17:39 | NUR.NOTE ---
patient was complaining of chest pain and nausea- ekg, ultrasound of the heart and troponins was done. studies revealed that patient was having a NSTEMI. despite education given by surgeon Hernandez, Charge nurse and this RN regarding the implications (which includes )of not having treatment for a NSTEMI, low Hemoglobin (5.5), and low potassium. Patient was still adamant that he wants to leave AMA. Patient stated I will leave that up to the Lord and if i i . I want to go home and not at the hospital..IVAs were removed. MD Hernandez had patient sign AMA form
[2023-03-19 17:47] LABS: Lab Add On Test DONE
[2023-03-19 18:08] LABS: LDH 233 U/L (85-227)
[2023-03-21 09:01] LABS: Haptoglobin <7 mg/dL (32-197)
== END 2023-03-19 17:32 | disposition home or self-care (01) ==
LOC: SUR 12:50 → MS 03-20 07:56
PROVIDERS: PCP Family Medicine; Visit Provider Surgery
PROC: 0W9G3ZZ Drainage of Peritoneal Cavity, Percutaneous Approach (ICD-10-PCS; CPT 49082; principal; 2023-03-19 09:45)
DX: K70.31 Alcoholic cirrhosis of liver with ascites (principal); F10.21 Alcohol dependence, in remission; I10 Essential (primary) hypertension
CPT/HCPCS: 49083; 86850; 86900; 86901; 86920; 96365; 96366; 82728; 83010; 83615; 83880; 84484; 85045; 93005; 93010; J3480; P9016

== ENCOUNTER 2023-03-20 23:41 | Inpatient (IN) | payer OTHER, SELFPAY ==
--- NOTE | 2023-03-20 23:30 | RT.EKG_ITS ---
APPROVED REPORT Exam: Resting ECG Reason for Exam: CHEST PAIN Patient Location: E HR:114 bpm ECG Measurements Heart Rate 114 AXIS DE 153 P 60 QRSd 96 QRS -23 QT 362 T 70 QTc 498 Conclusion Sinus tachycardia...rate> 99 Probable LVH with secondary repol abnrm...multiple LVH criteria Physician: no stemi
[2023-03-20 23:44] VITALS: PULSE 122; RESP 22; O2SAT 98
[2023-03-20 23:45] VITALS: BP 115/61; BP 123/67; PULSE 115; PULSE 118; PULSE 119; RESP 16; RESP 18; TEMP 37.1; O2SAT 98; O2SAT 99
[2023-03-20 23:46] VITALS: BP 123/67; PULSE 115; PULSE 116; RESP 23; O2SAT 99
[2023-03-20 23:50] VITALS: O2SAT 97
[2023-03-20] MEDS: nitroGLYcerin 0.4 MG TAB SL (23:52)
[2023-03-20 23:55] VITALS: RESP 19
[2023-03-20 23:58] LABS: Abs Immature Grans 0.06 10^3/uL (0.0-0.06); Absolute Basophil Count 0.04 10^3/uL (0.0-0.2); Absolute Eosinophil Count 0.14 10^3/uL (0.0-0.7); Absolute Monocyte Count 0.89 10^3/uL (0.1-0.8); Absolute Neutrophil Count 3.29 10^3/uL (1.2-6.7); Basophils % 0.8; Eosinophils % 2.7; Immature Grans % 1.1; Lymphocytes % 15.3; MCH 25.4 pg (27.0-33.0); MCHC 31.5 % (32.0-36.0); MCV 81 fL (80-95); MPV 10.7 fL (8.0-11.0); Neutrophils % 63.1; Platelet Count 100 10^3/uL (130-400); RBC 2.05 10^6/uL (4.36-5.78); RDW 16.5 % (11.8-14.1); RDW-SD 47.7 fL; WBC 5.22 10^3/uL (4.4-10.8)
--- NOTE | 2023-03-20 23:59 | W.ED.GENAD ---
Discharge Plan Disposition Patient Disposition: Admit to [facility] Condition: Critical Discharge Details Chief Complaint: Chest Pain Clinical Impression: Anemia, Non-ST elevation NM (NSTEMI), Acute hyponatremia Primary Care Provider: David Landaverde ED Provider: Wojciech Daily Home Meds and New Rx's Prescriptions: No Action (DME) blood sugar diagnostic Strip See Rx Instructions .ROUTE .MEDSUPPLY Qty: 100 3RF Rx Instructions: As directed; Test daily, to keep HbA1c less than 6.5%; Dx: E11.9 lactulose 10 gram/15 mL solution 10 g PO DAILY Qty: 946 6RF potassium chloride 20 mEq tablet extended release 60 meq PO DAILY Qty: 270 3RF Patient Comments: 40mg today metoclopramide HCl 10 mg tablet 10 mg PO Q6H PRN (Reason: nausea and vomiting) Qty: 10 0RF clonazepam 0.5 mg tablet 0.5 mg PO BID MDD 1.0 mg PRN (Reason: anxiety) Qty: 56 0RF (DME) wheelchair See Rx Instructions .Route .MEDSUPPLY Qty: 1 0RF Rx Instructions: As directed fluoxetine 20 mg capsule 60 mg PO DAILY Qty: 270 3RF Patient Comments: 40mg today omeprazole 40 mg capsule,delayed release(DR/EC) 40 mg PO DAILY spironolactone 25 mg tablet 25 mg PO HS Qty: 90 3RF magnesium citrate 100 mg capsule 100 mg PO BID Qty: 14 0RF torsemide 10 mg tablet 10 mg PO HS sucralfate [Carafate] 1 gram tablet 1 g PO TID Qty: 90 5RF Rx Instructions: Take before meals Medical Decision Making 57-year-old male with a past medical history of cirrhosis secondary to alcohol abuse requiring weekly paracentesis, chronic liver failure, chronic anemia getting regular transfusions, chronic hypokalemia, hypertension, type 2 diabetes, high cholesterol, anxiety, presents today for chest pain. About 30 hours ago the patient came to the ER for distention of his abdomen this is secondary to his chronic ascites. He stated that he was not able to make it to his scheduled paracentesis on the . He was admitted to surgery at that time, and had a hemoglobin of 5.5. He was given 2 units of PRBCs, 2 units of albumin, and a paracentesis. During the transfusion he developed chest pain which showed some EKG changes/elevation, he was given nitroglycerin and the chest pain went away. Repeat EKG showed resolution. Troponin came back elevated at 126. It was recommended to him by multiple people multiple times that he be admitted for monitoring. Patient refused and left AMA. His was recruited to attempt to keep him and convince him to stay however he still refused. He left AMA. He presents today again for chest pain. He is not a good historian, and he refuses to talk much stating my chest hurts, I was having a heart attack, just give me nitro, I do not want to talk about the other stuff. He is unwilling to discuss his symptoms anymore. He is unwilling to discuss the nature of his symptoms otherwise. states that he still is drinking regularly, and had 6 alcoholic iced teas today. No other complaints at this time. Exam demonstrates evidence of ascites, cardiac murmur is present. Pulses are intact throughout. Blood pressure is stable. Heart rate normal. Concern for ACS, or other complication. Will check his labs for a rising troponin, bedside echo will be performed. EKG shows no evidence of STEMI. Will monitor closely and reassess. 1 AM POCUS demonstrates what appears to be dilated cardiomyopathy, difficult to determine valvular functionality at this time. There does appear to be some slight superior wall motion abnormalities on the lateral aspect. Veteran appears to be oumar well. Patient was given a single nitroglycerin for his chest pain, his blood pressure went from the 120s systolic to the 70s. We will hold off on any additional nitro. Hemoglobin is 5.2 which is chronic baseline, platelets are 100. INR is 1.9. Sodium is 126 which is baseline, potassium normal. Bilirubin chronically, calcium chronically low at 7.7, ammonia is 41. Troponin is 465. Lipase 88. Alcohol level 62. Concern for the patient's new murmur that there may be valvular disruption related to his elevated troponin. 1:30 AM Discussed the case with [facility] cardiology Dr. Pan. He to his concern for the patient, but is worried that most times may be futile secondary to his multiple chronic comorbidities. He does not recommend transfer for cardiac catheterization tonight. He does not recommend heparinization secondary to the patient's INR value. He does not recommend aspirin or Plavix currently. He does recommend echo and continued monitoring. He does recommend blood products which we are starting already secondary to his low hemoglobin. We did discuss the case with the ICU at [facility], currently the patient is not sick enough for transfer for that. No bed availability at [facility] otherwise. Recommendations to keep the patient here overnight with echo in the morning and then reach back out to [facility] in the morning. 1:59 AM Discussed the case with Dr. Castañeda, he agrees with the assessment and plan. I have extensively reviewed the treatment plan with the patient. I have addressed all patient concerns at this time. I have also discussed the plan with the admitting physician and they agree with the current assessment and plan and have agreed to assume responsibility for the patient. All parties demonstrate verbal understanding and agreement with our assessment and plan at this time. The documentation in this chart was dictated using BitGo dictation software. Please excuse any dictation errors. FINDINGS: Lungs: Unremarkable. No consolidation. Pleural spaces: Unremarkable. No pleural effusion. No pneumothorax. Heart/Mediastinum: Unremarkable. No cardiomegaly. Bones/joints: Unremarkable. IMPRESSION: No acute findings. Thank you for allowing us to participate in the care of your patient. Dictated and Authenticated by: Pro Abarca MD 03/21/2023 1:16 AM Eastern Time ([place] & [place]) HPI General Date/Time Provider Initiated Documentation: 03/20/23 23:42. HPI Narrative: 57-year-old male with a past medical history of cirrhosis secondary to alcohol abuse requiring weekly paracentesis, chronic liver failure, chronic anemia getting regular transfusions, chronic hypokalemia, hypertension, type 2 diabetes, high cholesterol, anxiety, presents today for chest pain. About 30 hours ago the patient came to the ER for distention of his abdomen this is secondary to his chronic ascites. He stated that he was not able to make it to his scheduled paracentesis on the . He was admitted to surgery at that time, and had a hemoglobin of 5.5. He was given 2 units of PRBCs, 2 units of albumin, and a paracentesis. During the transfusion he developed chest pain which showed some EKG changes/elevation, he was given nitroglycerin and the chest pain went away. Repeat EKG showed resolution. Troponin came back elevated at 126. It was recommended to him by multiple people multiple times that he be admitted for monitoring. Patient refused and left AMA. His was recruited to attempt to keep him and convince him to stay however he still refused. He left AMA. He presents today again for chest pain. He is not a good historian, and he refuses to talk much stating my chest hurts, I was having a heart attack, just give me nitro, I do not want to talk about the other stuff. He is unwilling to discuss his symptoms anymore. He is unwilling to discuss the nature of his symptoms otherwise. states that he still is drinking regularly, and had 6 alcoholic iced teas today. No other complaints at this time. Related Data Home Medications Medication Instructions Recorded Confirmed blood sugar diagnostic #100 ea 12/11/18 03/07/23 fluoxetine 20 mg capsule 60 mg (3 x 20 mg) PO DAILY #270 08/03/22 03/21/23 caps magnesium citrate 100 mg capsule 100 mg PO BID #14 caps 11/22/22 03/21/23 omeprazole 40 mg capsule,delayed 40 mg PO DAILY 12/07/22 03/21/23 release torsemide 10 mg tablet 10 mg PO HS 01/01/23 03/21/23 sucralfate 1 gram tablet (Carafate) 1 g PO TID #90 tabs 01/16/23 03/21/23 lactulose 10 gram/15 mL oral 10 g (15 mL) PO DAILY #946 mL 01/18/23 03/21/23 solution potassium chloride 20 mEq 60 meq (3 x 20 mEq) PO DAILY #270 01/18/23 03/21/23 tablet,extended release tabs metoclopramide HCl 10 mg tablet 10 mg PO Q6H PRN nausea and 02/06/23 03/21/23 vomiting #10 tabs clonazepam 0.5 mg tablet 0.5 mg PO BID PRN anxiety #56 tabs 03/01/23 03/21/23 wheelchair #1 ea 03/01/23 03/07/23 spironolactone 25 mg tablet 25 mg PO HS #90 tabs 03/12/23 03/21/23 Previous Rx's Medication Instructions Recorded blood sugar diagnostic #100 ea 12/11/18 fluoxetine 20 mg capsule 60 mg (3 x 20 mg) PO DAILY #270 08/03/22 caps magnesium citrate 100 mg capsule 100 mg PO BID #14 caps 11/22/22 sucralfate 1 gram tablet (Carafate) 1 g PO TID #90 tabs 01/16/23 lactulose 10 gram/15 mL oral 10 g (15 mL) PO DAILY #946 mL 01/18/23 solution potassium chloride 20 mEq 60 meq (3 x 20 mEq) PO DAILY #270 01/18/23 tablet,extended release tabs metoclopramide HCl 10 mg tablet 10 mg PO Q6H PRN nausea and 02/06/23 vomiting #10 tabs clonazepam 0.5 mg tablet 0.5 mg PO BID PRN anxiety #56 tabs 03/01/23 wheelchair #1 ea 03/01/23 spironolactone 25 mg tablet 25 mg PO HS #90 tabs 03/12/23 Allergies Allergy/AdvReac Type Severity Reaction Status Date / Time No Known Allergies Allergy Verified 03/21/23 01:41 General Stated Complaint: Chest Pain ANNETTE: 2 Review of Systems All systems reviewed & are unremarkable except as noted in HPI and below PFSH All Active Problems (Updated 03/21/23 @ 02:08 by Wojciech Daily DO) Acute hyponatremia (Acute) Non-ST elevation NM (NSTEMI) (Acute) Anemia (Chronic) Low folate (Acute) Low ferritin (Acute) Edema of lower extremity due to peripheral venous insufficiency (Acute) Splenomegaly (Acute) ST segment depression (Acute) Left-sided chest wall pain (Acute) Elevated troponin (Acute) Chronic hypokalemia (Acute) Portal hypertension with esophageal varices (Acute) Grade I x1 column Portal hypertensive gastropathy (Acute) Hypertension, portal (Acute) Ascites due to alcoholic cirrhosis (Acute) Cirrhosis (Acute) Acute GI bleeding (Acute) Thrombocytopenia (Chronic) Anemia (Chronic) Ambulatory dysfunction (Acute) ACP (advance care planning) (Acute) Hepatic encephalopathy (Acute) Prolonged QT interval (Acute) Acute hypokalemia (Acute) Hypocalcemia (Acute) Thrombocytopenia (Chronic) Hypomagnesemia (Acute) Anemia (Chronic) Dark stools (Acute) Alcoholic cirrhosis of liver with ascites (Acute) Anemia of chronic disease (Acute) Acute and subacute hepatic failure without coma (Acute) Elevated INR (Acute) Elevated lipase (Acute) Elevated bilirubin (Acute) Hyponatremia (Acute) Moderate (123) with improvement (135) in 6 days with pedialyte, less alcohol and salt intake.. Nasal crusting (Acute) Chronic sinusitis (Acute) Breast pain, left (Acute) Peripheral neuropathy (Acute) Bursal cyst of olecranon (Acute) Alcohol abuse (Chronic) Hypertension (Chronic) Unspecified lump in axillary tail of the left breast (Chronic) Lipoma by US 07/13; recommended repeat in 6 months Migraine (Chronic) Tinnitus (Acute) Psychogenic nonepileptic seizure (Chronic) Benign hypertension (Acute 04/21/12) Fatigue (Acute 02/26/12) History of alcoholism (Acute) Type 2 diabetes mellitus with complication, without long-term current use of insulin (Acute 05/30/16) Personality disorder in adult (Acute) PTSD (post-traumatic stress disorder) (Acute) with paranoia 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 (Acute) ETOH abuse (Chronic) Spells of decreased attentiveness (Acute) Hyperlipidemia (Acute 07/03/12) Hepatitis, alcoholic (Acute 12/07/13) Fatty liver, alcoholic (Acute 05/30/16) Depressive disorder (Chronic 11/03/12) Chronic hip pain (Acute 11/24/14) -2014: / PT and Nsaids/osteoarthritis Anxiety (Chronic) Medical History Lipoma of axilla Diabetes mellitus type 2 in nonobese Prediabetes Hypertension Depression Surgical History H/O endoscopy 03/12/23;[facility] [place];Nicolas Cruz MD; small esophageal varix-non banded. grade I. there was a diffuse cobblestone appearance to the stomach consistent with portal hypertensive gastropathy.There were no gastric varices.The examined duodenum was normal. History of abdominal paracentesis (~02/2023) Tooth extraction ROOT CANAL Family History Mother Diabetes Sister Depression Other Alcohol abuse Bipolar 1 disorder Dementia Heart disease Schizophrenia Social History Smoking/Tobacco Use Status: Former Tobacco Use Tobacco: How many years used: 4 Smoking risk assessment performed?: Yes Alcohol Intake: current Alcohol Intake frequency: 3 or more drinks per day Alcohol type: beer Drug use: Never Substance use type: does not use Adopted: No Household members: spouse Housing: house Number of Children: 0 Communication Needs: None current occupation: Disabled Do you think of yourself as: straight/heterosexual Current gender identity: male What is your relationship status?: How often do you talk on the phone with friends or family?: three or more times per week How often do you get together with friends or relatives?: twice per week Do you belong to any clubs or organized social groups?: yes Panel score (0-1 are the most socially isolated patients): 3 What type of physical activity do you participate in: walking and weight lifting Frequency: 3-4 times per week Donita/Druze: Sabianist Seatbelt use: always Drive intox or ride w/intox stunt driver: No Working smoke detector in home: Yes Carbon monox detector in home: Yes Do you feel safe at home: Yes Do you feel safe in your relationship?: Yes Additional Social history: . Past GF in 2017 from ovarian cancer. in 2018 to current partner. Exam Narrative Exam Narrative: 1.Const: Well-nourished, Well-developed, appearing stated age 2.Eyes: PERRL, no conjunctival injection, and symmetrical lids. Scleral icterus is noted. 3.ENT: Atraumatic external nose and ears. Moist MM. Neck: Symmetric, trachea midline, No thyromegaly. 4.CVS: +S1/S2, mild systolic murmurs auscultated. This was present on visit yesterday, but was not present prior to that.. Peripheral pulses 2+ and equal in all extremities. Brisk capillary refill in all extremities. 5.RESP: Unlabored respiratory effort. Clear to auscultation bilaterally. No wheezes rales or rhonchi 6.GI: Soft, mildly distended, no tenderness. Notable ascites. No active drainage. 7.MSK: Normocephalic/Atraumatic, Extremities w/o deformity or ttp No cyanosis or clubbing, Normal movement of all extremities 8.Skin: Yellow in color. Jaundice. 9.Neuro: packer dried beef II-XII grossly intact. Sensation grossly intact, no focal neurologic deficits. 10.Psych: (AAO) x3. Appropriate mood and affect Course Vital Signs Vital signs: Vital Signs Temperature 37.1 C 03/20/23 23:45 Pulse 115 H 03/20/23 23:45 Respiratory Rate 16 03/20/23 23:45 Blood Pressure 123/67 03/20/23 23:45 Pulse Oximetry 98 03/20/23 23:45 Temperature 37.1 C 03/20/23 23:45 Temperature Source Temporal Artery Scan 03/20/23 23:45 Pulse 115 H 03/20/23 23:45 Respiratory Rate 19 03/20/23 23:55 Respiratory Effort Short of Breath 03/20/23 23:55 Respiratory Depth Normal 03/20/23 23:55 Respiratory Pattern Normal 03/20/23 23:55 Blood Pressure 123/67 03/20/23 23:45 Blood Pressure Position Supine 03/20/23 23:45 Pulse Oximetry 98 03/20/23 23:45 Oxygen Delivery Method Room Air 03/20/23 23:45 Oxygen Flow Rate 0 03/20/23 23:45 End Tidal Co2 8 03/20/23 23:45 Critical Care Time Critical Care Time Critical Care Time: Yes Total Critical Care Time: 65 Attestation: Upon my evaluation, this patient had a high probability of imminent or life-threatening deterioration, which required my direct attention, intervention, and personal management. I have personally provided 65 minutes of critical care time exclusive of time spent on separately billable procedures. Time includes review of laboratory data, radiology results, discussion with consultants, and monitoring for potential decompensation. Interventions were performed as documented. POCUS Exam (ED) Limited Cardiac Exam DATE OF EXAM: 03/21/23 TIME OF EXAM: 01:53 PROVIDER THAT PERFORMED THE STUDY: Wojciech Daily IS THIS A REPEAT EXAM DURING THIS ENCOUNTER: no REASON FOR EXAM: Chest pain VISUALIZED STRUCTURES: Left atrium, Left ventricle, Right ventricle and Interventricular septum VIEW OBTAINED: Parasternal long-axis PERTINENT FINDINGS/IMPRESSION: LV dysfunction, RV dilation, RV dysfunction and Other (Wall motion abnormalities noted in the superior lateral components of the left ventricle) Exam complete PAWSS Have you Ever Experienced Previous Episodes of Alcohol Withdrawal?: Yes Have you ever Experienced Withdrawal Seizures?: Yes Have you ever Experienced Delirium Tremens(DT)s?: Yes Have you ever undergone Alcohol Rehabilitation Treatment (i.e, inpt ot outpatient treatment programs)?: No Have you ever Experienced Blackouts?: Yes Have you ever Combined Alcohol with other Downers within the last 90 days?: No Have you ever Combined Alcohol with any other Substance of Abuse during the last 90 days?: No Positive Blood Alcohol level on Presentation? [PCS.BAL]: Yes Result: 5
[2023-03-21] VITALS (75 sets, daily range): BP systolic 65–144; BP diastolic 39–92; PULSE 94–118; RESP 9–29; TEMP 36.9–37.2; O2SAT 96–100
[2023-03-21 00:03] LABS: HCT 16.5 % (40.0-50.0); HGB 5.2 g/dL (13.5-17.5)
[2023-03-21 00:12] LABS: INR 1.9 (0.9-1.1); PTT Activated 28.8 sec (23.6-32.8); Prothrombin Time 18.5 sec (9.1-11.1)
[2023-03-21 00:15] LABS: ALT 22 U/L (16-63); AST 54 U/L (15-37); Albumin 2.3 g/dL (3.4-5.0); Alkaline Phosphatase 174 U/L (46-116); Anion Gap 6.8 mmol/L (3-11); BUN 13 mg/dL (7-18); Bilirubin, Total 4.7 mg/dL (0.2-1.0); CO2 26.2 mmol/L (21.0-32.0); CREATININE 0.9 mg/dL (0.70-1.30); Calcium 7.7 mg/dL (8.5-10.1); Chloride 93 mmol/L (98-107); Estimated GFR 99.62 (mL/min/1.73m2); Glucose 180 mg/dL (74-106); Sodium 126 mmol/L (136-145); Total Protein 5.5 g/dL (6.4-8.2)
[2023-03-21 00:17] LABS: Troponin I 465 ng/L (<or=60)
--- NOTE | 2023-03-21 00:20 | DI.RAD_ITS ---
Exam(s) XR PORTABLE CHEST AP EXAM: XR PORTABLE CHEST AP CLINICAL HISTORY: chest pain TECHNIQUE: 2D digital imaging was performed. COMPARISON: No exams were available for comparison FINDINGS: Leads overlie the chest. Exam is limited by poor pulmonary inflation and under penetration. LUNGS: Clear. No pleural abnormality seen. HEART: Mild enlargement versus technique related. AORTA: Normal diameter. BONES: Unremarkable for age. Soft tissues: Unremarkable. IMPRESSION: No acute findings. DATA REPOSITORY: RADIATION DOSE DELIVERED:
[2023-03-21 00:22] LABS: Ammonia 41 umol/L (11-32); ETHANOL BLOOD 62.9 mg/dL (<10); Lipase 88 U/L (16-77); NT-proBNP 301 pg/mL (<300); TSH (W/Ref FT4) 1.09 uIU/mL (0.36-3.74)
[2023-03-21 00:43] LABS: Basophilic Stippling Present; Diff Comment RBC Morph Reviewed; Hypochromasia 1+
[2023-03-21 00:44] LABS: Poikilocytes 2+
--- NOTE | 2023-03-21 01:17 | DI.VRAD_ITS ---
PROCEDURE INFORMATION: Exam: XR Chest Exam date and time: 03/21/2023 12:34 AM Age: 57 years old Clinical indication: Chest wall pain TECHNIQUE: Imaging protocol: Radiologic exam of the chest. Views: 1 view. COMPARISON: CT CHEST W 06/19/2018 9:01 PM FINDINGS: Lungs: Unremarkable. No consolidation. Pleural spaces: Unremarkable. No pleural effusion. No pneumothorax. Heart/Mediastinum: Unremarkable. No cardiomegaly. Bones/joints: Unremarkable. IMPRESSION: No acute findings. Dictated and Authenticated by: Pro Abarca MD. Ordering:FANY Jeffrey MD
[2023-03-21] MEDS: Ondansetron 4 MG/2 ML VIAL (02:09)
--- NOTE | 2023-03-21 02:52 | W.PM.HP.N ---
Date of service: 03/21/23 Time of Service: 02:52 Assessment and Plan Assessment and plan (1) Non-ST elevation ND (NSTEMI): Status: Acute Assessment and plan: Unclear if this is demand ischemia or true ACS; to a degree the coagulopathy would favor a non-thrombotic etiology, and the drop in Hct over past could b the precipitating factor here. Regardless, and as reviewed above, will not be using antiplatelet agents or anticoagulation. Will trend the troponins, obtain ECHO and transfuse 2 units pRBC. Will also cautiously initiate low dose beta karri (which will also be useful for prophylaxis against variceal bleeding). 1. ACS vs Type 2 ischemia: as above 2. Chronic GI bleed: transfuse 2 units, continue PPI 3. Chronic hyponatremia: at baseline. Multifactorial, including effective hypovolemia, SSRI (?) and diuretic. Will trend 4. EtOH:will give scheduled Librium, and CIWA scoring 5. DM: SS coverage 6. Requests Full Code History of Present Illness History of Present Illness Chief Complaint: CP Narrative: 57 male alcoholic with cirrhosis, chronic GI bleeding, reported recent E[place] at [facility] without source identified, chronic hyponatremia. Patient gets periodic therapeutic paracentecis here at [facility]. Was here 03/19 for paracentecis, developed CP and troponin 129 noted, with some worsening of baseline ST depressions in lateral chest leads noted. Admission advised, patient left AMA. Returns tonight with continued intermittent CP -- says this has been going n for 6 months. No SOB, nausea or diaphoresis, and unclear on how long pain has been ongoing tonight. In ER findings of note for EKG essentially baseline, troponin 469, INR 1.9, Hct 16 (baseline low 20s), platelet 100 (baseline). Cardiology consulted, advised NOT to use antiplatelet agents or heparin due to baseline coagulopathy. Patient given SL NTG with drop in BP to 70s/systolic. Then given MS 4 IV with resolution of pain. I was asked to evaluate for admission. Patient denies CP at this time. Continues to drink, states he has had unspecified withdrawal symptoms in past (EtOH 67 tonight). Reviewed ADs with patient and he states he wishes to be Full Code. Review of Systems Narrative: per HPI PFSH All Active Problems Acute hyponatremia (Acute) Non-ST elevation ND (NSTEMI) (Acute) Anemia (Chronic) Low folate (Acute) Low ferritin (Acute) Edema of lower extremity due to peripheral venous insufficiency (Acute) Splenomegaly (Acute) ST segment depression (Acute) Left-sided chest wall pain (Acute) Elevated troponin (Acute) Chronic hypokalemia (Acute) Portal hypertension with esophageal varices (Acute) Grade I x1 column Portal hypertensive gastropathy (Acute) Hypertension, portal (Acute) Ascites due to alcoholic cirrhosis (Acute) Cirrhosis (Acute) Acute GI bleeding (Acute) Thrombocytopenia (Chronic) Anemia (Chronic) Ambulatory dysfunction (Acute) ACP (advance care planning) (Acute) Hepatic encephalopathy (Acute) Prolonged QT interval (Acute) Acute hypokalemia (Acute) Hypocalcemia (Acute) Thrombocytopenia (Chronic) Hypomagnesemia (Acute) Anemia (Chronic) Dark stools (Acute) Alcoholic cirrhosis of liver with ascites (Acute) Anemia of chronic disease (Acute) Acute and subacute hepatic failure without coma (Acute) Elevated INR (Acute) Elevated lipase (Acute) Elevated bilirubin (Acute) Hyponatremia (Acute) Moderate (123) with improvement (135) in 6 days with pedialyte, less alcohol and salt intake.. Nasal crusting (Acute) Chronic sinusitis (Acute) Breast pain, left (Acute) Peripheral neuropathy (Acute) Bursal cyst of olecranon (Acute) Alcohol abuse (Chronic) Hypertension (Chronic) Unspecified lump in axillary tail of the left breast (Chronic) Lipoma by US 07/13; recommended repeat in 6 months Migraine (Chronic) Tinnitus (Acute) Psychogenic nonepileptic seizure (Chronic) Benign hypertension (Acute 04/21/12) Fatigue (Acute 02/26/12) History of alcoholism (Acute) Type 2 diabetes mellitus with complication, without long-term current use of insulin (Acute 05/30/16) Personality disorder in adult (Acute) PTSD (post-traumatic stress disorder) (Acute) with paranoia 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 (Acute) ETOH abuse (Chronic) Spells of decreased attentiveness (Acute) Hyperlipidemia (Acute 07/03/12) Hepatitis, alcoholic (Acute 12/07/13) Fatty liver, alcoholic (Acute 05/30/16) Depressive disorder (Chronic 11/03/12) Chronic hip pain (Acute 11/24/14) -2014: / PT and Nsaids/osteoarthritis Anxiety (Chronic) Medical History Lipoma of axilla Diabetes mellitus type 2 in nonobese Prediabetes Hypertension Depression Surgical History H/[place] endoscopy [place]12/23[place] [place]Nicolas Cruz MD; small esophageal varix-non banded. grade I. there was a diffuse cobblestone appearance to the stomach consistent with portal hypertensive gastropathy.There were no gastric varices.The examined duodenum was normal. History of abdominal paracentesis (~02/2023) Tooth extraction ROOT CANAL Family History Mother Diabetes Sister Depression Other Alcohol abuse Bipolar 1 disorder Dementia Heart disease Schizophrenia Social History Smoking/Tobacco Use Status: Former Tobacco Use Tobacco: How many years used: 4 Smoking risk assessment performed?: Yes Alcohol Intake: current Alcohol Intake frequency: 3 or more drinks per day Alcohol type: beer Drug use: Never Substance use type: does not use Adopted: No Household members: spouse Housing: house Number of Children: 0 Communication Needs: None current occupation: Disabled Do you think of yourself as: straight/heterosexual Current gender identity: male What is your relationship status?: How often do you talk on the phone with friends or family?: three or more times per week How often do you get together with friends or relatives?: twice per week Do you belong to any clubs or organized social groups?: yes Panel score (0-1 are the most socially isolated patients): 3 What type of physical activity do you participate in: walking and weight lifting Frequency: 3-4 times per week Donita/Church: [employer] Seatbelt use: always Drive intox or ride w/intox courtesy bus driver: No Working smoke detector in home: Yes Carbon monox detector in home: Yes Do you feel safe at home: Yes Do you feel safe in your relationship?: Yes Additional Social history: . Past GF in 2017 from ovarian cancer. in 2018 to current partner. Meds Allergies and Home Medications Allergies Allergy/AdvReac Type Severity Reaction Status Date / Time No Known Allergies Allergy Verified 03/21/23 01:41 Home Medications Medication Instructions Recorded Confirmed Type blood sugar diagnostic #100 ea 12/11/18 03/07/23 Rx fluoxetine 20 mg capsule 60 mg (3 x 20 mg) PO DAILY #270 08/03/22 03/21/23 Rx caps magnesium citrate 100 mg capsule 100 mg PO BID #14 caps 11/22/22 03/21/23 Rx omeprazole 40 mg capsule,delayed 40 mg PO DAILY 12/07/22 03/21/23 History release torsemide 10 mg tablet 10 mg PO HS 01/01/23 03/21/23 History sucralfate 1 gram tablet (Carafate) 1 g PO TID #90 tabs 01/16/23 03/21/23 Rx lactulose 10 gram/15 mL oral 10 g (15 mL) PO DAILY #946 mL 01/18/23 03/21/23 Rx solution potassium chloride 20 mEq 60 meq (3 x 20 mEq) PO DAILY #270 01/18/23 03/21/23 Rx tablet,extended release tabs metoclopramide HCl 10 mg tablet 10 mg PO Q6H PRN nausea and 02/06/23 03/21/23 Rx vomiting #10 tabs clonazepam 0.5 mg tablet 0.5 mg PO BID PRN anxiety #56 tabs 03/01/23 03/21/23 Rx wheelchair #1 ea 03/01/23 03/07/23 Rx spironolactone 25 mg tablet 25 mg PO HS #90 tabs 03/12/23 03/21/23 Rx Exam Narrative Exam Narrative: 115/72, 107, 37.1, 20, 99% RA. HEENT scleral icterus; neck supple; lungs clear; heart diffuse PMI, somewhat hypokinetic; tachy/regular with 2/6 sys murmur heard diffusely but loudest at apex; abdomen tense ascites; rectal strongly heme+; extremities 1+ pedal edema; neuro Ox3, moves all 4s Results Labs 03/20/23 23:52 03/20/23 23:52 Labs: Laboratory Results - last 24 hr 03/20/23 03/21/23 23:52 01:17 WBC 5.22 RBC 2.05 L Hgb 5.2 L* Hct 16.5 L* MCV 81 MCH 25.4 L MCHC 31.5 L RDW 16.5 H Plt Count 100 L MPV 10.7 Immature Gran % 1.1 Neutrophils % 63.1 Lymphocytes % 15.3 Monocytes % 17.0 Eosinophils % 2.7 Basophils % 0.8 Nucleated RBC % 0.0 Absolute Neutrophils 3.29 Absolute Lymphocytes 0.80 L Absolute Monocytes 0.89 H Absolute Eosinophils 0.14 Absolute Basophils 0.04 RBC Morphology See Below Hypochromasia 1+ Poikilocytosis 2+ Basophilic Stippling Present PT 18.5 H INR 1.9 H APTT 28.8 Sodium 126 L Potassium 4.0 D Chloride 93 L Carbon Dioxide 26.2 Anion Gap 6.8 BUN 13 Creatinine 0.9 Est GFR (CKD-EPI 2020) 99.62 Glucose 180 H Calcium 7.7 L Total Bilirubin 4.7 H AST 54 H ALT 22 Alkaline Phosphatase 174 H Ammonia 41 H Troponin I 465 H* NT-Pro-B Natriuret Pep 301 H Total Protein 5.5 L Albumin 2.3 L Lipase 88 H TSH 1.09 Ethyl Alcohol 62.9 H Crossmatch See Detail Last Vital Signs Temp 37.1 C 03/20/23 23:45 Pulse 107 H 03/21/23 01:30 Resp 20 03/21/23 01:40 BP 115/72 03/21/23 01:30 Pulse Ox 99 03/21/23 01:40 PAWSS Have you Ever Experienced Previous Episodes of Alcohol Withdrawal?: Yes Have you ever Experienced Withdrawal Seizures?: Yes Have you ever Experienced Delirium Tremens(DT)s?: Yes Have you ever undergone Alcohol Rehabilitation Treatment (i.e, inpt ot outpatient treatment programs)?: No Have you ever Experienced Blackouts?: Yes Have you ever Combined Alcohol with other Downers within the last 90 days?: No Have you ever Combined Alcohol with any other Substance of Abuse during the last 90 days?: No Positive Blood Alcohol level on Presentation? [PCS.BAL]: Yes Result: 5 Time Spent Time spent with Patient: 55-74 minutes Time was spent: preparing to see the patient(eg.review tests), obtaining and/or reviewing separately otained hiistory, ordering medications,tests, procedures, referring, communicating with other health healthcare economics consultant and indepentently interpreting results
[2023-03-21 03:30] LABS: Troponin I 339 ng/L (<or=60)
[2023-03-21] MEDS: Ondansetron 4 MG/2 ML VIAL IVP (03:40)
--- NOTE | 2023-03-21 07:30 | RT.EKG_ITS ---
APPROVED REPORT Exam: Resting ECG Reason for Exam: [place] Patient Location: I HR:103 bpm ECG Measurements Heart Rate 103 AXIS MO 169 P 44 QRSd 99 QRS -25 QT 384 T 73 QTc 503 Conclusion Sinus tachycardia...rate> 99 Borderline left axis deviation...QRS axis (-15,-29) Prolonged QT interval...QTc >500mS I have reviewed and interpreted ECG and agree with software generated interpretation.
[2023-03-21 07:35] LABS: Troponin I 281 ng/L (<or=60)
[2023-03-21] MEDS: Torsemide 10 MG TAB PO (08:47)
[2023-03-21] MEDS: Potassium Chloride Liquid 20 MEQ PKT PO (08:47)
[2023-03-21] MEDS: Metoprolol 12.5 MG TAB PO (08:48)
[2023-03-21] MEDS: Sucralfate 1 GM TAB PO (08:48)
[2023-03-21] MEDS: Spironolactone 25 MG TAB PO (08:48)
[2023-03-21] MEDS: Thiamine 100 MG TAB PO (08:48)
[2023-03-21] MEDS: Pantoprazole 40 MG VIAL IVP (08:49)
[2023-03-21] MEDS: cefTRIAXone 1 GM/50 ML BAG IVPB (08:49)
[2023-03-21] MEDS: Lactulose 20 GM/30 ML CUP 10 GM PO (08:50)
[2023-03-21] MEDS: Normal Saline Flush 10 ML SYR (08:50)
--- NOTE | 2023-03-21 09:04 | W.PM.PROGNOT ---
Date of Service Date of service: 03/21/23 Time of Service: 09:04 Assessment and Plan Assessment and plan (1) Non-ST elevation NE (NSTEMI): Status: Acute Assessment and plan: Type II demand ischemia. Patient not a candidate for heparin or antiplatelet therapy. Continue treatment of his anemia with blood transfusions. Continue low-dose beta-blockers. Once fully resuscitated with transfusions we will try to arrange transfer to tertiary care center where he can have further GI evaluation with an EGD with possible intervention of his portal hypertension and varix. [facility] was consulted they do not have any beds and cannot take him in transfer but they do advise that he be transferred to tertiary care cecilia. I then reached out to [facility] and spoke with their GI attending who asked that the transfer center from [facility] reach out to [facility] transfer center and if they absolutely cannot take the patient at [facility] then [facility] will work on finding him a bed. Critical care time spent interviewing and examining the patient, reviewing studies, discussing case with patient's nurse and consulting physicians was 60 minutes (2) Acute GI bleeding: Status: Acute Assessment and plan: No evidence of hematemesis but a history of melanotic stools as recent as yesterday. Proceed with transfusion with monitoring of serial H&H's. Continue IV Protonix as well as oral Carafate and begin octreotide drip. (3) Portal hypertension with esophageal varices: Status: Acute Assessment and plan: Begin octreotide. I have reached out to [facility] who has no beds for transfer. I have also called [facility] and they will call me back (4) Chronic blood loss anemia: Status: Acute Assessment and plan: As above (5) Type 2 diabetes mellitus with complication, without long-term current use of insulin: Status: Acute Assessment and plan: Monitor blood sugars before meals and at bedtime cover with sliding scale insulin NovoLog (6) ETOH abuse: Status: Chronic Assessment and plan: Monitor on CIWA scale provide as needed benzodiazepines for alcohol withdrawal protocol. Treat with thiamine multivitamin and folic acid. (7) Anxiety: Status: Chronic Assessment and plan: Continue his home doses of clonazepam and fluoxetine (8) 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: Status: Acute Assessment and plan: Monitor and transfuse for any platelet count below 50,000 (9) PTSD (post-traumatic stress disorder): Status: Acute Assessment and plan: Continue home meds as noted above under anxiety disorder (10) Low folate: Status: Acute Assessment and plan: Replenish with oral folate supplement Subjective Subjective Interval history since last seen: Josue was admitted last night from the emergency department with complaints of chest pain that was relieved by nitroglycerin. He was found to be severely anemic again with a hemoglobin of 5.2 g. He sustained an NSTEMI secondary to his anemia. I think his NSTEMI actually started on 03/19/2023 when he was here at the hospital for an outpatient blood transfusion his hemoglobin was 5.5 g. Unfortunately he refused to stay at the hospital at that time. Troponin started to be elevated at 129 and then yesterday when he presented emergency department was up to 465 but is already trending downward to 281 this morning. He is currently pain-free. He is completing his first unit of 3 units of blood. Patient denies abdominal pain or chest pain this morning. He is asking when he can return home. He is not dyspneic. Exam Narrative Exam Narrative: Middle-age white male lying in bed no acute distress alert and orient x 3 not dyspneic Neck veins not distended Lungs are clear to auscultation Heart regular rate and rhythm with a loud systolic murmur over the apex Abdomen distended firm but nontender with positive fluid wave consistent with ascites Lower extremities trace of pedal edema and pretibial edema No asterixis Objective Last Vital Signs Temp 37.1 C 03/21/23 08:46 Pulse 102 H 03/21/23 08:46 Resp 16 03/21/23 08:46 BP 132/69 03/21/23 08:46 Pulse Ox 99 03/21/23 08:46 Laboratory Results - last 24 hr 03/20/23 03/21/23 03/21/23 23:52 02:50 07:06 WBC 5.22 RBC 2.05 L Hgb 5.2 L* Hct 16.5 L* MCV 81 MCH 25.4 L MCHC 31.5 L RDW 16.5 H Plt Count 100 L MPV 10.7 Immature Gran % 1.1 Neutrophils % 63.1 Lymphocytes % 15.3 Monocytes % 17.0 Eosinophils % 2.7 Basophils % 0.8 Nucleated RBC % 0.0 Absolute Neutrophils 3.29 Absolute Lymphocytes 0.80 L Absolute Monocytes 0.89 H Absolute Eosinophils 0.14 Absolute Basophils 0.04 RBC Morphology See Below Hypochromasia 1+ Poikilocytosis 2+ Basophilic Stippling Present PT 18.5 H INR 1.9 H APTT 28.8 Sodium 126 L Potassium 4.0 D Chloride 93 L Carbon Dioxide 26.2 Anion Gap 6.8 BUN 13 Creatinine 0.9 Est GFR (CKD-EPI 2020) 99.62 Glucose 180 H Calcium 7.7 L Total Bilirubin 4.7 H AST 54 H ALT 22 Alkaline Phosphatase 174 H Ammonia 41 H Troponin I 465 H* 339 H* 281 H* NT-Pro-B Natriuret Pep 301 H Total Protein 5.5 L Albumin 2.3 L Lipase 88 H TSH 1.09 Ethyl Alcohol 62.9 H Patient ABO/Rh A Positive Antibody Screen NEGATIVE Crossmatch See Detail PAWSS Have you Been Recently Intoxicated or Drunk Within the Last 30 days?: Yes Have you Ever Experienced Previous Episodes of Alcohol Withdrawal?: Yes Have you ever Experienced Withdrawal Seizures?: No Have you ever Experienced Delirium Tremens(DT)s?: No Have you ever undergone Alcohol Rehabilitation Treatment (i.e, inpt ot outpatient treatment programs)?: No Have you ever Experienced Blackouts?: No Have you ever Combined Alcohol with other Downers within the last 90 days?: Yes Have you ever Combined Alcohol with any other Substance of Abuse during the last 90 days?: No Positive Blood Alcohol level on Presentation? [PCS.BAL]: Yes Evidence of Increased Autonomic Activity (i.e. HR>120, tremor, sweating, agitation, nausea)?: Yes Result: 4 Time Spent with Patient Time Spent with Patient: >50 minutes Time was spent: preparing to see the patient(eg.review tests), obtaining and/or reviewing separately otained hiistory, ordering medications,tests, procedures, referring, communicating with other health adult caregiver (Discussion with cupola melting supervisor as well as multiple calls to providers at [facility] and [facility]), indepentently interpreting results, counseling the patient and care coordination
[2023-03-21] MEDS: Furosemide 40 MG/4 ML VIAL IVP (11:00)
--- NOTE | 2023-03-21 11:41 | W.PALLCONSUL ---
Date of service: 03/21/23 Time of Service: 08:45 History of Present Illness Narrative: Mr. Santiago is a 57 y/o M est PC pt currently at [facility] in ICU after NSTEMI w/acute GI bleed of unknown source; PC dx cirrhosis w/ascites and h/o encephalopathy; PMHx sig for AUD in active use, prolonged QT interval, ACD, HTN, migraine, T2DM, PTSD, chronic pain (low back, knees, neck), depression, anxiety; - Jack was scheduled for outpatient PC visit today at 0830 Jack has presented to [facility] on 03/06, 03/15, 03/19 and 03/20, for acute GI bleed and NSTEMI thought to be c/b demand ischemia; he has left AMA x2; on 03/20 he presented w/NSTEMI and agreed to admission; he has had increased need for paracentesis: 03/06, 03/13 (8L), 03/15 (6L) and 03/19 (10.4), he is distended today and wonders about sooner paracentesis than his typical 1x/wk; he was required ongoing pRBC transfusions, is receiving a unit at time of visit. At this time is appears he has an active GI bleed of unknown source; Initial visit at 0845: Jack is aware he is at end stage of his liver disease, he is aware that he is actively bleeding w/an unknown source. he does not want to be transferred to tertiary facility, and would prefer to continue receiving blood transfusions and paracentesis. He is not sure if he wants to go on hospice bc he wants to continue blood transfusions, aware they are keeping him alive, he states that not receiving blood would be assisted suicide - he has goals of living as long as possible, not being a burden on his , focusing on quality; he wants to be home net to his fireplace with his dog; he states he'd like to make it to [facility] or 1 mo; wants to keep things positive; - his biggest concern today is not having appropriate funding for his cremation, he would like assistance in finding funding for this and to not leave his with odd ends; he continues to state he does not want the [facility] involved after initial visit, w/plan to continue POC conversations this afternoon PC received urgent message that Jack is ready to return home and would like to go on hospice AMY; PC returned to room, Jack was already dressed and ready to go home - pain: does not have any pain medications at home, received morphine in ED w/nausea, does not want fentanyl d/t it being a strong med; is aware he can take some Tylenol - nausea: controlled now, Zofran w/good effect previously - DME needs: wheel chair, bedside commode, shower bench - would prefer to have home paracentesis tomorrow if available Assessment and Plan Assessment and plan (1) Chronic blood loss anemia: Status: Acute (2) Acute hyponatremia: Status: Acute (3) Non-ST elevation ME (NSTEMI): Status: Acute (4) Edema of lower extremity due to peripheral venous insufficiency: Status: Acute (5) ST segment depression: Status: Acute (6) Elevated troponin: Status: Acute (7) Chronic hypokalemia: Status: Acute (8) Portal hypertension with esophageal varices: Status: Acute (9) Ascites due to alcoholic cirrhosis: Status: Acute (10) Cirrhosis: Status: Acute (11) Acute GI bleeding: Status: Acute (12) Ambulatory dysfunction: Status: Acute (13) Hepatic encephalopathy: Status: Acute (14) Hypocalcemia: Status: Acute (15) Dark stools: Status: Acute (16) Alcoholic cirrhosis of liver with ascites: Status: Acute (17) Elevated INR: Status: Acute (18) Hyponatremia: Status: Acute (19) Alcohol abuse: Status: Chronic (20) Fatigue: Status: Acute (21) PTSD (post-traumatic stress disorder): Status: Acute Assessment and plan: refuses [facility] involvement d/t PTSD (22) Depressive disorder: Status: Chronic (23) Anxiety: Status: Chronic Assessment and plan: reports has clonazepam at home feeling irritated and fatigued at time of discharge reviewed recommendation to avoid alcohol and clonazepam concurrently (24) ACP (advance care planning): Status: Acute Assessment and plan: reviewed hospice vs [facility]; reviewed blood transfusions, paracentesis and additional treatment options for end stage liver disease; hospice benefit was reviewed w/DME, support for family, home care Jack has decided to leave [facility] today to return home, he would like to go on hospice. referral to [facility] placed for review of assistance w/cremation expenses placed; plan for f/u outpatient tomorrow; Jack agrees to this spent 45 mins w/ACP (25) Encounter for hospice care discussion: Status: Acute Assessment and plan: call for hospice referral placed, admission planned for tomorrow oxycodone 5mg q4h PRN 10 tabs ordered Zofran 4mg q8h PRN 7 tabs ordered DME needs: wheelchair, shower chair, bedside commode was previously on hospice watch list reviewed admission tomorrow w/pt Review of Systems Narrative: as per HPI PFSH All Active Problems (Updated 03/22/23 @ 00:04 by RADHA JARRELL) Encounter for hospice care discussion (Acute) Chronic blood loss anemia (Acute) Acute hyponatremia (Acute) Non-ST elevation ME (NSTEMI) (Acute) Anemia (Chronic) Low folate (Acute) Low ferritin (Acute) Edema of lower extremity due to peripheral venous insufficiency (Acute) Splenomegaly (Acute) ST segment depression (Acute) Left-sided chest wall pain (Acute) Elevated troponin (Acute) Chronic hypokalemia (Acute) Portal hypertension with esophageal varices (Acute) Grade I x1 column Portal hypertensive gastropathy (Acute) Hypertension, portal (Acute) Ascites due to alcoholic cirrhosis (Acute) Cirrhosis (Acute) Acute GI bleeding (Acute) Thrombocytopenia (Chronic) Anemia (Chronic) Ambulatory dysfunction (Acute) ACP (advance care planning) (Acute) Hepatic encephalopathy (Acute) Prolonged QT interval (Acute) Acute hypokalemia (Acute) Hypocalcemia (Acute) Thrombocytopenia (Chronic) Hypomagnesemia (Acute) Anemia (Chronic) Dark stools (Acute) Alcoholic cirrhosis of liver with ascites (Acute) Anemia of chronic disease (Acute) Acute and subacute hepatic failure without coma (Acute) Elevated INR (Acute) Elevated lipase (Acute) Elevated bilirubin (Acute) Hyponatremia (Acute) Moderate (123) with improvement (135) in 6 days with pedialyte, less alcohol and salt intake.. Nasal crusting (Acute) Chronic sinusitis (Acute) Breast pain, left (Acute) Peripheral neuropathy (Acute) Bursal cyst of olecranon (Acute) Alcohol abuse (Chronic) Hypertension (Chronic) Unspecified lump in axillary tail of the left breast (Chronic) Lipoma by US 07/13; recommended repeat in 6 months Migraine (Chronic) Tinnitus (Acute) Psychogenic nonepileptic seizure (Chronic) Benign hypertension (Acute 04/21/12) Fatigue (Acute 02/26/12) History of alcoholism (Acute) Type 2 diabetes mellitus with complication, without long-term current use of insulin (Acute 05/30/16) Personality disorder in adult (Acute) PTSD (post-traumatic stress disorder) (Acute) with paranoia 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 (Acute) ETOH abuse (Chronic) Spells of decreased attentiveness (Acute) Hyperlipidemia (Acute 07/03/12) Hepatitis, alcoholic (Acute 12/07/13) Fatty liver, alcoholic (Acute 05/30/16) Depressive disorder (Chronic 11/03/12) Chronic hip pain (Acute 11/24/14) -2014: / PT and Nsaids/osteoarthritis Anxiety (Chronic) Medical History Lipoma of axilla Diabetes mellitus type 2 in nonobese Prediabetes Hypertension Depression Surgical History H/O endoscopy 03/12/23;[facility] [place];Nicolas Cruz MD; small esophageal varix-non banded. grade I. there was a diffuse cobblestone appearance to the stomach consistent with portal hypertensive gastropathy.There were no gastric varices.The examined duodenum was normal. History of abdominal paracentesis (~02/2023) Tooth extraction ROOT CANAL Family History Mother Diabetes Sister Depression Other Alcohol abuse Bipolar 1 disorder Dementia Heart disease Schizophrenia Social History Smoking/Tobacco Use Status: Former Tobacco Use Tobacco: How many years used: 4 Smoking risk assessment performed?: Yes Alcohol Intake: current Alcohol Intake frequency: 3 or more drinks per day Alcohol type: beer Drug use: Never Substance use type: does not use Adopted: No Household members: spouse Housing: house Number of Children: 0 Communication Needs: None current occupation: Disabled Do you think of yourself as: straight/heterosexual Current gender identity: male What is your relationship status?: How often do you talk on the phone with friends or family?: three or more times per week How often do you get together with friends or relatives?: twice per week Do you belong to any clubs or organized social groups?: yes Panel score (0-1 are the most socially isolated patients): 3 What type of physical activity do you participate in: walking and weight lifting Frequency: 3-4 times per week Donita/Sikh: Pentecostalism Seatbelt use: always Drive intox or ride w/intox 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 Past GF in 2017 from ovarian cancer. in 2018 to current partner. Exam Narrative Exam Narrative: General: AAOx3, chronically ill appearing male HEENT: hearing grossly WNL, MMM Resp: even and unlabored, speaks full and complete sentences w/no SOB, no cough, no audible wheeze GI: abdomen distention Skin: slight jaundice; scattered bruising over BUE Ext: no pedal edema Psych: tangential, perseverating, fatigued, speech/movement WNL, labile mood, attitude cooperative and guarded, refuses to answer; insight/judgment poor Results Last Vital Signs Temp 98.4 F 03/21/23 09:46 Pulse 94 H 03/21/23 09:46 Resp 15 03/21/23 09:46 BP 107/52 L 03/21/23 09:46 Pulse Ox 100 03/21/23 09:46 Labs 03/20/23 23:52 03/20/23 23:52 Labs: Laboratory Results - last 24 hr 03/20/23 03/21/23 03/21/23 23:52 02:50 07:06 WBC 5.22 RBC 2.05 L Hgb 5.2 L* Hct 16.5 L* MCV 81 MCH 25.4 L MCHC 31.5 L RDW 16.5 H Plt Count 100 L MPV 10.7 Immature Gran % 1.1 Neutrophils % 63.1 Lymphocytes % 15.3 Monocytes % 17.0 Eosinophils % 2.7 Basophils % 0.8 Nucleated RBC % 0.0 Absolute Neutrophils 3.29 Absolute Lymphocytes 0.80 L Absolute Monocytes 0.89 H Absolute Eosinophils 0.14 Absolute Basophils 0.04 RBC Morphology See Below Hypochromasia 1+ Poikilocytosis 2+ Basophilic Stippling Present PT 18.5 H INR 1.9 H APTT 28.8 Sodium 126 L Potassium 4.0 D Chloride 93 L Carbon Dioxide 26.2 Anion Gap 6.8 BUN 13 Creatinine 0.9 Est GFR (CKD-EPI 2020) 99.62 Glucose 180 H Calcium 7.7 L Total Bilirubin 4.7 H AST 54 H ALT 22 Alkaline Phosphatase 174 H Ammonia 41 H Troponin I 465 H* 339 H* 281 H* NT-Pro-B Natriuret Pep 301 H Total Protein 5.5 L Albumin 2.3 L Lipase 88 H TSH 1.09 Ethyl Alcohol 62.9 H Patient ABO/Rh A Positive Antibody Screen NEGATIVE Crossmatch See Detail 03/21/23 11:00 WBC RBC Hgb Cancelled Hct Cancelled MCV MCH MCHC RDW Plt Count MPV Immature Gran % Neutrophils % Lymphocytes % Monocytes % Eosinophils % Basophils % Nucleated RBC % Absolute Neutrophils Absolute Lymphocytes Absolute Monocytes Absolute Eosinophils Absolute Basophils RBC Morphology Hypochromasia Poikilocytosis Basophilic Stippling PT INR APTT Sodium Potassium Chloride Carbon Dioxide Anion Gap BUN Creatinine Est GFR (CKD-EPI 2020) Glucose Calcium Total Bilirubin AST ALT Alkaline Phosphatase Ammonia Troponin I NT-Pro-B Natriuret Pep Total Protein Albumin Lipase TSH Ethyl Alcohol Patient ABO/Rh Antibody Screen Crossmatch
--- NOTE | 2023-03-21 13:55 | DSE_ITS ---
Date of service: 03/21/23 Time of Service: 13:55 DS: Diagnosis Discharge Diagnosis (1) Non-ST elevation MN (NSTEMI): Status: Acute (2) Acute GI bleeding: Status: Acute (3) Portal hypertension with esophageal varices: Status: Acute (4) Chronic blood loss anemia: Status: Acute (5) Type 2 diabetes mellitus with complication, without long-term current use of insulin: Status: Acute (6) ETOH abuse: Status: Chronic (7) Anxiety: Status: Chronic (8) 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: Status: Acute (9) PTSD (post-traumatic stress disorder): Status: Acute (10) Low folate: Status: Acute Discharge Plan Disposition Patient Disposition: Against Medical Advice Condition: Poor Discharge Details Reason For Visit: CP Admit Date/Time: 03/21/23 10:36 Admit Provider: Kenn Castañeda Attending Provider: Kenn Castañeda Primary Care Provider: David Landaverde [facility] Course Hospital Course: 57-year-old male with a history of alcoholic cirrhosis, chronic ascites, chronic anemia who was recently at [facility] for outpatient transfusion of packed red cells for hemoglobin of 5.5 g. During the outpatient infusion he had an episode of chest pain that was relieved by nitroglycerin. This was accompanied by dynamic anterior ST depression resolved with resolution of his chest pain. He was found to have positive troponin at 129 ng/L and was advised to stay in the hospital but declined to stay at the hospital. This was on March 19, 2023. He subsequently presented to emergency department last night on the evening of Dece [id number] with complaints of chest pain. He was treated with nitroglycerin which caused hypotension. Workup revealed that his anemia was worse with a hemoglobin of 5.2 g. And he was found to have positive troponin level of 465. He was admitted to the intensive care unit for further transfusion of packed red blood cells and workup of his NSTEMI. Overnight he has received 2 units of packed red blood cells as troponins are trending downward to 281 ng/L. Patient does give a history of frequent melanotic stools although no vomiting or hematemesis. Patient had a recent EGD performed at [facility] which demonstrated portal gastropathy with strawberry mucosa of his stomach but no active bleeding and he was found to have a single esophageal varix which also was not bleeding. I reached out to [facility] transfer center they indicated they had no beds and could not take him in transfer. They did put me in touch with mother GI fellows who reviewed the case with me and felt that we are doing everything appropriately which included an octreotide drip and IV Protonix and blood transfusions as well as low-dose beta-blockers. GI fellow did agree that the patient needs transfer to a tertiary care center where he can receive an EGD to evaluate his source of bleeding. I then reached out to [facility] and spoke w/ GI who agreed that he should be transferred to a tertiary care center however, [facility] also did not have any beds but they indicated that they would reach out to [facility] and if they could not take their patient then [facility] would reach out to me and have a discussion with their hospitalist and try to bring him to [facility]. Palliative care was consulted and after meeting w/ the palliative care he opted to go on hospice. He has refused t ransfer to tertiary care and is requesting to be discharged home today. He would not wait for the 3rd unit of PRBC to be infused or to allow a follow up hemogram to be checked. He would not even wait for me to discharge him and he left against medical advice. Meggan Christensen C.N.P. met w/ the patient and his multiple times on the day of his discharge, and she indicated she would arrange home hospice and arrange outpatient follow up visits. Home Meds and New Rx's Prescriptions: Continued (DME) blood sugar diagnostic Strip See Rx Instructions .ROUTE .MEDSUPPLY Qty: 100 3RF Rx Instructions: As directed; Test daily, to keep HbA1c less than 6.5%; Dx: E11.9 lactulose 10 gram/15 mL solution 10 g PO DAILY Qty: 946 6RF potassium chloride 20 mEq tablet extended release 60 meq PO DAILY Qty: 270 3RF Patient Comments: 40mg today metoclopramide HCl 10 mg tablet 10 mg PO Q6H PRN (Reason: nausea and vomiting) Qty: 10 0RF clonazepam 0.5 mg tablet 0.5 mg PO BID MDD 1.0 mg PRN (Reason: anxiety) Qty: 56 0RF (DME) wheelchair See Rx Instructions .Route .MEDSUPPLY Qty: 1 0RF Rx Instructions: As directed oxycodone 5 mg tablet 5 mg PO Q4H MDD 30mg PRN (Reason: pain) Qty: 10 0RF Rx Instructions: palliative patient transitioning to hospice ondansetron 4 mg tablet,disintegrating 4 mg PO Q8H Qty: 7 0RF Rx Instructions: palliative patient transitioning to hospice fluoxetine 20 mg capsule 60 mg PO DAILY Qty: 270 3RF Patient Comments: 40mg today omeprazole 40 mg capsule,delayed release(DR/EC) 40 mg PO DAILY spironolactone 25 mg tablet 25 mg PO HS Qty: 90 3RF magnesium citrate 100 mg capsule 100 mg PO BID Qty: 14 0RF torsemide 10 mg tablet 10 mg PO HS sucralfate [Carafate] 1 gram tablet 1 g PO TID Qty: 90 5RF Rx Instructions: Take before meals Discharge Instructions Activity:: Activity as Tolerated Equipment/Supplies:: No Equipment Needed Diet:: Low Sodium Discharge Orders Discharge Orders: Discharge Order (Routine); Ordered 03/21/23 Ordered By: Colin Roldan Discharge Data Discharge Date/Time-TO BE ENTERED AT DEPARTURE: 03/21/23 13:02 DS: Summary Time Spent with Patient providing and/or coordinating discharge services: Less than 30 minutes Specific discharge activities: Interview/exam of patient; review of discharge instructions, completion of prescriptions/discharge instructions; discussion w/ nursing and CM; documentation of hospital visit Status at Discharge Functional status at discharge: independent ambulation Overall status at discharge: patient is not back to baseline Mental Status: mental status grossly normal Speech and Movement: speech and movement normal Mood: congruent mood Affect: normal affect Exam Narrative Exam Narrative: Middle-age white male lying in bed no acute distress alert and orient x 3 not dyspneic Neck veins not distended Lungs are clear to auscultation Heart regular rate and rhythm with a loud systolic murmur over the apex Abdomen distended firm but nontender with positive fluid wave consistent with ascites Lower extremities trace of pedal edema and pretibial edema No asterixis Psych Mental Status: mental status grossly normal Speech and Movement: speech and movement normal Mood: congruent mood Affect: normal affect DS: Data Vitals/I&O Vitals and I&O: Vital Signs Temperature 36.9 C 03/21/23 09:46 Temperature Source Temporal Artery Scan 03/21/23 07:15 Pulse 101 H 03/21/23 10:01 Pulse 102 H 03/21/23 10:01 Respiratory Rate 18 03/21/23 10:01 Respiratory Effort Normal, Non-Labored 03/21/23 07:15 Respiratory Depth Normal 03/21/23 07:15 Respiratory Pattern Normal 03/21/23 07:15 Blood Pressure 107/52 L 03/21/23 10:01 Blood Pressure Mean 65 03/21/23 10:01 Blood Pressure Position Supine 03/20/23 23:45 Pulse Oximetry 100 03/21/23 10:01 Oxygen Delivery Method Room Air 03/21/23 09:46 Oxygen Flow Rate 0 03/21/23 09:46 End Tidal Co2 8 03/20/23 23:45 Pain Level 0 03/21/23 06:24 Comment PRBC cont to infuse 03/21/23 06:24 Intake & Output 03/20/23 03/21/23 03/21/23 23:59 11:59 23:59 Intake Total 950 / 950 Output Total 900 / 900 Balance 50 / 50 Weight 227 kg 96.9 kg Intake: IV 50 / 50 Oral 400 / 400 Blood Product 250 / 250 Rbc Leuko Reduced Unit 250 / 250 [id number] Rbc Leuko Reduced Unit 0 / 0 [id number] Other 250 / 250 Rbc Leuko Reduced Unit 250 / 250 [id number] Rbc Leuko Reduced Unit 0 / 0 [id number] Output: Urine 900 / 900 Other: Urine Color Light Dori Urine Appearance Clear Urine Odor None Voiding Methods Urinal Data Completed and Pending Labs on day of discharge: Labs from last 24 hours 03/21/23 03/21/23 03/21/23 16:00 11:00 07:06 WBC RBC Hgb Pending Cancelled Hct Pending Cancelled MCV MCH MCHC RDW Plt Count MPV Immature Gran % Neutrophils % Lymphocytes % Monocytes % Eosinophils % Basophils % Nucleated RBC % Absolute Neutrophils Absolute Lymphocytes Absolute Monocytes Absolute Eosinophils Absolute Basophils RBC Morphology Hypochromasia Poikilocytosis Basophilic Stippling PT INR APTT Sodium Potassium Chloride Carbon Dioxide Anion Gap BUN Creatinine Est GFR (CKD-EPI 2020) Glucose Calcium Total Bilirubin AST ALT Alkaline Phosphatase Ammonia Troponin I 281 H* NT-Pro-B Natriuret Pep Total Protein Albumin Lipase TSH Ethyl Alcohol Patient ABO/Rh Antibody Screen Crossmatch 03/21/23 03/20/23 02:50 23:52 WBC 5.22 RBC 2.05 L Hgb 5.2 L* Hct 16.5 L* MCV 81 MCH 25.4 L MCHC 31.5 L RDW 16.5 H Plt Count 100 L MPV 10.7 Immature Gran % 1.1 Neutrophils % 63.1 Lymphocytes % 15.3 Monocytes % 17.0 Eosinophils % 2.7 Basophils % 0.8 Nucleated RBC % 0.0 Absolute Neutrophils 3.29 Absolute Lymphocytes 0.80 L Absolute Monocytes 0.89 H Absolute Eosinophils 0.14 Absolute Basophils 0.04 RBC Morphology See Below Hypochromasia 1+ Poikilocytosis 2+ Basophilic Stippling Present PT 18.5 H INR 1.9 H APTT 28.8 Sodium 126 L Potassium 4.0 D Chloride 93 L Carbon Dioxide 26.2 Anion Gap 6.8 BUN 13 Creatinine 0.9 Est GFR (CKD-EPI 2020) 99.62 Glucose 180 H Calcium 7.7 L Total Bilirubin 4.7 H AST 54 H ALT 22 Alkaline Phosphatase 174 H Ammonia 41 H Troponin I 339 H* 465 H* NT-Pro-B Natriuret Pep 301 H Total Protein 5.5 L Albumin 2.3 L Lipase 88 H TSH 1.09 Ethyl Alcohol 62.9 H Patient ABO/Rh A Positive Antibody Screen NEGATIVE Crossmatch See Detail PFSH All Active Problems (Updated 03/21/23 @ 12:52 by Meggan Christensen NP) Encounter for hospice care discussion (Acute) Chronic blood loss anemia (Acute) Acute hyponatremia (Acute) Non-ST elevation MN (NSTEMI) (Acute) Anemia (Chronic) Low folate (Acute) Low ferritin (Acute) Edema of lower extremity due to peripheral venous insufficiency (Acute) Splenomegaly (Acute) ST segment depression (Acute) Left-sided chest wall pain (Acute) Elevated troponin (Acute) Chronic hypokalemia (Acute) Portal hypertension with esophageal varices (Acute) Grade I x1 column Portal hypertensive gastropathy (Acute) Hypertension, portal (Acute) Ascites due to alcoholic cirrhosis (Acute) Cirrhosis (Acute) Acute GI bleeding (Acute) Thrombocytopenia (Chronic) Anemia (Chronic) Ambulatory dysfunction (Acute) ACP (advance care planning) (Acute) Hepatic encephalopathy (Acute) Prolonged QT interval (Acute) Acute hypokalemia (Acute) Hypocalcemia (Acute) Thrombocytopenia (Chronic) Hypomagnesemia (Acute) Anemia (Chronic) Dark stools (Acute) Alcoholic cirrhosis of liver with ascites (Acute) Anemia of chronic disease (Acute) Acute and subacute hepatic failure without coma (Acute) Elevated INR (Acute) Elevated lipase (Acute) Elevated bilirubin (Acute) Hyponatremia (Acute) Moderate (123) with improvement (135) in 6 days with pedialyte, less alcohol and salt intake.. Nasal crusting (Acute) Chronic sinusitis (Acute) Breast pain, left (Acute) Peripheral neuropathy (Acute) Bursal cyst of olecranon (Acute) Alcohol abuse (Chronic) Hypertension (Chronic) Unspecified lump in axillary tail of the left breast (Chronic) Lipoma by US 07/13; recommended repeat in 6 months Migraine (Chronic) Tinnitus (Acute) Psychogenic nonepileptic seizure (Chronic) Benign hypertension (Acute 04/21/12) Fatigue (Acute 02/26/12) History of alcoholism (Acute) Type 2 diabetes mellitus with complication, without long-term current use of insulin (Acute 05/30/16) Personality disorder in adult (Acute) PTSD (post-traumatic stress disorder) (Acute) with paranoia 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 (Acute) ETOH abuse (Chronic) Spells of decreased attentiveness (Acute) Hyperlipidemia (Acute 07/03/12) Hepatitis, alcoholic (Acute 12/07/13) Fatty liver, alcoholic (Acute 05/30/16) Depressive disorder (Chronic 11/03/12) Chronic hip pain (Acute 11/24/14) -2014: / PT and Nsaids/osteoarthritis Anxiety (Chronic) Medical History Lipoma of axilla Diabetes mellitus type 2 in nonobese Prediabetes Hypertension Depression Surgical History H[place] endoscopy [place]12/23[place]Nicolas Cruz MD; small esophageal varix-non banded. grade I. there was a diffuse cobblestone appearance to the stomach consistent with portal hypertensive gastropathy.There were no gastric varices.The examined duodenum was normal. History of abdominal paracentesis (~02/2023) Tooth extraction ROOT CANAL Family History Mother Diabetes Sister Depression Other Alcohol abuse Bipolar 1 disorder Dementia Heart disease Schizophrenia Social History Smoking/Tobacco Use Status: Former Tobacco Use Tobacco: How many years used: 4 Smoking risk assessment performed?: Yes Alcohol Intake: current Alcohol Intake frequency: 3 or more drinks per day Alcohol type: beer Drug use: Never Substance use type: does not use Adopted: No Household members: spouse Housing: house Number of Children: 0 Communication Needs: None current occupation: Disabled Do you think of yourself as: straight/heterosexual Current gender identity: male What is your relationship status?: How often do you talk on the phone with friends or family?: three or more times per week How often do you get together with friends or relatives?: twice per week Do you belong to any clubs or organized social groups?: yes Panel score (0-1 are the most socially isolated patients): 3 What type of physical activity do you participate in: walking and weight lifting Frequency: 3-4 times per week Donita/Confucianist: Evangelical Seatbelt use: always Drive intox or ride w/intox courtesy car driver: No Working smoke detector in home: Yes Carbon monox detector in home: Yes Do you feel safe at home: Yes Do you feel safe in your relationship?: Yes Additional Social history: . Past GF in 2017 from ovarian cancer. in 2018 to current partner. Time Spent with Patient Time Spent with Patient: <45 minutes Time was spent: referring, communicating with other health laboratory animal caretaker, counseling the patient and care coordination
--- NOTE | 2023-03-21 16:27 | CMPROGNOTE_ITS ---
Date of service: 03/21/23 Time of Service: 16:27 Care Management Progress Note Progress Note Text Progress Note Text: JosueJakc was lying in bed, RYNE Gaxiola at bedside. Josue was pleasant in interaction and clear with communication I just don't want to talk about it anymore, he reported, calmly, stating I don't want to change my mind. He verbalized just wanting to go home and sit by the fire. He stated his was on her way to come get him and he wanted to get dressed and go home and not sign out AMA. Diego Broderick met with Jack in the morning and came back around lunch time to support Hospice coordination and patient wishes. Dr. Roldan, who had secured transfer to [facility] was agreeable to following patients wishes, as well. Jack will return home via private vehicle with his , with Hospice admission anticipated, likely tomorrow. Please refer to provider notes for further information.
== END 2023-03-21 13:02 | disposition left against medical advice (07) | DRG 281 ==
LOC: ER 03-21 03:32 → ICU 03-21 04:24
PROVIDERS: Admitting Provider General Practice; Emergency Provider Student in an Organized Health Care Education/Training Program; PCP Family Medicine; Visit Provider General Practice
DX: I21.A1 Myocardial infarction type 2 (principal); E87.1 Hypo-osmolality and hyponatremia; K76.6 Portal hypertension; I85.10 Secondary esophageal varices without bleeding; K92.2 Gastrointestinal hemorrhage, unspecified; E87.20 Acidosis, unspecified; D50.0 Iron deficiency anemia secondary to blood loss (chronic); F10.10 Alcohol abuse, uncomplicated; F41.9 Anxiety disorder, unspecified; D69.59 Other secondary thrombocytopenia; F43.10 Post-traumatic stress disorder, unspecified; E53.8 Deficiency of other specified B group vitamins; K70.31 Alcoholic cirrhosis of liver with ascites; R26.2 Difficulty in walking, not elsewhere classified; K76.82 Hepatic encephalopathy; E83.51 Hypocalcemia; R79.1 Abnormal coagulation profile; R53.83 Other fatigue; F32.9 Major depressive disorder, single episode, unspecified; R16.1 Splenomegaly, not elsewhere classified; E87.6 Hypokalemia; Z87.891 Personal history of nicotine dependence; E11.42 Type 2 diabetes mellitus with diabetic polyneuropathy; G43.909 Migraine, unspecified, not intractable, without status migrainosus; R56.9 Unspecified convulsions; I10 Essential (primary) hypertension; I87.2 Venous insufficiency (chronic) (peripheral); R60.0 Localized edema; G89.29 Other chronic pain
CPT/HCPCS: 00123; 36415; 36430; 80053; 83690; 86850; 86900; 86901; 86920; 93005; 93308; 96374; 96375; 96376; 99291; 71045; 80320; 82140; 83880; 84443; 84484; 85014; 85018; 85025; 85610; 85730; 93010; 99223; J0696; J1940; J2354; J2405; J3490; P9016

== ENCOUNTER 2023-03-26 06:10 | Day surgery (SDC) | payer OTHER, SELFPAY ==
--- NOTE | 2023-03-25 22:17 | PDOC.DSDIS_ITS ---
Date of service: 03/26/23 Time of Service: 09:23 Discharge Plan Disposition Patient Disposition: Home Other Facility: Make appointment with [facility] internal to follow-up on your electrolytes Condition: Poor Discharge Details Reason For Visit: Removal cirrhotic fluid Attending Provider: Danielle Hernandez Primary Care Provider: David Landaverde Home Meds and New Rx's Prescriptions: No Action (DME) blood sugar diagnostic Strip See Rx Instructions .ROUTE .MEDSUPPLY Qty: 100 3RF Rx Instructions: As directed; Test daily, to keep HbA1c less than 6.5%; Dx: E11.9 lactulose 10 gram/15 mL solution 10 g PO DAILY Qty: 946 6RF potassium chloride 20 mEq tablet extended release 60 meq PO DAILY Qty: 270 3RF Patient Comments: 40mg today metoclopramide HCl 10 mg tablet 10 mg PO Q6H PRN (Reason: nausea and vomiting) Qty: 10 0RF clonazepam 0.5 mg tablet 0.5 mg PO BID MDD 1.0 mg PRN (Reason: anxiety) Qty: 56 0RF (DME) wheelchair See Rx Instructions .Route .MEDSUPPLY Qty: 1 0RF Rx Instructions: As directed oxycodone 5 mg tablet 5 mg PO Q4H MDD 30mg PRN (Reason: pain) Qty: 10 0RF Rx Instructions: palliative patient transitioning to hospice ondansetron 4 mg tablet,disintegrating 4 mg PO Q8H Qty: 7 0RF Rx Instructions: palliative patient transitioning to hospice fluoxetine 20 mg capsule 60 mg PO DAILY Qty: 270 3RF Patient Comments: 40mg today omeprazole 40 mg capsule,delayed release(DR/EC) 40 mg PO DAILY spironolactone 25 mg tablet 25 mg PO HS Qty: 90 3RF morphine concentrate 100 mg/5 mL (20 mg/mL) solution See Rx Instructions PO Q1H MDD 240 mg PRN (Reason: pain) Qty: 30 0RF Rx Instructions: 0.25-1.0 ml orally every 1 hour PRN; HOSPICE lorazepam 1 mg tablet 1 mg PO Q4H PRN Qty: 10 5RF Rx Instructions: hospice magnesium citrate 100 mg capsule 100 mg PO BID Qty: 14 0RF torsemide 10 mg tablet 10 mg PO HS sucralfate [Carafate] 1 gram tablet 1 g PO TID Qty: 90 5RF Rx Instructions: Take before meals Discharge Instructions Additional Instructions: Hi protein/low sodium diet- -repeat in 1 week's time -No alcohol ibuprofen -Rest for the next 24 hours -Follow-up PCP regarding low potassium and magnesium Activity:: See above Remove Dressings/Wound Care:: 24 hours Shower/Bathe:: 24 hours Diet:: See above Discharge Orders Discharge Orders: Discharge Order (Routine); Ordered 03/26/23 Ordered By: Danielle Hernandez DS: Diagnosis Discharge Diagnosis (1) Chronic blood loss anemia: Status: Acute (2) Acute hyponatremia: Status: Acute (3) Non-ST elevation CA (NSTEMI): Status: Acute (4) Anemia: Status: Chronic (5) Low folate: Status: Acute (6) Low ferritin: Status: Acute (7) Edema of lower extremity due to peripheral venous insufficiency: Status: Acute (8) Splenomegaly: Status: Acute (9) ST segment depression: Status: Acute (10) Left-sided chest wall pain: Status: Acute (11) Elevated troponin: Status: Acute (12) Chronic hypokalemia: Status: Acute (13) Portal hypertension with esophageal varices: Status: Acute (14) Cirrhosis: Status: Acute (15) Ascites due to alcoholic cirrhosis: Status: Acute (16) Diabetes mellitus type 2 in nonobese: (17) Prediabetes: (18) Hypertension: (19) Depression:
[2023-03-26 06:35] VITALS: BP 129/77; PULSE 94; RESP 16; TEMP 36.7; O2SAT 100
[2023-03-26 07:08] LABS: Ammonia 28 umol/L (11-32)
--- NOTE | 2023-03-26 07:08 | NUR.NOTE ---
Rec'd call from Silvia in the lab at 0700 that pt had critical lab values, hgb: 6.6, hct: 21.3; message immediately given to Dr. Hernandez.
[2023-03-26 07:09] LABS: INR 1.8 (0.9-1.1); Prothrombin Time 17.2 sec (9.1-11.1)
[2023-03-26] MEDS: Normal Saline Flush 10 ML SYR IVP (07:34)
[2023-03-26] MEDS: Lidocaine 1% Multi-Dose W/EPI 1/100,000 50 ML VIAL (07:52)
[2023-03-26 09:01] VITALS: BP 126/82; PULSE 98; RESP 16; TEMP 36.7; O2SAT 100
--- NOTE | 2023-03-26 09:19 | PDOC.DSDIS_ITS ---
Date of service: 03/26/23 Time of Service: 09:20 Discharge Plan Disposition Patient Disposition: Home Other Facility: Make appointment with [facility] internal to follow-up on your electrolytes Condition: Poor Discharge Details Reason For Visit: Removal cirrhotic fluid Attending Provider: Danielle Hernandez Primary Care Provider: David Landaverde Home Meds and New Rx's Prescriptions: No Action (DME) blood sugar diagnostic Strip See Rx Instructions .ROUTE .MEDSUPPLY Qty: 100 3RF Rx Instructions: As directed; Test daily, to keep HbA1c less than 6.5%; Dx: E11.9 lactulose 10 gram/15 mL solution 10 g PO DAILY Qty: 946 6RF potassium chloride 20 mEq tablet extended release 60 meq PO DAILY Qty: 270 3RF Patient Comments: 40mg today metoclopramide HCl 10 mg tablet 10 mg PO Q6H PRN (Reason: nausea and vomiting) Qty: 10 0RF clonazepam 0.5 mg tablet 0.5 mg PO BID MDD 1.0 mg PRN (Reason: anxiety) Qty: 56 0RF (DME) wheelchair See Rx Instructions .Route .MEDSUPPLY Qty: 1 0RF Rx Instructions: As directed oxycodone 5 mg tablet 5 mg PO Q4H MDD 30mg PRN (Reason: pain) Qty: 10 0RF Rx Instructions: palliative patient transitioning to hospice ondansetron 4 mg tablet,disintegrating 4 mg PO Q8H Qty: 7 0RF Rx Instructions: palliative patient transitioning to hospice fluoxetine 20 mg capsule 60 mg PO DAILY Qty: 270 3RF Patient Comments: 40mg today omeprazole 40 mg capsule,delayed release(DR/EC) 40 mg PO DAILY spironolactone 25 mg tablet 25 mg PO HS Qty: 90 3RF morphine concentrate 100 mg/5 mL (20 mg/mL) solution See Rx Instructions PO Q1H MDD 240 mg PRN (Reason: pain) Qty: 30 0RF Rx Instructions: 0.25-1.0 ml orally every 1 hour PRN; HOSPICE lorazepam 1 mg tablet 1 mg PO Q4H PRN Qty: 10 5RF Rx Instructions: hospice magnesium citrate 100 mg capsule 100 mg PO BID Qty: 14 0RF torsemide 10 mg tablet 10 mg PO HS sucralfate [Carafate] 1 gram tablet 1 g PO TID Qty: 90 5RF Rx Instructions: Take before meals Discharge Instructions Additional Instructions: Hi protein/low sodium diet- -repeat in 1 week's time -No alcohol ibuprofen -Rest for the next 24 hours -Follow-up PCP regarding low potassium and magnesium Activity:: See above Remove Dressings/Wound Care:: 24 hours Shower/Bathe:: 24 hours Diet:: See above Discharge Orders Discharge Orders: Discharge Order (Routine); Ordered 03/26/23 Ordered By: Danielle Hernandez DS: Diagnosis Discharge Diagnosis (1) Chronic blood loss anemia: Status: Acute (2) Acute hyponatremia: Status: Acute (3) Non-ST elevation GA (NSTEMI): Status: Acute (4) Anemia: Status: Chronic (5) Low folate: Status: Acute (6) Low ferritin: Status: Acute (7) Edema of lower extremity due to peripheral venous insufficiency: Status: Acute (8) Splenomegaly: Status: Acute (9) ST segment depression: Status: Acute (10) Left-sided chest wall pain: Status: Acute (11) Elevated troponin: Status: Acute (12) Chronic hypokalemia: Status: Acute (13) Portal hypertension with esophageal varices: Status: Acute (14) Cirrhosis: Status: Acute (15) Ascites due to alcoholic cirrhosis: Status: Acute (16) Diabetes mellitus type 2 in nonobese: (17) Prediabetes: (18) Hypertension: (19) Depression: (20) Medically noncompliant: Status: Acute
--- NOTE | 2023-03-27 09:18 | W.PM.OP ---
Date of service: 03/26/23 Time of Service: 08:00 Operative Note Operative Note DATE OF PROCEDURE: 03/26/23 PRE-OP DIAGNOSIS: Ascites secondary to liver failure POST-OP DIAGNOSIS: same PROCEDURE: The patient is brought to the procedure room and placed in the supine position.?? A time-out was performed done.? ? The area is prepped and draped in the usual sterile fashion using a ChloraPrep scrub solution.? 3 cc's of 1% Lidocaine with epi is used for local anesthetization.? The abdomen is punctured and the catheter is inserted.? 12.7 liters of light yellow fluid is evacuated today.? The catheter is removed.? 4-0 Prolene simple suture was placed. Pressure dressing is applied.? The prolene suture from last weeks paracentesis was removed. The patient tolerated the procedure well without complication and transferred to recovery in stable condition.? SURGEON: Danielle Hernandez AGRICULTURAL TECHNICIAN: Milla Pace Refer to Anesthesia Record ESTIMATED BLOOD LOSS: 0 COMPLICATIONS: None Patient was transported to: same day Patient's condition: stable
== END 2023-03-26 09:31 | disposition home or self-care (01) ==
PROVIDERS: PCP Family Medicine; Visit Provider Surgery
PROC: 0W9G3ZZ Drainage of Peritoneal Cavity, Percutaneous Approach (ICD-10-PCS; CPT 49082; principal; 2023-03-26 07:30)
DX: K70.31 Alcoholic cirrhosis of liver with ascites (principal); D50.0 Iron deficiency anemia secondary to blood loss (chronic); E11.9 Type 2 diabetes mellitus without complications; E87.6 Hypokalemia; R94.31 Abnormal electrocardiogram [ECG] [EKG]; E87.1 Hypo-osmolality and hyponatremia; Z91.199 Patient's noncompliance with other medical treatment and regimen due to unspecified reason
CPT/HCPCS: 49082; 36415; 80053; 86850; 86900; 86901; 86920; 82140; 83735; 85014; 85018; 85610; J2004; P9016

== ENCOUNTER 2023-04-02 06:11 | Day surgery (SDC) | payer OTHER, SELFPAY ==
--- NOTE | 2023-04-01 19:52 | W.PM.DSUDISC ---
Date of service: 04/02/23 Time of Service: 08:45 Discharge Plan Disposition Patient Disposition: Home Condition: Poor Discharge Details Reason For Visit: removal fluid from abdomen Attending Provider: Danielle Hernandez Primary Care Provider: David Landaverde Home Meds and New Rx's Prescriptions: No Action (DME) blood sugar diagnostic Strip See Rx Instructions .ROUTE .MEDSUPPLY Qty: 100 3RF Rx Instructions: As directed; Test daily, to keep HbA1c less than 6.5%; Dx: E11.9 potassium chloride 20 mEq tablet extended release 60 meq PO DAILY Qty: 270 3RF Patient Comments: 40mg today (DME) wheelchair See Rx Instructions .Route .MEDSUPPLY Qty: 1 0RF Rx Instructions: As directed lactulose 10 gram/15 mL solution 10 g PO BID Qty: 946 6RF lorazepam [Lorazepam Intensol] 2 mg/mL concentrate 2 mg buccal Q4H PRN (Reason: anxiety) Qty: 30 5RF ondansetron 4 mg tablet,disintegrating 4 mg PO Q8H Qty: 90 1RF Rx Instructions: palliative patient transitioning to hospice oxycodone 5 mg/5 mL solution 5 mg PO Q4H MDD 30 mg PRN (Reason: pain) Qty: 200 0RF naloxone [Narcan] 4 mg/actuation spray,non-aerosol 4 mg intranasal Q2M PRN (Reason: opioid overdose) Qty: 2 3RF Hold Instructions: pallative care Rx Instructions: spray 1 dose into ONE nostril; alternate nostrils w each dose until help arrives potassium chloride 20 mEq/15 mL liquid 40 meq PO BID Qty: 3000 3RF sucralfate 100 mg/mL suspension 10 ml PO TID Qty: 1000 3RF omeprazole 40 mg capsule,delayed release(DR/EC) 40 mg PO DAILY spironolactone 25 mg tablet 25 mg PO HS Qty: 90 3RF morphine concentrate 100 mg/5 mL (20 mg/mL) solution See Rx Instructions PO Q1H MDD 240 mg PRN (Reason: pain) Qty: 30 0RF Hold Instructions: Home Medication placed on hold at Doctor's office Rx Instructions: 0.25-1.0 ml orally every 1 hour PRN; HOSPICE lorazepam 1 mg tablet 1 mg PO Q4H PRN Qty: 10 5RF Hold Instructions: Changed by Provider Rx Instructions: hospice magnesium citrate 100 mg capsule 100 mg PO BID Qty: 14 0RF torsemide 10 mg tablet 10 mg PO HS sucralfate [Carafate] 1 gram tablet 1 g PO TID Qty: 90 5RF Hold Instructions: Changed by Provider Rx Instructions: Take before meals Discharge Instructions Additional Instructions: -high protein diet -f/u PCP -encourage participation in hospice -F/u as needed for repeat procedure Activity:: Activity as Tolerated Remove Dressings/Wound Care:: 24 hours Shower/Bathe:: 24 hours Diet:: high protein diet Discharge Orders Discharge Orders: Discharge Order (Routine); Ordered 04/01/23 Ordered By: Danielle Hernandez DS: Diagnosis Discharge Diagnosis (1) Medically noncompliant: Status: Acute (2) Chronic blood loss anemia: Status: Acute (3) Non-ST elevation [place] (NSTEMI): Status: Acute (4) Anemia: Status: Chronic (5) Low folate: Status: Acute (6) Low ferritin: Status: Acute (7) Edema of lower extremity due to peripheral venous insufficiency: Status: Acute (8) Splenomegaly: Status: Acute (9) ST segment depression: Status: Acute (10) Portal hypertension with esophageal varices: Status: Acute (11) Portal hypertensive gastropathy: Status: Acute (12) Hypertension, portal: Status: Acute (13) Ascites due to alcoholic cirrhosis: Status: Acute Asessment and Plan: The patient is doing well post-op from their paracentesis.? They are having no nausea or vomiting. They are tolerating liquids and a snack. The pt is not having any chest pain or SOB.? Their pain is adequately controlled. They have been able to urinate.? ?HEENT:? no eye pain/drainage/redness/swelling. Mild sore throat ?Cardio- NSR, no chest pain, BP stable- see VS record ?Pulm: no sob or productive cough. No hemoptysis ?Incision- dressing is c/d/i w/ no excessive bleeding or drainage ?I discussed with the patient the findings at the time of surgery and the patient?s progress. ?We reviewed expectations at home; what the patient could expect for recovery time, and in the post-operative period.? We discussed the importance of walking to avoid blood clots and pneumonia.? We discussed and reviewed the patient's post-operative wound care and dressing needs.?? We reviewed their step-vidal pain management plan, Rx called to the pharmacy of their choice.? We reviewed activity and limitations-see discharge instructions. We reviewed warning signs, and when to seek medical attention- see d/c instructions.?? Patient was given a postoperative follow-up appointment. Patient verbalized understanding of their postoperative instructions, how do to take care of themselves and their incision, and the pain management plan. Please see discharge instructions.? (14) Thrombocytopenia: Status: Chronic (15) Cirrhosis: Status: Acute (16) Ambulatory dysfunction: Status: Acute (17) Alcoholic cirrhosis of liver with ascites: Status: Acute (18) Alcohol abuse: Status: Chronic (19) Personality disorder in adult: Status: Acute
[2023-04-02 06:32] VITALS: BP 148/94; PULSE 109; RESP 16; TEMP 36.8; O2SAT 100
[2023-04-02 06:41] VITALS: BP 148/94; PULSE 109; RESP 16; TEMP 36.8; O2SAT 100
[2023-04-02] MEDS: Sodium Bicarbonate 50 MEQ/50 ML VIAL (07:48)
[2023-04-02] MEDS: Lidocaine 1% Multi-Dose W/EPI 1/100,000 50 ML VIAL (07:48)
[2023-04-02 08:45] VITALS: BP 125/80; PULSE 111; RESP 16; TEMP 36.6; O2SAT 100
--- NOTE | 2023-04-02 08:46 | PGE_ITS ---
Date of Service Date of service: 04/02/23 Time of Service: 08:46 Assessment and Plan Assessment and plan (1) Medically noncompliant: Status: Acute (2) Encounter for hospice care discussion: Status: Acute (3) Chronic blood loss anemia: Status: Acute (4) Acute hyponatremia: Status: Acute (5) Non-ST elevation [place] (NSTEMI): Status: Acute (6) Anemia: Status: Chronic (7) Low folate: Status: Acute (8) Low ferritin: Status: Acute (9) Edema of lower extremity due to peripheral venous insufficiency: Status: Acute (10) Splenomegaly: Status: Acute (11) Chronic hypokalemia: Status: Acute (12) Portal hypertension with esophageal varices: Status: Acute (13) Portal hypertensive gastropathy: Status: Acute (14) Hypertension, portal: Status: Acute (15) Ascites due to alcoholic cirrhosis: Status: Acute Assessment and plan: - Patient is still drinking alcohol. -He continues to decline. He continues to-require weekly transfusions and large-volume paracentesis 1-2 times a week. -I did review his notes from his PCP. He also had a hospice consult the last admission to the hospital. I do agree that he is quickly declining and his life span is less than 2 to 6 weeks. I do think he would benefit from hospice. However patient is requiring blood weekly and wants to continue to receive blood. He wants to come into the hospital and have his paracentesis performed. We are not can to be able to accommodate him for in-home paracentesis. Patient is currently refusing hospice services. other than hemoglobins, I am discontinuing checking any further labs. He can continue to follow-up for paracentesis as outpatient. Albumin has not been making any improvement in the fluid reaccumulation and we will discontinue this. Follow-up with PCP for continued outpatient needs. 30 mins spent with the patient today. (16) Cirrhosis: Status: Acute (17) Thrombocytopenia: Status: Chronic (18) Anemia: Status: Chronic (19) Hepatic encephalopathy: Status: Acute Objective Last Vital Signs Temp 36.8 C 04/02/23 06:41 Pulse 109 H 04/02/23 06:41 Resp 16 04/02/23 06:41 BP 148/94 H 04/02/23 06:41 Pulse Ox 100 04/02/23 06:41 Laboratory Results - last 24 hr 04/02/23 06:25 Hgb 7.7 L Hct 24.1 L Patient ABO/Rh A Positive Antibody Screen NEGATIVE Time Spent with Patient Time Spent with Patient: 25-34 minutes Time was spent: preparing to see the patient(eg.review tests), obtaining and/or reviewing separately otained hiistory, ordering medications,tests, procedures, referring, communicating with other health insurance healthcare consultant, indepentently interpreting results, counseling the patient and care coordination
[2023-04-02] MEDS: Normal Saline Flush 10 ML SYR (08:56)
[2023-04-02] MEDS: ALBUMIN HUMAN 25 GM/100 ML BTL IVPB (08:59)
--- NOTE | 2023-04-02 10:41 | NUR.NOTE ---
Nursing Note: 915 verbal to administer only one bottle of Albumin today.
--- NOTE | 2023-04-02 12:19 | W.PM.OP ---
Date of service: 04/02/23 Time of Service: 08:50 Operative Note Operative Note DATE OF PROCEDURE: 04/02/23 PRE-OP DIAGNOSIS: Ascites secondary to liver failure POST-OP DIAGNOSIS: same PROCEDURE: The patient is brought to the procedure room and placed in the supine position.?? A time-out was performed done.? ? The area is prepped and draped in the usual sterile fashion using a ChloraPrep scrub solution.? 4 cc's of 1% Lidocaine with epi is used for local anesthetization.? The abdomen is punctured and the catheter is inserted.? 12,550 ccs of light yellow fluid is evacuated today.? The catheter is removed.? 4-0 Prolene simple suture was placed. Pressure dressing is applied.? The prolene suture from last weeks paracentesis was removed. The patient tolerated the procedure well without complication and transferred to recovery in stable condition.? SURGEON: Danielle Hernandez GENETIC SUPERVISOR: Milla Pace Refer to Anesthesia Record ESTIMATED BLOOD LOSS: 0 COMPLICATIONS: None Patient was transported to: same day Patient's condition: stable
== END 2023-04-02 09:40 | disposition home or self-care (01) ==
LOC: SUR 06:11
PROVIDERS: PCP Family Medicine; Visit Provider Surgery
PROC: 0W9G3ZZ Drainage of Peritoneal Cavity, Percutaneous Approach (ICD-10-PCS; CPT 49082; principal; 2023-04-02 07:30)
DX: K70.31 Alcoholic cirrhosis of liver with ascites (principal); E87.6 Hypokalemia; D50.0 Iron deficiency anemia secondary to blood loss (chronic); R26.2 Difficulty in walking, not elsewhere classified; E87.1 Hypo-osmolality and hyponatremia; Z91.199 Patient's noncompliance with other medical treatment and regimen due to unspecified reason; K76.82 Hepatic encephalopathy
CPT/HCPCS: 49082; 36415; 86850; 86900; 86901; 96365; 85014; 85018; J2004; P9047

== ENCOUNTER 2023-04-10 06:14 | Day surgery (SDC) | payer OTHER, SELFPAY ==
--- NOTE | 2023-03-21 15:18 | CHAPLAIN ---
Meggan Christensen NP, from Palliative, left a phone message requesting a animal rides manager visit for Josue. Meggan saw him twice today. He was considering having another blood transfusion and asked Meggan questions about if not having another transfusion was the equivalent of suicide. He had told Meggan that he's ready to meet my maker, and also had questions about allowing a natural and enrolling in hospice. When I got to Josue's room, he asked if I had the wheelchair because he was ready to leave. He said he did not want to wait for his discharge paperwork. He signed the AMA form and got ready to leave. He asked me if I believed in Heaven and said he'd made his mind up to go home and did not want to have to think more about. After signing his AMA paperwork, he left with his . A couple of months ago, I helped Josue and his complete their advance directives. At that time, and confirmed in his conversation with Meggan today, Josue said he wants to at home, and be able to sit next to his pellet stove with his dog. Meggan made arrangements for Josue to be admitted to hospice tomorrow.
[2023-04-10 06:15] VITALS: BP 143/92; PULSE 110; RESP 24; TEMP 36.4; O2SAT 100
[2023-04-10 06:54] LABS: HGB 6.8 g/dL (13.5-17.5)
[2023-04-10 07:05] LABS: ALT 22 U/L (16-63); AST 45 U/L (15-37); Alkaline Phosphatase 186 U/L (46-116); BUN 11 mg/dL (7-18); Bilirubin, Total 4.7 mg/dL (0.2-1.0); Calcium 7.8 mg/dL (8.5-10.1); Chloride 97 mmol/L (98-107); Estimated GFR 87.78 (mL/min/1.73m2); Glucose 152 mg/dL (74-106); Magnesium 1.6 mg/dL (1.8-2.4); Sodium 128 mmol/L (136-145); Total Protein 5.6 g/dL (6.4-8.2)
--- NOTE | 2023-04-10 09:14 | SUR.PREOP ---
Critical value reported by Dustin Stewart in lab at 0652. Critical lab values were as follows: Hemaglobin of 6.8 and Hematocrit of 21.0. Critical lab values reported to Milla Pace at 0700. Dr. Carrizales advised of critical lab values at 0735.
[2023-04-10 09:30] VITALS: BP 108/64; PULSE 101; O2SAT 100
--- NOTE | 2023-04-10 09:42 | ROE_ITS ---
Date of service: 04/10/23 Time of Service: 09:42 Operative Note Operative Note DATE OF PROCEDURE: 04/10/23 PRE-OP DIAGNOSIS: Ascites secondary to liver failure POST-OP DIAGNOSIS: same PROCEDURE: The patient was placed in the supine position.?? A time-out was performed done.? Ultrasound is used to localize the pocket of fluid.? The area is prepped and draped in the usual sterile fashion using a ChloraPrep scrub solution.? 4 cc's of 1% Lidocaine is used for local anesthetization.? The abdomen is punctured and the catheter is inserted.? 12,600 ccs of light yellow fluid is evacuated tod ay.? The catheter is removed.? 2-0 Prolene simple suture was placed. Band-aid dressing is applied.? The prolene suture from last weeks paracentesis was removed. The patient tolerated the procedure well without complication and transferred to recovery in stable condition.? SURGEON: Bob Carrizales CLOTH SPREADER: Milla Pace ANESTHESIA TYPE: Local By Surgeon Refer to Anesthesia Record ESTIMATED BLOOD LOSS: 2 PATHOLOGY: none sent COMPLICATIONS: None Patient was transported to: same day Patient's condition: stable
[2023-04-10 09:45] VITALS: BP 110/71; PULSE 101; O2SAT 100
[2023-04-10 10:00] VITALS: BP 108/64; PULSE 101; O2SAT 100
--- NOTE | 2023-04-10 10:02 | DSE_ITS ---
Date of service: 04/10/23 Time of Service: 10:02 DS: Diagnosis Discharge Diagnosis (1) Alcohol abuse: Status: Chronic (2) Ascites due to alcoholic cirrhosis: Status: Acute (3) Chronic blood loss anemia: Status: Acute Discharge Plan Disposition Patient Disposition: Home Condition: Poor Discharge Details Reason For Visit: Ascites Attending Provider: Bob Carrizales Primary Care Provider: David Landaverde Home Meds and New Rx's Prescriptions: Continued (DME) blood sugar diagnostic Strip See Rx Instructions .ROUTE .MEDSUPPLY Qty: 100 3RF Rx Instructions: As directed; Test daily, to keep HbA1c less than 6.5%; Dx: E11.9 potassium chloride 20 mEq tablet extended release 60 meq PO DAILY Qty: 270 3RF Patient Comments: 40mg today (DME) wheelchair See Rx Instructions .Route .MEDSUPPLY Qty: 1 0RF Rx Instructions: As directed lactulose 10 gram/15 mL solution 10 g PO BID Qty: 946 6RF lorazepam [Lorazepam Intensol] 2 mg/mL concentrate 2 mg buccal Q4H PRN (Reason: anxiety) Qty: 30 5RF Hold Instructions: Pt Stopped/Never Started ondansetron 4 mg tablet,disintegrating 4 mg PO Q8H Qty: 90 1RF Rx Instructions: palliative patient transitioning to hospice oxycodone 5 mg/5 mL solution 5 mg PO Q4H MDD 30 mg PRN (Reason: pain) Qty: 200 0RF naloxone [Narcan] 4 mg/actuation spray,non-aerosol 4 mg intranasal Q2M PRN (Reason: opioid overdose) Qty: 2 3RF Hold Instructions: pallative care Rx Instructions: spray 1 dose into ONE nostril; alternate nostrils w each dose until help arrives potassium chloride 20 mEq/15 mL liquid 40 meq PO BID Qty: 3000 3RF sucralfate 100 mg/mL suspension 10 ml PO TID Qty: 1000 3RF omeprazole 40 mg capsule,delayed release(DR/EC) 40 mg PO DAILY spironolactone 25 mg tablet 25 mg PO HS Qty: 90 3RF morphine concentrate 100 mg/5 mL (20 mg/mL) solution See Rx Instructions PO Q1H MDD 240 mg PRN (Reason: pain) Qty: 30 0RF Hold Instructions: Home Medication placed on hold at Doctor's office Rx Instructions: 0.25-1.0 ml orally every 1 hour PRN; HOSPICE lorazepam 1 mg tablet 1 mg PO Q4H PRN Qty: 10 5RF Hold Instructions: Changed by Provider Rx Instructions: hospice magnesium citrate 100 mg capsule 100 mg PO BID Qty: 14 0RF torsemide 10 mg tablet 10 mg PO HS sucralfate [Carafate] 1 gram tablet 1 g PO TID Qty: 90 5RF Hold Instructions: Changed by Provider Rx Instructions: Take before meals Discharge Instructions Additional Instructions: -High protein/low sodium diet -repeat in 1 week's time -No alcohol or ibuprofen -Rest for the next 24 hours - Follow up with your PCP Stand Alone Forms: Miles [place] (DSU) Activity:: Activity as Tolerated Remove Dressings/Wound Care:: 48 hours Shower/Bathe:: 24 hours Diet:: High Protien/ Low sodium Discharge Orders Discharge Orders: Discharge Order (Routine); Ordered 04/10/23 Ordered By: Milla Pace DS: Summary Time Spent with Patient providing and/or coordinating discharge services: Greater than 30 minutes Status at Discharge Functional status at discharge: independent ambulation Overall status at discharge: patient is back to baseline Mental Status: mental status grossly normal Speech and Movement: speech and movement normal Mood: congruent mood Affect: normal affect Quality:SDOH Health Related Social Needs: No Data to Display Exam Const General: cooperative, healthy appearing and comfortable Orientation: alert and oriented x3 Resp Effort & Inspection: normal respiratory effort, no audible wheezes and no cough GI Inspection: normal to inspection Palpation: soft, no guarding and nontender Psych Mental Status: mental status grossly normal Speech and Movement: speech and movement normal Mood: congruent mood Affect: normal affect DS: Data Vitals/I&O Vitals and I&O: Vital Signs Temperature 36.4 C L 04/10/23 06:15 Pulse 101 H 04/10/23 09:45 Pulse Rhythm Regular 04/10/23 06:15 Respiratory Rate 24 04/10/23 06:15 Respiratory Depth Shallow 04/10/23 06:15 Blood Pressure 110/71 04/10/23 09:45 Pulse Oximetry 100 04/10/23 09:45 Oxygen Delivery Method Room Air 04/10/23 09:45 Oxygen Flow Rate 0 04/10/23 06:15 Pain Level 0 04/10/23 09:45 Intake & Output 04/09/23 04/10/23 04/10/23 18:59 06:59 18:59 Weight 112.4 kg Data Completed and Pending Labs on day of discharge: Labs from last 24 hours 04/10/23 06:41 Hgb 6.8 L* Hct 21.0 L Sodium 128 L Potassium 4.0 Chloride 97 L Carbon Dioxide 22.0 Anion Gap 9.0 BUN 11 Creatinine 1.0 Est GFR (CKD-EPI 2020) 87.78 Glucose 152 H Calcium 7.8 L Magnesium 1.6 L Total Bilirubin 4.7 H AST 45 H ALT 22 Alkaline Phosphatase 186 H Total Protein 5.6 L Albumin 2.0 L Patient ABO/Rh A Positive Antibody Screen NEGATIVE Additional Comments Additional comments: Lengthy discussion regarding proceeding with RBC transfusion today. Patient participated in shared decision making and he does not wish to proceed with a transfusion today. All questions were answered to patient satisfaction. Heart rate and BP have been stable since following the procedure. Discussed and reviewed return symptoms to include shortness of breath, chest pain and light headedness. All questions were answered to patient satisfaction and he verbally agreed with todays plan. [facility] All Active Problems Medically noncompliant (Acute) Encounter for hospice care discussion (Acute) Chronic blood loss anemia (Acute) Acute hyponatremia (Acute) Non-ST elevation ID (NSTEMI) (Acute) Anemia (Chronic) Low folate (Acute) Low ferritin (Acute) Edema of lower extremity due to peripheral venous insufficiency (Acute) Splenomegaly (Acute) ST segment depression (Acute) Left-sided chest wall pain (Acute) Elevated troponin (Acute) Chronic hypokalemia (Acute) Portal hypertension with esophageal varices (Acute) Grade I x1 column Portal hypertensive gastropathy (Acute) Hypertension, portal (Acute) Ascites due to alcoholic cirrhosis (Acute) Cirrhosis (Acute) Thrombocytopenia (Chronic) Anemia (Chronic) Ambulatory dysfunction (Acute) ACP (advance care planning) (Acute) Hepatic encephalopathy (Acute) Prolonged QT interval (Acute) Acute hypokalemia (Acute) Hypocalcemia (Acute) Thrombocytopenia (Chronic) Hypomagnesemia (Acute) Anemia (Chronic) Dark stools (Acute) Alcoholic cirrhosis of liver with ascites (Acute) Anemia of chronic disease (Acute) Acute and subacute hepatic failure without coma (Acute) Elevated INR (Acute) Elevated lipase (Acute) Elevated bilirubin (Acute) Hyponatremia (Acute) Moderate (123) with improvement (135) in 6 days with pedialyte, less alcohol and salt intake.. Nasal crusting (Acute) Chronic sinusitis (Acute) Breast pain, left (Acute) Peripheral neuropathy (Acute) Bursal cyst of olecranon (Acute) Alcohol abuse (Chronic) Hypertension (Chronic) Unspecified lump in axillary tail of the left breast (Chronic) Lipoma by US 07/13; recommended repeat in 6 months Migraine (Chronic) Tinnitus (Acute) Psychogenic nonepileptic seizure (Chronic) Benign hypertension (Acute 04/21/12) Fatigue (Acute 02/26/12) History of alcoholism (Acute) Type 2 diabetes mellitus with complication, without long-term current use of insulin (Acute 05/30/16) Personality disorder in adult (Acute) PTSD (post-traumatic stress disorder) (Acute) with paranoia 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 (Acute) ETOH abuse (Chronic) Spells of decreased attentiveness (Acute) Hyperlipidemia (Acute 07/03/12) Hepatitis, alcoholic (Acute 12/07/13) Fatty liver, alcoholic (Acute 05/30/16) Depressive disorder (Chronic 11/03/12) Chronic hip pain (Acute 11/24/14) -2014: / PT and Nsaids/osteoarthritis Anxiety (Chronic) Medical History Acute GI bleeding Lipoma of axilla Diabetes mellitus type 2 in nonobese Prediabetes Hypertension Depression Surgical History H/O endoscopy 03/12/23;[facility] [place];Nicolas Cruz MD; small esophageal varix-non banded. grade I. there was a diffuse cobblestone appearance to the stomach consistent with portal hypertensive gastropathy.There were no gastric varices.The examined duodenum was normal. History of abdominal paracentesis (~02/2023) Tooth extraction ROOT CANAL Family History Mother Diabetes Sister Depression Other Alcohol abuse Bipolar 1 disorder Dementia Heart disease Schizophrenia Social History Smoking/Tobacco Use Status: Former Tobacco Use Tobacco: How many years used: 4 Smoking risk assessment performed?: Yes Alcohol Intake: current Alcohol Intake frequency: 3 or more drinks per day Alcohol type: beer Drug use: Rarely Substance use type: does not use Adopted: No Household members: spouse Housing: house Number of Children: 0 Communication Needs: None current occupation: Disabled Do you think of yourself as: straight/heterosexual Current gender identity: male What is your relationship status?: How often do you talk on the phone with friends or family?: three or more times per week How often do you get together with friends or relatives?: twice per week Do you belong to any clubs or organized social groups?: yes Panel score (0-1 are the most socially isolated patients): 3 What type of physical activity do you participate in: walking and weight lifting Frequency: 3-4 times per week Donita/Taoist: Mormon Seatbelt use: always Drive intox or ride w/intox local delivery 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 Past GF in 2017 from ovarian cancer. in 2018 to current partner. Time Spent with Patient Time Spent with Patient: 45-69 minutes Time was spent: preparing to see the patient(eg.review tests), obtaining and/or reviewing separately otained hiistory, counseling the patient and other
--- NOTE | 2023-04-10 13:14 | PGE_ITS ---
Date of Service Date of service: 04/10/23 Time of Service: 10:00 Assessment and Plan Assessment and plan (1) Ascites of liver: Status: Acute Assessment and plan: 57-year-old man with end-stage cirrhosis causing ascites. He has other chronic medical conditions compounded by this. It is my understanding that he suffered a heart attack recently. It is also my understanding that he is getting transfusions on a regular basis. I discussed with him comprehensively and directly but with empathy about CODE STATUS and my opinion that he should be DNR/DNI. I do not think his goals of care are logical or reasonable overall. Further, I think he knows that and I think he understands that but is continuing to try to hold on to life. They asked me whether or not he should have a transfusion today. This is a complex and heavy question with no clear-cut answer. At the bedside he is hemodynamically stable and his only complaint is subjective weakness and feeling tired. His heart rate and his blood pressure are within normal limits. His hemoglobin came in at 6.8. Clearly he has anemia of chronic disease and may have some sort of chronic GI bleeding going on. It is not clear to me what his transfusion goals are or should be. The paracentesis we are doing is for palliation purposes and only being done to make him comfortable. I explained to him that removing the ascites from his body does not make his blood count go down. He is hopeful that today he does NOT need a blood transfusion because he wants to go home and spend time with his family and not spend the day in the transfusion center. Considering he is hemodynamically stable and not having any chest pain, I think that is completely reasonable. I did offer for him to get 1 unit transfused b ecause that is a usual thing for him per him and his . I think the medical management of his current condition is best managed by his primary care physicians and his liver doctors and goals of care should probably be reassessed very near future. He did tell me he has a hepatology appointment at [facility] next week. Overall plan: General surgery remains available for palliative paracentesis in order to maintain his comfort but further management of his chronic anemia and other medical issues as well as lab work monitoring, etc., I defer to his primary/liver physicians. I did try to reach out to his PCP today in order to gain a better understanding but he is out of the office. Subjective Subjective Interval history since last seen: I discussed Jack's scenario with him. I know him from previous paracentesis. At the bedside today he asked me am I going to today? He says he had a really bad dream last night. Asked him about his CODE STATUS and he says he is still full code and wants to be resuscitated if his heart was to stop. Exam Narrative Exam Narrative: General: Cachectic, mildly jaundiced, weak Neuro: Alert and oriented x 3 Psych: Seemingly baseline mood and affect, reasonable insight and understanding into his condition, somewhat unrealistic expectations and goals. Abdomen: Soft, fluid distention, not tense. Objective Last Vital Signs Temp 97.5 F L 04/10/23 06:15 Pulse 101 H 04/10/23 10:00 Resp 24 04/10/23 06:15 BP 108/64 04/10/23 10:00 Pulse Ox 100 04/10/23 10:00 Laboratory Results - last 24 hr 04/10/23 06:41 Hgb 6.8 L* Hct 21.0 L Sodium 128 L Potassium 4.0 Chloride 97 L Carbon Dioxide 22.0 Anion Gap 9.0 BUN 11 Creatinine 1.0 Est GFR (CKD-EPI 2020) 87.78 Glucose 152 H Calcium 7.8 L Magnesium 1.6 L Total Bilirubin 4.7 H AST 45 H ALT 22 Alkaline Phosphatase 186 H Total Protein 5.6 L Albumin 2.0 L Patient ABO/Rh A Positive Antibody Screen NEGATIVE Time Spent with Patient Time Spent with Patient: >50 minutes Time was spent: preparing to see the patient(eg.review tests), obtaining and/or reviewing separately otained hiistory, referring, communicating with other health pediatric critical care nurse, indepentently interpreting results, counseling the patient and care coordination
== END 2023-04-10 10:29 | disposition home or self-care (01) ==
PROVIDERS: Physical Therapy Assistant; PCP Family Medicine; Visit Provider Student in an Organized Health Care Education/Training Program
PROC: 0W9G3ZZ Drainage of Peritoneal Cavity, Percutaneous Approach (ICD-10-PCS; CPT 49082; principal; 2023-04-10 07:30)
DX: K70.31 Alcoholic cirrhosis of liver with ascites (principal); D50.0 Iron deficiency anemia secondary to blood loss (chronic); E87.6 Hypokalemia
CPT/HCPCS: 49083; 36415; 80053; 86850; 86900; 86901; 83735; 85014; 85018

== ENCOUNTER 2023-04-15 06:17 | Day surgery (SDC) | payer OTHER, SELFPAY ==
--- NOTE | 2023-04-14 14:38 | W.PROCNOTE ---
Date of service: 04/15/23 Time of Service: 08:29 Procedure Note Date of procedure: 04/15/23 Procedure: paracentesis Surgeon/Proceduralist/Physician: Nile Marshall Procedure Diagnosis: Tense ascites Procedure Indications: Jack is a 57-year-old male with alcoholic cirrhosis and tense ascites. He is here for therapeutic paracentesis. Procedure Description: I started by performing a limited ultrasound of the abdomen to identify appropriate site for paracentesis. Next, I selected the right lower quadrant as the ideal site for paracentesis. I then prepped and draped the abdomen. Next, using ultrasound guidance, I anesthetized the skin with 1% lidocaine with epinephrine. I used the ultrasound to guide the needle down to the peritoneal level which was also anesthetized. I then made a small incision in the skin with a 11 blade scalpel. Next, I advanced the 5 Macanese paracentesis needle and catheter through the incision and into the peritoneal cavity under the direct vision of the ultrasound. I aspirated pale straw-colored ascites. Next, I gently advance the catheter and remove the needle. I affixed drainage tubing, and began draining the ascites with the assistance of Vacutainer's. As the flow decreased, I assisted the patient to the right lateral decubitus position to improve drainage. Once the ascites stopped flowing, I removed the catheter and used a stitch and Band-Aid to dress the wound. In total, I drained 11,800 mL.
--- NOTE | 2023-04-14 14:39 | W.PM.DSUDISC ---
Date of service: 04/15/23 Time of Service: 08:32 Discharge Plan Disposition Patient Disposition: Home Condition: Good Discharge Details Reason For Visit: Paracentesis Attending Provider: Nile Marshall Primary Care Provider: David Landaverde Home Meds and New Rx's Prescriptions: Continued (DME) blood sugar diagnostic Strip See Rx Instructions .ROUTE .MEDSUPPLY Qty: 100 3RF Rx Instructions: As directed; Test daily, to keep HbA1c less than 6.5%; Dx: E11.9 potassium chloride 20 mEq tablet extended release 60 meq PO DAILY Qty: 270 3RF Patient Comments: 40mg today (DME) wheelchair See Rx Instructions .Route .MEDSUPPLY Qty: 1 0RF Rx Instructions: As directed lactulose 10 gram/15 mL solution 10 g PO BID Qty: 946 6RF lorazepam [Lorazepam Intensol] 2 mg/mL concentrate 2 mg buccal Q4H PRN (Reason: anxiety) Qty: 30 5RF Hold Instructions: Pt Stopped/Never Started ondansetron 4 mg tablet,disintegrating 4 mg PO Q8H Qty: 90 1RF Rx Instructions: palliative patient transitioning to hospice oxycodone 5 mg/5 mL solution 5 mg PO Q4H MDD 30 mg PRN (Reason: pain) Qty: 200 0RF naloxone [Narcan] 4 mg/actuation spray,non-aerosol 4 mg intranasal Q2M PRN (Reason: opioid overdose) Qty: 2 3RF Hold Instructions: pallative care Rx Instructions: spray 1 dose into ONE nostril; alternate nostrils w each dose until help arrives potassium chloride 20 mEq/15 mL liquid 40 meq PO BID Qty: 3000 3RF sucralfate 100 mg/mL suspension 10 ml PO TID Qty: 1000 3RF omeprazole 40 mg capsule,delayed release(DR/EC) 40 mg PO DAILY spironolactone 25 mg tablet 25 mg PO HS Qty: 90 3RF morphine concentrate 100 mg/5 mL (20 mg/mL) solution See Rx Instructions PO Q1H MDD 240 mg PRN (Reason: pain) Qty: 30 0RF Hold Instructions: Home Medication placed on hold at Doctor's office Rx Instructions: 0.25-1.0 ml orally every 1 hour PRN; HOSPICE lorazepam 1 mg tablet 1 mg PO Q4H PRN Qty: 10 5RF Hold Instructions: Changed by Provider Rx Instructions: hospice magnesium citrate 100 mg capsule 100 mg PO BID Qty: 14 0RF torsemide 10 mg tablet 10 mg PO HS sucralfate [Carafate] 1 gram tablet 1 g PO TID Qty: 90 5RF Hold Instructions: Changed by Provider Rx Instructions: Take before meals Discharge Instructions Additional Instructions: Jack, we were able to drain 11,800 mL of ascites today. Hopefully, this will help you feel little better. Like we talked about, your sodium level is critically low. This poses significant risk to your health. It could result in altered mental status, seizures, and other complications. I do think he benefit from staying in the hospital. However, I respect your decision to leave AGAINST MEDICAL ADVICE. Please remember you are welcome to come back at any point. I would encourage you to discuss this with Dr. Landaverde when you see him this week. We have also taken the liberty of putting you on the schedule for a paracentesis this Saturday. Activity:: Activity as Tolerated Diet:: As Tolerated Discharge Orders Discharge Orders: Discharge Order (Routine); Ordered 04/14/23 Ordered By: Nile Marshall DS: Diagnosis Discharge Diagnosis (1) Ascites of liver: Status: Acute Asessment and Plan: Status post therapeutic paracentesis
[2023-04-15 06:35] VITALS: BP 119/73; PULSE 99; RESP 18; TEMP 36.7; O2SAT 99
--- NOTE | 2023-04-15 07:12 | NUR.NOTE ---
Critical lab value reported to this RN, hgb: 6.1, hct 19.6; values immediately reported to Dr. Marshall who verbalized understanding. -BR
--- NOTE | 2023-04-15 07:23 | NUR.NOTE ---
Critical sodium level reported this this RN, sodium: 123; Dr. Marshall made aware and verbalized understanding. -BR
[2023-04-15 08:31] VITALS: BP 117/76; PULSE 94; RESP 18; TEMP 36.6; O2SAT 100
[2023-04-15] MEDS: Normal Saline Flush 10 ML SYR IV ×2 (08:35→09:17)
[2023-04-15] MEDS: ALBUMIN HUMAN 25 GM/100 ML BTL IVPB ×2 (08:35→08:56)
[2023-04-15 09:15] VITALS: BP 109/66; PULSE 94; RESP 18; O2SAT 96
== END 2023-04-15 09:23 | disposition home or self-care (01) ==
LOC: SUR 06:17
PROVIDERS: PCP Family Medicine; Visit Provider Surgery
PROC: 0W9G3ZZ Drainage of Peritoneal Cavity, Percutaneous Approach (ICD-10-PCS; CPT 49082; principal; 2023-04-15 07:30)
DX: K70.31 Alcoholic cirrhosis of liver with ascites (principal); D50.0 Iron deficiency anemia secondary to blood loss (chronic); E87.6 Hypokalemia; F10.10 Alcohol abuse, uncomplicated
CPT/HCPCS: 49082; 36415; 49083; 80053; 86850; 86900; 86901; 86920; 96365; 83735; 85014; 85018; P9047

== ENCOUNTER 2023-04-15 09:00 | Outpatient (RCR) | payer OTHER, SELFPAY ==
[2023-03-26] VITALS (10 sets, daily range): BP systolic 123–148; BP diastolic 74–83; PULSE 96–111; RESP 17; TEMP 36–37; O2SAT 96–100
[2023-03-26 06:57] LABS: HCT 21.3 % (40.0-50.0)
[2023-03-26 07:01] LABS: HGB 6.6 g/dL (13.5-17.5)
[2023-03-26 07:12] LABS: ALT 30 U/L (16-63); AST 57 U/L (15-37); Albumin 2.3 g/dL (3.4-5.0); Alkaline Phosphatase 209 U/L (46-116); Anion Gap 7.5 mmol/L (3-11); BUN 7 mg/dL (7-18); Bilirubin, Total 4.6 mg/dL (0.2-1.0); CO2 23.5 mmol/L (21.0-32.0); CREATININE 0.8 mg/dL (0.70-1.30); Calcium 7.5 mg/dL (8.5-10.1); Chloride 97 mmol/L (98-107); Estimated GFR 103.22 (mL/min/1.73m2); Glucose 147 mg/dL (74-106); Magnesium 1.6 mg/dL (1.8-2.4); Potassium 4.1 mmol/L (3.5-5.1); Sodium 128 mmol/L (136-145); Total Protein 5.9 g/dL (6.4-8.2)
[2023-03-26] MEDS: Acetaminophen 325 MG TAB 650 MG PO (09:47)
[2023-03-26] MEDS: diphenhydrAMINE 25 MG CAP PO (09:47)
[2023-04-02 07:08] LABS: HCT 24.1 % (40.0-50.0); HGB 7.7 g/dL (13.5-17.5)
[2023-04-02] MEDS: diphenhydrAMINE 25 MG CAP PO (09:52)
[2023-04-02] MEDS: Acetaminophen 325 MG TAB PO (09:52)
[2023-04-02] MEDS: Normal Saline Flush 10 ML SYR IVP (09:53)
[2023-04-02 10:22] VITALS: BP 125/78; PULSE 115; RESP 17; TEMP 36.3; O2SAT 100
[2023-04-02 10:35] VITALS: BP 128/72; PULSE 108; RESP 17; TEMP 36.9; O2SAT 99
[2023-04-02 10:52] VITALS: BP 153/78; PULSE 108; RESP 17; TEMP 36.7; O2SAT 99
[2023-04-02 11:20] VITALS: BP 165/78; PULSE 110; RESP 17; TEMP 37.3; O2SAT 99
[2023-04-02 12:20] VITALS: BP 166/78; PULSE 111; RESP 17; TEMP 37.2; O2SAT 98
[2023-04-15 07:11] LABS: HCT 19.6 % (40.0-50.0); HGB 6.1 g/dL (13.5-17.5)
[2023-04-15 07:19] LABS: ALT 19 U/L (16-63); AST 40 U/L (15-37); Albumin 1.9 g/dL (3.4-5.0); Alkaline Phosphatase 234 U/L (46-116); Anion Gap 5.1 mmol/L (3-11); BUN 9 mg/dL (7-18); Bilirubin, Total 3.7 mg/dL (0.2-1.0); CO2 22.9 mmol/L (21.0-32.0); CREATININE 1.1 mg/dL (0.70-1.30); Calcium 7.9 mg/dL (8.5-10.1); Chloride 95 mmol/L (98-107); Glucose 135 mg/dL (74-106); Magnesium 1.8 mg/dL (1.8-2.4); Potassium 4.9 mmol/L (3.5-5.1); Total Protein 5.4 g/dL (6.4-8.2)
[2023-04-15 07:22] LABS: Sodium 123 mmol/L (136-145)
[2023-04-15] MEDS: Normal Saline Flush 10 ML SYR IVP (09:40)
[2023-04-15 09:49] VITALS: BP 129/76; PULSE 101; RESP 17; TEMP 36.5; O2SAT 100
[2023-04-15 10:05] VITALS: BP 112/74; PULSE 95; RESP 17; TEMP 36.7; O2SAT 100
[2023-04-15 10:23] VITALS: BP 113/64; PULSE 95; RESP 17; TEMP 36.6; O2SAT 99
[2023-04-15 10:50] VITALS: BP 129/80; PULSE 97; RESP 17; TEMP 36.6; O2SAT 100
[2023-04-15 11:50] VITALS: BP 118/76; PULSE 101; RESP 17; TEMP 36.7; O2SAT 100
== END 2023-04-24 23:59 | disposition home or self-care (01) ==
LOC: INF 09:00
PROVIDERS: Surgery; PCP Family Medicine; Visit Provider Surgery
DX: D50.9 Iron deficiency anemia, unspecified (principal)
CPT/HCPCS: 36415; 36430; 80053; 86850; 86900; 86901; 86920; 83735; 85014; 85018; P9016

== ENCOUNTER 2023-04-19 06:14 | Day surgery (SDC) | payer OTHER, SELFPAY ==
--- NOTE | 2023-04-18 16:25 | PDOC.DSDIS_ITS ---
Date of service: 04/19/23 Time of Service: 08:31 Discharge Plan Disposition Patient Disposition: Home Condition: Poor Discharge Details Reason For Visit: Therapeutic paracentesis Attending Provider: Nlie Marshall Primary Care Provider: David Landaverde Home Meds and New Rx's Prescriptions: Continued (DME) blood sugar diagnostic Strip See Rx Instructions .ROUTE .MEDSUPPLY Qty: 100 3RF Rx Instructions: As directed; Test daily, to keep HbA1c less than 6.5%; Dx: E11.9 potassium chloride 20 mEq tablet extended release 60 meq PO DAILY Qty: 270 3RF Patient Comments: 40mg today (DME) wheelchair See Rx Instructions .Route .MEDSUPPLY Qty: 1 0RF Rx Instructions: As directed lactulose 10 gram/15 mL solution 10 g PO BID Qty: 946 6RF lorazepam [Lorazepam Intensol] 2 mg/mL concentrate 2 mg buccal Q4H PRN (Reason: anxiety) Qty: 30 5RF Hold Instructions: Pt Stopped/Never Started Patient Comments: hasnt taken yet ondansetron 4 mg tablet,disintegrating 4 mg PO Q8H Qty: 90 1RF Rx Instructions: palliative patient transitioning to hospice naloxone [Narcan] 4 mg/actuation spray,non-aerosol 4 mg intranasal Q2M PRN (Reason: opioid overdose) Qty: 2 3RF Hold Instructions: pallative care Patient Comments: spouse states they dont have yet Rx Instructions: spray 1 dose into ONE nostril; alternate nostrils w each dose until help ar janie potassium chloride 20 mEq/15 mL liquid 40 meq PO BID Qty: 3000 3RF sucralfate 100 mg/mL suspension 10 ml PO TID Qty: 1000 3RF oxycodone 5 mg/5 mL solution 5 mg PO Q4H MDD 30 mg PRN (Reason: pain) Qty: 200 0RF Patient Comments: reports he is taking 3 ml at time now omeprazole 40 mg capsule,delayed release(DR/EC) 40 mg PO DAILY spironolactone 25 mg tablet 25 mg PO HS Qty: 90 3RF morphine concentrate 100 mg/5 mL (20 mg/mL) solution See Rx Instructions PO Q1H MDD 240 mg PRN (Reason: pain) Qty: 30 0RF Hold Instructions: Home Medication placed on hold at Doctor's office Patient Comments: spouse states they dont have yet Rx Instructions: 0.25-1.0 ml orally every 1 hour PRN; HOSPICE torsemide 10 mg tablet 10 mg PO HS Qty: 90 3RF magnesium citrate 100 mg capsule 100 mg PO BID Qty: 14 0RF sucralfate [Carafate] 1 gram tablet 1 g PO TID Qty: 90 5RF Hold Instructions: Changed by Provider Rx Instructions: Take before meals clonazepam 0.5 mg tablet fluoxetine 20 mg capsule Patient Comments: TAKE 3 CAPSULES BY MOUTH DAILY Discharge Instructions Additional Instructions: Jack, I was happy to see you today, and I really hope that the paracentesis helps you feel okay through the weekend. We drained 10,700 milliliters of fluid today. I respect your decision to forego blood transfusion today. I would also encourage you to reach out to [facility] to discuss her upcoming colonoscopy. Personally, I would consider you quite high risk for that procedure. And I would hate for you to travel all the way down there unless they were totally comfortable doing the procedure. My office is working on arranging times next week for more paracentesis. We will be in touch once we have a plan together. If you need anything in the meantime, please do not hesitate to call. Activity:: Activity as Tolerated Remove Dressings/Wound Care:: 24 hours Shower/Bathe:: 24 hours Diet:: As Tolerated DS: Diagnosis Discharge Diagnosis (1) Ascites of liver: Status: Acute
[2023-04-19] MEDS: Normal Saline Flush 10 ML SYR IV (06:26)
[2023-04-19] MEDS: ALBUMIN HUMAN 25 GM/100 ML BTL 100 GM ×2 (06:30→06:54)
--- NOTE | 2023-04-19 06:45 | NUR.NOTE ---
0633: This nurse webexed that pt. arrived reporting chest pressure saying it could be from the fluid but saying i dont want to have another heart attack reporting pt. has not stated that to her. 0640: responded that pt. can go to ER if he wants to be sure or just get the para and see how he feels. Nursing spoke to pt. and he stated he wants to get the procedure and see how he feels. Spouse in room.Nursing Note:
[2023-04-19 07:13] LABS: HCT 20.1 % (40.0-50.0); HGB 6.4 g/dL (13.5-17.5)
--- NOTE | 2023-04-19 07:15 | NUR.NOTE ---
Rec'd call from Silvana in the lab with a critical lab value, hgb: 6.4, hct: 20.a; information immediately relayed to Dr. Marshall. -BR
[2023-04-19 07:20] LABS: ALT 17 U/L (16-63); AST 36 U/L (15-37); Albumin 2.3 g/dL (3.4-5.0); Alkaline Phosphatase 235 U/L (46-116); Anion Gap 7.5 mmol/L (3-11); BUN 10 mg/dL (7-18); Bilirubin, Total 2.8 mg/dL (0.2-1.0); CO2 22.5 mmol/L (21.0-32.0); CREATININE 1.1 mg/dL (0.70-1.30); Calcium 7.5 mg/dL (8.5-10.1); Chloride 97 mmol/L (98-107); Glucose 156 mg/dL (74-106); Magnesium 1.7 mg/dL (1.8-2.4); Potassium 4.2 mmol/L (3.5-5.1); Sodium 127 mmol/L (136-145); Total Protein 5.5 g/dL (6.4-8.2)
[2023-04-19 08:35] VITALS: BP 110/72; PULSE 102; RESP 18; TEMP 36.5; O2SAT 99
--- NOTE | 2023-04-19 08:39 | OPPNE_ITS ---
Date of service: 04/19/23 Time of Service: 08:39 Procedure Note Date of procedure: 04/19/23 Procedure: Therapeutic paracentesis Surgeon/Proceduralist/Physician: Nile Marshall Procedure Diagnosis: End-stage liver disease with tense ascites Procedure Indications: Jack is a 57-year-old male with severe end-stage alcoholic cirrhosis. He suffers tense ascites that resulted in abdominal pain, shortness of breath, difficulty ambulating. Procedure Description: I started by performing a limited ultrasound of the abdomen to identify appropriate site for paracentesis. Next, I selected the left lower quadrant as the ideal site for paracentesis. I then prepped and draped the abdomen. Next, using ultrasound guidance, I anesthetized the skin with 1% lidocaine with epinephrine. I used the ultrasound to guide the needle down to the peritoneal level which was also anesthetized. I then made a small incision in the skin with a 11 blade scalpel. Next, I advanced the 5 [place]ian paracentesis needle and catheter through the incision and into the peritoneal cavity under the direct vision of the ultrasound. I aspirated straw-colored ascites. Next, I gently advance the catheter and remove the needle. I affixed drainage tubing, and began draining the ascites with the assistance of Vacutainer's. As the flow decreased, I assisted the patient to the left lateral decubitus position to improve drainage. Once the ascites stopped flowing, I removed the catheter and used a suture and bandage to dress the wound. In total, we drained 10,700 mL today. Jack's hemoglobin this morning is 6.4. We had a long discussion during the course of the paracentesis regarding the role of blood transfusions. In my medical opinion, Jack is dying of end-stage liver disease. I explained that the role of blood transfusions may be useful to alleviate some of his symptoms, however, I am skeptical that we will offer any meaningful difference in the course of his disease. I explained that in simple language. At this point, he has decided to forego transfusion of packed red blood cells today.
== END 2023-04-19 09:05 | disposition home or self-care (01) ==
LOC: SUR 06:14
PROVIDERS: PCP Family Medicine; Visit Provider Surgery
PROC: 0W9G3ZZ Drainage of Peritoneal Cavity, Percutaneous Approach (ICD-10-PCS; CPT 49082; principal; 2023-04-19 07:30)
DX: K70.31 Alcoholic cirrhosis of liver with ascites (principal)
CPT/HCPCS: 49082; 36415; 49083; 80053; 86850; 86900; 86901; 83735; 85014; 85018; P9047

== ENCOUNTER 2023-04-23 06:14 | Day surgery (SDC) | payer OTHER, SELFPAY ==
[2023-04-23 06:21] VITALS: BP 124/73; PULSE 104; RESP 18; TEMP 37; O2SAT 97
[2023-04-23 08:40] VITALS: BP 113/61; PULSE 97; RESP 18; TEMP 37; O2SAT 99
--- NOTE | 2023-04-23 08:46 | W.PM.OP ---
Date of service: 04/23/23 Time of Service: 08:46 Operative Note Operative Note DATE OF PROCEDURE: 04/23/23 PRE-OP DIAGNOSIS: Ascites secondary to liver failure POST-OP DIAGNOSIS: same PROCEDURE: The patient was placed in the supine position.?? A time-out was performed done.? Ultrasound is used to localize the pocket of fluid.? The area is prepped and draped in the usual sterile fashion using a ChloraPrep scrub solution.? 6 cc's of 1% Lidocaine is used for local anesthetization.? The abdomen is punctured and the catheter is inserted.? 10,100 ccs of light yellow fluid is evacuated today.? The catheter is removed.? 2-0 Prolene simple suture was placed. Band-aid dressing is applied.? The prolene suture from the last paracentesis was removed. The patient tolerated the procedure well without complication and transferred to recovery in stable condition.? SURGEON: Bob Carrizales [employer] RES[employer] OFFICER: Milla Pace ANESTHESIA TYPE: Local By Surgeon ESTIMATED BLOOD LOSS: 0 PATHOLOGY: none sent COMPLICATIONS: None Patient was transported to: no change Patient's condition: stable
--- NOTE | 2023-04-23 08:49 | DSE_ITS ---
Date of service: 04/23/23 Time of Service: 08:50 DS: Diagnosis Discharge Diagnosis (1) Ascites of liver: Status: Acute Discharge Plan Disposition Patient Disposition: Home Discharge Details Reason For Visit: Paracentesis Attending Provider: Bob Carrizales Primary Care Provider: David Landaverde Home Meds and New Rx's Prescriptions: Continued (DME) blood sugar diagnostic Strip See Rx Instructions .ROUTE .MEDSUPPLY Qty: 100 3RF Rx Instructions: As directed; Test daily, to keep HbA1c less than 6.5%; Dx: E11.9 potassium chloride 20 mEq tablet extended release 60 meq PO DAILY Qty: 270 3RF Patient Comments: 40mg today (DME) wheelchair See Rx Instructions .Route .MEDSUPPLY Qty: 1 0RF Rx Instructions: As directed lactulose 10 gram/15 mL solution 10 g PO BID Qty: 946 6RF lorazepam [Lorazepam Intensol] 2 mg/mL concentrate 2 mg buccal Q4H PRN (Reason: anxiety) Qty: 30 5RF Hold Instructions: Pt Stopped/Never Started Patient Comments: hasnt taken yet ondansetron 4 mg tablet,disintegrating 4 mg PO Q8H Qty: 90 1RF Rx Instructions: palliative patient transitioning to hospice naloxone [Narcan] 4 mg/actuation spray,non-aerosol 4 mg intranasal Q2M PRN (Reason: opioid overdose) Qty: 2 3RF Hold Instructions: pallative care Patient Comments: spouse states they dont have yet Rx Instructions: spray 1 dose into ONE nostril; alternate nostrils w each dose until help arrives potassium chloride 20 mEq/15 mL liquid 40 meq PO BID Qty: 3000 3RF sucralfate 100 mg/mL suspension 10 ml PO TID Qty: 1000 3RF oxycodone 5 mg/5 mL solution 5 mg PO Q4H MDD 30 mg PRN (Reason: pain) Qty: 200 0RF Patient Comments: reports he is taking 3 ml at time now omeprazole 40 mg capsule,delayed release(DR/EC) 40 mg PO DAILY spironolactone 25 mg tablet 25 mg PO HS Qty: 90 3RF morphine concentrate 100 mg/5 mL (20 mg/mL) solution See Rx Instructions PO Q1H MDD 240 mg PRN (Reason: pain) Qty: 30 0RF Hold Instructions: Home Medication placed on hold at Doctor's office Patient Comments: spouse states they dont have yet Rx Instructions: 0.25-1.0 ml orally every 1 hour PRN; HOSPICE torsemide 10 mg tablet 10 mg PO HS Qty: 90 3RF magnesium citrate 100 mg capsule 100 mg PO BID Qty: 14 0RF sucralfate [Carafate] 1 gram tablet 1 g PO TID Qty: 90 5RF Hold Instructions: Changed by Provider Rx Instructions: Take before meals clonazepam 0.5 mg tablet 0.5 mg PO PRN fluoxetine 20 mg capsule 20 mg PO BID Patient Comments: TAKE 3 CAPSULES BY MOUTH DAILY Discharge Instructions Additional Instructions: Jack, today we drained 10,100 ccs from your abdomen. Activity:: Activity as Tolerated Shower/Bathe:: 24 hours Diet:: Normal Diet Discharge Orders Discharge Orders: Discharge Order (Routine); Ordered 04/23/23 Ordered By: Milla Pace DS: Summary Time Spent with Patient providing and/or coordinating discharge services: Less than 30 minutes Status at Discharge Functional status at discharge: independent ambulation Overall status at discharge: patient is back to baseline Mental Status: mental status grossly normal Speech and Movement: speech and movement normal Mood: congruent mood Affect: normal affect Quality:SDOH Health Related Social Needs: No Data to Display Exam Const General: cooperative, healthy appearing and comfortable Orientation: alert and oriented x3 Resp Effort & Inspection: normal respiratory effort, no audible wheezes and no cough GI Inspection: distended Palpation: ascites Psych Mental Status: mental status grossly normal Speech and Movement: speech and movement normal Mood: congruent mood Affect: normal affect DS: Data Vitals/I&O Vitals and I&O: Vital Signs Temperature 37.0 C 04/23/23 06:21 Pulse 104 H 04/23/23 06:21 Pulse Rhythm Regular 04/23/23 06:21 Respiratory Rate 18 04/23/23 06:21 Respiratory Depth Deep 04/23/23 06:21 Blood Pressure 124/73 04/23/23 06:21 Pulse Oximetry 97 04/23/23 06:21 Oxygen Delivery Method Room Air 04/23/23 06:21 Oxygen Flow Rate 0 04/23/23 06:21 Pain Level 0 04/23/23 06:21 PFSH All Active Problems Ascites of liver (Acute) Medically noncompliant (Acute) Encounter for hospice care discussion (Acute) Chronic blood loss anemia (Acute) Acute hyponatremia (Acute) Non-ST elevation CT (NSTEMI) (Acute) Anemia (Chronic) Low folate (Acute) Low ferritin (Acute) Edema of lower extremity due to peripheral venous insufficiency (Acute) Splenomegaly (Acute) ST segment depression (Acute) Left-sided chest wall pain (Acute) Elevated troponin (Acute) Chronic hypokalemia (Acute) Portal hypertension with esophageal varices (Acute) Grade I x1 column Portal hypertensive gastropathy (Acute) Hypertension, portal (Acute) Ascites due to alcoholic cirrhosis (Acute) Cirrhosis (Acute) Thrombocytopenia (Chronic) Anemia (Chronic) Ambulatory dysfunction (Acute) ACP (advance care planning) (Acute) Hepatic encephalopathy (Acute) Prolonged QT interval (Acute) Acute hypokalemia (Acute) Hypocalcemia (Acute) Thrombocytopenia (Chronic) Hypomagnesemia (Acute) Anemia (Chronic) Dark stools (Acute) Alcoholic cirrhosis of liver with ascites (Acute) Anemia of chronic disease (Acute) Acute and subacute hepatic failure without coma (Acute) Elevated INR (Acute) Elevated lipase (Acute) Elevated bilirubin (Acute) Hyponatremia (Acute) Moderate (123) with improvement (135) in 6 days with pedialyte, less alcohol and salt intake.. Nasal crusting (Acute) Chronic sinusitis (Acute) Breast pain, left (Acute) Peripheral neuropathy (Acute) Bursal cyst of olecranon (Acute) Alcohol abuse (Chronic) Hypertension (Chronic) Unspecified lump in axillary tail of the left breast (Chronic) Lipoma by US 07/13; recommended repeat in 6 months Migraine (Chronic) Tinnitus (Acute) Psychogenic nonepileptic seizure (Chronic) Benign hypertension (Acute 04/21/12) Fatigue (Acute 02/26/12) History of alcoholism (Acute) Type 2 diabetes mellitus with complication, without long-term current use of insulin (Acute 05/30/16) Personality disorder in adult (Acute) PTSD (post-traumatic stress disorder) (Acute) with paranoia 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 (Acute) ETOH abuse (Chronic) Spells of decreased attentiveness (Acute) Hyperlipidemia (Acute 07/03/12) Hepatitis, alcoholic (Acute 12/07/13) Fatty liver, alcoholic (Acute 05/30/16) Depressive disorder (Chronic 11/03/12) Chronic hip pain (Acute 11/24/14) -2014: / PT and Nsaids/osteoarthritis Anxiety (Chronic) Medical History Acute GI bleeding Lipoma of axilla Diabetes mellitus type 2 in nonobese Prediabetes Hypertension Depression Surgical History H/O endoscopy 03/12/23;[facility] – [place];Nicolas Cruz MD; small esophageal varix-non banded. grade I. there was a diffuse cobblestone appearance to the stomach consistent with portal hypertensive gastropathy.There were no gastric varices.The examined duodenum was normal. History of abdominal paracentesis (~02/2023) Tooth extraction ROOT CANAL Family History Mother Diabetes Sister Depression Other Alcohol abuse Bipolar 1 disorder Dementia Heart disease Schizophrenia Social History Smoking/Tobacco Use Status: Former Tobacco Use Tobacco: How many years used: 4 Smoking risk assessment performed?: Yes Alcohol Intake: current Alcohol Intake frequency: 3 or more drinks per day Alcohol type: beer and other Drug use: Rarely Substance use type: does not use Details: hard iced green teas 0600 04/23/23 Adopted: No Household members: spouse Housing: house Number of Children: 0 Communication Needs: None current occupation: Disabled Do you think of yourself as: straight/heterosexual Current gender identity: male What is your relationship status?: How often do you talk on the phone with friends or family?: three or more times per week How often do you get together with friends or relatives?: twice per week Do you belong to any clubs or organized social groups?: yes Panel score (0-1 are the most socially isolated patients): 3 What type of physical activity do you participate in: walking and weight lifting Frequency: 3-4 times per week Donita/Pentecostalism: Mormonism Seatbelt use: always Drive intox or ride w/intox race car driver: No Working smoke detector in home: Yes Carbon monox detector in home: Yes Do you feel safe at home: Yes Do you feel safe in your relationship?: Yes Additional Social history: . Past GF in 2017 from ovarian cancer. in 2018 to current partner. Time Spent with Patient Time Spent with Patient: <45 minutes Time was spent: preparing to see the patient(eg.review tests), obtaining and/or reviewing separately otained hiistory and counseling the patient
== END 2023-04-23 08:58 | disposition home or self-care (01) ==
PROVIDERS: Physical Therapy Assistant; PCP Family Medicine; Visit Provider Student in an Organized Health Care Education/Training Program
PROC: 0W9G3ZZ Drainage of Peritoneal Cavity, Percutaneous Approach (ICD-10-PCS; CPT 49082; principal; 2023-04-23 07:30)
DX: K70.31 Alcoholic cirrhosis of liver with ascites (principal)
CPT/HCPCS: 49083

== ENCOUNTER 2023-04-26 06:14 | Day surgery (SDC) | payer OTHER, SELFPAY ==
--- NOTE | 2023-04-25 15:28 | W.PM.DSUDISC ---
Date of service: 04/26/23 Time of Service: 08:19 Discharge Plan Disposition Patient Disposition: Home Condition: Poor Discharge Details Reason For Visit: Paracentesis Attending Provider: Nile Marshall Primary Care Provider: David Landaverde Home Meds and New Rx's Prescriptions: Continued (DME) blood sugar diagnostic Strip See Rx Instructions .ROUTE .MEDSUPPLY Qty: 100 3RF Rx Instructions: As directed; Test daily, to keep HbA1c less than 6.5%; Dx: E11.9 potassium chloride 20 mEq tablet extended release 60 meq PO DAILY Qty: 270 3RF Patient Comments: 40mg today (DME) wheelchair See Rx Instructions .Route .MEDSUPPLY Qty: 1 0RF Rx Instructions: As directed lactulose 10 gram/15 mL solution 10 g PO BID Qty: 946 6RF lorazepam [Lorazepam Intensol] 2 mg/mL concentrate 2 mg buccal Q4H PRN (Reason: anxiety) Qty: 30 5RF Hold Instructions: Pt Stopped/Never Started Patient Comments: hasnt taken yet ondansetron 4 mg tablet,disintegrating 4 mg PO Q8H Qty: 90 1RF Rx Instructions: palliative patient transitioning to hospice naloxone [Narcan] 4 mg/actuation spray,non-aerosol 4 mg intranasal Q2M PRN (Reason: opioid overdose) Qty: 2 3RF Hold Instructions: pallative care Patient Comments: spouse states they dont have yet Rx Instructions: spray 1 dose into ONE nostril; alternate nostrils w each dose until help arrives potassium chloride 20 mEq/15 mL liquid 40 meq PO BID Qty: 3000 3RF sucralfate 100 mg/mL suspension 10 ml PO TID Qty: 1000 3RF oxycodone 5 mg/5 mL solution 5 mg PO Q4H MDD 30 mg PRN (Reason: pain) Qty: 200 0RF Patient Comments: reports he is taking 3 ml at time now omeprazole 40 mg capsule,delayed release(DR/EC) 40 mg PO DAILY spironolactone 25 mg tablet 25 mg PO HS Qty: 90 3RF morphine concentrate 100 mg/5 mL (20 mg/mL) solution See Rx Instructions PO Q1H MDD 240 mg PRN (Reason: pain) Qty: 30 0RF Hold Instructions: Home Medication placed on hold at Doctor's office Patient Comments: spouse states they dont have yet Rx Instructions: 0.25-1.0 ml orally every 1 hour PRN; HOSPICE torsemide 10 mg tablet 10 mg PO HS Qty: 90 3RF magnesium citrate 100 mg capsule 100 mg PO BID Qty: 14 0RF sucralfate [Carafate] 1 gram tablet 1 g PO TID Qty: 90 5RF Hold Instructions: Changed by Provider Rx Instructions: Take before meals clonazepam 0.5 mg tablet 0.5 mg PO PRN fluoxetine 20 mg capsule 20 mg PO BID Patient Comments: TAKE 3 CAPSULES BY MOUTH DAILY Discharge Instructions Additional Instructions: Jack, it was nice seeing you again today. We drained 8800 mL of ascites. I am sorry that I do not have a better estimate of how much time you have left before you . I wish I could offer you more comforting advice in that regards. However, the truth is I do not know any better than anybody else. I would encourage you to focus quite a bit on the quality of the time that you have left, and try not to worry so much about the quantity, although I know that is hard advice based on what you are going through. I hope that the transfusion of blood also helps you feel better today. We will plan to see you next week for more paracentesis Activity:: Activity as Tolerated Diet:: As Tolerated DS: Diagnosis Discharge Diagnosis (1) Ascites of liver: Status: Acute
--- NOTE | 2023-04-25 15:30 | OPPNE_ITS ---
Date of service: 04/26/23 Time of Service: 08:21 Procedure Note Date of procedure: 04/26/23 Procedure: Therapeutic paracentesis Surgeon/Proceduralist/Physician: Nile Marshall Procedure Diagnosis: Tense ascites Procedure Indications: Tense ascites from alcoholic cirrhosis with associated dyspnea and abdominal pain Procedure Description: I performed a limited ultrasound of the abdomen to identify appropriate site for paracentesis. Both left and right side had suitable pockets for paracentesis. After discussion with Jack, we agreed that the left side may be more comfortable, and was certainly a reasonable place to approach. I then prepped and draped the abdomen. Next, using ultrasound guidance, I anesthetized the sk in with 1% lidocaine with epinephrine. I used the ultrasound to guide the needle down to the peritoneal level which was also anesthetized. I then made a small incision in the skin with a 11 blade scalpel. Next, I advanced the 5 Vincentian paracentesis needle and catheter through the incision and into the peritoneal cavity under the direct vision of the ultrasound. I aspirated straw- colored ascites. Next, I gently advance the catheter and remove the needle. I affixed drainage tubing, and began draining the ascites with the assistance of Vacutainer's. As the flow decreased, I assisted the patient to the left lateral decubitus position to improve drainage. Once the ascites stopped flowing, I removed the catheter and used a suture and Band-Aid to dress the wound. I also removed the previous suture. In total, we drained 8800 mL of fluid today.
[2023-04-26] VITALS (10 sets, daily range): BP systolic 91–139; BP diastolic 51–84; PULSE 96–109; RESP 16–18; TEMP 36.3–36.8; O2SAT 96–100
[2023-04-26] MEDS: ALBUMIN HUMAN 25 GM/100 ML BTL IVPB (06:35)
[2023-04-26 07:19] LABS: HCT 18.4 % (40.0-50.0); HGB 5.7 g/dL (13.5-17.5)
--- NOTE | 2023-04-26 07:22 | NUR.NOTE ---
Critical lab values came in, hgb: 5.7, hct: 18.4. Values immediately reported to Dr. Marshall.
[2023-04-26 07:31] LABS: ALT 21 U/L (16-63); AST 42 U/L (15-37); Albumin 2.4 g/dL (3.4-5.0); Alkaline Phosphatase 177 U/L (46-116); Anion Gap 7.8 mmol/L (3-11); BUN 8 mg/dL (7-18); Bilirubin, Total 3.9 mg/dL (0.2-1.0); CO2 24.2 mmol/L (21.0-32.0); CREATININE 1.1 mg/dL (0.70-1.30); Calcium 7.3 mg/dL (8.5-10.1); Chloride 96 mmol/L (98-107); Glucose 157 mg/dL (74-106); Magnesium 1.5 mg/dL (1.8-2.4); Potassium 3.5 mmol/L (3.5-5.1); Sodium 128 mmol/L (136-145); Total Protein 5.6 g/dL (6.4-8.2)
== END 2023-04-26 11:05 | disposition home or self-care (01) ==
LOC: SUR 06:14
PROVIDERS: PCP Family Medicine; Visit Provider Surgery
PROC: 0W9G3ZZ Drainage of Peritoneal Cavity, Percutaneous Approach (ICD-10-PCS; CPT 49082; principal; 2023-04-26 07:30)
DX: K70.31 Alcoholic cirrhosis of liver with ascites (principal)
CPT/HCPCS: 49082; 36415; 49083; 80053; 86850; 86900; 86901; 86920; 96365; 96366; 83735; 85014; 85018; P9016; P9047

== ENCOUNTER 2023-04-29 06:13 | Day surgery (SDC) | payer OTHER, SELFPAY ==
--- NOTE | 2023-04-28 12:20 | OPPNE_ITS ---
Date of service: 04/29/23 Time of Service: 08:07 Procedure Note Date of procedure: 04/29/23 Procedure: Paracentesis Surgeon/Proceduralist/Physician: Nile Marshall Procedure Diagnosis: End stage liver disease with alcoholic chirrosis and tense ascites Procedure Indications: tense ascites Procedure Description: I started by performing a limited ultrasound of the abdomen to identify appropriate site for paracentesis. Next, I selected the right lower quadrant as the ideal site for paracentesis. I then prepped and draped the abdomen. Next, using ultrasound guidance, I anesthetized the skin with 1% lidocaine with epinephrine. I used the ultrasound to guide the needle down to the peritoneal level which was also anesthetized. I then made a small incision in the skin with a 11 blade scalpel. Next, I advanced the 5 Korean paracentesis needle and catheter through the incision and into the peritoneal cavity under the direct vision of the ultrasound. Slightly turbid, but straw-colored ascites. Next, I gently advance the catheter and remove the needle. I affixed drainage tubing, and began draining the ascites with the assistance of Vacutainer's. As the flow decreased, I assisted the patient to the right lateral decubitus position to improve drainage. Once the ascites stopped flowing, I removed the catheter and used a suture and a Band-Aid to dress the wound. In total we drained 5600 mL of ascites today. We talked again about the role of lab test today. Based on the fact that he continues to drink alcohol, and is not a candidate for liver transplant, the treatments that we are providing are palliative. In that regard, I would not recommend routine blood work as it will only result in more phlebotomy, decreasing his hemoglobin any further. So long as he feels well, I do not think there is much benefit to routine test. He agreed with this today. Will see how he does this week, and reassess on Saturday if necessary.
--- NOTE | 2023-04-28 12:21 | PDOC.DSDIS_ITS ---
Date of service: 04/29/23 Time of Service: 08:09 Discharge Plan Disposition Patient Disposition: Home Condition: Poor Discharge Details Reason For Visit: Therapuetic paracentesis Attending Provider: Nile Marshall Primary Care Provider: David Landaverde Home Meds and New Rx's Prescriptions: Continued (DME) blood sugar diagnostic Strip See Rx Instructions .ROUTE .MEDSUPPLY Qty: 100 3RF Rx Instructions: As directed; Test daily, to keep HbA1c less than 6.5%; Dx: E11.9 potassium chloride 20 mEq tablet extended release 60 meq PO DAILY Qty: 270 3RF Patient Comments: 40mg today (DME) wheelchair See Rx Instructions .Route .MEDSUPPLY Qty: 1 0RF Rx Instructions: As directed lactulose 10 gram/15 mL solution 10 g PO BID Qty: 946 6RF lorazepam [Lorazepam Intensol] 2 mg/mL concentrate 2 mg buccal Q4H PRN (Reason: anxiety) Qty: 30 5RF Hold Instructions: Pt Stopped/Never Started Patient Comments: hasnt taken yet ondansetron 4 mg tablet,disintegrating 4 mg PO Q8H Qty: 90 1RF Rx Instructions: palliative patient transitioning to hospice naloxone [Narcan] 4 mg/actuation spray,non-aerosol 4 mg intranasal Q2M PRN (Reason: opioid overdose) Qty: 2 3RF Hold Instructions: pallative care Patient Comments: spouse states they dont have yet Rx Instructions: spray 1 dose into ONE nostril; alternate nostrils w each dose until help ar janie potassium chloride 20 mEq/15 mL liquid 40 meq PO BID Qty: 3000 3RF sucralfate 100 mg/mL suspension 10 ml PO TID Qty: 1000 3RF oxycodone 5 mg/5 mL solution 5 mg PO Q4H MDD 30 mg PRN (Reason: pain) Qty: 200 0RF Patient Comments: reports he is taking 3 ml at time now omeprazole 40 mg capsule,delayed release(DR/EC) 40 mg PO DAILY spironolactone 25 mg tablet 25 mg PO HS Qty: 90 3RF morphine concentrate 100 mg/5 mL (20 mg/mL) solution See Rx Instructions PO Q1H MDD 240 mg PRN (Reason: pain) Qty: 30 0RF Hold Instructions: Home Medication placed on hold at Doctor's office Patient Comments: spouse states they dont have yet Rx Instructions: 0.25-1.0 ml orally every 1 hour PRN; HOSPICE torsemide 10 mg tablet 10 mg PO HS Qty: 90 3RF magnesium citrate 100 mg capsule 100 mg PO BID Qty: 14 0RF sucralfate [Carafate] 1 gram tablet 1 g PO TID Qty: 90 5RF Hold Instructions: Changed by Provider Rx Instructions: Take before meals clonazepam 0.5 mg tablet 0.5 mg PO PRN fluoxetine 20 mg capsule 20 mg PO BID Patient Comments: TAKE 3 CAPSULES BY MOUTH DAILY Discharge Instructions Additional Instructions: Jack, it was nice seeing you again today, and I am certainly glad that you feel well today. Hopefully, the paracentesis will help with your abdominal discomfort as well. You pointed out today, that the ascites is a little more turbid. I agree. And while this can be a sign of infection, so long as you are feeling fine, I do not think there is much benefit to routine testing of it. Obviously, if you start to feel ill through the rest of this week, you should notify our office, or Dr. Sapp if you need anything in the meantime, please do not hesitate to call. Otherwise, we will see you later this week. ter or go to the emergency department after hours. I strongly support your efforts to stop drinking. Like we talked about, it is the only chance you have of any kind of therapeutic treatment for your liver disease. So long as you continue to drink alcohol, you will continue to injure and damage your liver which will result in your . I also encourage you to continue to work with the palliative care team, to help refine your goals of treatments. Obviously, none of us want to see you suffer, and streamlining your treatments to make that most congruent with expectations is probably in your best interest. If you need anything in the meantime, please do not hesitate to call, otherwise we will see you later this week. Activity:: Activity as Tolerated Diet:: As Tolerated Discharge Orders Discharge Orders: Discharge Order (Routine); Ordered 04/28/23 Ordered By: Nile Marshall DS: Diagnosis Discharge Diagnosis (1) Ascites of liver: Status: Acute
[2023-04-29 06:25] VITALS: BP 113/73; PULSE 93; RESP 16; TEMP 36.8; O2SAT 100
[2023-04-29] MEDS: ALBUMIN HUMAN 25 GM/100 ML BTL IVPB ×2 (06:39→07:02)
[2023-04-29] MEDS: Normal Saline Flush 10 ML SYR (07:34)
[2023-04-29 08:10] VITALS: BP 103/69; PULSE 88; RESP 16; TEMP 36.5; O2SAT 100
== END 2023-04-29 08:20 | disposition home or self-care (01) ==
LOC: SUR 06:14
PROVIDERS: PCP Family Medicine; Visit Provider Surgery
PROC: 0W9G3ZZ Drainage of Peritoneal Cavity, Percutaneous Approach (ICD-10-PCS; CPT 49082; principal; 2023-04-29 07:30)
DX: K70.31 Alcoholic cirrhosis of liver with ascites (principal); K70.40 Alcoholic hepatic failure without coma
CPT/HCPCS: 49082; 49083; 96365; P9047

== ENCOUNTER 2023-05-03 06:14 | Day surgery (SDC) | payer OTHER, SELFPAY ==
--- NOTE | 2023-05-02 14:01 | W.PM.DSUDISC ---
Date of service: 05/03/23 Time of Service: 08:08 Discharge Plan Disposition Patient Disposition: Home Condition: Good Discharge Details Reason For Visit: Therapuetic paracentesis Attending Provider: Nile Marshall Primary Care Provider: David Landaverde Home Meds and New Rx's Prescriptions: Continued (DME) blood sugar diagnostic Strip See Rx Instructions .ROUTE .MEDSUPPLY Qty: 100 3RF Patient Comments: rarely Rx Instructions: As directed; Test daily, to keep HbA1c less than 6.5%; Dx: E11.9 potassium chloride 20 mEq tablet extended release 60 meq PO DAILY Qty: 270 3RF Patient Comments: 40mg today (DME) wheelchair See Rx Instructions .Route .MEDSUPPLY Qty: 1 0RF Rx Instructions: As directed lactulose 10 gram/15 mL solution 10 g PO BID Qty: 946 6RF lorazepam [Lorazepam Intensol] 2 mg/mL concentrate 2 mg buccal Q4H PRN (Reason: anxiety) Qty: 30 5RF Hold Instructions: Pt Stopped/Never Started Patient Comments: hasnt taken yet ondansetron 4 mg tablet,disintegrating 4 mg PO Q8H Qty: 90 1RF Rx Instructions: palliative patient transitioning to hospice naloxone [Narcan] 4 mg/actuation spray,non-aerosol 4 mg intranasal Q2M PRN (Reason: opioid overdose) Qty: 2 3RF Hold Instructions: pallative care Patient Comments: spouse states they dont have yet Rx Instructions: spray 1 dose into ONE nostril; alternate nostrils w each dose until help arrives potassium chloride 20 mEq/15 mL liquid 40 meq PO BID Qty: 3000 3RF sucralfate 100 mg/mL suspension 10 ml PO TID Qty: 1000 3RF oxycodone 5 mg/5 mL solution 5 mg PO Q4H MDD 30 mg PRN (Reason: pain) Qty: 200 0RF Patient Comments: reports he is taking 3 ml at time now omeprazole 40 mg capsule,delayed release(DR/EC) 40 mg PO DAILY spironolactone 25 mg tablet 25 mg PO HS Qty: 90 3RF morphine concentrate 100 mg/5 mL (20 mg/mL) solution See Rx Instructions PO Q1H MDD 240 mg PRN (Reason: pain) Qty: 30 0RF Hold Instructions: Home Medication placed on hold at Doctor's office Patient Comments: spouse states they dont have yet Rx Instructions: 0.25-1.0 ml orally every 1 hour PRN; HOSPICE torsemide 10 mg tablet 10 mg PO HS Qty: 90 3RF magnesium citrate 100 mg capsule 100 mg PO BID Qty: 14 0RF sucralfate [Carafate] 1 gram tablet 1 g PO TID Qty: 90 5RF Hold Instructions: Changed by Provider Patient Comments: taking liquid now Rx Instructions: Take before meals clonazepam 0.5 mg tablet 0.5 mg PO PRN fluoxetine 20 mg capsule 20 mg PO BID Patient Comments: TAKE 3 CAPSULES BY MOUTH DAILY Discharge Instructions Additional Instructions: Jack, we drained 6500 mL of ascites today. Will also transfuse a unit of packed red blood cells for you. I think arrangements are being made to schedule you for another paracentesis on Saturday. I hope you feel well through the weekend, and like we talked about today, I would strongly encourage you to stop drinking completely, and perhaps attend some meetings if you find that helpful. Activity:: Activity as Tolerated Diet:: As Tolerated Discharge Orders Discharge Orders: Discharge Order (Routine); Ordered 05/02/23 Ordered By: Nile Marshall DS: Diagnosis Discharge Diagnosis (1) Ascites of liver: Status: Acute
--- NOTE | 2023-05-02 14:02 | W.PROCNOTE ---
Date of service: 05/03/23 Time of Service: 08:09 Procedure Note Date of procedure: 05/03/23 Procedure: paracentesis Surgeon/Proceduralist/Physician: Nile Marshall Procedure Diagnosis: tense ascites Procedure Indications: therapuetic paracentesis Procedure Description: I started by performing a limited ultrasound of the abdomen to identify appropriate site for paracentesis. Next, I selected the right lower quadrant as the ideal site for paracentesis. I then prepped and draped the abdomen. Next, using ultrasound guidance, I anesthetized the skin with 1% lidocaine with epinephrine. I used the ultrasound to guide the needle down to the peritoneal level which was also anesthetized. I then made a small incision in the skin with a 11 blade scalpel. Next, I advanced the 5 Estonian paracentesis needle and catheter through the incision and into the peritoneal cavity under the direct vision of the ultrasound. I aspirated straw-colored ascites. Next, I gently advance the catheter and remove the needle. I affixed drainage tubing, and began draining the ascites with the assistance of Vacutainer's. As the flow decreased, I assisted the patient to the right lateral decubitus position to improve drainage. Once the ascites stopped flowing, I removed the catheter and used a suture and Band-Aid to dress the wound. I also removed the suture from his previous paracentesis.
[2023-05-03] VITALS (14 sets, daily range): BP systolic 100–123; BP diastolic 60–75; PULSE 94–104; RESP 16–102; TEMP 36.5–37.2; O2SAT 20–100
[2023-05-03] MEDS: ALBUMIN HUMAN 25 GM/100 ML BTL IVPB ×2 (06:46→07:10)
[2023-05-03 07:03] LABS: Abs Immature Grans 0.04 10^3/uL (0.0-0.06); Absolute Basophil Count 0.03 10^3/uL (0.0-0.2); Absolute Eosinophil Count 0.19 10^3/uL (0.0-0.7); Absolute Lymphocyte Count 0.49 10^3/uL (1.2-3.4); Absolute Monocyte Count 0.62 10^3/uL (0.1-0.8); Absolute Neutrophil Count 2.33 10^3/uL (1.2-6.7); Basophils % 0.8; Eosinophils % 5.1; Immature Grans % 1.1; Lymphocytes % 13.2; MCH 24.6 pg (27.0-33.0); MCHC 31.1 % (32.0-36.0); MCV 79 fL (80-95); MPV 9.9 fL (8.0-11.0); Monocytes % 16.8; Platelet Count 63 10^3/uL (130-400); RBC 2.28 10^6/uL (4.36-5.78); RDW 18.5 % (11.8-14.1); RDW-SD 53.3 fL
[2023-05-03 07:06] LABS: HGB 5.6 g/dL (13.5-17.5)
[2023-05-03 07:29] LABS: Diff Comment Diff Reviewed; Poikilocytes 2+
--- NOTE | 2023-05-03 07:42 | NUR.NOTE ---
Critical hgb: 5.6, hct:18 reported from the lab, information reported to Dr. Rolando aragon -[facility]
== END 2023-05-03 12:23 | disposition home or self-care (01) ==
LOC: SUR 06:14
PROVIDERS: PCP Family Medicine; Visit Provider Surgery
PROC: 0W9G3ZZ Drainage of Peritoneal Cavity, Percutaneous Approach (ICD-10-PCS; CPT 49082; principal; 2023-05-03 07:30)
DX: K70.31 Alcoholic cirrhosis of liver with ascites (principal)
CPT/HCPCS: 49082; 36415; 49083; 86850; 86900; 86901; 86920; 96365; 85025; P9016; P9047

== ENCOUNTER 2023-05-07 06:10 | Day surgery (SDC) | payer OTHER, SELFPAY ==
[2023-05-07 06:27] VITALS: BP 123/79; PULSE 105; RESP 20; TEMP 36.5; O2SAT 99
[2023-05-07] MEDS: Lidocaine 1% Multi-Dose W/EPI 1/100,000 50 ML VIAL (07:50)
[2023-05-07] MEDS: Sodium Bicarbonate 50 MEQ/50 ML VIAL (07:50)
[2023-05-07 08:15] VITALS: BP 118/67; PULSE 95; RESP 16; TEMP 36.4; O2SAT 99
--- NOTE | 2023-05-07 08:17 | ROE_ITS ---
Date of service: 05/07/23 Time of Service: 08:17 Operative Note Operative Note DATE OF PROCEDURE: 05/07/23 PRE-OP DIAGNOSIS: cirrhosis POST-OP DIAGNOSIS: same PROCEDURE: paracentisis SURGEON: Danielle Hernandez ANESTHESIA TYPE: Local By Surgeon Refer to Anesthesia Record ESTIMATED BLOOD LOSS: 1 COMPLICATIONS: None Patient was transported to: same day Patient's condition: stable Procedure Description: Informed consent is obtained, explaining benefits and risks of the procedure including but not limited to: bleeding/infections/damage to bowels or blood ves sels/chronic drainage or leakage/need for repeat procedure/reactions to anesthetics.?? The patient is brought to the procedure room and placed in the supine position.?? A time-out is done.? Ultrasound is used to localize the pocket of fluid.? The area is prepped and draped in the usual sterile fashion using a ChloraPrep scrub solution.? 10 cc's of 1% Lidocaine with epinephrine is used for local anesthetization.? The abdomen is punctured and the catheter is inserted.?6800 liters of light yellow fluid is evacuated today.? The catheter is removed.? Pressure dressing is applied.? The patient tolerated the procedure well without complication and transferred to recovery in stable condition.?
--- NOTE | 2023-05-07 08:19 | W.PM.DSUDISC ---
Date of service: 05/07/23 Time of Service: 08:19 Discharge Plan Disposition Patient Disposition: Home Condition: Good Discharge Details Reason For Visit: fluid removal Attending Provider: Danielle Hernandez Primary Care Provider: David Landaverde Home Meds and New Rx's Prescriptions: No Action (DME) blood sugar diagnostic Strip See Rx Instructions .ROUTE .MEDSUPPLY Qty: 100 3RF Patient Comments: rarely Rx Instructions: As directed; Test daily, to keep HbA1c less than 6.5%; Dx: E11.9 potassium chloride 20 mEq tablet extended release 60 meq PO DAILY Qty: 270 3RF Patient Comments: 40mg today (DME) wheelchair See Rx Instructions .Route .MEDSUPPLY Qty: 1 0RF Rx Instructions: As directed lactulose 10 gram/15 mL solution 10 g PO BID Qty: 946 6RF lorazepam [Lorazepam Intensol] 2 mg/mL concentrate 2 mg buccal Q4H PRN (Reason: anxiety) Qty: 30 5RF Hold Instructions: Pt Stopped/Never Started Patient Comments: hasnt taken yet ondansetron 4 mg tablet,disintegrating 4 mg PO Q8H Qty: 90 1RF Rx Instructions: palliative patient transitioning to hospice naloxone [Narcan] 4 mg/actuation spray,non-aerosol 4 mg intranasal Q2M PRN (Reason: opioid overdose) Qty: 2 3RF Hold Instructions: pallative care Patient Comments: spouse states they dont have yet Rx Instructions: spray 1 dose into ONE nostril; alternate nostrils w each dose until help arrives potassium chloride 20 mEq/15 mL liquid 40 meq PO BID Qty: 3000 3RF sucralfate 100 mg/mL suspension 10 ml PO TID Qty: 1000 3RF oxycodone 5 mg/5 mL solution 5 mg PO Q4H MDD 30 mg PRN (Reason: pain) Qty: 200 0RF Patient Comments: reports he is taking 3 ml at time now omeprazole 40 mg capsule,delayed release(DR/EC) 40 mg PO DAILY spironolactone 25 mg tablet 25 mg PO HS Qty: 90 3RF morphine concentrate 100 mg/5 mL (20 mg/mL) solution See Rx Instructions PO Q1H MDD 240 mg PRN (Reason: pain) Qty: 30 0RF Hold Instructions: Home Medication placed on hold at Doctor's office Patient Comments: spouse states they dont have yet Rx Instructions: 0.25-1.0 ml orally every 1 hour PRN; HOSPICE torsemide 10 mg tablet 10 mg PO HS Qty: 90 3RF magnesium citrate 100 mg capsule 100 mg PO BID Qty: 14 0RF sucralfate [Carafate] 1 gram tablet 1 g PO TID Qty: 90 5RF Hold Instructions: Changed by Provider Patient Comments: taking liquid now Rx Instructions: Take before meals clonazepam 0.5 mg tablet 0.5 mg PO PRN fluoxetine 20 mg capsule 20 mg PO BID Patient Comments: TAKE 3 CAPSULES BY MOUTH DAILY Discharge Instructions Stand Alone Forms: [place] (DSU) Activity:: Activity as Tolerated Remove Dressings/Wound Care:: 24 hours Shower/Bathe:: 24 hours Diet:: As Tolerated Discharge Orders Discharge Orders: Discharge Order (Routine); Ordered 05/07/23 Ordered By: Danielle Hernandez DS: Diagnosis Discharge Diagnosis (1) 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
== END 2023-05-07 08:35 | disposition home or self-care (01) ==
PROVIDERS: PCP Family Medicine; Visit Provider Surgery
PROC: 0W9G3ZZ Drainage of Peritoneal Cavity, Percutaneous Approach (ICD-10-PCS; CPT 49082; principal; 2023-05-07 07:30)
DX: K70.31 Alcoholic cirrhosis of liver with ascites (principal)
CPT/HCPCS: 49083; J2004

== ENCOUNTER 2023-05-08 04:13 | Outpatient (CLI) | payer OTHER, SELFPAY ==
[2023-05-08 14:02] LABS: Anion Gap 11.6 mmol/L (3-11); BUN 7 mg/dL (7-18); CO2 23.4 mmol/L (21.0-32.0); CREATININE 1.2 mg/dL (0.70-1.30); Calcium 7.4 mg/dL (8.5-10.1); Chloride 98 mmol/L (98-107); Estimated GFR 70.53 (mL/min/1.73m2); Glucose 183 mg/dL (74-106); Potassium 3.5 mmol/L (3.5-5.1); Sodium 133 mmol/L (136-145)
== END 2023-05-08 04:14 | disposition home or self-care (01) ==
LOC: LBO 04:13
PROVIDERS: Absent Provider Family Medicine; PCP Family Medicine; Referring Provider Family Medicine; Visit Provider Family Medicine
DX: D64.9 Anemia, unspecified (principal); R53.83 Other fatigue; R18.8 Other ascites
CPT/HCPCS: 36415; 80048; 85025

== ENCOUNTER 2023-05-10 06:10 | Day surgery (SDC) | payer OTHER, SELFPAY ==
--- NOTE | 2023-05-09 16:43 | W.PM.DSUDISC ---
Date of service: 05/10/23 Time of Service: 08:18 Discharge Plan Disposition Patient Disposition: Home Condition: Deteriorating Discharge Details Reason For Visit: Paracentesis Attending Provider: Nile Marshall Primary Care Provider: David Landaverde Home Meds and New Rx's Prescriptions: Continued (DME) blood sugar diagnostic Strip See Rx Instructions .ROUTE .MEDSUPPLY Qty: 100 3RF Patient Comments: rarely Rx Instructions: As directed; Test daily, to keep HbA1c less than 6.5%; Dx: E11.9 potassium chloride 20 mEq tablet extended release 60 meq PO DAILY Qty: 270 3RF Patient Comments: 40mg today (DME) wheelchair See Rx Instructions .Route .MEDSUPPLY Qty: 1 0RF Rx Instructions: As directed lactulose 10 gram/15 mL solution 10 g PO BID Qty: 946 6RF lorazepam [Lorazepam Intensol] 2 mg/mL concentrate 2 mg buccal Q4H PRN (Reason: anxiety) Qty: 30 5RF Hold Instructions: Pt Stopped/Never Started Patient Comments: hasnt taken yet naloxone [Narcan] 4 mg/actuation spray,non-aerosol 4 mg intranasal Q2M PRN (Reason: opioid overdose) Qty: 2 3RF Hold Instructions: pallative care Patient Comments: spouse states they dont have yet Rx Instructions: spray 1 dose into ONE nostril; alternate nostrils w each dose until help arrives potassium chloride 20 mEq/15 mL liquid 40 meq PO BID Qty: 3000 3RF sucralfate 100 mg/mL suspension 10 ml PO TID Qty: 1000 3RF oxycodone 5 mg/5 mL solution 5 mg PO Q4H MDD 30 mg PRN (Reason: pain) Qty: 250 0RF Patient Comments: reports he is taking 3 ml at time now clonazepam 0.5 mg tablet,disintegrating 0.5 mg PO DAILY Qty: 56 0RF midodrine 5 mg tablet 5 mg PO TID Qty: 30 0RF Rx Instructions: do not give last dose of day after 6PM or within 4 hrs of bedtime ondansetron 8 mg tablet,disintegrating 8 mg PO Q8H PRN (Reason: nausea and vomiting) Qty: 60 0RF omeprazole 40 mg capsule,delayed release(DR/EC) 40 mg PO DAILY Qty: 90 3RF spironolactone 25 mg tablet 25 mg PO HS Qty: 90 3RF morphine concentrate 100 mg/5 mL (20 mg/mL) solution See Rx Instructions PO Q1H MDD 240 mg PRN (Reason: pain) Qty: 30 0RF Hold Instructions: Changed by Provider Patient Comments: spouse states they dont have yet Rx Instructions: 0.25-1.0 ml orally every 1 hour PRN; HOSPICE torsemide 10 mg tablet 10 mg PO HS Qty: 90 3RF magnesium citrate 100 mg capsule 100 mg PO BID Qty: 14 0RF sucralfate [Carafate] 1 gram tablet 1 g PO TID Qty: 90 5RF Hold Instructions: Changed by Provider Patient Comments: taking liquid now Rx Instructions: Take before meals fluoxetine 20 mg capsule 20 mg PO BID Patient Comments: TAKE 3 CAPSULES BY MOUTH DAILY Discharge Instructions Additional Instructions: Jack, you did great today, and hopefully the paracentesis was pretty comfortable. Will plan to see you again next week for your next drainage. Activity:: Activity as Tolerated Diet:: As Tolerated Discharge Orders Discharge Orders: Discharge Order (Routine); Ordered 05/09/23 Ordered By: Nile Marshall DS: Diagnosis Discharge Diagnosis (1) Ascites of liver: Status: Acute
--- NOTE | 2023-05-09 16:45 | W.PROCNOTE ---
Date of service: 05/10/23 Time of Service: 08:19 Procedure Note Date of procedure: 05/10/23 Procedure: Paracentesis Surgeon/Proceduralist/Physician: Nile Marshall Procedure Diagnosis: Tense ascites Procedure Indications: Therapeutic paracentesis Procedure Description: I started by performing a limited ultrasound of the abdomen to identify appropriate site for paracentesis. Next, I selected the right lower quadrant as the ideal site for paracentesis. I then prepped and draped the abdomen. Next, using ultrasound guidance, I anesthetized the skin with 1% lidocaine with epinephrine. I used the ultrasound to guide the needle down to the peritoneal level which was also anesthetized. I then made a small incision in the skin with a 11 blade scalpel. Next, I advanced the 5 Georgian paracentesis needle and catheter through the incision and into the peritoneal cavity under the direct vision of the ultrasound. We aspirated straw-colored ascites. Next, I gently advance the catheter and remove the needle. I affixed drainage tubing, and began draining the ascites with the assistance of Vacutainer's. During drainage, [place] shifted into the right lateral decubitus position to improve drainage. Once the flow stopped, I removed the catheter and closed the skin with a [id number] Prolene suture. A Band-Aid was applied. I removed the previous suture from the left lower quadrant.
[2023-05-10 06:15] VITALS: BP 134/84; PULSE 101; RESP 20; TEMP 36.4; O2SAT 100
[2023-05-10 08:10] VITALS: BP 117/74; PULSE 92; RESP 20; TEMP 36.4; O2SAT 100
== END 2023-05-10 08:35 | disposition home or self-care (01) ==
LOC: SUR 06:10
PROVIDERS: PCP Family Medicine; Visit Provider Surgery
PROC: 0W9G3ZZ Drainage of Peritoneal Cavity, Percutaneous Approach (ICD-10-PCS; CPT 49082; principal; 2023-05-10 07:30)
DX: K70.31 Alcoholic cirrhosis of liver with ascites (principal)
CPT/HCPCS: 49082; 49083

== ENCOUNTER 2023-05-14 06:25 | Day surgery (SDC) | payer OTHER, SELFPAY ==
[2023-05-14 06:34] VITALS: BP 122/76; PULSE 94; RESP 17; TEMP 36.4; O2SAT 100
[2023-05-14] MEDS: Lidocaine 1% Multi-Dose W/EPI 1/100,000 50 ML VIAL (07:53)
--- NOTE | 2023-05-14 08:19 | W.PM.OP ---
Date of service: 05/14/23 Time of Service: 08:19 Operative Note Operative Note DATE OF PROCEDURE: 05/29/23 PRE-OP DIAGNOSIS: cirrhosis w/ ascites POST-OP DIAGNOSIS: same PROCEDURE: paracentisis SURGEON: Danielle Hernandez ANESTHESIA TYPE: Local By Surgeon Refer to Anesthesia Record ESTIMATED BLOOD LOSS: 1 PATHOLOGY: none sent COMPLICATIONS: None Patient was transported to: same day Patient's condition: stable Procedure Description: Informed consent is obtained, explaining benefits and risks of the procedure including but not limited to: bleeding/infections/damage to bowels or blood vessels/chronic drainage or leakage/need for repeat procedure/reactions to anesthetics.?? The patient is brought to the procedure room and placed in the supine position.?? A time-out is done.? Ultrasound is used to localize the pocket of fluid.? The area is prepped and draped in the usual sterile fashion using a ChloraPrep scrub solution.? 10 cc's of 1% Lidocaine with epinephrine is used for local anesthetization.? The abdomen is punctured and the catheter is inserted.?7300 liters of light yellow fluid is evacuated today.? The catheter is removed.? Pressure dressing is applied.? The patient tolerated the procedure well without complication and transferred to recovery in stable condition.?
[2023-05-14 08:20] VITALS: BP 114/63; PULSE 86; RESP 18; TEMP 36.5; O2SAT 100
--- NOTE | 2023-05-14 08:22 | W.PM.DSUDISC ---
Date of service: 05/14/23 Time of Service: 08:22 Discharge Plan Disposition Patient Disposition: Home Condition: Good Discharge Details Reason For Visit: removal fluid from abdomen Attending Provider: Danielle Hernandez Primary Care Provider: David Landaverde Home Meds and New Rx's Prescriptions: No Action (DME) blood sugar diagnostic Strip See Rx Instructions .ROUTE .MEDSUPPLY Qty: 100 3RF Patient Comments: rarely Rx Instructions: As directed; Test daily, to keep HbA1c less than 6.5%; Dx: E11.9 potassium chloride 20 mEq tablet extended release 60 meq PO DAILY Qty: 270 3RF Patient Comments: 40mg today (DME) wheelchair See Rx Instructions .Route .MEDSUPPLY Qty: 1 0RF Rx Instructions: As directed lactulose 10 gram/15 mL solution 10 g PO BID Qty: 946 6RF lorazepam [Lorazepam Intensol] 2 mg/mL concentrate 2 mg buccal Q4H PRN (Reason: anxiety) Qty: 30 5RF Hold Instructions: Pt Stopped/Never Started Patient Comments: hasnt taken yet naloxone [Narcan] 4 mg/actuation spray,non-aerosol 4 mg intranasal Q2M PRN (Reason: opioid overdose) Qty: 2 3RF Hold Instructions: pallative care Patient Comments: spouse states they dont have yet Rx Instructions: spray 1 dose into ONE nostril; alternate nostrils w each dose until help arrives potassium chloride 20 mEq/15 mL liquid 40 meq PO BID Qty: 3000 3RF sucralfate 100 mg/mL suspension 10 ml PO TID Qty: 1000 3RF oxycodone 5 mg/5 mL solution 5 mg PO Q4H MDD 30 mg PRN (Reason: pain) Qty: 250 0RF Patient Comments: reports he is taking 3 ml at time now clonazepam 0.5 mg tablet,disintegrating 0.5 mg PO DAILY Qty: 56 0RF midodrine 5 mg tablet 5 mg PO TID Qty: 30 0RF Patient Comments: 05/14/23 Pt Hasn't started Rx Instructions: do not give last dose of day after 6PM or within 4 hrs of bedtime ondansetron 8 mg tablet,disintegrating 8 mg PO Q8H PRN (Reason: nausea and vomiting) Qty: 60 0RF omeprazole 40 mg capsule,delayed release(DR/EC) 40 mg PO DAILY Qty: 90 3RF morphine concentrate 100 mg/5 mL (20 mg/mL) solution See Rx Instructions PO Q1H MDD 240 mg PRN (Reason: pain) Qty: 30 0RF Hold Instructions: Changed by Provider Patient Comments: spouse states they dont have yet Rx Instructions: 0.25-1.0 ml orally every 1 hour PRN; HOSPICE magnesium citrate 100 mg capsule 100 mg PO BID Qty: 14 0RF torsemide 10 mg tablet 10 mg PO BID spironolactone 25 mg tablet 25 mg PO DAILY sucralfate [Carafate] 1 gram tablet 1 g PO TID Qty: 90 5RF Hold Instructions: Changed by Provider Patient Comments: taking liquid now Rx Instructions: Take before meals fluoxetine 20 mg capsule 20 mg PO BID Patient Comments: TAKE 3 CAPSULES BY MOUTH DAILY Discharge Instructions Activity:: Activity as Tolerated Remove Dressings/Wound Care:: 24 hours Shower/Bathe:: 24 hours Diet:: As Tolerated Discharge Orders Discharge Orders: Discharge Order (Routine); Ordered 05/13/23 Ordered By: Danielle Hernandez DS: Diagnosis Discharge Diagnosis (1) History of alcoholism: Status: Acute (2) Psychogenic nonepileptic seizure: Status: Chronic (3) Benign hypertension: Status: Acute (4) Hyperlipidemia: Status: Acute (5) 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: Status: Acute (6) Elevated INR: Status: Acute (7) Type 2 diabetes mellitus with complication, without long-term current use of insulin: Status: Acute (8) Portal hypertension with esophageal varices: Status: Acute (9) Portal hypertensive gastropathy: Status: Acute (10) Fatty liver, alcoholic: Status: Acute (11) Hypertension, portal: Status: Acute (12) Hepatic encephalopathy: Status: Acute (13) Splenomegaly: Status: Acute
== END 2023-05-14 08:45 | disposition home or self-care (01) ==
PROVIDERS: PCP Family Medicine; Visit Provider Surgery
PROC: 0W9G3ZZ Drainage of Peritoneal Cavity, Percutaneous Approach (ICD-10-PCS; CPT 49082; principal; 2023-05-14 07:30)
DX: F10.21 Alcohol dependence, in remission (principal); I10 Essential (primary) hypertension; E78.5 Hyperlipidemia, unspecified; K70.0 Alcoholic fatty liver; K31.89 Other diseases of stomach and duodenum; K76.82 Hepatic encephalopathy; R16.1 Splenomegaly, not elsewhere classified; K70.31 Alcoholic cirrhosis of liver with ascites
CPT/HCPCS: 49083; J2004

== ENCOUNTER 2023-05-17 10:47 | Day surgery (SDC) | payer OTHER, SELFPAY ==
[2023-05-17 10:50] VITALS: BP 133/75; PULSE 104; RESP 16; TEMP 36.5; O2SAT 98
[2023-05-17] MEDS: Lidocaine 1% Multi-Dose W/EPI 1/100,000 50 ML VIAL (11:30)
--- NOTE | 2023-05-17 11:33 | W.PM.OP ---
Date of service: 05/17/23 Time of Service: 11:53 Operative Note Operative Note DATE OF PROCEDURE: 05/17/23 PRE-OP DIAGNOSIS: cirrhosis w/ ascites secondary to ongoing etoh abuse POST-OP DIAGNOSIS: same PROCEDURE: paracentisis SURGEON: Danielle Hernandez ANESTHESIA TYPE: Local By Surgeon Refer to Anesthesia Record ESTIMATED BLOOD LOSS: 1 PATHOLOGY: none sent COMPLICATIONS: None Patient was transported to: same day Patient's condition: stable Procedure Description: Informed consent is obtained, explaining benefits and risks of the procedure including but not limited to: bleeding/infections/damage to bowels or blood vessels/chronic drainage or leakage/need for repeat procedure/reactions to anesthetics.?? The patient is brought to the procedure room and placed in the supine position.?? A time-out is done.? Ultrasound is used to localize the pocket of fluid.? The area is prepped and draped in the usual sterile fashion using a ChloraPrep scrub solution.? 10 cc's of 1% Lidocaine with epinephrine is used for local anesthetization.? The abdomen is punctured and the catheter is inserted.?4.5 liters of light yellow fluid is evacuated today.? The catheter is removed.? Pressure dressing is applied.? The patient tolerated the procedure well without complication and transferred to recovery in stable condition.?
[2023-05-17 11:50] VITALS: BP 120/70; PULSE 100; RESP 20; TEMP 36.6; O2SAT 99
--- NOTE | 2023-05-17 11:57 | W.PM.DSUDISC ---
Date of service: 05/17/23 Time of Service: 11:57 Discharge Plan Disposition Patient Disposition: Home Condition: Poor Discharge Details Reason For Visit: paracentisis Attending Provider: Danielle Hernandez Primary Care Provider: David Landaverde Home Meds and New Rx's Prescriptions: No Action (DME) blood sugar diagnostic Strip See Rx Instructions .ROUTE .MEDSUPPLY Qty: 100 3RF Patient Comments: rarely Rx Instructions: As directed; Test daily, to keep HbA1c less than 6.5%; Dx: E11.9 potassium chloride 20 mEq tablet extended release 60 meq PO DAILY Qty: 270 3RF Patient Comments: 40mg today (DME) wheelchair See Rx Instructions .Route .MEDSUPPLY Qty: 1 0RF Rx Instructions: As directed lactulose 10 gram/15 mL solution 10 g PO BID Qty: 946 6RF lorazepam [Lorazepam Intensol] 2 mg/mL concentrate 2 mg buccal Q4H PRN (Reason: anxiety) Qty: 30 5RF Hold Instructions: Pt Stopped/Never Started Patient Comments: hasnt taken yet naloxone [Narcan] 4 mg/actuation spray,non-aerosol 4 mg intranasal Q2M PRN (Reason: opioid overdose) Qty: 2 3RF Hold Instructions: pallative care Patient Comments: spouse states they dont have yet Rx Instructions: spray 1 dose into ONE nostril; alternate nostrils w each dose until help arrives potassium chloride 20 mEq/15 mL liquid 40 meq PO BID Qty: 3000 3RF sucralfate 100 mg/mL suspension 10 ml PO TID Qty: 1000 3RF olanzapine 5 mg tablet 5 mg PO QHS Qty: 14 0RF Hold Instructions: Pt Stopped/Never Started oxycodone 5 mg/5 mL solution 5 mg PO Q4H MDD 30 mg PRN (Reason: pain) Qty: 250 0RF Patient Comments: reports he is taking 3 ml at time now clonazepam 0.5 mg tablet,disintegrating 0.5 mg PO DAILY Qty: 56 0RF midodrine 5 mg tablet 5 mg PO TID Qty: 30 0RF Hold Instructions: Pt Stopped/Never Started Patient Comments: 05/14/23 Pt Hasn't started Rx Instructions: do not give last dose of day after 6PM or within 4 hrs of bedtime ondansetron 8 mg tablet,disintegrating 8 mg PO Q8H PRN (Reason: nausea and vomiting) Qty: 60 0RF omeprazole 40 mg capsule,delayed release(DR/EC) 40 mg PO DAILY Qty: 90 3RF morphine concentrate 100 mg/5 mL (20 mg/mL) solution See Rx Instructions PO Q1H MDD 240 mg PRN (Reason: pain) Qty: 30 0RF Hold Instructions: Changed by Provider Patient Comments: spouse states they dont have yet Rx Instructions: 0.25-1.0 ml orally every 1 hour PRN; HOSPICE magnesium citrate 100 mg capsule 100 mg PO BID Qty: 14 0RF torsemide 10 mg tablet 10 mg PO BID spironolactone 25 mg tablet 25 mg PO DAILY sucralfate [Carafate] 1 gram tablet 1 g PO TID Qty: 90 5RF Hold Instructions: Changed by Provider Patient Comments: taking liquid now Rx Instructions: Take before meals fluoxetine 20 mg capsule 20 mg PO BID Patient Comments: TAKE 3 CAPSULES BY MOUTH DAILY Discharge Instructions Activity:: Activity as Tolerated Remove Dressings/Wound Care:: 24 hours Shower/Bathe:: 24 hours Diet:: high protein Discharge Orders Discharge Orders: Discharge Order (Routine); Ordered 05/17/23 Ordered By: Danielle Hernandez DS: Diagnosis Discharge Diagnosis (1) Medically noncompliant: Status: Acute (2) Anxiety: Status: Chronic (3) PTSD (post-traumatic stress disorder): Status: Acute (4) Personality disorder in adult: Status: Acute (5) ETOH abuse: Status: Chronic (6) 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: Status: Acute (7) Elevated INR: Status: Acute (8) Type 2 diabetes mellitus with complication, without long-term current use of insulin: Status: Acute (9) Low folate: Status: Acute (10) Portal hypertension with esophageal varices: Status: Acute (11) Portal hypertensive gastropathy: Status: Acute (12) Cirrhosis: Status: Acute (13) Hypertension, portal: Status: Acute (14) Alcoholic cirrhosis of liver with ascites: Status: Acute (15) Anemia of chronic disease: Status: Acute (16) Diabetes mellitus type 2 in nonobese: (17) Hypertension: (18) Peripheral neuropathy: Status: Acute (19) Ambulatory dysfunction: Status: Acute (20) Deficit in activities of daily living (ADL): Status: Acute (21) Spells of decreased attentiveness: Status: Acute (22) Fatigue: Status: Acute (23) Low ferritin: Status: Acute (24) Protein-calorie malnutrition, mild: Status: Acute
== END 2023-05-17 12:14 | disposition home or self-care (01) ==
PROVIDERS: PCP Family Medicine; Visit Provider Surgery
PROC: 0W9G3ZZ Drainage of Peritoneal Cavity, Percutaneous Approach (ICD-10-PCS; CPT 49082; principal; 2023-05-17 13:15)
DX: K70.31 Alcoholic cirrhosis of liver with ascites (principal); F10.10 Alcohol abuse, uncomplicated; Z91.199 Patient's noncompliance with other medical treatment and regimen due to unspecified reason
CPT/HCPCS: 49083; J2004

== ENCOUNTER 2023-05-21 09:10 | Day surgery (SDC) | payer OTHER, SELFPAY ==
--- NOTE | 2023-05-20 12:53 | PDOC.DSDIS_ITS ---
Date of service: 05/21/23 Time of Service: 10:05 Discharge Plan Disposition Patient Disposition: Home Condition: Good Discharge Details Reason For Visit: fluid removal Attending Provider: Danielle Hernandez Primary Care Provider: David Landaverde [place] Meds and New Rx's Prescriptions: No Action (DME) blood sugar diagnostic Strip See Rx Instructions .ROUTE .MEDSUPPLY Qty: 100 3RF Patient Comments: rarely Rx Instructions: As directed; Test daily, to keep HbA1c less than 6.5%; Dx: E11.9 potassium chloride 20 mEq tablet extended release 60 meq PO DAILY Qty: 270 3RF Patient Comments: 40mg today (DME) wheelchair See Rx Instructions .Route .MEDSUPPLY Qty: 1 0RF Rx Instructions: As directed lactulose 10 gram/15 mL solution 10 g PO BID Qty: 946 6RF lorazepam [Lorazepam Intensol] 2 mg/mL concentrate 2 mg buccal Q4H PRN (Reason: anxiety) Qty: 30 5RF Hold Instructions: Pt Stopped/Never Started Patient Comments: hasnt taken yet naloxone [Narcan] 4 mg/actuation spray,non-aerosol 4 mg intranasal Q2M PRN (Reason: opioid overdose) Qty: 2 3RF Hold Instructions: pallative care Patient Comments: spouse states they dont have yet Rx Instructions: spray 1 dose into ONE nostril; alternate nostrils w each dose until help arrives potassium chloride 20 mEq/15 mL liquid 40 meq PO BID Qty: 3000 3RF sucralfate 100 mg/mL suspension 10 ml PO TID Qty: 1000 3RF olanzapine 5 mg tablet 5 mg PO QHS Qty: 14 0RF Hold Instructions: Pt Stopped/Never Started oxycodone 5 mg/5 mL solution 5 mg PO Q4H MDD 30 mg PRN (Reason: pain) Qty: 250 0RF Patient Comments: reports he is taking 3 ml at time now clonazepam 0.5 mg tablet,disintegrating 0.5 mg PO DAILY Qty: 56 0RF midodrine 5 mg tablet 5 mg PO TID Qty: 30 0RF Hold Instructions: Pt Stopped/Never Started Patient Comments: 05/14/23 Pt Hasn't started Rx Instructions: do not give last dose of day after 6PM or within 4 hrs of bedtime ondansetron 8 mg tablet,disintegrating 8 mg PO Q8H PRN (Reason: nausea and vomiting) Qty: 60 0RF omeprazole 40 mg capsule,delayed release(DR/EC) 40 mg PO DAILY Qty: 90 3RF morphine concentrate 100 mg/5 mL (20 mg/mL) solution See Rx Instructions PO Q1H MDD 240 mg PRN (Reason: pain) Qty: 30 0RF Hold Instructions: Changed by Provider Patient Comments: spouse states they dont have yet Rx Instructions: 0.25-1.0 ml orally every 1 hour PRN; HOSPICE amoxicillin-pot clavulanate 875-125 mg tablet 1 tab PO BID 5 Days Qty: 10 0RF magnesium citrate 100 mg capsule 100 mg PO BID Qty: 14 0RF torsemide 10 mg tablet 10 mg PO BID spironolactone 25 mg tablet 25 mg PO DAILY sucralfate [Carafate] 1 gram tablet 1 g PO TID Qty: 90 5RF Hold Instructions: Changed by Provider Patient Comments: taking liquid now Rx Instructions: Take before meals fluoxetine 20 mg capsule 20 mg PO BID Patient Comments: TAKE 3 CAPSULES BY MOUTH DAILY Discharge Instructions Activity:: Activity as Tolerated Remove Dressings/Wound Care:: 24 hours Shower/Bathe:: 24 hours Diet:: high protein Discharge Orders Discharge Orders: Discharge Order (Routine); Ordered 05/21/23 Ordered By: Danielle Hernandez DS: Diagnosis Discharge Diagnosis (1) Medically noncompliant: Status: Acute (2) Anxiety: Status: Chronic (3) Depressive disorder: Status: Chronic (4) Personality disorder in adult: Status: Acute (5) ETOH abuse: Status: Chronic (6) History of alcoholism: Status: Acute (7) Alcohol abuse: Status: Chronic (8) Benign hypertension: Status: Acute (9) Hypertension: Status: Chronic (10) Elevated troponin: Status: Acute (11) Non-ST elevation UT (NSTEMI): Status: Acute (12) Prolonged QT interval: Status: Acute (13) ST segment depression: Status: Acute (14) Edema of lower extremity due to peripheral venous insufficiency: Status: Acute (15) Hyperlipidemia: Status: Acute (16) 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: Status: Acute (17) Elevated INR: Status: Acute (18) Thrombocytopenia: Status: Chronic (19) Type 2 diabetes mellitus with complication, without long-term current use of insulin: Status: Acute (20) Protein-calorie malnutrition, mild: Status: Acute (21) Hyponatremia: Status: Acute (22) Low folate: Status: Acute (23) Portal hypertension with esophageal varices: Status: Acute (24) Portal hypertensive gastropathy: Status: Acute (25) Nausea: Status: Acute (26) Fatty liver, alcoholic: Status: Acute (27) Ascites of liver: Status: Acute Asessment and Plan: . (28) Hypertension, portal: Status: Acute (29) Hepatic encephalopathy: Status: Acute (30) Alcoholic cirrhosis of liver with ascites: Status: Acute (31) End stage liver disease: Status: Acute (32) Elevated lipase: Status: Acute (33) Elevated bilirubin: Status: Acute (34) Ascites due to alcoholic cirrhosis: Status: Acute (35) Splenomegaly: Status: Acute (36) Anemia of chronic disease: Status: Acute (37) Peripheral neuropathy: Status: Acute
--- NOTE | 2023-05-20 21:07 | W.PM.OP ---
Date of service: 05/21/23 Time of Service: 10:18 Operative Note Operative Note DATE OF PROCEDURE: 05/21/23 PRE-OP DIAGNOSIS: alcoholic liver dx w/ ascites POST-OP DIAGNOSIS: same PROCEDURE: paracentisis SURGEON: Danielle Hernandez ANESTHESIA TYPE: Local By Surgeon Refer to Anesthesia Record ESTIMATED BLOOD LOSS: 1 PATHOLOGY: none sent COMPLICATIONS: None Patient was transported to: same day Patient's condition: critical Procedure Description: Informed consent is obtained, explaining benefits and risks of the procedure including but not limited to: bleeding/infections/damage to bowels or blood vessels/chronic drainage or leakage/need for repeat procedure/reactions to anesthetics.?? The patient is brought to the procedure room and placed in the supine position.?? A time-out is done.? Ultrasound is used to localize the pocket of fluid.? The area is prepped and draped in the usual sterile fashion using a ChloraPrep scrub solution.? 10 cc's of 1% Lidocaine with epinephrine is used for local anesthetization.? The abdomen is punctured and the catheter is inserted.?3800cc of light yellow fluid is evacuated today.? The catheter is removed.? Pressure dressing is applied.? The patient tolerated the procedure well without complication and transferred to recovery in stable condition.?
[2023-05-21 09:34] VITALS: BP 124/80; PULSE 92; RESP 20; TEMP 36.4; O2SAT 97
[2023-05-21] MEDS: Sodium Bicarbonate 50 MEQ/50 ML VIAL (09:59)
[2023-05-21] MEDS: Lidocaine 1% Multi-Dose W/EPI 1/100,000 50 ML VIAL (09:59)
[2023-05-21 10:24] VITALS: BP 108/69; PULSE 95; RESP 18; TEMP 36.6; O2SAT 100
== END 2023-05-21 10:40 | disposition home or self-care (01) ==
PROVIDERS: PCP Family Medicine; Visit Provider Surgery
PROC: 0W9G3ZZ Drainage of Peritoneal Cavity, Percutaneous Approach (ICD-10-PCS; CPT 49082; principal; 2023-05-21 10:00)
DX: Z91.199 Patient's noncompliance with other medical treatment and regimen due to unspecified reason (principal); K70.31 Alcoholic cirrhosis of liver with ascites; F10.10 Alcohol abuse, uncomplicated
CPT/HCPCS: 49083; J2004

== ENCOUNTER 2023-05-24 10:18 | Day surgery (SDC) | payer OTHER, SELFPAY ==
--- NOTE | 2023-05-23 18:34 | W.PROCNOTE ---
Date of service: 05/24/23 Procedure Note Date of procedure: 05/24/23 Procedure: Paracentesis Surgeon/Proceduralist/Physician: Nile Marshall Procedure Diagnosis: Tense ascites
[2023-05-24 10:51] VITALS: BP 117/73; PULSE 95; RESP 17; TEMP 36.5; O2SAT 100
--- NOTE | 2023-05-24 13:57 | W.PM.DSUDISC ---
Date of service: 05/24/23 Time of Service: 13:57 Discharge Plan Disposition Patient Disposition: Home Discharge Details Reason For Visit: Paracentesis Attending Provider: Nile Marshall Primary Care Provider: David Landaverde Home Meds and New Rx's Prescriptions: Continued (DME) blood sugar diagnostic Strip See Rx Instructions .ROUTE .MEDSUPPLY Qty: 100 3RF Patient Comments: rarely Rx Instructions: As directed; Test daily, to keep HbA1c less than 6.5%; Dx: E11.9 potassium chloride 20 mEq tablet extended release 60 meq PO DAILY Qty: 270 3RF Patient Comments: 40mg today (DME) wheelchair See Rx Instructions .Route .MEDSUPPLY Qty: 1 0RF Rx Instructions: As directed lorazepam [Lorazepam Intensol] 2 mg/mL concentrate 2 mg buccal Q4H PRN (Reason: anxiety) Qty: 30 5RF Hold Instructions: Pt Stopped/Never Started Patient Comments: hasnt taken yet naloxone [Narcan] 4 mg/actuation spray,non-aerosol 4 mg intranasal Q2M PRN (Reason: opioid overdose) Qty: 2 3RF Hold Instructions: pallative care Patient Comments: spouse states they dont have yet Rx Instructions: spray 1 dose into ONE nostril; alternate nostrils w each dose until help arrives potassium chloride 20 mEq/15 mL liquid 40 meq PO BID Qty: 3000 3RF sucralfate 100 mg/mL suspension 10 ml PO TID Qty: 1000 3RF olanzapine 5 mg tablet 5 mg PO QHS Qty: 14 0RF Hold Instructions: Pt Stopped/Never Started lactulose 10 gram/15 mL solution 10 g PO TID-QID oxycodone 5 mg/5 mL solution 5 mg PO Q4H MDD 30 mg PRN (Reason: pain) Qty: 250 0RF Patient Comments: reports he is taking 3 ml at time now clonazepam 0.5 mg tablet,disintegrating 0.5 mg PO DAILY Qty: 56 0RF midodrine 5 mg tablet 5 mg PO TID Qty: 30 0RF Hold Instructions: Pt Stopped/Never Started Patient Comments: 05/14/23 Pt Hasn't started Rx Instructions: do not give last dose of day after 6PM or within 4 hrs of bedtime ondansetron 8 mg tablet,disintegrating 8 mg PO Q8H PRN (Reason: nausea and vomiting) Qty: 60 0RF omeprazole 40 mg capsule,delayed release(DR/EC) 40 mg PO DAILY Qty: 90 3RF morphine concentrate 100 mg/5 mL (20 mg/mL) solution See Rx Instructions PO Q1H MDD 240 mg PRN (Reason: pain) Qty: 30 0RF Hold Instructions: Changed by Provider Patient Comments: spouse states they dont have yet Rx Instructions: 0.25-1.0 ml orally every 1 hour PRN; HOSPICE magnesium citrate 100 mg capsule 100 mg PO BID Qty: 14 0RF torsemide 10 mg tablet 10 mg PO BID spironolactone 25 mg tablet 25 mg PO DAILY sucralfate [Carafate] 1 gram tablet 1 g PO TID Qty: 90 5RF Hold Instructions: Changed by Provider Patient Comments: taking liquid now Rx Instructions: Take before meals fluoxetine 20 mg capsule 20 mg PO BID Patient Comments: TAKE 3 CAPSULES BY MOUTH DAILY Discharge Instructions Additional Instructions: Jack, I am sorry to keep you waiting today, and I appreciate your patience. I do not feel comfortable performing a paracentesis today because of the relatively small volume of ascites in the peritoneal cavity seen on the ultrasound. I worry that the risks of the procedure, specifically injuring the bowel that is moving through the ascites is not worth the benefit at this point. We have added you to the schedule for Saturday the fourth, and canceled your appointment on the . If you need anything over the weekend, please do not hesitate to page surgeon on-call. Activity:: Activity as Tolerated Diet:: As Tolerated Discharge Orders Discharge Orders: Discharge Order (Routine); Ordered 05/23/23 Ordered By: Nile Marshall
== END 2023-05-24 10:19 | disposition home or self-care (01) ==
PROVIDERS: PCP Family Medicine; Visit Provider Surgery
DX: Z53.09 Procedure and treatment not carried out because of other contraindication (principal)

== ENCOUNTER 2023-05-27 11:59 | Day surgery (SDC) | payer OTHER, SELFPAY ==
[2023-05-27 12:25] VITALS: BP 115/77; PULSE 95; RESP 17; TEMP 36.4; O2SAT 100
[2023-05-27 14:57] VITALS: BP 121/71; PULSE 90; RESP 16; TEMP 36.6; O2SAT 100
--- NOTE | 2023-05-27 14:58 | W.PM.DSUDISC ---
Date of service: 05/27/23 Time of Service: 14:58 Discharge Plan Disposition Patient Disposition: Home Condition: Good Discharge Details Reason For Visit: Therapeutic paracentesis Attending Provider: Nile Marshall Primary Care Provider: David Landaverde Home Meds and New Rx's Prescriptions: Continued (DME) blood sugar diagnostic Strip See Rx Instructions .ROUTE .MEDSUPPLY Qty: 100 3RF Patient Comments: rarely Rx Instructions: As directed; Test daily, to keep HbA1c less than 6.5%; Dx: E11.9 (DME) wheelchair See Rx Instructions .Route .MEDSUPPLY Qty: 1 0RF Rx Instructions: As directed naloxone [Narcan] 4 mg/actuation spray,non-aerosol 4 mg intranasal Q2M PRN (Reason: opioid overdose) Qty: 2 3RF Hold Instructions: pallative care Patient Comments: spouse states they dont have yet Rx Instructions: spray 1 dose into ONE nostril; alternate nostrils w each dose until help arrives potassium chloride 20 mEq/15 mL liquid 40 meq PO BID Qty: 3000 3RF sucralfate 100 mg/mL suspension 10 ml PO TID Qty: 1000 3RF olanzapine 5 mg tablet 5 mg PO QHS Qty: 14 0RF Hold Instructions: Pt Stopped/Never Started oxycodone 5 mg/5 mL solution 5 mg PO Q4H MDD 30 mg PRN (Reason: pain) Qty: 250 0RF Patient Comments: Took doses at 0600 and 1000; reports he is taking 3 ml at time now lactulose 10 gram/15 mL solution 10 g PO TID-QID clonazepam 0.5 mg tablet,disintegrating 0.5 mg PO DAILY Qty: 56 0RF midodrine 5 mg tablet 5 mg PO TID Qty: 30 0RF Hold Instructions: Pt Stopped/Never Started Patient Comments: 05/14/23 Pt Hasn't started Rx Instructions: do not give last dose of day after 6PM or within 4 hrs of bedtime ondansetron 8 mg tablet,disintegrating 8 mg PO Q8H PRN (Reason: nausea and vomiting) Qty: 60 0RF omeprazole 40 mg capsule,delayed release(DR/EC) 40 mg PO DAILY Qty: 90 3RF magnesium citrate 100 mg capsule 100 mg PO BID Qty: 14 0RF torsemide 10 mg tablet 10 mg PO BID Patient Comments: Can take 20 in the morning prn spironolactone 25 mg tablet 25 mg PO DAILY fluoxetine 20 mg capsule 20 mg PO BID Patient Comments: TAKE 3 CAPSULES BY MOUTH DAILY Discharge Instructions Activity:: Activity as Tolerated Diet:: As Tolerated DS: Diagnosis Discharge Diagnosis (1) Ascites of liver: Status: Acute
--- NOTE | 2023-05-27 14:59 | W.PROCNOTE ---
Date of service: 05/27/23 Time of Service: 14:59 Procedure Note Date of procedure: 05/27/23 Procedure: Therapeutic paracentesis Surgeon/Proceduralist/Physician: Nile Marshall Procedure Diagnosis: Tense ascites Procedure Indications: Jack is a 57-year-old male with end-stage liver disease and symptomatic ascites Procedure Description: I started by performing a limited ultrasound of the abdomen to identify appropriate site for paracentesis. Next, I selected the right lower quadrant as the ideal site for paracentesis. I then prepped and draped the abdomen. Next, using ultrasound guidance, I anesthetized the skin with 1% lidocaine with epinephrine. I used the ultrasound to guide the needle down to the peritoneal level which was also anesthetized. I then made a small incision in the skin with a 11 blade scalpel. Next, I advanced the 5 [place] paracentesis needle and catheter through the incision and into the peritoneal cavity under the direct vision of the ultrasound. I aspirated pale straw-colored ascites. Next, I gently advance the catheter and remove the needle. I affixed drainage tubing, and began draining the ascites with the assistance of Vacutainer's. As the flow decreased, I assisted the patient to the right lateral decubitus position to improve drainage. Once the ascites stopped flowing, I removed the catheter and used a suture and Band-Aid to dress the wound.
== END 2023-05-27 12:00 | disposition home or self-care (01) ==
PROVIDERS: PCP Family Medicine; Visit Provider Surgery
PROC: 0W9G3ZZ Drainage of Peritoneal Cavity, Percutaneous Approach (ICD-10-PCS; CPT 49082; principal; 2023-05-27 13:30)
DX: R18.8 Other ascites (principal)
CPT/HCPCS: 49082; 49083

== ENCOUNTER 2023-05-31 13:54 | Day surgery (SDC) | payer OTHER, SELFPAY ==
--- NOTE | 2023-05-30 19:25 | W.PM.DSUDISC ---
Date of service: 05/31/23 Time of Service: 16:34 Discharge Plan Disposition Patient Disposition: Home Condition: Poor Discharge Details Reason For Visit: Therapuetic paracentesis Attending Provider: Nile Marshall Primary Care Provider: David Landaverde Home Meds and New Rx's Prescriptions: Continued (DME) blood sugar diagnostic Strip See Rx Instructions .ROUTE .MEDSUPPLY Qty: 100 3RF Patient Comments: rarely, pt. reports checking it yesterday, BS 253, then went down Rx Instructions: As directed; Test daily, to keep HbA1c less than 6.5%; Dx: E11.9 (DME) wheelchair See Rx Instructions .Route .MEDSUPPLY Qty: 1 0RF Rx Instructions: As directed naloxone [Narcan] 4 mg/actuation spray,non-aerosol 4 mg intranasal Q2M PRN (Reason: opioid overdose) Qty: 2 3RF Hold Instructions: pallative care Patient Comments: spouse states they dont have yet Rx Instructions: spray 1 dose into ONE nostril; alternate nostrils w each dose until help arrives potassium chloride 20 mEq/15 mL liquid 40 meq PO BID Qty: 3000 3RF sucralfate 100 mg/mL suspension 10 ml PO TID Qty: 1000 3RF olanzapine 5 mg tablet 5 mg PO QHS Qty: 14 0RF Hold Instructions: Pt Stopped/Never Started oxycodone 5 mg/5 mL solution 5 mg PO Q4H MDD 30 mg PRN (Reason: pain) Qty: 250 0RF Patient Comments: Took doses at 0600 and 1000; reports he is taking 3 ml at time now lactulose 10 gram/15 mL solution 10 g PO TID-QID clonazepam 0.5 mg tablet,disintegrating 0.5 mg PO DAILY Qty: 56 0RF midodrine 5 mg tablet 5 mg PO TID Qty: 30 0RF Hold Instructions: Pt Stopped/Never Started Patient Comments: 05/14/23 Pt Hasn't started Rx Instructions: do not give last dose of day after 6PM or within 4 hrs of bedtime ondansetron 8 mg tablet,disintegrating 8 mg PO Q8H PRN (Reason: nausea and vomiting) Qty: 60 0RF omeprazole 40 mg capsule,delayed release(DR/EC) 40 mg PO DAILY Qty: 90 3RF torsemide 10 mg tablet 10 mg PO BID Qty: 180 3RF magnesium citrate 100 mg capsule 100 mg PO BID Qty: 14 0RF spironolactone 25 mg tablet 25 mg PO DAILY fluoxetine 20 mg capsule 20 mg PO BID Patient Comments: TAKE 3 CAPSULES BY MOUTH DAILY Discharge Instructions Additional Instructions: Jack, as always I was happy to talk to you today. I hope you are comfortable, and sleep well tonight. I already look forward to seeing you next time. Activity:: Activity as Tolerated Remove Dressings/Wound Care:: 24 hours Shower/Bathe:: 24 hours Diet:: As Tolerated Discharge Orders Discharge Orders: Discharge Order (Routine); Ordered 05/30/23 Ordered By: Nile Marshall DS: Diagnosis Discharge Diagnosis (1) Ascites of liver: Status: Acute Asessment and Plan: Therapeutic paracentesis. Follow-up as needed
--- NOTE | 2023-05-30 19:27 | W.PROCNOTE ---
Date of service: 05/31/23 Time of Service: 16:35 Procedure Note Date of procedure: 05/31/23 Procedure: Paracentesis Surgeon/Proceduralist/Physician: Nile Marshall Procedure Diagnosis: tense ascites Procedure Indications: Jack is 57 years old. He has end-stage liver disease with painful ascites. Procedure Description: After limited ultrasound of the abdomen and pelvis, I felt like the left lower quadrant would be the safest place to perform paracentesis. I then prepped and draped the abdomen. Next, using ultrasound guidance, I anesthetized the skin with 1% lidocaine with epinephrine. I used the ultrasound to guide the needle down to the peritoneal level which was also anesthetized. I then made a small incision in the skin with a 11 blade scalpel. Next, I advanced the 5 Portuguese paracentesis needle and catheter through the incision and into the peritoneal cavity under the direct vision of the ultrasound. I aspirated pale straw-colored ascites. Next, I gently advance the catheter and remove the needle. I affixed drainage tubing, and began draining the ascites with the assistance of Vacutainer's. I drained 8250 mL of ascites. I used a suture and Band-Aid to dress the wound. I removed his old suture on the right side.
[2023-05-31 14:36] VITALS: BP 133/71; PULSE 104; RESP 20; TEMP 36.4; O2SAT 99
[2023-05-31 16:36] VITALS: BP 111/65; PULSE 98; RESP 18; TEMP 36.6; O2SAT 99
== END 2023-05-31 16:55 | disposition home or self-care (01) ==
LOC: SUR 13:54
PROVIDERS: PCP Family Medicine; Visit Provider Surgery
PROC: 0W9G3ZZ Drainage of Peritoneal Cavity, Percutaneous Approach (ICD-10-PCS; CPT 49082; principal; 2023-05-31 13:30)
DX: K70.31 Alcoholic cirrhosis of liver with ascites (principal); K72.10 Chronic hepatic failure without coma
CPT/HCPCS: 49082; 49083

== ENCOUNTER 2023-06-04 10:03 | Day surgery (SDC) | payer OTHER, SELFPAY ==
--- NOTE | 2023-06-03 22:07 | W.PM.OP ---
Date of service: 06/04/23 Time of Service: 11:58 Operative Note Operative Note DATE OF PROCEDURE: 06/04/23 PRE-OP DIAGNOSIS: alcoholic cirrhosis POST-OP DIAGNOSIS: same PROCEDURE: paracentisis SURGEON: Danielle Hernandez ANESTHESIA TYPE: Local By Surgeon Refer to Anesthesia Record ESTIMATED BLOOD LOSS: 1 PATHOLOGY: none sent COMPLICATIONS: None Patient was transported to: same day Patient's condition: stable Procedure Description: Informed consent is obtained, explaining benefits and risks of the procedure including but not limited to: bleeding/infections/damage to bowels or blood vessels/chronic drainage or leakage/need for repeat procedure/reactions to anesthetics.?? The patient is brought to the procedure room and placed in the supine position.?? A time-out is done.? Ultrasound is used to localize the pocket of fluid.? The area is prepped and draped in the usual sterile fashion using a ChloraPrep scrub solution.? 10 cc's of 1% Lidocaine with epinephrine is used for local anesthetization.? The abdomen is punctured and the catheter is inserted.?6.8 liters of light yellow fluid is evacuated today.? The catheter is removed.? Pressure dressing is applied.? The patient tolerated the procedure well without complication and transferred to recovery in stable condition.?
--- NOTE | 2023-06-03 22:09 | PDOC.DSDIS_ITS ---
Date of service: 06/04/23 Time of Service: 11:58 Discharge Plan Disposition Patient Disposition: Home Condition: Good Discharge Details Reason For Visit: paracentisis Attending Provider: Danielle Hernandez Primary Care Provider: David Landaverde Home Meds and New Rx's Prescriptions: No Action (DME) blood sugar diagnostic Strip See Rx Instructions .ROUTE .MEDSUPPLY Qty: 100 3RF Patient Comments: rarely, pt. reports checking it yesterday, BS 253, then went down Rx Instructions: As directed; Test daily, to keep HbA1c less than 6.5%; Dx: E11.9 (DME) wheelchair See Rx Instructions .Route .MEDSUPPLY Qty: 1 0RF Rx Instructions: As directed naloxone [Narcan] 4 mg/actuation spray,non-aerosol 4 mg intranasal Q2M PRN (Reason: opioid overdose) Qty: 2 3RF Hold Instructions: pallative care Patient Comments: spouse states they dont have yet Rx Instructions: spray 1 dose into ONE nostril; alternate nostrils w each dose until help arrives potassium chloride 20 mEq/15 mL liquid 40 meq PO BID Qty: 3000 3RF sucralfate 100 mg/mL suspension 10 ml PO TID Qty: 1000 3RF Patient Comments: duplicate ondansetron 8 mg tablet,disintegrating 8 mg PO Q8H PRN (Reason: nausea and vomiting) Qty: 60 0RF olanzapine 5 mg tablet 5 mg PO QHS Qty: 14 0RF Hold Instructions: Pt Stopped/Never Started oxycodone 5 mg/5 mL solution 5 mg PO Q4H MDD 30 mg PRN (Reason: pain) Qty: 250 0RF Patient Comments: Took doses at 0600 and 1000; reports he is taking 3 ml at time now lactulose 10 gram/15 mL solution 10 g PO TID-QID clonazepam 0.5 mg tablet,disintegrating 0.5 mg PO DAILY Qty: 56 0RF midodrine 5 mg tablet 5 mg PO TID Qty: 30 0RF Hold Instructions: Pt Stopped/Never Started Patient Comments: 05/14/23 Pt Hasn't started Rx Instructions: do not give last dose of day after 6PM or within 4 hrs of bedtime omeprazole 40 mg capsule,delayed release(DR/EC) 40 mg PO DAILY Qty: 90 3RF torsemide 10 mg tablet 10 mg PO BID Qty: 180 3RF magnesium citrate 100 mg capsule 100 mg PO BID Qty: 14 0RF spironolactone 25 mg tablet 25 mg PO DAILY lorazepam [Lorazepam Intensol] 2 mg/mL concentrate Patient Comments: pt has not taken yet, but has it on hand per fluoxetine 20 mg capsule 20 mg PO BID Patient Comments: TAKE 3 CAPSULES BY MOUTH DAILY Discharge Instructions Additional Instructions: A paracentesis is a procedure to remove extra fluid from your belly (abdomen). This fluid buildup in the abdomen is called ascites. This fluid may be removed to decrease abdominal pressure or to examine the fluid in the laboratory. Fluid buildup in your abdomen can sometimes cause problems with your bowels and breath ing if it is not removed. What should I expect after the paracentesis? You might notice there is less tightness around your abdomen. You will be able to breathe better, which should help you feel more comfortable. How do I care for myself at home? ?? If you have pain after the procedure, your primary care provider can prescribe or recommend appropriate medications. ? It is normal for a small amount of fluid to leak from the puncture site. Keep the area dry and covered to prevent infection. ?? After 24 hours, you can remove your bandage and shower. You can wash the needle site gently with soap and warm water. ? Do not tub bath or submerge in water for three days. ?? Limit your activity for the rest of the day. Nutritional tips ?? Eat small, frequent and protein rich meals throughout the day (every 2 ? 4 hours) ? Limit added salt and high sodium foods ? Avoid alcohol When to get help ?Go to the ER if you have any of the following: ?? Fever above 100.4 ?F (38.0 ?C) ? Bleeding from the puncture site ?? Difficulty breathing ? Increased pain, redness, or swelling at the puncture site ?? Unable to produce urine Activity:: see above Remove Dressings/Wound Care:: 24 hours Shower/Bathe:: 24 hours Diet:: see above Discharge Orders Discharge Orders: Discharge Order (Routine); Ordered 06/03/23 Ordered By: Danielle Hernandez DS: Diagnosis Discharge Diagnosis (1) Medically noncompliant: Status: Acute (2) Anxiety: Status: Chronic (3) Depressive disorder: Status: Chronic (4) PTSD (post-traumatic stress disorder): Status: Acute (5) Personality disorder in adult: Status: Acute (6) Psychogenic nonepileptic seizure: Status: Chronic (7) ETOH abuse: Status: Chronic (8) History of alcoholism: Status: Acute (9) Benign hypertension: Status: Acute (10) Hypertension: Status: Chronic (11) Non-ST elevation AK (NSTEMI): Status: Acute (12) Hyperlipidemia: Status: Acute (13) 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 They are having no nausea or vomiting. They are tolerating liquids and a snack. The pt is not having any chest pain or SOB.? Their pain is adequately controlled. They have been able to urinate.? ?HEENT:? no eye pain/drainage/redness/swelling. Mild sore throat ?Cardio- NSR, no chest pain, BP stable- see VS record Pulm: no sob or productive cough. No hemoptysis Incision- dressing is c/d/i w/ no excessive bleeding or drainage I discussed with the patient the findings at the time of surgery and the patient?s progress. ?We reviewed expectations at home; what the patient could expect for recovery time, and in the post-operative period.? We discussed the importance of walking to avoid blood clots and pneumonia.? We discussed and reviewed the patient's post-operative wound care and dressing needs.?? We reviewed their step-vidal pain management plan, Rx called to the pharmacy of their choice.? We reviewed activity and limitations-see discharge instructions. We reviewed warning signs, and when to seek medical attention- see d/c instructions.?? Patient was given a postoperative follow-up appointment. Patient verbalized understanding of their postoperative instructions, how do to take care of themselves and their incision, and the pain management plan. Please see discharge instructions.? (24) Hypertension, portal: Status: Acute (25) Hepatic encephalopathy: Status: Acute (26) Alcoholic cirrhosis of liver with ascites: Status: Acute (27) End stage liver disease: Status: Acute (28) Splenomegaly: Status: Acute (29) Anemia of chronic disease: Status: Acute
[2023-06-04 10:35] VITALS: BP 113/75; PULSE 100; RESP 16; TEMP 36.3; O2SAT 104
[2023-06-04] MEDS: Sodium Bicarbonate 50 MEQ/50 ML VIAL (11:22)
[2023-06-04] MEDS: Lidocaine 1% Multi-Dose W/EPI 1/100,000 50 ML VIAL (11:22)
[2023-06-04 11:55] VITALS: BP 99/58; PULSE 97; RESP 16; TEMP 36.2; O2SAT 99
== END 2023-06-04 12:20 | disposition home or self-care (01) ==
LOC: SUR 10:29
PROVIDERS: PCP Family Medicine; Visit Provider Surgery
PROC: 0W9G3ZZ Drainage of Peritoneal Cavity, Percutaneous Approach (ICD-10-PCS; CPT 49082; principal; 2023-06-04 10:45)
DX: K70.31 Alcoholic cirrhosis of liver with ascites (principal)
CPT/HCPCS: 49083; J2004

== ENCOUNTER 2023-06-07 11:46 | Day surgery (SDC) | payer OTHER, SELFPAY ==
[2023-06-07 12:12] VITALS: BP 99/60; PULSE 89; RESP 14; TEMP 36.7; O2SAT 100
--- NOTE | 2023-06-07 13:14 | W.PM.DSUDISC ---
Date of service: 06/07/23 Time of Service: 13:15 Discharge Plan Disposition Patient Disposition: Home Condition: Poor Discharge Details Reason For Visit: Paracentesis Attending Provider: Nile Marshall Primary Care Provider: David Landaverde Home Meds and New Rx's Prescriptions: Continued (DME) blood sugar diagnostic Strip See Rx Instructions .ROUTE .MEDSUPPLY Qty: 100 3RF Patient Comments: rarely, pt. reports checking it yesterday, BS 253, then went down Rx Instructions: As directed; Test daily, to keep HbA1c less than 6.5%; Dx: E11.9 (DME) wheelchair See Rx Instructions .Route .MEDSUPPLY Qty: 1 0RF Rx Instructions: As directed naloxone [Narcan] 4 mg/actuation spray,non-aerosol 4 mg intranasal Q2M PRN (Reason: opioid overdose) Qty: 2 3RF Hold Instructions: pallative care Patient Comments: spouse states they dont have yet Rx Instructions: spray 1 dose into ONE nostril; alternate nostrils w each dose until help arrives potassium chloride 20 mEq/15 mL liquid 40 meq PO BID Qty: 3000 3RF sucralfate 100 mg/mL suspension 10 ml PO TID Qty: 1000 3RF Patient Comments: duplicate ondansetron 8 mg tablet,disintegrating 8 mg PO Q8H PRN (Reason: nausea and vomiting) Qty: 60 0RF olanzapine 5 mg tablet 5 mg PO QHS Qty: 14 0RF Hold Instructions: Pt Stopped/Never Started oxycodone 5 mg/5 mL solution 5 mg PO Q4H MDD 30 mg PRN (Reason: pain) Qty: 250 0RF Patient Comments: Took doses at 0600 and 1000; reports he is taking 3 ml at time now lactulose 10 gram/15 mL solution 10 g PO TID-QID clonazepam 0.5 mg tablet,disintegrating 0.5 mg PO DAILY Qty: 56 0RF midodrine 5 mg tablet 5 mg PO TID Qty: 30 0RF Hold Instructions: Pt Stopped/Never Started Patient Comments: 05/14/23 Pt Hasn't started Rx Instructions: do not give last dose of day after 6PM or within 4 hrs of bedtime omeprazole 40 mg capsule,delayed release(DR/EC) 40 mg PO DAILY Qty: 90 3RF torsemide 10 mg tablet 10 mg PO BID Qty: 180 3RF magnesium citrate 100 mg capsule 100 mg PO BID Qty: 14 0RF spironolactone 25 mg tablet 25 mg PO DAILY lorazepam [Lorazepam Intensol] 2 mg/mL concentrate Patient Comments: pt has not taken yet, but has it on hand per fluoxetine 20 mg capsule 20 mg PO BID Patient Comments: TAKE 3 CAPSULES BY MOUTH DAILY Discharge Instructions Additional Instructions: Jack, again, I appreciate your thoughtfulness. I hope you understand my recommendations today are an honest attempt to be thoughtful about your priorities and expectations with regards to your care. I encourage you to make the most of every day that you have, and focus on completing the things that are important to you. If your abdominal pain becomes unbearable, then drainage of the fluid to help control the pain remains an option. I will leave that up to you. But I do not want you to feel compelled to come in here all the time for routine paracentesis. Activity:: Activity as Tolerated DS: Diagnosis Discharge Diagnosis (1) End stage liver disease: Status: Acute Asessment and Plan: We did not perform paracentesis today since I do not think will be beneficial at this time. I encouraged Jack to reconsider the support of hospice.
== END 2023-06-07 11:47 | disposition home or self-care (01) ==
PROVIDERS: PCP Family Medicine; Visit Provider Surgery
DX: Z53.8 Procedure and treatment not carried out for other reasons (principal); K72.10 Chronic hepatic failure without coma

== ENCOUNTER 2023-06-11 10:28 | Day surgery (SDC) | payer OTHER, SELFPAY ==
[2023-06-11 10:40] VITALS: BP 107/69; PULSE 113; RESP 16; TEMP 36.7; O2SAT 100
--- NOTE | 2023-06-11 11:04 | W.PM.OP ---
Date of service: 06/11/23 Time of Service: 11:04 Operative Note Operative Note DATE OF PROCEDURE: 06/11/23 PRE-OP DIAGNOSIS: Alcoholic cirrhosis with ascites POST-OP DIAGNOSIS: same PROCEDURE: Paracentesis SURGEON: Danielle Hernandez ANESTHESIA TYPE: Local By Surgeon Refer to Anesthesia Record ESTIMATED BLOOD LOSS: 1 PATHOLOGY: none sent COMPLICATIONS: None Patient was transported to: same day Patient's condition: stable Procedure Description: Informed consent is obtained, explaining benefits and risks of the procedure including but not limited to: bleeding/infections/damage to bowels or blood vessels/chronic drainage or leakage/need for repeat procedure/reactions to anesthetics.?? The patient is brought to the procedure room and placed in the supine position.?? A time-out is done.? Ultrasound is used to localize the pocket of fluid.? The area is prepped and draped in the usual sterile fashion using a ChloraPrep scrub solution.? 10 cc's of 1% Lidocaine with epinephrine is used for local anesthetization.? The abdomen is punctured and the catheter is inserted.?6.5 liters of light yellow fluid is evacuated today.? The catheter is removed.? Pressure dressing is applied.? The patient tolerated the procedure well without complication and transferred to recovery in stable condition.?
--- NOTE | 2023-06-11 11:04 | W.PM.DSUDISC ---
Date of service: 06/11/23 Time of Service: 11:04 Discharge Plan Disposition Patient Disposition: Home Condition: Poor Discharge Details Reason For Visit: paracentisis Attending Provider: Danielle Hernandez Primary Care Provider: David Landaverde Home Meds and New Rx's Prescriptions: No Action (DME) blood sugar diagnostic Strip See Rx Instructions .ROUTE .MEDSUPPLY Qty: 100 3RF Patient Comments: rarely, pt. reports checking it yesterday, BS 253, then went down Rx Instructions: As directed; Test daily, to keep HbA1c less than 6.5%; Dx: E11.9 (DME) wheelchair See Rx Instructions .Route .MEDSUPPLY Qty: 1 0RF Rx Instructions: As directed naloxone [Narcan] 4 mg/actuation spray,non-aerosol 4 mg intranasal Q2M PRN (Reason: opioid overdose) Qty: 2 3RF Hold Instructions: pallative care Patient Comments: spouse states they dont have yet Rx Instructions: spray 1 dose into ONE nostril; alternate nostrils w each dose until help arrives potassium chloride 20 mEq/15 mL liquid 40 meq PO BID Qty: 3000 3RF sucralfate 100 mg/mL suspension 10 ml PO TID Qty: 1000 3RF Patient Comments: duplicate ondansetron 8 mg tablet,disintegrating 8 mg PO Q8H PRN (Reason: nausea and vomiting) Qty: 60 0RF olanzapine 5 mg tablet 5 mg PO QHS Qty: 14 0RF Hold Instructions: Pt Stopped/Never Started lactulose 10 gram/15 mL solution 10 g PO TID-QID clonazepam 0.5 mg tablet,disintegrating 0.5 mg PO DAILY Qty: 56 0RF midodrine 5 mg tablet 5 mg PO TID Qty: 30 0RF Hold Instructions: Pt Stopped/Never Started Patient Comments: 05/14/23 Pt Hasn't started Rx Instructions: do not give last dose of day after 6PM or within 4 hrs of bedtime omeprazole 40 mg capsule,delayed release(DR/EC) 40 mg PO DAILY Qty: 90 3RF torsemide 10 mg tablet 10 mg PO BID Qty: 180 3RF morphine concentrate 100 mg/5 mL (20 mg/mL) solution See Rx Instructions PO Q1H PRN MDD 120 mg Qty: 30 0RF Rx Instructions: 0.25-1.0 ml orally every 1 hour, as needed; HOSPICE lorazepam [Lorazepam Intensol] 2 mg/mL concentrate 1 mg sublingual .q4 prn oxycodone 5 mg/5 mL solution 5 mg PO Q4H MDD 30 mg PRN (Reason: pain) Qty: 250 0RF Patient Comments: Took doses at 0700; reports he is taking 3 ml at time now Rx Instructions: hospice patient magnesium citrate 100 mg capsule 100 mg PO BID Qty: 14 0RF spironolactone 25 mg tablet 25 mg PO DAILY fluoxetine 20 mg capsule 20 mg PO BID Patient Comments: TAKE 3 CAPSULES BY MOUTH DAILY Discharge Instructions Additional Instructions: -contact office if desire catheter placement for home drainage. [phone] A paracentesis is a procedure to remove extra fluid from your belly (abdomen). This fluid buildup in the abdomen is called ascites. This fluid may be removed to decrease abdominal pressure or to examine the fluid in the laboratory. Fluid buildup in your abdomen can sometimes cause problems with your bowels and breathing if it is not removed. What should I expect after the paracentesis? You might notice there is less tightness around your abdomen. You will be able to breathe better, which should help you feel more comfortable. How do I care for myself at home? ?? If you have pain after the procedure, your primary care provider can prescribe or recommend appropriate medications. ? It is normal for a small amount of fluid to leak from the puncture site. Keep the area dry and covered to prevent infection. ?? After 24 hours, you can remove your bandage and shower. You can wash the needle site gently with soap and warm water. ? Do not tub bath or submerge in water for three days. ?? Limit your activity for the rest of the day. Nutritional tips ?? Eat small, frequent and protein rich meals throughout the day (every 2 ? 4 hours) ? Limit added salt and high sodium foods ? Avoid alcohol When to get help ?Go to the ER if you have any of the following: ?? Fever above 100.4 ?F (38.0 ?C) ? Bleeding from the puncture site ?? Difficulty breathing ? Increased pain, redness, or swelling at the puncture site ?? Unable to produce urine Activity:: Activity as Tolerated Remove Dressings/Wound Care:: 24 hours Shower/Bathe:: 24 hours Diet:: As Tolerated Discharge Orders Discharge Orders: Discharge Order (Routine); Ordered 06/11/23 Ordered By: Danielle Hernandez DS: Diagnosis Discharge Diagnosis (1) ACP (advance care planning): Status: Acute (2) Depressive disorder: Status: Chronic (3) PTSD (post-traumatic stress disorder): Status: Acute (4) Personality disorder in adult: Status: Acute (5) ETOH abuse: Status: Chronic (6) Benign hypertension: Status: Acute (7) Non-ST elevation PR (NSTEMI): Status: Acute (8) Hyperlipidemia: Status: Acute (9) Edema of lower extremity due to peripheral venous insufficiency: Status: Acute (10) 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: Status: Acute (11) Elevated INR: Status: Acute (12) Type 2 diabetes mellitus with complication, without long-term current use of insulin: Status: Acute (13) Protein-calorie malnutrition, mild: Status: Acute (14) Low folate: Status: Acute (15) Portal hypertension with esophageal varices: Status: Acute (16) Portal hypertensive gastropathy: Status: Acute (17) Fatty liver, alcoholic: Status: Acute (18) Ascites of liver: Status: Acute (19) Hypertension, portal: Status: Acute (20) Cirrhosis: Status: Acute (21) Hepatic encephalopathy: Status: Acute (22) Alcoholic cirrhosis of liver with ascites: Status: Acute (23) End stage liver disease: Status: Acute (24) Ascites due to alcoholic cirrhosis: Status: Acute (25) Splenomegaly: Status: Acute (26) Anemia of chronic disease: Status: Acute (27) Peripheral neuropathy: Status: Acute (28) Low ferritin: Status: Acute (29) Diabetes mellitus type 2 in nonobese:
[2023-06-11] MEDS: Sodium Bicarbonate 50 MEQ/50 ML VIAL (11:18)
[2023-06-11] MEDS: Lidocaine 1% Multi-Dose W/EPI 1/100,000 50 ML VIAL (11:18)
[2023-06-11 11:51] VITALS: BP 111/61; PULSE 101; RESP 16; TEMP 36.6; O2SAT 98
[2023-06-11 12:04] VITALS: BP 108/67; PULSE 103; RESP 18; TEMP 36.6; O2SAT 100
== END 2023-06-11 12:35 | disposition home or self-care (01) ==
PROVIDERS: PCP Family Medicine; Visit Provider Surgery
PROC: 0W9G3ZZ Drainage of Peritoneal Cavity, Percutaneous Approach (ICD-10-PCS; CPT 49082; principal; 2023-06-11 11:30)
DX: K70.31 Alcoholic cirrhosis of liver with ascites (principal); K72.10 Chronic hepatic failure without coma
CPT/HCPCS: 49083; J2004

== ENCOUNTER → 2023-06-17 07:49 | Outpatient (BNVA) | payer OTHER, SELFPAY | PROVIDERS: PCP Family Medicine; Referring Provider Family Medicine; Visit Provider Surgery | DX: Z51.5 Encounter for palliative care (principal) | CPT/HCPCS: 99215 ==